=== PATIENT | male | born 1955 | race Caucasian/White ===

== ENCOUNTER 2018-01-19 10:10 | Inpatient (IN) | payer SELFPAY, OTHER ==
[2018-01-19 11:24] LABS: ADD MAN DIFF? NO
[2018-01-19 11:40] LABS: ANION GAP 12 (6-14); BLOOD UREA NITROGEN 74 mg/dL (8-26); BUN/CREATININE RATIO 19 (6-20); CALCIUM 8.6 mg/dL (8.5-10.1); CARBON DIOXIDE 23 mmol/L (21-32); CHLORIDE 98 mmol/L (98-107); CREATININE 3.9 mg/dL (0.7-1.3); GFR 15.7; GLUCOSE 137 mg/dL (70-99); POTASSIUM 4.3 mmol/L (3.5-5.1); SODIUM 133 mmol/L (136-145)
[2018-01-19 11:47] LABS: ALBUMIN 3.9 g/dL (3.4-5.0); ALBUMIN/GLOBULIN RATIO 1.1 (1.0-1.7); ALK PHOS 154 U/L (46-116); ALT (SGPT) 20 U/L (16-63); AST (SGOT) 21 U/L (15-37); TOTAL BILIRUBIN 0.4 mg/dL (0.2-1.0); TOTAL PROTEIN 7.5 g/dL (6.4-8.2)
[2018-01-19 11:50] LABS: TROPONINI < 0.017 ng/mL (0.000-0.055)
[2018-01-19 11:51] LABS: BASO # 0.1 x10^3/uL (0.0-0.2); BASO % 1 % (0-3); EOS # 0.3 x10^3/uL (0.0-0.7); EOS % 4 % (0-3); HEMATOCRIT 43.3 % (39.0-53.0); HEMOGLOBIN 14.6 g/dL (13.0-17.5); LYMPH % 24 % (24-48); MEAN CORPUSCULAR HEMOGLOBIN 30 pg (25-35); MEAN CORPUSCULAR HGB CONC 34 g/dL (31-37); MEAN CORPUSCULAR VOLUME 90 fL (79-100); MONO # 0.9 x10^3/uL (0.0-1.1); MONO % 12 % (0-9); NEUT # 4.8 x10^3uL (1.8-7.7); NEUT % 59 % (31-73); PLATELET COUNT 182 x10^3/uL (140-400); RED BLOOD COUNT 4.82 x10^6/uL (4.30-5.70); RED CELL DISTRIBUTION WIDTH 15.1 % (11.5-14.5); WHITE BLOOD COUNT 8.1 x10^3/uL (4.0-11.0)
[2018-01-19] MEDS: ORPHENADRINE CITRATE 60 MG/2 ML VIAL. IM (12:00)
[2018-01-19] MEDS: KETOROLAC 60 MG/2 ML INJ. IM (12:01)
[2018-01-19] MEDS: IV NORMAL SALINE 1000ML BAG 1,000 ML IV ×3 (12:29→17:24)
[2018-01-19 15:59] LABS: DIG 1.1 ng/mL (0.9-2.0)
[2018-01-19 16:41] LABS: BILIRUBIN,URINE SMALL (NEG); CLARITY,URINE CLEAR; COLOR,URINE AMBER; GLUCOSE,URINE NEGATIVE (NEG); NITRITE,URINE NEGATIVE (NEG); PROTEIN,URINE 100 mg/dL (NEG-TRACE)
[2018-01-19 17:01] LABS: AMORPHOUS SEDIMENT,UR PRESENT /HPF; BACTERIA,URINE 0 /HPF (0-FEW); HYALINE CASTS, URINE MANY /HPF; RBC,URINE OCC /HPF (0-2)
[2018-01-20] MEDS: IV NORMAL SALINE 1000ML BAG 1,000 ML IV ×3 (03:17→22:15)
[2018-01-20 04:48] LABS: ADD MAN DIFF? NO
[2018-01-20 04:54] LABS: BASO # 0.1 x10^3/uL (0.0-0.2); BASO % 1 % (0-3); EOS # 0.4 x10^3/uL (0.0-0.7); EOS % 6 % (0-3); HEMATOCRIT 42.5 % (39.0-53.0); HEMOGLOBIN 14.4 g/dL (13.0-17.5); LYMPH # 1.4 x10^3/uL (1.0-4.8); LYMPH % 19 % (24-48); MEAN CORPUSCULAR HEMOGLOBIN 31 pg (25-35); MEAN CORPUSCULAR HGB CONC 34 g/dL (31-37); MEAN CORPUSCULAR VOLUME 91 fL (79-100); MONO # 0.9 x10^3/uL (0.0-1.1); MONO % 13 % (0-9); NEUT # 4.3 x10^3uL (1.8-7.7); NEUT % 61 % (31-73); PLATELET COUNT 156 x10^3/uL (140-400); RED BLOOD COUNT 4.69 x10^6/uL (4.30-5.70); RED CELL DISTRIBUTION WIDTH 15.1 % (11.5-14.5)
[2018-01-20 05:20] LABS: ALBUMIN 3.3 g/dL (3.4-5.0); ALBUMIN/GLOBULIN RATIO 0.9 (1.0-1.7); ALK PHOS 138 U/L (46-116); ALT (SGPT) 19 U/L (16-63); ANION GAP 10 (6-14); AST (SGOT) 32 U/L (15-37); BLOOD UREA NITROGEN 63 mg/dL (8-26); BUN/CREATININE RATIO 32 (6-20); CALCIUM 8.2 mg/dL (8.5-10.1); CARBON DIOXIDE 24 mmol/L (21-32); CHLORIDE 104 mmol/L (98-107); CREATINE KINASE 563 U/L (39-308); GFR 33.9; GLUCOSE 90 mg/dL (70-99); POTASSIUM 4.3 mmol/L (3.5-5.1); SODIUM 138 mmol/L (136-145); TOTAL BILIRUBIN 0.5 mg/dL (0.2-1.0); TOTAL PROTEIN 6.9 g/dL (6.4-8.2)
[2018-01-20] MEDS ORDERED: NITROGLYCERIN SUBLINGUAL 0.4 MG BOTTLE OF 25. SL (08:15)
[2018-01-20] MEDS: CITALOPRAM 20 MG TABLET. PO (10:07)
[2018-01-20] MEDS: MULTIVITAMIN with MINERAL TABLET. PO (10:07)
[2018-01-20] MEDS: PANTOPRAZOLE 40 MG TABLET.DR. PO (10:08)
[2018-01-20] MEDS: CYANOCOBALAMIN (VITAMIN B-12) 1,000 MCG TABLET. PO (10:08)
[2018-01-20] MEDS: IPRATRPIUM/ALBUTEROL 0.5/2.5MG 3 ML NEBU. NEB ×4 (11:10→20:04)
[2018-01-20] MEDS: BUDESONIDE 0.5 MG/2 ML NEBU. NEB ×2 (11:13→20:04)
[2018-01-20] MEDS: DIGOXIN 125 MCG TABLET. PO (21:00)
[2018-01-20] MEDS: CETIRIZINE HCL 10 MG TABLET. PO (21:11)
[2018-01-20] MEDS: ASPIRIN CHEWABLE 81 MG TABLET. PO (21:11)
[2018-01-20] MEDS: VENLAFAXINE XR 37.5 MG CAP.ER.24H. PO (21:11)
[2018-01-21 04:43] LABS: ADD MAN DIFF? NO
[2018-01-21 04:56] LABS: BASO # 0.1 x10^3/uL (0.0-0.2); BASO % 1 % (0-3); EOS # 0.4 x10^3/uL (0.0-0.7); EOS % 8 % (0-3); HEMATOCRIT 38.1 % (39.0-53.0); HEMOGLOBIN 12.9 g/dL (13.0-17.5); LYMPH # 1.7 x10^3/uL (1.0-4.8); LYMPH % 30 % (24-48); MEAN CORPUSCULAR HEMOGLOBIN 31 pg (25-35); MEAN CORPUSCULAR HGB CONC 34 g/dL (31-37); MEAN CORPUSCULAR VOLUME 90 fL (79-100); MONO # 0.6 x10^3/uL (0.0-1.1); MONO % 11 % (0-9); NEUT # 2.8 x10^3uL (1.8-7.7); NEUT % 50 % (31-73); PLATELET COUNT 144 x10^3/uL (140-400); RED BLOOD COUNT 4.23 x10^6/uL (4.30-5.70); RED CELL DISTRIBUTION WIDTH 15.3 % (11.5-14.5); WHITE BLOOD COUNT 5.7 x10^3/uL (4.0-11.0)
[2018-01-21 05:05] LABS: ANION GAP 6 (6-14); BLOOD UREA NITROGEN 39 mg/dL (8-26); CALCIUM 7.9 mg/dL (8.5-10.1); CARBON DIOXIDE 25 mmol/L (21-32); CHLORIDE 109 mmol/L (98-107); CREATINE KINASE 267 U/L (39-308); CREATININE 1.2 mg/dL (0.7-1.3); GFR 61.1; GLUCOSE 89 mg/dL (70-99); POTASSIUM 4.2 mmol/L (3.5-5.1); SODIUM 140 mmol/L (136-145)
[2018-01-21] MEDS: BUDESONIDE 0.5 MG/2 ML NEBU. NEB (08:06)
[2018-01-21] MEDS: IPRATRPIUM/ALBUTEROL 0.5/2.5MG 3 ML NEBU. NEB ×2 (08:06→11:50)
[2018-01-21] MEDS: IV NORMAL SALINE 1000ML BAG 1,000 ML IV (08:15)
[2018-01-21] MEDS: MULTIVITAMIN with MINERAL TABLET. PO (08:42)
[2018-01-21] MEDS: PANTOPRAZOLE 40 MG TABLET.DR. PO (08:42)
[2018-01-21] MEDS: CITALOPRAM 20 MG TABLET. PO (08:42)
[2018-01-21] MEDS: CYANOCOBALAMIN (VITAMIN B-12) 1,000 MCG TABLET. PO (08:42)
== END 2018-01-21 13:11 | disposition home or self-care (01) | DRG 315 ==
LOC: 2 SOUTH 14:38 → ER 10:10 → 5 SOUTH 13:55 → 2 SOUTH 14:47
DX: I95.9 Hypotension, unspecified (principal); N17.9 Acute kidney failure, unspecified; E44.0 Moderate protein-calorie malnutrition; Z68.1 Body mass index [BMI] 19.9 or less, adult; T67.5XXA Heat exhaustion, unspecified, initial encounter; E86.0 Dehydration; K21.9 Gastro-esophageal reflux disease without esophagitis; E78.00 Pure hypercholesterolemia, unspecified; I25.10 Atherosclerotic heart disease of native coronary artery without angina pectoris; E78.5 Hyperlipidemia, unspecified; F41.9 Anxiety disorder, unspecified; F32.9 Major depressive disorder, single episode, unspecified; N18.9 Chronic kidney disease, unspecified; J44.9 Chronic obstructive pulmonary disease, unspecified; I12.9 Hypertensive chronic kidney disease with stage 1 through stage 4 chronic kidney disease, or unspecified chronic kidney disease; K57.90 Diverticulosis of intestine, part unspecified, without perforation or abscess without bleeding; F17.290 Nicotine dependence, other tobacco product, uncomplicated; I73.9 Peripheral vascular disease, unspecified; J30.9 Allergic rhinitis, unspecified; K64.8 Other hemorrhoids; M19.90 Unspecified osteoarthritis, unspecified site; X30.XXXA Exposure to excessive natural heat, initial encounter; Z88.1 Allergy status to other antibiotic agents; Z88.0 Allergy status to penicillin; Z87.11 Personal history of peptic ulcer disease; Z87.442 Personal history of urinary calculi; Z82.49 Family history of ischemic heart disease and other diseases of the circulatory system; Z83.3 Family history of diabetes mellitus
CPT/HCPCS: 36415; 71046; 76770; 80048; 80053; 80162; 81001; 82550; 83735; 84484; 85025; 93005; 94640; 94760; 96372; 99285; 99285-25; J1885; J2360; J7030; J7620; J7626

== ENCOUNTER 2018-05-02 16:39 | Emergency (ER) | payer SELFPAY ==
[~2018-05-02] VITALS: Ht 182.9 cm; Wt 67.1 kg
[~2018-05-02 16:39] MED LIST: AMLO5TAB7 PO; ASPI-630 PO; BUDE10.2 IH; CETI10TA22 PO; CYAN100031 PO; CYAN10005 PO; DICL100G18 TP; DIGO125T PO; ESCITALOPRAM OX10 MG PO; HYDR12.53 PO; Hydrocodone/Acetaminophen PO; IV NORMAL SALINE 1000ML BAG 1,000 ML IV SCH; LISI10TA2 PO; METO25TA4 PO; MULT-246 PO; MUPI15CR8 TP; NITR0.4T SL; OMEP40CA5 PO; POTA20TA82 PO; SIMV20TA3 PO; VENL75TA PO; [UNRECOGNIZED DRUG - CODE] IV
--- NOTE | 2018-05-02 17:05 | PHYS DOC ---
Past Medical History Past Medical History: DVT, GERD, High Cholesterol, Hypertension, Other Additional Past Medical Histor: STOMACH ULCERS, BRADYCARDIA Past Surgical History: Pacemaker, Other Additional Past Surgical Histo: dental surgery, ulcer surgery, back surgery Past Surgical History aortic valve replaced 2016 Alcohol Use: None Drug Use: None Adult General Chief Complaint Chief Complaint: ABDOMINAL PAIN HPI HPI 62-year-old male is sent for evaluation of left lower quadrant abdominal pain since yesterday. He reports nausea but no vomiting. Denies history of diverticulitis. He denies fevers, urinary symptoms, diarrhea or constipation. Patient denies shortness of air or chest pain. Review of Systems Review of Systems Constitutional: Denies fever or chills [] Eyes: Denies change in visual acuity, redness, or eye pain [] HENT: Denies nasal congestion or sore throat [] Respiratory: Denies cough or shortness of breath [] Cardiovascular: No additional information not addressed in HPI [] Musculoskeletal: Denies back pain or joint pain [] Integument: Denies rash or skin lesions [] Neurologic: Denies headache, focal weakness or sensory changes [] Endocrine: Denies polyuria or polydipsia [] All other systems were reviewed and found to be within normal limits, except as documented in this note. Current Medications Current Medications Current Medications Medications (Trade) Dose Ordered Sig/Trista Start Time Stop Time Status Last Admin Dose Admin Ciprofloxacin/ Dextrose 200 ml @ 200 mls/hr 1X ONCE 05/02/18 20:00 05/02/18 20:59 05/02/18 19:59 200 MLS/HR Famotidine (Pepcid Vial) 20 mg 1X ONCE 05/02/18 19:45 05/02/18 19:46 DC 05/02/18 19:51 20 MG Fentanyl Citrate (Fentanyl 2ml Vial) 25 mcg 1X ONCE 05/02/18 17:15 05/02/18 17:16 DC 05/02/18 17:30 25 MCG Info (CONTRAST GIVEN -- Rx MONITORING) 1 each PRN DAILY PRN 05/02/18 17:45 05/04/18 17:44 Iohexol (Omnipaque 300 Mg/ml) 75 ml 1X ONCE 05/02/18 18:00 05/02/18 18:01 DC 05/02/18 17:47 75 ML Metronidazole 100 ml @ 100 mls/hr 1X ONCE 05/02/18 19:30 05/02/18 20:29 DC 05/02/18 19:51 100 MLS/HR Nitroglycerin (Nitrostat) 0.4 mg PRN Q5MIN PRN 05/02/18 18:45 05/02/18 19:16 0.4 MG Ondansetron HCl (Zofran) 4 mg 1X ONCE 05/02/18 17:15 05/02/18 17:16 DC 05/02/18 17:31 4 MG Sodium Chloride 1,000 ml @ 1,000 mls/hr Q1H 05/02/18 17:15 05/02/18 18:14 DC 05/02/18 17:15 1,000 MLS/HR Allergies Allergies Allergies Coded Allergies Type Severity Reaction Last Updated Verified Penicillins Allergy Severe swelling 12/06/13 Yes vancomycin Adverse Reaction Unknown 11/03/14 Yes Physical Exam Physical Exam Constitutional: Well developed, well nourished, no acute distress, non-toxic appearance. [] Neck: Normal range of motion, no tenderness, supple, no stridor. [] Cardiovascular:Heart rate regular rhythm [] Lungs & Thorax: Bilateral breath sounds clear to auscultation [] Abdomen: Bowel sounds normal, soft, TTP LLQ, no masses, no pulsatile masses. [] Skin: Warm, dry, no erythema, no rash. [] Extremities: No tenderness, no cyanosis, no clubbing, ROM intact, no edema. [] Neurologic: Alert and oriented X 3, normal motor function, normal sensory function, no focal deficits noted. [] Psychologic: Affect normal, judgement normal, mood normal. [] Current Patient Data Vital Signs Vital Signs Date Time Temp Pulse Resp B/P (MAP) Pulse Ox O2 Delivery O2 Flow Rate FiO2 05/02/18 20:00 52 16 161/78 (105) 98 Room Air 05/02/18 16:58 98.1 98.1 Lab Values Laboratory Tests Test 05/02/18 16:56 05/02/18 19:18 05/02/18 19:43 White Blood Count 6.0 x10^3/uL (4.0-11.0) Red Blood Count 4.31 x10^6/uL (4.30-5.70) Hemoglobin 13.8 g/dL (13.0-17.5) Hematocrit 40.3 % (39.0-53.0) Mean Corpuscular Volume 94 fL (79-100) Mean Corpuscular Hemoglobin 32 pg (25-35) Mean Corpuscular Hemoglobin Concent 34 g/dL (31-37) Red Cell Distribution Width 15.4 % (11.5-14.5) H Platelet Count 168 x10^3/uL (140-400) Neutrophils (%) (Auto) 62 % (31-73) Lymphocytes (%) (Auto) 23 % (24-48) L Monocytes (%) (Auto) 10 % (0-9) H Eosinophils (%) (Auto) 4 % (0-3) H Basophils (%) (Auto) 1 % (0-3) Neutrophils # (Auto) 3.7 x10^3uL (1.8-7.7) Lymphocytes # (Auto) 1.4 x10^3/uL (1.0-4.8) Monocytes # (Auto) 0.6 x10^3/uL (0.0-1.1) Eosinophils # (Auto) 0.2 x10^3/uL (0.0-0.7) Basophils # (Auto) 0.1 x10^3/uL (0.0-0.2) Sodium Level 143 mmol/L (136-145) Potassium Level 3.9 mmol/L (3.5-5.1) Chloride Level 105 mmol/L (98-107) Carbon Dioxide Level 30 mmol/L (21-32) Anion Gap 8 (6-14) Blood Urea Nitrogen 12 mg/dL (8-26) Creatinine 1.1 mg/dL (0.7-1.3) Estimated GFR (Cockcroft-Gault) 67.6 BUN/Creatinine Ratio 11 (6-20) Glucose Level 97 mg/dL (70-99) Calcium Level 8.8 mg/dL (8.5-10.1) Total Bilirubin 0.4 mg/dL (0.2-1.0) Aspartate Amino Transferase (AST) 14 U/L (15-37) L Alanine Aminotransferase (ALT) 18 U/L (16-63) Alkaline Phosphatase 144 U/L (46-116) H Creatine Kinase 83 U/L (39-308) Creatine Kinase MB (Mass) 1.2 ng/mL (0.0-3.6) Creatine Kinase MB Relative Index 1.4 % (0-4) Total Protein 7.1 g/dL (6.4-8.2) Albumin 3.6 g/dL (3.4-5.0) Albumin/Globulin Ratio 1.0 (1.0-1.7) Lipase 260 U/L (73-393) POC Troponin I 0.00 ng/ml (<0.08) Urine Collection Type Unknown Urine Color Yellow Urine Clarity Clear Urine pH 6.0 Urine Specific [place] >=1.030 Urine Protein Negative mg/dL (NEG-TRACE) Urine Glucose (UA) Negative mg/dL (NEG) Urine Ketones (Stick) Negative mg/dL (NEG) Urine Blood Negative (NEG) Urine Nitrite Negative (NEG) Urine Bilirubin Negative (NEG) Urine Urobilinogen Dipstick 2.0 mg/dL (0.2 mg/dL) Urine Leukocyte Esterase Negative (NEG) Urine RBC Occ /HPF (0-2) Urine WBC 1-4 /HPF (0-4) Urine Squamous Epithelial Cells Occ /LPF Urine Bacteria 0 /HPF (0-FEW) Urine Mucus Slight /LPF Laboratory Tests 05/02/18 16:56 Laboratory Tests 05/02/18 16:56 EKG EKG [EKG interpretation sinus rhythm, rate 50, no STEMI, read by ER physician.] Radiology/Procedures Radiology/Procedures [PROCEDURE: CT ABD PELV W/ IV CONTRST ONLY Examination: CT of the abdomen pelvis with IV contrast HISTORY: History of left lower quadrant abdominal pain COMPARISON: None available TECHNIQUE: Axial CT images of the abdomen pelvis performed with IV contrast. Coronal and sagittal reformats are performed Exposure: One or more of the following individualized dose reduction techniques were utilized for this examination: 1. Automated exposure control 2. Adjustment of the mA and/or kV according to patient size 3. Use of iterative reconstruction technique FINDINGS: Bibasilar lung atelectasis is identified. No evidence of free air identified in the abdomen. There is mild decreased attenuation noted throughout the liver likely hepatic steatosis. The visualized spleen, adrenals grossly appears unremarkable. The gallbladder is mildly distended. The stomach is mildly distended. The visualized pancreas grossly appears unremarkable. There is thickened appearance of the wall of the duodenum with mild surrounding fat stranding. The small bowel is nondilated. The appendix is normal. Feces and gas noted in the colon. The bilateral kidneys enhance symmetrically. A bilobed infrarenal abdominal aortic aneurysm identified measuring 3.1 cm in AP dimension, 3.1 cm in transverse dimension. Diffuse aortic atherosclerosis. Urinary bladder is mildly distended. Mild degenerative changes lumbar spine. IMPRESSION: 1. Thickened appearance of the wall of the duodenum with surrounding mild fat stranding probably duodenitis. 2. Mild hepatic steatosis. 3. Bilobed infrarenal abdominal aortic aneurysm. Electronically signed by: Lew Hurd MD (05/02/2018 6:05 PM) [id number] ] Impressions: duodenitis, chest pain Course & Med Decision Making Course & Med Decision Making Pertinent Labs and Imaging studies reviewed. (See chart for details) [During the patient's ER course, I was notified by the RN that patient was complaining of chest pain, EKG, cardiac enzymes and chest x-ray were ordered. Nitroglycerin ordered for pain. patient reports 0 out of 10 pain upon recheck. Heart score 2. Discussed CT findings and lab results, patient states he is no longer having any pain and would like to be discharged home on medications so he may follow- up with Dr. Pham. Case was d/w Dr Benavidez who agrees c plan of care and discharge if pain free] Dragon Disclaimer Dragon Disclaimer This electronic medical record was generated, in whole or in part, using a voice recognition dictation system. Departure Departure Impression: Primary Impression: Duodenitis Additional Impression: Chest pain Disposition: HOME, SELF-CARE Condition: STABLE Referrals: IDA PHAM MD (PCP) Patient Instructions: Abdominal Pain Scripts Famotidine (PEPCID AC) 20 Mg Tablet 20 MG PO HS for 14 Days, #14 TAB Prov: HUE BELTRÁN APRN 05/02/18 Ciprofloxacin Hcl (CIPROFLOXACIN HCL) 500 Mg Tablet 1 TAB PO BID, #14 TAB Prov: HUE BELTRÁN APRN 05/02/18 Metronidazole (METRONIDAZOLE) 500 Mg Tablet 1 TAB PO BID, #14 TAB Prov: HUE BELTRÁN APRN 05/02/18 Problem Qualifiers HUE BELTRÁN APRN May 02, 2018 17:05
[2018-05-02 17:10] LABS: BASO # 0.1 x10^3/uL (0.0-0.2); BASO % 1 % (0-3); EOS # 0.2 x10^3/uL (0.0-0.7); EOS % 4 % (0-3); HEMATOCRIT 40.3 % (39.0-53.0); HEMOGLOBIN 13.8 g/dL (13.0-17.5); LYMPH # 1.4 x10^3/uL (1.0-4.8); LYMPH % 23 % (24-48); MEAN CORPUSCULAR HEMOGLOBIN 32 pg (25-35); MEAN CORPUSCULAR HGB CONC 34 g/dL (31-37); MEAN CORPUSCULAR VOLUME 94 fL (79-100); MONO # 0.6 x10^3/uL (0.0-1.1); MONO % 10 % (0-9); NEUT # 3.7 x10^3uL (1.8-7.7); NEUT % 62 % (31-73); PLATELET COUNT 168 x10^3/uL (140-400); RED BLOOD COUNT 4.31 x10^6/uL (4.30-5.70); RED CELL DISTRIBUTION WIDTH 15.4 % (11.5-14.5)
[2018-05-02] MEDS ORDERED: fentaNYL PF VIAL 100 MCG/2 ML VIAL IV ONE (17:15)
[2018-05-02] MEDS ORDERED: ONDANSETRON PF 4 MG/2 ML VIAL. IV ONE (17:15)
[2018-05-02] MEDS ORDERED: IV NORMAL SALINE 1000ML BAG 1,000 ML IV SCH (17:15)
[2018-05-02 17:31] LABS: CALCIUM 8.8 mg/dL (8.5-10.1); CREATININE 1.1 mg/dL (0.7-1.3); GFR 67.6; POTASSIUM 3.9 mmol/L (3.5-5.1)
[2018-05-02 17:37] LABS: ALBUMIN 3.6 g/dL (3.4-5.0); TOTAL BILIRUBIN 0.4 mg/dL (0.2-1.0); TOTAL PROTEIN 7.1 g/dL (6.4-8.2)
[2018-05-02] MEDS ORDERED: CONTRAST GIVEN. MC PRN (17:45)
[2018-05-02] MEDS ORDERED: IOHEXOL 300 MG/ML 100ML VIAL. IV ONE (18:00)
--- NOTE | 2018-05-02 18:08 | RAD ---
Examination: CT of the abdomen pelvis with IV contrast HISTORY: History of left lower quadrant abdominal pain COMPARISON: None available TECHNIQUE: Axial CT images of the abdomen pelvis performed with IV contrast. Coronal and sagittal reformats are performed Exposure: One or more of the following individualized dose reduction techniques were utilized for this examination: 1. Automated exposure control 2. Adjustment of the mA and/or kV according to patient size 3. Use of iterative reconstruction technique FINDINGS: Bibasilar lung atelectasis is identified. No evidence of free air identified in the abdomen. There is mild decreased attenuation noted throughout the liver likely hepatic steatosis. The visualized spleen, adrenals grossly appears unremarkable. The gallbladder is mildly distended. The stomach is mildly distended. The visualized pancreas grossly appears unremarkable. There is thickened appearance of the wall of the duodenum with mild surrounding fat stranding. The small bowel is nondilated. The appendix is normal. Feces and gas noted in the colon. The bilateral kidneys enhance symmetrically. A bilobed infrarenal abdominal aortic aneurysm identified measuring 3.1 cm in AP dimension, 3.1 cm in transverse dimension. Diffuse aortic atherosclerosis. Urinary bladder is mildly distended. Mild degenerative changes lumbar spine. IMPRESSION: 1. Thickened appearance of the wall of the duodenum with surrounding mild fat stranding probably duodenitis. 2. Mild hepatic steatosis. 3. Bilobed infrarenal abdominal aortic aneurysm. Electronically signed by: Lew Hurd MD (05/02/2018 6:05 PM) [facility]
[2018-05-02] MEDS ORDERED: NITROGLYCERIN SUBLINGUAL 0.4 MG BOTTLE OF 25. SL PRN (18:45)
[2018-05-02] MEDS ORDERED: FAMOTIDINE 20 MG/2 ML VIAL IVP ONE (19:45)
[2018-05-02 19:51] LABS: BILIRUBIN,URINE NEGATIVE (NEG); CLARITY,URINE CLEAR; COLOR,URINE YELLOW; NITRITE,URINE NEGATIVE (NEG); PROTEIN,URINE NEGATIVE (NEG-TRACE)
[2018-05-02] MEDS ORDERED: CIPROFLOXACIN 400MG PREMIX 200 ML IV ONE (20:00)
[2018-05-02 20:11] LABS: BACTERIA,URINE 0 /HPF (0-FEW); RBC,URINE OCC /HPF (0-2)
[2018-05-02 20:12] LABS: SQUAMOUS EPITHELIAL CELL,UR OCC /LPF
[2018-05-02] MEDS ORDERED: CIPR500T PO (20:20)
[2018-05-02] MEDS ORDERED: METR500T8 PO (20:20)
[2018-05-02] MEDS ORDERED: FAMO20TA38 PO (20:20)
[2018-05-02 21:00] VITALS: BP 160/75
--- NOTE | 2018-05-02 22:34 | EKG ---
[facility] [address] [place] [address] Test Date: 2018-05-02 Test Time: 18:17:18 Pat Name: DORIS HAN Department: Room: Gender: M [employer]age Diver: : 1955 Requested By: HUE BELTRÁN Order Number: [id number] Reading MD: Daniel Mariano MD Measurements Intervals [place] Rate: 50 P: 56 [place]: 168 QRS: 62 QRSD: 94 T: 81 QT: 460 QTc: 422 Interpretive Statements SINUS RHYTHM Electronically Signed On 05-03-2018 9:43:47 CDT by Daniel Mariano MD
--- NOTE | 2018-05-02 23:47 | RAD ---
Indication:ABDOMINAL PAIN X1 MONTH. ACUTE CHEST PAIN HAPPENING X1 HOUR AGO. PREVIOUS HEART SURGERY TECHNIQUE:Portable AP chest X-ray COMPARISON: 01/19/2018 FINDINGS: CABG changes noted. Heart is normal in size. Lungs are clear. No pneumothorax or pleural effusion. Visualized bony thorax within normal limits. IMPRESSION: No acute pulmonary process. Electronically signed by: Celestino Pham DO (05/02/2018 11:44 PM) [facility]
== END 2018-05-02 21:27 | disposition home or self-care (01) ==
LOC: ER 16:39
DX: K29.80 Duodenitis without bleeding (principal); R07.89 Other chest pain; Z86.718 Personal history of other venous thrombosis and embolism; K21.9 Gastro-esophageal reflux disease without esophagitis; E78.00 Pure hypercholesterolemia, unspecified; I10 Essential (primary) hypertension; Z95.0 Presence of cardiac pacemaker; Z88.0 Allergy status to penicillin; Z88.1 Allergy status to other antibiotic agents
CPT/HCPCS: 36415; 71045; 74177; 80053; 81001; 82553; 83690; 84484; 85025; 93005; 96365; 96366; 96368; 96375; 99285; J0744; J2405; J3010; J3490; J7030; Q9967

== ENCOUNTER → 2018-08-29 | Outpatient (CLI) | payer OTHER ==
[~2018-08-29] MED LIST changes: +AMLO5TAB10 PO; -AMLO5TAB7 PO; +CIPR500T PO; +FAMO20TA38 PO; -HYDR12.53 PO; +HYDR12.575 PO; -IV NORMAL SALINE 1000ML BAG 1,000 ML IV SCH; +METR-34 PO
--- NOTE | 2018-08-30 08:34 | RAD ---
Chest, 2 views, 08/29/2018: HISTORY: Chronic cough Comparison is made to a study from 05/02/2018. There has been a previous median sternotomy. Old epicardial pacing leads are projected over the anterior aspect of the heart. The heart size is normal. There is calcific plaquing of the aorta. There are minimal parenchymal scars. No acute infiltrate is seen. There is no evidence of pleural fluid. IMPRESSION: No acute cardiopulmonary abnormality is detected. Electronically signed by: Shahab Magallon MD (08/30/2018 8:31 AM) [facility]
== END | disposition home or self-care (01) ==
LOC: RAD 16:34
PROVIDERS: ATTEND Internal Medicine
DX: R05 Cough (principal)
CPT/HCPCS: 71046

== ENCOUNTER 2018-10-06 03:58 | Emergency (ER) | payer OTHER ==
[~2018-10-06] VITALS: Ht 182.9 cm; Wt 70.8 kg
[~2018-10-06 03:58] MED LIST changes: +VANC1.2521 IV; -[UNRECOGNIZED DRUG - CODE] IV
[2018-10-06] MEDS ORDERED: IV NORMAL SALINE 1000ML BAG 1,000 ML IV ONE (04:30)
[2018-10-06 04:40] LABS: BASO # 0.1 x10^3/uL (0.0-0.2); BASO % 1 % (0-3); EOS # 0.2 x10^3/uL (0.0-0.7); EOS % 3 % (0-3); HEMATOCRIT 39.5 % (39.0-53.0); HEMOGLOBIN 12.9 g/dL (13.0-17.5); LYMPH # 1.1 x10^3/uL (1.0-4.8); LYMPH % 21 % (24-48); MEAN CORPUSCULAR HEMOGLOBIN 29 pg (25-35); MEAN CORPUSCULAR HGB CONC 33 g/dL (31-37); MEAN CORPUSCULAR VOLUME 87 fL (79-100); MONO # 0.8 x10^3/uL (0.0-1.1); MONO % 16 % (0-9); NEUT # 3.2 x10^3uL (1.8-7.7); NEUT % 59 % (31-73); PLATELET COUNT 166 x10^3/uL (140-400); RED BLOOD COUNT 4.53 x10^6/uL (4.30-5.70); RED CELL DISTRIBUTION WIDTH 15.8 % (11.5-14.5); WHITE BLOOD COUNT 5.4 x10^3/uL (4.0-11.0)
[2018-10-06] MEDS ORDERED: KETOROLAC 15 MG/ML VIAL. IV ONE (04:45)
[2018-10-06] MEDS ORDERED: METOCLOPRAMIDE HCL 10 MG/2 ML VIAL. IV ONE (04:45)
--- NOTE | 2018-10-06 04:51 | PHYS DOC ---
Past Medical History Past Medical History: Hypertension Additional Past Medical Histor: STOMACH ULCERS, BRADYCARDIA, abd aneurysm Past Surgical History: Other Additional Past Surgical Histo: OPEN HEART SURGERY FOR VALVUE REPAIR Alcohol Use: None Drug Use: None Adult General Chief Complaint Chief Complaint: FLANK PAIN HPI HPI Patient is a 62 year old male who presents to the ED with left flank and back pain. This started about 2 hours before he presented to the ED at 1 in the morning. Reports it as an 8/10 stabbing pain that starts in his left flank and radiates around his side and into his lower abdominal area. Lying down helps the pain. Sitting up and standing aggravates the pain. His tried nothing to help with the symptoms. He reports he has had this pain before and was diagnosed with a kidney stone. Review of Systems Review of Systems Constitutional: Denies fever or chills [] Eyes: Denies change in visual acuity, redness, or eye pain [] HENT: Denies nasal congestion or sore throat [] Respiratory: Denies cough or shortness of breath [] Cardiovascular: Denies chest pain or palpitations. GI: Admits abdominal pain. Denies nausea, vomiting, bloody stools or diarrhea [] : Denies dysuria. Admits hematuria [] Musculoskeletal: Admits back pain. Denies joint pain [] Integument: Denies rash or skin lesions [] Neurologic: Denies headache, focal weakness or sensory changes [] Complete systems were reviewed and found to be within normal limits, except as documented in this note. Current Medications Current Medications Current Medications Medications (Trade) Dose Ordered Sig/Trista Start Time Stop Time Status Last Admin Dose Admin Ketorolac Tromethamine (Toradol 15mg Vial) 15 mg 1X ONCE 10/06/18 04:45 10/06/18 04:46 DC 10/06/18 04:47 15 MG Metoclopramide HCl (Reglan Vial) 10 mg 1X ONCE 10/06/18 04:45 10/06/18 04:46 DC 10/06/18 04:47 10 MG Sodium Chloride 1,000 ml @ 1,000 mls/hr 1X ONCE 10/06/18 04:30 10/06/18 05:29 DC 10/06/18 04:36 1,000 MLS/HR Tamsulosin HCl (Flomax) 0.4 mg 1X ONCE 10/06/18 06:00 10/06/18 06:01 DC 10/06/18 06:03 0.4 MG Allergies Allergies Allergies Coded Allergies Type Severity Reaction Last Updated Verified Penicillins Allergy Severe swelling 12/06/13 Yes vancomycin Adverse Reaction Unknown 11/03/14 Yes Physical Exam Physical Exam Constitutional: Well developed, well nourished, no acute distress, non-toxic appearance. [] HENT: Normocephalic, atraumatic, nose normal. [] Eyes: EOMI, conjunctiva normal, no discharge. [] Neck: Normal range of motion, no tenderness, supple, no stridor. [] Cardiovascular: Heart rate regular rhythm, no murmur [] Lungs & Thorax: Bilateral breath sounds clear to auscultation [] Abdomen: Soft, tender to palpation left lower quadrant. Skin: Warm, dry, no erythema, no rash. [] Back: Left CVA and lumbar tenderness. No midline tenderness. Extremities: No tenderness, no cyanosis, no clubbing, ROM intact Neurologic: Alert and oriented, normal motor function, normal sensory function, no focal deficits noted. [] Psychologic: Affect normal, judgement normal, mood normal. [] Current Patient Data Vital Signs Vital Signs Date Time Temp Pulse Resp B/P (MAP) Pulse Ox O2 Delivery O2 Flow Rate FiO2 10/06/18 06:06 50 20 140/64 (89) 96 10/06/18 04:05 97.8 Room Air 97.8 Lab Values Laboratory Tests Test 10/06/18 04:20 10/06/18 04:35 White Blood Count 5.4 x10^3/uL (4.0-11.0) Red Blood Count 4.53 x10^6/uL (4.30-5.70) Hemoglobin 12.9 g/dL (13.0-17.5) L Hematocrit 39.5 % (39.0-53.0) Mean Corpuscular Volume 87 fL (79-100) Mean Corpuscular Hemoglobin 29 pg (25-35) Mean Corpuscular Hemoglobin Concent 33 g/dL (31-37) Red Cell Distribution Width 15.8 % (11.5-14.5) H Platelet Count 166 x10^3/uL (140-400) Neutrophils (%) (Auto) 59 % (31-73) Lymphocytes (%) (Auto) 21 % (24-48) L Monocytes (%) (Auto) 16 % (0-9) H Eosinophils (%) (Auto) 3 % (0-3) Basophils (%) (Auto) 1 % (0-3) Neutrophils # (Auto) 3.2 x10^3uL (1.8-7.7) Lymphocytes # (Auto) 1.1 x10^3/uL (1.0-4.8) Monocytes # (Auto) 0.8 x10^3/uL (0.0-1.1) Eosinophils # (Auto) 0.2 x10^3/uL (0.0-0.7) Basophils # (Auto) 0.1 x10^3/uL (0.0-0.2) Sodium Level 143 mmol/L (136-145) Potassium Level 3.4 mmol/L (3.5-5.1) L Chloride Level 105 mmol/L (98-107) Carbon Dioxide Level 33 mmol/L (21-32) H Anion Gap 5 (6-14) L Blood Urea Nitrogen 15 mg/dL (8-26) Creatinine 1.1 mg/dL (0.7-1.3) Estimated GFR (Cockcroft-Gault) 67.6 BUN/Creatinine Ratio 14 (6-20) Glucose Level 83 mg/dL (70-99) Calcium Level 8.4 mg/dL (8.5-10.1) L Magnesium Level 2.2 mg/dL (1.8-2.4) Total Bilirubin 0.5 mg/dL (0.2-1.0) Aspartate Amino Transferase (AST) 19 U/L (15-37) Alanine Aminotransferase (ALT) 14 U/L (16-63) L Alkaline Phosphatase 134 U/L (46-116) H Total Protein 6.9 g/dL (6.4-8.2) Albumin 3.2 g/dL (3.4-5.0) L Albumin/Globulin Ratio 0.9 (1.0-1.7) L Lipase 133 U/L (73-393) Digoxin Level < 0.2 ng/mL (0.9-2.0) L Digoxin Last Dose Date Unknown Digoxin Last Dose Time Unknown Lactic Acid Level 0.8 mmol/L (0.4-2.0) Laboratory Tests 10/06/18 04:20 Laboratory Tests 10/06/18 04:20 EKG EKG [] Radiology/Procedures Radiology/Procedures PROCEDURE: CT ABDOMEN PELVIS WO CONTRAST CT scan of the abdomen and pelvis without contrast 09/28/2018 CLINICAL HISTORY: Left flank pain. TECHNIQUE: Unenhanced, contiguous, 2 mm axial sections were obtained through the abdomen and pelvis. One or more of the following individualized dose reduction techniques were utilized for this study: 1. Automated exposure control. 2. Adjustment of the mA and/or kV according to patient size. 3. Use of iterative reconstruction technique. FINDINGS: Comparison study is dated 05/02/2018. Images through the lung bases demonstrate minimal dependent subsegmental atelectasis bilaterally. The liver, spleen, pancreas, adrenal glands are within normal limits. A 2 mm nonobstructing calculus is seen involving the lower pole of the left kidney. No ureteral calculus is seen. Mild dilatation of the left intrarenal collecting system is seen. Within the proximal left ureter near the left UPJ there appears to be a 2 mm left ureteral calculus. This is causing mild obstruction of the left collecting system. Atherosclerotic calcification of the abdominal aorta and its branches is seen. The abdominal aorta is again noted to be ectatic. The gallbladder is well-distended. No free fluid or free air is seen within the abdomen. There is no evidence of bowel obstruction. Images through the pelvis demonstrate the urinary bladder distended with urine. A moderate amount of stool is seen involving the sigmoid colon and rectum. No free fluid is seen. Degenerative changes are seen involving the lower thoracic and throughout the lumbar spine and both hips. IMPRESSION: 2 mm proximal left ureteral calculus is seen near the left UPJ which is causing mild obstruction of the left collecting system. Electronically signed by: Dipesh Freitas MD (10/06/2018 5:07 AM) [facility] Course & Med Decision Making Course & Med Decision Making Pertinent Labs and Imaging studies reviewed. (See chart for details) Patient is a 62-year-old male presents to the ED with left flank pain. CT abdomen and labs pending Dragon Disclaimer Dragon Disclaimer This electronic medical record was generated, in whole or in part, using a voice recognition dictation system. Departure Departure Impression: Primary Impression: Kidney stone Disposition: 01 HOME, SELF-CARE Condition: STABLE Referrals: IDA CUMMINGS MD (PCP) Patient Instructions: Diet for Kidney Stones, Kidney Stones, [id number] Scripts Ondansetron (ONDANSETRON ODT) 4 Mg Tab.rapdis 1 TAB PO PRN Q6-8HRS PRN for NAUSEA, #16 TAB Prov: MARTINEZ SLOAN DO 10/06/18 Hydrocodone/Apap 5-325 (NORCO 5-325 TABLET) 1 Each Tablet 0.5-1 TAB PO PRN Q6HRS PRN for PAIN, #8 TAB 0 Refills Prov: MARTINEZ SLOAN DO 10/06/18 Tamsulosin Hcl (FLOMAX) 0.4 Mg Cap.er.24h 1 CAP PO DAILY, #7 CAP 0 Refills Prov: MARTINEZ SLOAN DO 10/06/18 MARTINEZ SLOAN DO Oct 06, 2018 04:51
[2018-10-06 04:53] LABS: CALCIUM 8.4 mg/dL (8.5-10.1); CREATININE 1.1 mg/dL (0.7-1.3); GFR 67.6; POTASSIUM 3.4 mmol/L (3.5-5.1)
[2018-10-06 04:59] LABS: ALBUMIN 3.2 g/dL (3.4-5.0); ALBUMIN/GLOBULIN RATIO 0.9 (1.0-1.7); MAGNESIUM 2.2 mg/dL (1.8-2.4); TOTAL BILIRUBIN 0.5 mg/dL (0.2-1.0); TOTAL PROTEIN 6.9 g/dL (6.4-8.2)
--- NOTE | 2018-10-06 05:10 | RAD ---
CT scan of the abdomen and pelvis without contrast 09/28/2018 CLINICAL HISTORY: Left flank pain. TECHNIQUE: Unenhanced, contiguous, 2 mm axial sections were obtained through the abdomen and pelvis. One or more of the following individualized dose reduction techniques were utilized for this study: 1. Automated exposure control. 2. Adjustment of the mA and/or kV according to patient size. 3. Use of iterative reconstruction technique. FINDINGS: Comparison study is dated 05/02/2018. Images through the lung bases demonstrate minimal dependent subsegmental atelectasis bilaterally. The liver, spleen, pancreas, adrenal glands are within normal limits. A 2 mm nonobstructing calculus is seen involving the lower pole of the left kidney. No ureteral calculus is seen. Mild dilatation of the left intrarenal collecting system is seen. Within the proximal left ureter near the left UPJ there appears to be a 2 mm left ureteral calculus. This is causing mild obstruction of the left collecting system. Atherosclerotic calcification of the abdominal aorta and its branches is seen. The abdominal aorta is again noted to be ectatic. The gallbladder is well-distended. No free fluid or free air is seen within the abdomen. There is no evidence of bowel obstruction. Images through the pelvis demonstrate the urinary bladder distended with urine. A moderate amount of stool is seen involving the sigmoid colon and rectum. No free fluid is seen. Degenerative changes are seen involving the lower thoracic and throughout the lumbar spine and both hips. IMPRESSION: 2 mm proximal left ureteral calculus is seen near the left UPJ which is causing mild obstruction of the left collecting system. Electronically signed by: Dipesh Freitas MD (10/06/2018 5:07 AM) [facility]
[2018-10-06 05:39] LABS: DIG < 0.2 ng/mL (0.9-2.0)
[2018-10-06] MEDS ORDERED: TAMSULOSIN 0.4 MG CAP.ER.24H. PO ONE (06:00)
[2018-10-06 06:06] VITALS: BP 140/64
[2018-10-06 06:40] LABS: BILIRUBIN,URINE NEGATIVE (NEG); CLARITY,URINE CLEAR; COLOR,URINE YELLOW; NITRITE,URINE NEGATIVE (NEG); PROTEIN,URINE NEGATIVE (NEG-TRACE)
[2018-10-06] MEDS ORDERED: HYDR-3164 PO (06:42)
[2018-10-06] MEDS ORDERED: ONDA4TAB12 PO (06:42)
[2018-10-06] MEDS ORDERED: TAMS0.4C97 PO (06:42)
[2018-10-06 06:45] LABS: SQUAMOUS EPITHELIAL CELL,UR FEW /LPF
[2018-10-06 06:46] LABS: BACTERIA,URINE FEW /HPF (0-FEW); RBC,URINE 0 /HPF (0-2); WBC,URINE OCC /HPF (0-4)
== END 2018-10-06 07:11 | disposition home or self-care (01) ==
LOC: ER 03:58
DX: N20.2 Calculus of kidney with calculus of ureter (principal); I10 Essential (primary) hypertension; Z88.0 Allergy status to penicillin; Z88.1 Allergy status to other antibiotic agents
CPT/HCPCS: 36415; 74176; 80053; 80162; 81001; 83605; 83690; 83735; 85025; 96374; 96375; 99284; J1885; J2765; J7030

== ENCOUNTER 2018-10-15 07:33 | Inpatient (IN) | payer OTHER ==
[~2018-10-15] VITALS: Ht 182.9 cm; Wt 69.4 kg
[~2018-10-15 07:33] MED LIST changes: +HYDR-3164 PO; +ONDA4TAB12 PO; +TAMS0.4C97 PO
[2018-10-15 08:51] LABS: BASO # 0.1 x10^3/uL (0.0-0.2); BASO % 1 % (0-3); EOS # 0.2 x10^3/uL (0.0-0.7); EOS % 3 % (0-3); HEMATOCRIT 41.2 % (39.0-53.0); HEMOGLOBIN 13.7 g/dL (13.0-17.5); LYMPH # 1.3 x10^3/uL (1.0-4.8); LYMPH % 22 % (24-48); MEAN CORPUSCULAR HEMOGLOBIN 29 pg (25-35); MEAN CORPUSCULAR HGB CONC 33 g/dL (31-37); MEAN CORPUSCULAR VOLUME 87 fL (79-100); MONO # 0.7 x10^3/uL (0.0-1.1); MONO % 13 % (0-9); NEUT # 3.4 x10^3uL (1.8-7.7); NEUT % 61 % (31-73); PLATELET COUNT 152 x10^3/uL (140-400); RED BLOOD COUNT 4.76 x10^6/uL (4.30-5.70); RED CELL DISTRIBUTION WIDTH 16.6 % (11.5-14.5); WHITE BLOOD COUNT 5.6 x10^3/uL (4.0-11.0)
[2018-10-15] MEDS ORDERED: IV NORMAL SALINE 500ML BAG 500 ML IV ONE (09:00)
[2018-10-15 09:03] LABS: PROTHROMBIN TIME PATIENT 13.4 SEC (11.7-14.0)
--- NOTE | 2018-10-15 09:05 | PHYS DOC ---
Past Medical History Past Medical History: CAD, COPD, Hypertension, [place], Stroke, Urolithiasis Additional Past Medical Histor: STOMACH ULCERS, BRADYCARDIA, abd aneurysm Past Surgical History: Other Additional Past Surgical Histo: OPEN HEART SURGERY FOR VALVE REPAIR, ulcer surgery Smoking: Cigar (50 year smoking history) Additional Information: 3-4 cigars daily Alcohol Use: None Drug Use: None Adult General Chief Complaint Chief Complaint: DIZZY/LIGHT HEADED HPI HPI Patient is a 62 year old male who presents with pre-syncopal episode with generalized, diffuse weakness. He reports that this morning at work, he was going to get coffee and talk with co-workers when he felt like he was going to pass out. He steadied himself on a nearby chair or table and decided to come to the ER. He denies LOC or falling. He reports chronic weakness in his R-shoulder which he attributes to tissue injury. He denies vision changed. He reports that he had a stone in his bladder last weak and that it passed. He reports hematuria during this time, but observed no blood in his urine in the last few days. He reports that his PCP recommended he get an MRI for a concern of a recent stroke but his insurance will not cover it. He has an extensive cardiac history with artificial heart valve replacement and revision, and pacemaker which was removed two years ago. He reports chronic SOB from COPD without recent exacerbation. 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 He denies f/c/n/ v/, CP, hematochezia. Review of Systems Review of Systems Constitutional: Denies fever or chills [] Eyes: Denies change in visual acuity, redness, or eye pain [] HENT: Denies nasal congestion or sore throat [] Respiratory: Denies cough. Reports chronic shortness of breath [] Cardiovascular: No additional information not addressed in HPI [] GI: Denies abdominal pain, nausea, vomiting, bloody stools or diarrhea [] : Denies dysuria or hematuria [] Musculoskeletal: Denies back pain or joint pain [] Integument: Denies rash or skin lesions [] Neurologic: Reports daily headaches that resolve on their own, he reports generalized, diffuse weakness. He denies sensory changes [] Endocrine: Denies polyuria or polydipsia [] All other systems were reviewed and found to be within normal limits, except as documented in this note. Current Medications Current Medications Current Medications Medications (Trade) Dose Ordered Sig/Trista Start Time Stop Time Status Last Admin Dose Admin Aspirin (Children'S Aspirin) 324 mg 1X ONCE 10/15/18 10:00 10/15/18 10:01 Sodium Chloride 500 ml @ 500 mls/hr 1X ONCE 10/15/18 09:00 10/15/18 09:59 10/15/18 09:31 500 MLS/HR see med list Allergies Allergies Allergies Coded Allergies Type Severity Reaction Last Updated Verified Penicillins Allergy Severe swelling 12/06/13 Yes vancomycin Adverse Reaction Intermediate 10/15/18 Yes Physical Exam Physical Exam Constitutional: Well developed, well nourished, no acute distress, non-toxic appearance. [] HENT: Normocephalic, atraumatic, bilateral external ears normal, oropharynx moist, no oral exudates, nose normal. [] Eyes: PERRLA, EOMI, conjunctiva normal, no discharge. [] Neck: Normal range of motion, no tenderness, supple, no stridor. [] Cardiovascular: Bradycardic heart rate, regular rhythm, 2/6 systolic murmur [] Lungs & Thorax: Expiratory wheezes R-lung posts, L-lung clear to auscultation, no wheezes, crackles or rales.[] Abdomen: Large distended, compressible varicose vein observed on L-lateral abdomen. Bowel sounds normal, soft, no tenderness, no masses, no pulsatile masses. [] Skin: Warm, dry, no erythema, no rash. [] Back: No tenderness, no CVA tenderness. [] Extremities: Right shoulder diminished ROM to extension. No tenderness, no cyanosis, no clubbing, no edema. [] Neurologic: Alert and oriented X 3, CN 2-11 intact, cerebellar testing negative , UE/LE str 5/5 b/l, normal motor function, normal sensory function, no focal deficits noted. [] Psychologic: Affect normal, judgement normal, mood normal. [] Current Patient Data Vital Signs Vital Signs Date Time Temp Pulse Resp B/P (MAP) Pulse Ox O2 Delivery O2 Flow Rate FiO2 10/15/18 09:29 87 20 97 10/15/18 07:42 97.8 164/81 (108) Room Air 97.8 Lab Values Laboratory Tests Test 10/15/18 08:25 White Blood Count 5.6 x10^3/uL (4.0-11.0) Red Blood Count 4.76 x10^6/uL (4.30-5.70) Hemoglobin 13.7 g/dL (13.0-17.5) Hematocrit 41.2 % (39.0-53.0) Mean Corpuscular Volume 87 fL (79-100) Mean Corpuscular Hemoglobin 29 pg (25-35) Mean Corpuscular Hemoglobin Concent 33 g/dL (31-37) Red Cell Distribution Width 16.6 % (11.5-14.5) H Platelet Count 152 x10^3/uL (140-400) Neutrophils (%) (Auto) 61 % (31-73) Lymphocytes (%) (Auto) 22 % (24-48) L Monocytes (%) (Auto) 13 % (0-9) H Eosinophils (%) (Auto) 3 % (0-3) Basophils (%) (Auto) 1 % (0-3) Neutrophils # (Auto) 3.4 x10^3uL (1.8-7.7) Lymphocytes # (Auto) 1.3 x10^3/uL (1.0-4.8) Monocytes # (Auto) 0.7 x10^3/uL (0.0-1.1) Eosinophils # (Auto) 0.2 x10^3/uL (0.0-0.7) Basophils # (Auto) 0.1 x10^3/uL (0.0-0.2) Prothrombin Time 13.4 SEC (11.7-14.0) Prothrombin Time INR 1.1 (0.8-1.1) Sodium Level 138 mmol/L (136-145) Potassium Level 4.1 mmol/L (3.5-5.1) Chloride Level 101 mmol/L (98-107) Carbon Dioxide Level 29 mmol/L (21-32) Anion Gap 8 (6-14) Blood Urea Nitrogen 14 mg/dL (8-26) Creatinine 1.0 mg/dL (0.7-1.3) Estimated GFR (Cockcroft-Gault) 75.5 BUN/Creatinine Ratio 14 (6-20) Glucose Level 135 mg/dL (70-99) H Calcium Level 8.8 mg/dL (8.5-10.1) Total Bilirubin 0.4 mg/dL (0.2-1.0) Aspartate Amino Transferase (AST) 22 U/L (15-37) Alanine Aminotransferase (ALT) 24 U/L (16-63) Alkaline Phosphatase 157 U/L (46-116) H Troponin I Quantitative 0.271 ng/mL (0.000-0.055) Total Protein 7.2 g/dL (6.4-8.2) Albumin 3.7 g/dL (3.4-5.0) Albumin/Globulin Ratio 1.1 (1.0-1.7) Laboratory Tests 10/15/18 08:25 Laboratory Tests 10/15/18 08:25 EKG EKG Small degree of ST depression V4/V5 compared to previous EKG (05-03-2018)[] Radiology/Procedures Radiology/Procedures [] Course & Med Decision Making Course & Med Decision Making Pertinent Labs and Imaging studies reviewed. (See chart for details) Pt presents with pre-syncopal episode without fall or LOC with extensive cardiac history and concern of previous stroke. Given current clinical presentation, lesser concern for current stroke but will work up for cardiac etiology for pre-syncopal event, r/o stroke with CT, assess orthostatics and UTI given recent history of bladder calculi. [] 62-year-old male with extensive cardiac history coronary disease last 2013 I don 't have the actual report but her last notes did have some coronary artery disease also status post tricuspid valve replacement history of acute renal failure in the past P/W LIGHTHEADEDNESSS Probably an N STEMI given the elevated troponin in the borderline EKG changes noted above I discussed with Dr. HOLLIDAY on-call for Dr. Pham will been to the hospital for serial troponins and cardiology consultation Dr. Velázquez has been paged. Noted the x-ray finding a PA and lateral is currently ordered and pending We did a head CT given the initial complaint of some problems with his right arm however on more detailed examination and does appear to be reproducible musculoskeletal related limited range of motion due to the right shoulder rather than objective weakness Dragon Disclaimer Dragon Disclaimer This electronic medical record was generated, in whole or in part, using a voice recognition dictation system. Departure Departure Impression: Primary Impression: Elevated troponin Disposition: ADMITTED INPATIENT Admitting Physician: Misti Holliday Condition: STABLE Referrals: IDA PHAM MD (PCP) ESTHER BRODY MD Oct 15, 2018 09:05
[2018-10-15 09:08] LABS: CALCIUM 8.8 mg/dL (8.5-10.1); GFR 75.5; POTASSIUM 4.1 mmol/L (3.5-5.1)
[2018-10-15 09:15] LABS: ALBUMIN 3.7 g/dL (3.4-5.0); ALBUMIN/GLOBULIN RATIO 1.1 (1.0-1.7); TOTAL BILIRUBIN 0.4 mg/dL (0.2-1.0); TOTAL PROTEIN 7.2 g/dL (6.4-8.2)
[2018-10-15 09:29] LABS: BILIRUBIN,URINE NEGATIVE (NEG); CLARITY,URINE CLEAR; COLOR,URINE YELLOW; NITRITE,URINE NEGATIVE (NEG); PH,URINE 6.5; PROTEIN,URINE NEGATIVE (NEG-TRACE)
--- NOTE | 2018-10-15 09:29 | RAD ---
CT HEAD WO CONTRAST Date: 10/15/2018 8:42 AM Clinical Indication: weakness, right arm weakness Comparison: CT head dated 12/20/2013. Technique: 5 mm axial tomographic images were obtained of the head without contrast. These were viewed on brain and bone windows. Findings: Mild generalized cerebral and cerebellar volume loss. Moderate nonspecific periventricular and deep white matter hypoattenuation, most commonly seen with chronic small vessel ischemic disease. Remote bilateral basal ganglial lacunar type infarcts. No intra- or extra-axial mass or fluid collection. No acute hemorrhage. The ventricles are normal in size, shape, and morphology. The wilson-white matter junction is normal. The basilar cisterns are patent. Mild ethmoid sinus disease. The visualized portions of the orbits and globes are normal. The mastoid air cells are clear. No aggressive osseous lesion or fracture. Impression: 1. No acute intracranial process. Of note, MRI is more sensitive for acute infarction less than 24 hours in age. 2. Mild cerebral volume loss. Moderate chronic small vessel ischemic disease. Remote bilateral basal ganglial lacunar type infarcts. Electronically signed by: Cas Hdz MD (10/15/2018 9:26 AM) [facility]
--- NOTE | 2018-10-15 09:34 | RAD ---
AP view of the chest. Comparison: Chest radiograph dated 08/29/2018, CT abdomen pelvis dated 09/28/2018. Indication: CHRONIC HEADACHE, WOKE UP WITH RIGHT ARM PAIN, DIZZINESS TODAY Findings: Normal lung volume. Unchanged abandoned pacemaker leads. No focal consolidation. Small nodular opacity in the left lower lung zone measuring approximately 0.7 cm.. Normal pulmonary vasculature. No pleural effusion. No pneumothorax. The cardiomediastinal silhouette is unchanged in appearance. The great vessels are unchanged. Prior median sternotomy. No acute osseous abnormality. Impression: 1. No focal consolidation. 2. Small nodular opacity in the left lower lung zone was not clearly seen on 08/29/2018 chest radiographs. This could relate to summation of shadows involving an anterior rib and pulmonary vasculature. Nothing was seen in this region on CT abdomen and pelvis dated 10/06/2018, although it is possible this was outside of the [id number]. Short-term follow-up PA and lateral chest radiographs could be obtained. Electronically signed by: Cas Hdz MD (10/15/2018 9:31 AM) [facility]
[2018-10-15] MEDS ORDERED: ASPIRIN CHEWABLE 81 MG TABLET. PO ONE (10:00)
[2018-10-15 10:16] LABS: BACTERIA,URINE 0 /HPF (0-FEW); RBC,URINE 0 /HPF (0-2); WBC,URINE OCC /HPF (0-4)
[2018-10-15 10:17] LABS: SQUAMOUS EPITHELIAL CELL,UR OCC /LPF
--- NOTE | 2018-10-15 10:33 | RAD ---
PA and lateral views of the chest. Comparison: Chest radiograph dated 10/15/2018. Indication: DIZZINESS, CHRONIC HEADACHE. AP CHEST PERFORMED THIS MORNING. PA AND LATERAL PERFORMED FOR VISUAL OF LEFT LUNG Findings: Normal lung volume. No focal airspace disease. Unchanged pulmonary vasculature. No pleural effusion. No pneumothorax. The cardiomediastinal silhouette is unchanged in appearance. There appears to be a valvular prosthesis on the lateral view. Unchanged abandoned pacer leads. The great vessels are unchanged. Prior median sternotomy. No acute osseous abnormality. Mild multilevel degenerative changes of the visualized spine. Impression: 1. No acute cardiopulmonary process. 2. Previous identified nodular opacity in the left lower lung zone is not seen on the current exam and likely related to summation of shadows. Electronically signed by: Cas Hdz MD (10/15/2018 10:31 AM) [facility]
--- NOTE | 2018-10-15 11:09 | EKG ---
[facility] [address] [place] [address] Test Date: 2018-10-15 Test Time: 07:58:38 Pat Name: DORIS HAN Department: Room: 250 1 Gender: M [employer]: : 1955 Requested By: ESTHER BRODY Order Number: [id number] Reading MD: Daniel Mariano MD Measurements Intervals [place] Rate: 56 P: 64 TX: 166 QRS: 49 QRSD: 100 T: 68 QT: 450 QTc: 437 Interpretive Statements SINUS RHYTHM NON-SPECIFIC ST/T CHANGES Electronically Signed On 10-18-2018 15:14:25 CDT by Daniel Mariano MD
[2018-10-15 11:35] VITALS: BP 160/79
--- NOTE | 2018-10-15 12:12 | PDOC ---
Provider Note Provider Note Pt seen.H&P dictated.#[id number] SHIREEN HOLLIDAY MD Oct 15, 2018 12:12
[2018-10-15] MEDS ORDERED: HEPARIN for IV BOLUS 10,000 UNIT/10 ML VIAL. IV PRN (12:30)
--- NOTE | 2018-10-15 12:50 | HP ---
ADMIT DATE: 10/15/2018 REASON FOR ADMISSION TO THE HOSPITAL: Chest pain, slight elevation in troponin. HISTORY OF PRESENT ILLNESS: The patient is a 62-year-old male, patient of Dr. Devi Pham. The patient has a history of COPD, coronary artery disease, hypertension. He was having pain and got progressively worse, came to the hospital. His troponin was 0.2. EKG negative for acute ischemia. The patient was admitted to the hospital, seen by Cardiology. PAST MEDICAL HISTORY: Says he had a cardiac evaluation 3-4 years ago shows a moderate disease at that time. The patient also had a pacemaker, which was removed 4 years ago and has a history of hypertension, hyperlipidemia, tricuspid insufficiency, atrial flutter, pacemaker was placed and removed, COPD, GERD, diverticulosis, peptic ulcer disease, anxiety, depression, BPH, chronic kidney disease stage 2. 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 FAMILY HISTORY: CAD, diabetes, hypertension. SOCIAL HISTORY: Smoked for 40 years, it was 3 packs; now is on cigars 5-6 daily. Denies alcohol, drug abuse. REVIEW OF SYSTEMS: Pain in the shoulder. No nausea or vomiting. Rest of the 14 systems reviewed and negative. PHYSICAL EXAMINATION: GENERAL: The patient looks older than his age. VITAL SIGNS: Temperature 97, pulse 74, respirations 20, blood pressure 164/81, 99 on room air. HEENT: Head is atraumatic. Pupils equal. Oral cavity: No congestion. NECK: Supple. Thyroid not enlarged. JVD not elevated. CHEST: Symmetrical, COPD pattern. CARDIOVASCULAR: S1, S2. No murmurs. LUNGS: Clear to auscultation. Decreased breath sounds at the bases. ABDOMEN: Soft, bowel sounds present, no mass palpable. EXTERNAL GENITALIA: No [place]. RECTAL: Deferred. EXTREMITIES: No calf tenderness. No edema. Moving all extremities. The patient has some right shoulder abduction limited secondary to pain, possible skeletomuscular rotator cuff tendonitis. LABORATORY DATA: Shows a white count of 5, hemoglobin 13, platelets 152. INR 1.1. Electrolytes show sodium 138, potassium 4.9, chloride 101, bicarbonate 29, BUN 14, creatinine 1.0, glucose 135. Troponin 0.2. Urine was negative. Chest x-ray is negative. EKG reported negative. Had a CT head, shows maybe lacunar infarcts. FINAL IMPRESSION: 1. Non-ST elevation myocardial infarction. 2. Slight elevation in troponin. The patient says he had a cardiac cath, 2013, shows mild-moderate disease. 3. History of pacemaker, which was infected, was removed. 4. Hypertension. 5. Hyperlipidemia. 6. Benign prostatic hypertrophy. PLAN: At this time was admitted to the hospital, seen by Cardiology. Stress test or a cardiac catheterization depending on the trending of the troponin. Cardiology was consulted. Lovenox, beta blockers, aspirin, cholesterol medications and see how he does. Smoking counseling was done. SHIREEN HOLLIDAY MD DR: ILENE/keyona JOB#: [id number] / [id number] WHIT
[2018-10-15] MEDS: HEPARIN 25,000UTS/500ML PREMIX 500 ML IV PRN (14:00)
--- NOTE | 2018-10-15 14:06 | PDOC2 ---
CONSULT Date of Consult Date of Consult DATE: 10/15/18 TIME: 13:59 Reason for Consult Reason for Consult: Near-syncope, chest pressure Referring Physician Referring Physician: Dr. Yin Identification/Chief Complaint Chief Complaint Weakness and near-syncope Source Source: Chart review, Patient History of Present Illness Reason for Visit: The patient is a 62-year-old male who was admitted through the emergency room for episodes of weakness, near syncope, right shoulder and high right chest discomfort and a minimally elevated troponin at 0.271. The patient's EKG had no acute ischemic changes. His head CT showed no acute changes. His chest x-ray also showed no acute changes. He reports feeling better today. He denies any chest discomfort today. The patient has an extensive cardiac history and is followed through although he reports he has not been seen there for over a year. He has a history of previous pacemakers that were eventually removed secondary to infection and he has not had a pacemaker for over 2 years. He had a probable tricuspid valve repair at 2 years ago and a preoperative cardiac catheterization that showed no significant lesions. The patient is overall done relatively well since the time of his procedure as noted above has not been seen in follow-up at for over a year. Past Medical History Cardiovascular: CAD, HTN, Hyperlipidemia, Valve insufficiency, Other Pulmonary: COPD GI: Diverticulosis, GERD, Gastritis, Hemorrhoids, Peptic Ulcer disease, Other Psych: Anxiety, Depression Musculoskeletal: Osteoarthritis Rheumatologic: No pertinent hx Infectious disease: No pertinent hx Renal/: Chronic renal insuff, Other Endocrine: No pertinent hx Past Surgical History Past Surgical History: Other (valve repair at approximately 2 years ago.) Family History Family History: Coronary Artery Disease, Diabetes, Hypertension Social History Quit (the patient quit cigarette smoking after greater than 40 pack years. He now smokes 3-4 cigars a day) ALCOHOL: none Current Problem List Problem List Problems Medical Problems: (1) Elevated troponin Status: Acute Current Medications Current Medications Current Medications Sodium Chloride 500 ml @ 500 mls/hr 1X ONCE IV Last administered on 10/15/18at 09:31; Start 10/15/18 at 09:00; Stop 10/15/18 at 09:59; Status DC Aspirin (Children'S Aspirin) 324 mg 1X ONCE PO ; Start 10/15/18 at 10:00; Stop 10/15/18 at 10:01; Status DC Aspirin (Children'S Aspirin) 81 mg QHS PO ; Start 10/15/18 at 21:00 Cetirizine HCl (ZyrTEC) 10 mg DAILY PO ; Start 10/16/18 at 09:00 Digoxin (Lanoxin) 125 mcg QHS PO ; Start 10/15/18 at 21:00 Famotidine (Pepcid) 20 mg HS PO ; Start 10/15/18 at 21:00 Acetaminophen/ Hydrocodone Bitart (Lortab 5/325) 1 tab PRN Q6HRS PRN PO PAIN; Start 10/15/18 at 12:15 Tamsulosin HCl (Flomax) 0.4 mg DAILY PO ; Start 10/16/18 at 09:00 Budesonide (Pulmicort) 0.5 mg RTBID NEB ; Start 10/15/18 at 13:00 Pantoprazole Sodium (Protonix) 40 mg DAILYAC PO ; Start 10/16/18 at 07:30 Simvastatin (Zocor) 20 mg HS PO ; Start 10/15/18 at 21:00 Venlafaxine HCl (Effexor) 75 mg QHS PO ; Start 10/15/18 at 21:00 Enoxaparin Sodium (Lovenox 40mg Syringe) 40 mg Q24H SQ ; Start 10/15/18 at 16:00 ; Stop 10/15/18 at 16:00; Status DC Albuterol Sulfate (Ventolin Neb Soln) 2.5 mg RTQID NEB ; Start 10/15/18 at 13:00 Heparin Sodium/ Dextrose 500 ml @ 17 mls/hr CONT PRN IV SEE I/O RECORD; Start 10/15/18 at 12:30 Heparin Sodium (Porcine) (Heparin Sodium) 1,750 unit PRN Q6HRS PRN IV FOR UFH LEVEL LESS THAN 0.2; Start 10/15/18 at 12:30 Active Scripts Active Ondansetron Odt (Ondansetron) 4 Mg Tab.rapdis 1 Tab PO PRN Q6-8HRS PRN [place] 5-325 Tablet (Acetaminophen/Hydrocodone Bitart) 1 Each Tablet 0.5-1 Tab PO PRN Q6HRS PRN Flomax (Tamsulosin Hcl) 0.4 Mg Cap.er.24h 1 Cap PO DAILY Pepcid Ac (Famotidine) 20 Mg Tablet 20 Mg PO HS 14 Days Ciprofloxacin Hcl 500 Mg Tablet 1 Tab PO BID Metronidazole 500 Mg Tablet 1 Tab PO BID Reported Zyrtec (Cetirizine Hcl) 10 Mg Tablet 1 Tab PO DAILY Symbicort 160-4.5 Mcg Inhaler (Budesonide/Formoterol Fumarate) 10.2 Gm Hfa.aer.ad 2 Puff IH BID Omeprazole 40 Mg Capsule.dr 1 Cap PO DAILY Multi-Vitamin Daily (Multivitamin) 1 Each Tablet 1 Each PO B-12 (Cyanocobalamin (Vitamin B-12)) 1,000 Mcg Tablet.er 1,000 Mcg PO Digoxin 125 Mcg Tablet 125 Mcg PO QHS Aspirin 81 Mg Tab.chew 81 Mg PO QHS Omeprazole 40 Mg Capsule.dr 40 Mg PO QHS Venlafaxine Hcl 75 Mg Tablet 75 Mg PO QHS Simvastatin 20 Mg Tablet 20 Mg PO QHS Nitrostat (Nitroglycerin) 0.4 Mg Tab.subl 0.4 Mg SL PRN Allergies Allergies: Coded Allergies: Penicillins (Verified Allergy, Severe, swelling, 12/06/13) vancomycin (Verified Adverse Reaction, Intermediate, 10/15/18) "shaking" and "hot" ROS General: YES: Fatigue Cardiovascular: yes Chest Pain, yes Lt [place] Physical Exam General: No acute distress HEENT: Atraumatic Lungs: Clear to auscultation Heart: Regular rate Abdomen: Normal bowel sounds Vitals VITALS Vital Signs Date Time Temp Pulse Resp B/P (MAP) Pulse Ox O2 Delivery O2 Flow Rate FiO2 10/15/18 11:35 97.6 68 18 160/79 (106) 98 Room Air 97.6 Labs Labs Laboratory Tests Test 10/15/18 08:25 10/15/18 09:10 10/15/18 12:39 White Blood Count 5.6 x10^3/uL (4.0-11.0) Red Blood Count 4.76 x10^6/uL (4.30-5.70) Hemoglobin 13.7 g/dL (13.0-17.5) Hematocrit 41.2 % (39.0-53.0) Mean Corpuscular Volume 87 fL (79-100) Mean Corpuscular Hemoglobin 29 pg (25-35) Mean Corpuscular Hemoglobin Concent 33 g/dL (31-37) Red Cell Distribution Width 16.6 % (11.5-14.5) Platelet Count 152 x10^3/uL (140-400) Neutrophils (%) (Auto) 61 % (31-73) Lymphocytes (%) (Auto) 22 % (24-48) Monocytes (%) (Auto) 13 % (0-9) Eosinophils (%) (Auto) 3 % (0-3) Basophils (%) (Auto) 1 % (0-3) Neutrophils # (Auto) 3.4 x10^3uL (1.8-7.7) Lymphocytes # (Auto) 1.3 x10^3/uL (1.0-4.8) Monocytes # (Auto) 0.7 x10^3/uL (0.0-1.1) Eosinophils # (Auto) 0.2 x10^3/uL (0.0-0.7) Basophils # (Auto) 0.1 x10^3/uL (0.0-0.2) Prothrombin Time 13.4 SEC (11.7-14.0) Prothromb Time International Ratio 1.1 (0.8-1.1) Sodium Level 138 mmol/L (136-145) Potassium Level 4.1 mmol/L (3.5-5.1) Chloride Level 101 mmol/L (98-107) Carbon Dioxide Level 29 mmol/L (21-32) Anion Gap 8 (6-14) Blood Urea Nitrogen 14 mg/dL (8-26) Creatinine 1.0 mg/dL (0.7-1.3) Estimated GFR (Cockcroft-Gault) 75.5 BUN/Creatinine Ratio 14 (6-20) Glucose Level 135 mg/dL (70-99) Calcium Level 8.8 mg/dL (8.5-10.1) Total Bilirubin 0.4 mg/dL (0.2-1.0) Aspartate Amino Transf (AST/SGOT) 22 U/L (15-37) Alanine Aminotransferase (ALT/SGPT) 24 U/L (16-63) Alkaline Phosphatase 157 U/L (46-116) Troponin I Quantitative 0.271 ng/mL (0.000-0.055) 0.261 ng/mL (0.000-0.055) Total Protein 7.2 g/dL (6.4-8.2) Albumin 3.7 g/dL (3.4-5.0) Albumin/Globulin Ratio 1.1 (1.0-1.7) Urine Collection Type Unknown Urine Color Yellow Urine Clarity Clear Urine pH 6.5 Urine Specific [place] 1.010 Urine Protein Negative mg/dL (NEG-TRACE) Urine Glucose (UA) Negative mg/dL (NEG) Urine Ketones (Stick) Negative mg/dL (NEG) Urine Blood Negative (NEG) Urine Nitrite Negative (NEG) Urine Bilirubin Negative (NEG) Urine Urobilinogen Dipstick 1.0 mg/dL (0.2 mg/dL) Urine Leukocyte Esterase Negative (NEG) Urine RBC 0 /HPF (0-2) Urine WBC Occ /HPF (0-4) Urine Squamous Epithelial Cells Occ /LPF Urine Bacteria 0 /HPF (0-FEW) Laboratory Tests Test 10/15/18 08:25 10/15/18 09:10 10/15/18 12:39 White Blood Count 5.6 x10^3/uL (4.0-11.0) Red Blood Count 4.76 x10^6/uL (4.30-5.70) Hemoglobin 13.7 g/dL (13.0-17.5) Hematocrit 41.2 % (39.0-53.0) Mean Corpuscular Volume 87 fL (79-100) Mean Corpuscular Hemoglobin 29 pg (25-35) Mean Corpuscular Hemoglobin Concent 33 g/dL (31-37) Red Cell Distribution Width 16.6 % (11.5-14.5) Platelet Count 152 x10^3/uL (140-400) Neutrophils (%) (Auto) 61 % (31-73) Lymphocytes (%) (Auto) 22 % (24-48) Monocytes (%) (Auto) 13 % (0-9) Eosinophils (%) (Auto) 3 % (0-3) Basophils (%) (Auto) 1 % (0-3) Neutrophils # (Auto) 3.4 x10^3uL (1.8-7.7) Lymphocytes # (Auto) 1.3 x10^3/uL (1.0-4.8) Monocytes # (Auto) 0.7 x10^3/uL (0.0-1.1) Eosinophils # (Auto) 0.2 x10^3/uL (0.0-0.7) Basophils # (Auto) 0.1 x10^3/uL (0.0-0.2) Prothrombin Time 13.4 SEC (11.7-14.0) Prothromb Time International Ratio 1.1 (0.8-1.1) Sodium Level 138 mmol/L (136-145) Potassium Level 4.1 mmol/L (3.5-5.1) Chloride Level 101 mmol/L (98-107) Carbon Dioxide Level 29 mmol/L (21-32) Anion Gap 8 (6-14) Blood Urea Nitrogen 14 mg/dL (8-26) Creatinine 1.0 mg/dL (0.7-1.3) Estimated GFR (Cockcroft-Gault) 75.5 BUN/Creatinine Ratio 14 (6-20) Glucose Level 135 mg/dL (70-99) Calcium Level 8.8 mg/dL (8.5-10.1) Total Bilirubin 0.4 mg/dL (0.2-1.0) Aspartate Amino Transf (AST/SGOT) 22 U/L (15-37) Alanine Aminotransferase (ALT/SGPT) 24 U/L (16-63) Alkaline Phosphatase 157 U/L (46-116) Troponin I Quantitative 0.271 ng/mL (0.000-0.055) 0.261 ng/mL (0.000-0.055) Total Protein 7.2 g/dL (6.4-8.2) Albumin 3.7 g/dL (3.4-5.0) Albumin/Globulin Ratio 1.1 (1.0-1.7) Urine Collection Type Unknown Urine Color Yellow Urine Clarity Clear Urine pH 6.5 Urine Specific [place] 1.010 Urine Protein Negative mg/dL (NEG-TRACE) Urine Glucose (UA) Negative mg/dL (NEG) Urine Ketones (Stick) Negative mg/dL (NEG) Urine Blood Negative (NEG) Urine Nitrite Negative (NEG) Urine Bilirubin Negative (NEG) Urine Urobilinogen Dipstick 1.0 mg/dL (0.2 mg/dL) Urine Leukocyte Esterase Negative (NEG) Urine RBC 0 /HPF (0-2) Urine WBC Occ /HPF (0-4) Urine Squamous Epithelial Cells Occ /LPF Urine Bacteria 0 /HPF (0-FEW) Images Images CT scan of the head shows no acute changes. Chest x-ray shows no acute changes. Assessment/Plan Assessment/Plan 1. Weakness and dizziness. Patient is feeling much better today. He has no evidence of significant arrhythmias on monitoring. He does have a history of previous permanent pacemaker which was removed over 2 years ago and not replaced. 2. Mild chest pressure. No acute EKG changes. Minimally elevated troponins at 0.271 and 0.261. Heart catheterization approximately 2 years ago with no significant disease. We'll continue baseline medications. We'll heparinize. If no significant elevation in troponins will proceed with a Lexiscan test tomorrow. If his troponin significantly elevated we'll proceed with cardiac catheterization on Wednesday. This was discussed with the patient. 3. Probable repair of the tricuspid valve. We'll check an echocardiogram. 4. Hypertension. Continue present treatments. 5. Probable hyperlipidemia. We will check cholesterol panel. Thank you for allowing us to participate in the care of your patient. ELIUD CHONG MD Oct 15, 2018 14:06
[2018-10-15] MEDS: ALBUTEROL SULFATE 2.5 MG/3 ML NEBU. NEB SCH ×3 (14:17→20:11)
[2018-10-15] MEDS: BUDESONIDE 0.5 MG/2 ML NEBU. NEB SCH ×2 (14:17→20:11)
[2018-10-15 14:56] VITALS: BP 135/61
[2018-10-15] MEDS: HYDROcodone/APAP 5/325MG 1 TAB TABLET PO PRN ×2 (14:56→21:05)
[2018-10-15] MEDS ORDERED: ENOXAPARIN 40 MG/0.4 ML SYRINGE. SQ SCH (16:00)
[2018-10-15] MEDS ORDERED: MONT10TA9 PO (17:22)
[2018-10-15] MEDS ORDERED: AMLO5TAB10 PO (17:24)
[2018-10-15 19:30] VITALS: BP 129/60
[2018-10-15] MEDS: FAMOTIDINE 20 MG TABLET. PO SCH (21:05)
[2018-10-15] MEDS: ASPIRIN CHEWABLE 81 MG TABLET. PO SCH (21:05)
[2018-10-15] MEDS: SIMVASTATIN 20 MG TABLET PO SCH (21:05)
[2018-10-15] MEDS: VENLAFAXINE 75 MG TABLET. PO SCH (21:05)
[2018-10-15] MEDS: DIGOXIN 125 MCG TABLET. PO SCH (21:06)
[2018-10-15 23:15] VITALS: BP 127/56
[2018-10-16 03:16] LABS: HEMATOCRIT 37.8 % (39.0-53.0); HEMOGLOBIN 12.4 g/dL (13.0-17.5); RED BLOOD COUNT 4.33 x10^6/uL (4.30-5.70); RED CELL DISTRIBUTION WIDTH 16.5 % (11.5-14.5); WHITE BLOOD COUNT 4.6 x10^3/uL (4.0-11.0)
[2018-10-16 03:38] LABS: CALCIUM 8.4 mg/dL (8.5-10.1); GFR 75.5; POTASSIUM 3.9 mmol/L (3.5-5.1)
[2018-10-16 03:46] VITALS: BP 126/56
--- NOTE | 2018-10-16 04:50 | EKG ---
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
[2018-10-16 07:00] VITALS: BP 150/72
[2018-10-16] MEDS: BUDESONIDE 0.5 MG/2 ML NEBU. NEB SCH ×2 (07:20→19:57)
[2018-10-16] MEDS: ALBUTEROL SULFATE 2.5 MG/3 ML NEBU. NEB SCH ×4 (07:20→19:56)
[2018-10-16] MEDS: HYDROcodone/APAP 5/325MG 1 TAB TABLET PO PRN (07:36)
[2018-10-16] MEDS: PANTOPRAZOLE 40 MG TABLET.DR. PO SCH (07:36)
[2018-10-16] MEDS: CETIRIZINE HCL 10 MG TABLET. PO SCH (09:12)
[2018-10-16] MEDS: TAMSULOSIN 0.4 MG CAP.ER.24H. PO SCH (09:12)
--- NOTE | 2018-10-16 10:09 | PDOC ---
PROGRESS NOTES Subjective Subjective no chest pains today Objective Objective Vital Signs Date Time Temp Pulse Resp B/P (MAP) Pulse Ox O2 Delivery O2 Flow Rate FiO2 10/16/18 08:00 Room Air 10/16/18 07:21 94 10/16/18 07:00 97.8 54 18 150/72 (98) 97.8 Intake and Output 10/16/18 06:59 Intake Total 2404 ml Output Total 1000 ml Balance 1404 ml Intake Oral 360 ml IV Total 797 ml Other 1247 ml Output Urine Total 1000 ml # Voids 1 Physical Exam Abdomen: Normal bowel sounds Heart: Regular rate Extremities: No clubbing General: Oriented X3, No acute distress HEENT: Atraumatic Lungs: Clear to auscultation MUSCULOSKELETAL: No deformity, No swelling Neuro: Normal speech Psych/Mental Status: Mental status NL Skin: No breakdown Diagnosis Problem List Problems Medical Problems: (1) Elevated troponin Status: Acute Assessment Assessment Problems Medical Problems: (1) Elevated troponin Status: Acute FINAL IMPRESSION: 1. Non-ST elevation myocardial infarction. 2. Slight elevation in troponin. The patient says he had a cardiac cath, 2013, shows mild -moderate disease. 3. 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 4. Hypertension. 5. Hyperlipidemia. 6. Benign prostatic hypertrophy. PLAN: troponin peaked to 0.2 and trending down. spoke with cardiology stress test and echo today Home later today if stress test neg. other labs ok. At this time was admitted to the hospital, seen by Cardiology. Stress test or a cardiac catheterization depending on the trending of the troponin. Cardiology was consulted. Lovenox, beta blockers, aspirin, cholesterol medications and see how he does. Smoking counseling was done. Plan Plan of Care Problems Medical Problems: (1) Elevated troponin Status: Acute Comment Review of Relevant I have reviewed the following items telma (where applicable) has been applied. Labs Laboratory Tests Test 10/15/18 12:39 10/15/18 15:34 10/15/18 20:05 10/16/18 02:45 Troponin I Quantitative 0.261 ng/mL (0.000-0.055) 0.260 ng/mL (0.000-0.055) 0.176 ng/mL (0.000-0.055) Heparin Anti-Xa Act, Unfractionated < 0.10 IU/mL (0.30-0.70) 0.28 IU/mL (0.30-0.70) White Blood Count 4.6 x10^3/uL (4.0-11.0) Red Blood Count 4.33 x10^6/uL (4.30-5.70) Hemoglobin 12.4 g/dL (13.0-17.5) Hematocrit 37.8 % (39.0-53.0) Mean Corpuscular Volume 87 fL (79-100) Mean Corpuscular Hemoglobin 29 pg (25-35) Mean Corpuscular Hemoglobin Concent 33 g/dL (31-37) Red Cell Distribution Width 16.5 % (11.5-14.5) Platelet Count 137 x10^3/uL (140-400) Sodium Level 142 mmol/L (136-145) Potassium Level 3.9 mmol/L (3.5-5.1) Chloride Level 106 mmol/L (98-107) Carbon Dioxide Level 28 mmol/L (21-32) Anion Gap 8 (6-14) Blood Urea Nitrogen 17 mg/dL (8-26) Creatinine 1.0 mg/dL (0.7-1.3) Estimated GFR (Cockcroft-Gault) 75.5 Glucose Level 123 mg/dL (70-99) Calcium Level 8.4 mg/dL (8.5-10.1) Triglycerides Level 35 mg/dL (0-150) Cholesterol Level 115 mg/dL (0-200) LDL Cholesterol, Calculated 51 mg/dL (0-100) VLDL Cholesterol, Calculated 7 mg/dL (0-40) Non-HDL Cholesterol Calculated 58 mg/dL (0-129) HDL Cholesterol 57 mg/dL (40-60) Cholesterol/HDL Ratio 2.0 Test 10/16/18 03:00 10/16/18 08:55 Thyroid Stimulating Hormone (TSH) 0.914 uIU/mL (0.358-3.74) Heparin Anti-Xa Act, Unfractionated 0.37 IU/mL (0.30-0.70) Medications Current Medications Acetaminophen/ Hydrocodone Bitart (Lortab 5/325) 1 tab PRN Q6HRS PRN PO PAIN Last administered on 10/16/18at 07:36; Start 10/15/18 at 12:15 Albuterol Sulfate (Ventolin Neb Soln) 2.5 mg RTQID NEB Last administered on 10/16 07:20; Start 10/15/18 at 13:00 Aspirin (Children'S Aspirin) 81 mg QHS PO Last administered on 10/15/18 21:05; Start 10/15/18 at 21:00 Budesonide (Pulmicort) 0.5 mg RTBID NEB Last administered on 10/16/18 07:20; Start 10/15/18 at 13:00 Cetirizine HCl (ZyrTEC) 10 mg DAILY PO Last administered on 10/16/18 09:12; Start 10/16/18 at 09:00 Digoxin (Lanoxin) 125 mcg QHS PO Last administered on 10/15/18 21:06; Start 10/15/18 at 21:00 Enoxaparin Sodium (Lovenox 40mg Syringe) 40 mg Q24H SQ ; Start 10/15/18 at 16:00 ; Stop 10/15/18 at 16:00; Status DC Famotidine (Pepcid) 20 mg HS PO Last administered on 10/15/18 21:05; Start 10/15 at 21:00 Heparin Sodium (Porcine) (Heparin Sodium) 1,750 unit PRN Q6HRS PRN IV FOR UFH LEVEL LESS THAN 0.2 Last administered on 10/15/18 21:19; Start 10/15/18 at 12:30 Heparin Sodium/ Dextrose 500 ml @ 17 mls/hr CONT PRN IV SEE I/O RECORD Last administered on 10/15/18at 14:00; Start 10/15/18 at 12:30 Pantoprazole Sodium (Protonix) 40 mg DAILYAC PO Last administered on 10/16/18at 07:36; Start 10/16/18 at 07:30 Simvastatin (Zocor) 20 mg HS PO Last administered on 10/15/18 21:05; Start 10/15 at 21:00 Tamsulosin HCl (Flomax) 0.4 mg DAILY PO Last administered on 10/16/18 09:12; Start 10/16/18 at 09:00 Venlafaxine HCl (Effexor) 75 mg QHS PO Last administered on 10/15/18 21:05; Start 4/6/19 at 21:00 Vitals/I & O Vital Sign - Last 24 Hours 10/15/18 10/15/18 10/15/18 10/15/18 10:08 11:30 11:35 14:20 Temp 97.6 97.6 Pulse 88 68 Resp 20 18 B/P (MAP) 160/79 (106) Pulse Ox 97 98 97 O2 Delivery Room Air Room Air Room Air 10/15/18 10/15/18 10/15/18 10/15/18 14:56 14:56 15:56 19:30 Temp 97.8 98.5 97.8 98.5 Pulse 63 73 Resp 18 16 B/P (MAP) 135/61 (85) 129/60 (83) Pulse Ox 97 95 97 94 O2 Delivery Room Air Room Air 10/15/18 10/15/18 10/15/18 10/15/18 20:00 20:16 21:05 21:06 Pulse 73 Resp 16 B/P (MAP) 129/60 Pulse Ox 97 O2 Delivery Room Air Room Air Room Air 10/15/18 10/16/18 10/16/18 10/16/18 23:15 03:46 07:00 07:21 Temp 98.5 98.4 97.8 98.5 98.4 97.8 Pulse 60 47 54 Resp 18 16 18 B/P (MAP) 127/56 (79) 126/56 (79) 150/72 (98) Pulse Ox 95 95 93 94 O2 Delivery Room Air Room Air Room Air Room Air 10/16/18 08:00 O2 Delivery Room Air Intake and Output 10/15/18 10/15/18 10/16/18 14:59 22:59 06:59 Intake Total 560 ml 1307 ml 537 ml Output Total 1000 ml Balance 560 ml 307 ml 537 ml SHIREEN HOLLIDAY MD Oct 16, 2018 10:09
[2018-10-16] MEDS: HEPARIN 25,000UTS/500ML PREMIX 500 ML IV PRN (10:50)
[2018-10-16 11:00] VITALS: BP 138/94
--- NOTE | 2018-10-16 12:41 | PDOC ---
PROGRESS NOTES Subjective Subjective Patient seen and examined He looks and feels better today. Objective Objective Vital Signs Date Time Temp Pulse Resp B/P (MAP) Pulse Ox O2 Delivery O2 Flow Rate FiO2 10/16/18 11:13 95 Room Air 10/16/18 11:00 97.4 75 18 138/94 (109) 97.4 Intake and Output 10/16/18 07:00 Intake Total 2404 ml Output Total 1000 ml Balance 1404 ml Intake Oral 360 ml IV Total 797 ml Other 1247 ml Output Urine Total 1000 ml # Voids 1 Physical Exam Abdomen: Normal bowel sounds Heart: Regular rate General: No acute distress Lungs: Clear to auscultation Assessment Assessment Problems Medical Problems: (1) Elevated troponin Status: Acute 1. Weakness and dizziness. The patient continues to feel better. We will increase activities. Patient is feeling much better today. 2. Mild chest pressure. No acute EKG changes. Minimally elevated troponins at 0.271 and 0.261. Heart catheterization approximately 2 years ago with no significant disease. We'll continue baseline medications. No further significant elevation in troponin. We'll proceed with Lexiscan testing today. 3. Probable repair of the tricuspid valve. We'll check an echocardiogram. 4. Hypertension. Continue present treatments. 5. Probable hyperlipidemia. However lab testing today however LDL of 51 and HDL of 57. Continue present treatment. Comment Review of Relevant I have reviewed the following items telma (where applicable) has been applied. Labs Laboratory Tests Test 10/15/18 08:25 10/15/18 09:10 10/15/18 12:39 10/15/18 15:34 White Blood Count 5.6 x10^3/uL (4.0-11.0) Red Blood Count 4.76 x10^6/uL (4.30-5.70) Hemoglobin 13.7 g/dL (13.0-17.5) Hematocrit 41.2 % (39.0-53.0) Mean Corpuscular Volume 87 fL (79-100) Mean Corpuscular Hemoglobin 29 pg (25-35) Mean Corpuscular Hemoglobin Concent 33 g/dL (31-37) Red Cell Distribution Width 16.6 % (11.5-14.5) Platelet Count 152 x10^3/uL (140-400) Neutrophils (%) (Auto) 61 % (31-73) Lymphocytes (%) (Auto) 22 % (24-48) Monocytes (%) (Auto) 13 % (0-9) Eosinophils (%) (Auto) 3 % (0-3) Basophils (%) (Auto) 1 % (0-3) Neutrophils # (Auto) 3.4 x10^3uL (1.8-7.7) Lymphocytes # (Auto) 1.3 x10^3/uL (1.0-4.8) Monocytes # (Auto) 0.7 x10^3/uL (0.0-1.1) Eosinophils # (Auto) 0.2 x10^3/uL (0.0-0.7) Basophils # (Auto) 0.1 x10^3/uL (0.0-0.2) Prothrombin Time 13.4 SEC (11.7-14.0) Prothromb Time International Ratio 1.1 (0.8-1.1) Sodium Level 138 mmol/L (136-145) Potassium Level 4.1 mmol/L (3.5-5.1) Chloride Level 101 mmol/L (98-107) Carbon Dioxide Level 29 mmol/L (21-32) Anion Gap 8 (6-14) Blood Urea Nitrogen 14 mg/dL (8-26) Creatinine 1.0 mg/dL (0.7-1.3) Estimated GFR (Cockcroft-Gault) 75.5 BUN/Creatinine Ratio 14 (6-20) Glucose Level 135 mg/dL (70-99) Calcium Level 8.8 mg/dL (8.5-10.1) Total Bilirubin 0.4 mg/dL (0.2-1.0) Aspartate Amino Transf (AST/SGOT) 22 U/L (15-37) Alanine Aminotransferase (ALT/SGPT) 24 U/L (16-63) Alkaline Phosphatase 157 U/L (46-116) Troponin I Quantitative 0.271 ng/mL (0.000-0.055) 0.261 ng/mL (0.000-0.055) 0.260 ng/mL (0.000-0.055) Total Protein 7.2 g/dL (6.4-8.2) Albumin 3.7 g/dL (3.4-5.0) Albumin/Globulin Ratio 1.1 (1.0-1.7) Urine Collection Type Unknown Urine Color Yellow Urine Clarity Clear Urine pH 6.5 Urine Specific [place] 1.010 Urine Protein Negative mg/dL (NEG-TRACE) Urine Glucose (UA) Negative mg/dL (NEG) Urine Ketones (Stick) Negative mg/dL (NEG) Urine Blood Negative (NEG) Urine Nitrite Negative (NEG) Urine Bilirubin Negative (NEG) Urine Urobilinogen Dipstick 1.0 mg/dL (0.2 mg/dL) Urine Leukocyte Esterase Negative (NEG) Urine RBC 0 /HPF (0-2) Urine WBC Occ /HPF (0-4) Urine Squamous Epithelial Cells Occ /LPF Urine Bacteria 0 /HPF (0-FEW) Test 10/15/18 20:05 10/16/18 02:45 10/16/18 03:00 10/16/18 08:55 Heparin Anti-Xa Act, Unfractionated < 0.10 IU/mL (0.30-0.70) 0.28 IU/mL (0.30-0.70) 0.37 IU/mL (0.30-0.70) White Blood Count 4.6 x10^3/uL (4.0-11.0) Red Blood Count 4.33 x10^6/uL (4.30-5.70) Hemoglobin 12.4 g/dL (13.0-17.5) Hematocrit 37.8 % (39.0-53.0) Mean Corpuscular Volume 87 fL (79-100) Mean Corpuscular Hemoglobin 29 pg (25-35) Mean Corpuscular Hemoglobin Concent 33 g/dL (31-37) Red Cell Distribution Width 16.5 % (11.5-14.5) Platelet Count 137 x10^3/uL (140-400) Sodium Level 142 mmol/L (136-145) Potassium Level 3.9 mmol/L (3.5-5.1) Chloride Level 106 mmol/L (98-107) Carbon Dioxide Level 28 mmol/L (21-32) Anion Gap 8 (6-14) Blood Urea Nitrogen 17 mg/dL (8-26) Creatinine 1.0 mg/dL (0.7-1.3) Estimated GFR (Cockcroft-Gault) 75.5 Glucose Level 123 mg/dL (70-99) Calcium Level 8.4 mg/dL (8.5-10.1) Troponin I Quantitative 0.176 ng/mL (0.000-0.055) Triglycerides Level 35 mg/dL (0-150) Cholesterol Level 115 mg/dL (0-200) LDL Cholesterol, Calculated 51 mg/dL (0-100) VLDL Cholesterol, Calculated 7 mg/dL (0-40) Non-HDL Cholesterol Calculated 58 mg/dL (0-129) HDL Cholesterol 57 mg/dL (40-60) Cholesterol/HDL Ratio 2.0 Thyroid Stimulating Hormone (TSH) 0.914 uIU/mL (0.358-3.74) Laboratory Tests Test 10/15/18 12:39 10/15/18 15:34 10/15/18 20:05 10/16/18 02:45 Troponin I Quantitative 0.261 ng/mL (0.000-0.055) 0.260 ng/mL (0.000-0.055) 0.176 ng/mL (0.000-0.055) Heparin Anti-Xa Act, Unfractionated < 0.10 IU/mL (0.30-0.70) 0.28 IU/mL (0.30-0.70) White Blood Count 4.6 x10^3/uL (4.0-11.0) Red Blood Count 4.33 x10^6/uL (4.30-5.70) Hemoglobin 12.4 g/dL (13.0-17.5) Hematocrit 37.8 % (39.0-53.0) Mean Corpuscular Volume 87 fL (79-100) Mean Corpuscular Hemoglobin 29 pg (25-35) Mean Corpuscular Hemoglobin Concent 33 g/dL (31-37) Red Cell Distribution Width 16.5 % (11.5-14.5) Platelet Count 137 x10^3/uL (140-400) Sodium Level 142 mmol/L (136-145) Potassium Level 3.9 mmol/L (3.5-5.1) Chloride Level 106 mmol/L (98-107) Carbon Dioxide Level 28 mmol/L (21-32) Anion Gap 8 (6-14) Blood Urea Nitrogen 17 mg/dL (8-26) Creatinine 1.0 mg/dL (0.7-1.3) Estimated GFR (Cockcroft-Gault) 75.5 Glucose Level 123 mg/dL (70-99) Calcium Level 8.4 mg/dL (8.5-10.1) Triglycerides Level 35 mg/dL (0-150) Cholesterol Level 115 mg/dL (0-200) LDL Cholesterol, Calculated 51 mg/dL (0-100) VLDL Cholesterol, Calculated 7 mg/dL (0-40) Non-HDL Cholesterol Calculated 58 mg/dL (0-129) HDL Cholesterol 57 mg/dL (40-60) Cholesterol/HDL Ratio 2.0 Test 10/16/18 03:00 10/16/18 08:55 Thyroid Stimulating Hormone (TSH) 0.914 uIU/mL (0.358-3.74) Heparin Anti-Xa Act, Unfractionated 0.37 IU/mL (0.30-0.70) Medications Current Medications Sodium Chloride 500 ml @ 500 mls/hr 1X ONCE IV Last administered on 10/15/18 09:31; Start 10/15/18 at 09:00; Stop 10/15/18 at 09:59; Status DC Aspirin (Children'S Aspirin) 324 mg 1X ONCE PO ; Start 10/15/18 at 10:00; Stop 10/15/18 at 10:01; Status DC Aspirin (Children'S Aspirin) 81 mg QHS PO Last administered on 10/15/18at 21:05; Start 10/15/18 at 21:00 Cetirizine HCl (ZyrTEC) 10 mg DAILY PO Last administered on 10/16/18at 09:12; Start 10/16/18 at 09:00 Digoxin (Lanoxin) 125 mcg QHS PO Last administered on 10/15/18at 21:06; Start 10/15/18 at 21:00 Famotidine (Pepcid) 20 mg HS PO Last administered on 10/15/18at 21:05; Start 10/15 at 21:00 Acetaminophen/ Hydrocodone Bitart (Lortab 5/325) 1 tab PRN Q6HRS PRN PO PAIN Last administered on 10/16/18at 07:36; Start 10/15/18 at 12:15 Tamsulosin HCl (Flomax) 0.4 mg DAILY PO Last administered on 10/16/18at 09:12; Start 10/16/18 at 09:00 Budesonide (Pulmicort) 0.5 mg RTBID NEB Last administered on 10/16/18 07:20; Start 10/15/18 at 13:00 Pantoprazole Sodium (Protonix) 40 mg DAILYAC PO Last administered on 10/16/18at 07:36; Start 10/16/18 at 07:30 Simvastatin (Zocor) 20 mg HS PO Last administered on 10/15/18at 21:05; Start 10/15 at 21:00 Venlafaxine HCl (Effexor) 75 mg QHS PO Last administered on 10/15/18at 21:05; Start 10/15/18 at 21:00 Enoxaparin Sodium (Lovenox 40mg Syringe) 40 mg Q24H SQ ; Start 10/15/18 at 16:00 ; Stop 10/15/18 at 16:00; Status DC Albuterol Sulfate (Ventolin Neb Soln) 2.5 mg RTQID NEB Last administered on 10/16at 11:12; Start 10/15/18 at 13:00 Heparin Sodium/ Dextrose 500 ml @ 17 mls/hr CONT PRN IV SEE I/O RECORD Last administered on 10/16/18at 10:50; Start 10/15/18 at 12:30 Heparin Sodium (Porcine) (Heparin Sodium) 1,750 unit PRN Q6HRS PRN IV FOR UFH LEVEL LESS THAN 0.2 Last administered on 10/15/18at 21:19; Start 10/15/18 at 12:30 Active Scripts Active [place] 5-325 Tablet (Acetaminophen/Hydrocodone Bitart) 1 Each Tablet 0.5-1 Tab PO PRN Q6HRS PRN Flomax (Tamsulosin Hcl) 0.4 Mg Cap.er.24h 1 Cap PO DAILY Pepcid Ac (Famotidine) 20 Mg Tablet 20 Mg PO HS 14 Days Reported Amlodipine Besylate 5 Mg Tablet 5 Mg PO DAILY Montelukast Sodium Tablet (Montelukast Sodium) 10 Mg Tablet 10 Mg PO HS Zyrtec (Cetirizine Hcl) 10 Mg Tablet 1 Tab PO DAILY Symbicort 160-4.5 Mcg Inhaler (Budesonide/Formoterol Fumarate) 10.2 Gm Hfa.aer.ad 2 Puff IH BID Multi-Vitamin Daily (Multivitamin) 1 Each Tablet 1 Each PO B-12 (Cyanocobalamin (Vitamin B-12)) 1,000 Mcg Tablet.er 1,000 Mcg PO Digoxin 125 Mcg Tablet 125 Mcg PO QHS Aspirin 81 Mg Tab.chew 81 Mg PO QHS Omeprazole 40 Mg Capsule.dr 40 Mg PO QHS Venlafaxine Hcl 75 Mg Tablet 75 Mg PO QHS Simvastatin 20 Mg Tablet 20 Mg PO QHS Nitrostat (Nitroglycerin) 0.4 Mg Tab.subl 0.4 Mg SL PRN Vitals/I & O Vital Sign - Last 24 Hours 10/15/18 10/15/18 10/15/18 10/15/18 14:20 14:56 14:56 15:56 Temp 97.8 97.8 Pulse 63 Resp 18 B/P (MAP) 135/61 (85) Pulse Ox 97 97 95 97 O2 Delivery Room Air Room Air 10/15/18 10/15/18 10/15/18 10/15/18 19:30 20:00 20:16 21:05 Temp 98.5 98.5 Pulse 73 Resp 16 16 B/P (MAP) 129/60 (83) Pulse Ox 94 97 O2 Delivery Room Air Room Air Room Air Room Air 10/15/18 10/15/18 10/16/18 10/16/18 21:06 23:15 03:46 07:00 Temp 98.5 98.4 97.8 98.5 98.4 97.8 Pulse 73 60 47 54 Resp 18 16 18 B/P (MAP) 129/60 127/56 (79) 126/56 (79) 150/72 (98) Pulse Ox 95 95 93 O2 Delivery Room Air Room Air Room Air 10/16/18 10/16/18 10/16/18 10/16/18 07:21 08:00 11:00 11:13 Temp 97.4 97.4 Pulse 75 Resp 18 B/P (MAP) 138/94 (109) Pulse Ox 94 94 95 O2 Delivery Room Air Room Air Room Air Room Air Intake and Output 10/15/18 10/15/18 10/16/18 15:00 23:00 07:00 Intake Total 560 ml 1307 ml 537 ml Output Total 1000 ml Balance 560 ml 307 ml 537 ml ELIUD CHONG MD Oct 16, 2018 12:41
[2018-10-16 14:43] VITALS: BP 151/69
--- NOTE | 2018-10-16 15:25 | CARD ---
MR#: [id number] Date of Study: 10/16/2018 Ordering Physician: ELIUD SWANSON, Referring Physician: SHIREEN HOLLIDAY Tech: Magalis Rivera [facility] APPROVED REPORT EXAM: Two-dimensional and M-mode echocardiogram with Doppler and color Doppler. Other Information Quality : AverageHR: 50bpm Rhythm : BradycardiaTechnically limited study due to smoking. INDICATION Non STEMI 2D DIMENSIONS RVDd2.9 (2.9-3.5cm)Left Atrium(2D)3.2 (1.6-4.0cm) IVSd1.3 (0.7-1.1cm)Aortic Root(2D)3.4 (2.0-3.7cm) LVDd5.0 (3.9-5.9cm)LVOT Diameter1.8 (1.8-2.4cm) PWd1.0 (0.7-1.1cm)LVDs4.1 (2.5-4.0cm) FS (%) 19.5 %SV48.0 ml M-Mode DIMENSIONS Left Atrium(MM)3.51 (2.5-4.0cm)Aortic Root3.64 (2.2-3.7cm) Aortic Valve AoV Peak Adalberto.214.0cm/sAoV VTI51.6cm AO Peak GR.18.3mmHgLVOT Peak Adalberto.127.7cm/s AO Mean GR.10mmHgAVA (VMAX)1.59cm2 TERRY (VTI)1.70cm2 Mitral Valve MV E Bywiwjtn81.3cm/sMV DECEL JGOF620tt MV A Zvqnlweh58.9cm/sE/A Ratio0.7 MV A Xpkeqgei739nc Pulmonary Valve PV Peak Vhfrgagk288.2cm/s Tricuspid Valve TR P. Dfgmbiyl326kb/sRAP RFLGKBZG8jnJr TR Peak Gr.19pmRjJSGT80sbYz LEFT VENTRICLE The left ventricle is normal size. Proximal septal thickening is noted. Left ventricle systolic funct ion is low normal. The Ejection Fraction is 45-50%. There is minimal global hypokinesis of the left v entricle. Transmitral Doppler flow pattern is Grade I-abnormal relaxation pattern. RIGHT VENTRICLE The right ventricle is normal size. There is normal right ventricular wall thickness. The right ventr icular systolic function is normal. ATRIA The left atrium size is normal. The right atrium size is normal. The interatrial septum is intact wit h no evidence for an atrial septal defect or patent foramen ovale as noted on 2-D or Doppler imaging. AORTIC VALVE The aortic valve is moderately calcified. The aortic valve is tri-cuspid. Doppler and Color Flow reve aled no significant aortic regurgitation. There is mild subvalvular aortic stenosis. Calculated aorti c valve area is 1.6 cm2 with maximum pressure gradient of 18 mmHg and mean pressure gradient of 10 mm Hg. MITRAL VALVE Mitral annular calcification is moderate. There is no evidence of mitral valve prolapse. There is no mitral valve stenosis. Doppler and Color-flow revealed trace mitral regurgitation. TRICUSPID VALVE The tricuspid valve leaflets are thickened and calcified, but open well. Doppler and Color Flow revea led mild tricuspid regurgitation. The PA pressure was estimated at 25 mmHg. There is no tricuspid aisha ve prolapse or vegetation. There is no tricuspid valve stenosis. PULMONIC VALVE The pulmonic valve is not well visualized. GREAT VESSELS The aortic root is normal in size. The ascending aorta is normal in size. The IVC is normal in size a nd collapses >50% with inspiration. PERICARDIAL EFFUSION There is no evidence of significant pericardial effusion. Critical Notification Critical Value: No <Conclusion> The left ventricle is normal size. Left ventricle systolic function is low normal. The Ejection Fraction is 45-50%. There is minimal global hypokinesis of the left ventricle. Proximal septal thickening is noted. There is mild subvalvular aortic stenosis. Calculated aortic valve area is 1.6 cm2 with maximum pressure gradient of 18 mmHg and mean pressure g radient of 10 mmHg. Doppler and Color Flow revealed no significant aortic regurgitation. Doppler and Color-flow revealed trace mitral regurgitation. Doppler and Color Flow revealed mild tricuspid regurgitation. The PA pressure was estimated at 25 mmHg. Signed by : Eliud Swanson MD Electronically Approved : 10/16/2018 15:24:52
[2018-10-16 19:30] VITALS: BP 137/71
[2018-10-16] MEDS: FAMOTIDINE 20 MG TABLET. PO SCH (21:08)
[2018-10-16] MEDS: VENLAFAXINE 75 MG TABLET. PO SCH (21:08)
[2018-10-16] MEDS: ASPIRIN CHEWABLE 81 MG TABLET. PO SCH (21:08)
[2018-10-16] MEDS: SIMVASTATIN 20 MG TABLET PO SCH (21:08)
[2018-10-16] MEDS: DIGOXIN 125 MCG TABLET. PO SCH (21:09)
[2018-10-16 23:15] VITALS: BP 155/71
[2018-10-17 03:17] VITALS: BP 144/67
[2018-10-17 07:18] VITALS: BP 144/65
[2018-10-17] MEDS: ALBUTEROL SULFATE 2.5 MG/3 ML NEBU. NEB SCH ×3 (07:31→15:29)
[2018-10-17] MEDS: BUDESONIDE 0.5 MG/2 ML NEBU. NEB SCH (07:31)
[2018-10-17] MEDS ORDERED: REGADENOSON 0.4 MG/5 ML DISP.SYRIN. IV ONE (08:00)
[2018-10-17] MEDS: HEPARIN 25,000UTS/500ML PREMIX 500 ML IV PRN (08:08)
[2018-10-17] MEDS: CETIRIZINE HCL 10 MG TABLET. PO SCH (09:51)
[2018-10-17] MEDS: TAMSULOSIN 0.4 MG CAP.ER.24H. PO SCH (09:51)
[2018-10-17] MEDS: PANTOPRAZOLE 40 MG TABLET.DR. PO SCH (09:51)
--- NOTE | 2018-10-17 10:40 | PDOC ---
IM PROGRESS NOTES- Subjective Subjective Feeling better. No complaints of dyspnea or chest pains. Objective Vitals Vital Signs Date Time Temp Pulse Resp B/P (MAP) Pulse Ox O2 Delivery O2 Flow Rate FiO2 10/17/18 08:05 Room Air 10/17/18 07:32 96 10/17/18 07:18 98.1 58 16 144/65 (91) 98.1 Input & Output Intake and Output 10/17/18 06:59 Intake Total 1293.92 ml Output Total 300 ml Balance 993.92 ml Intake Oral 680 ml IV Total 613.92 ml Output Urine Total 300 ml # Voids 1 # Bowel Movements 1 Physical Exam Physical Exam General appearance - alert, chronically ill appearing, and in no distress and oriented to person, place, and time Mental Status - alert, oriented to person, place, and time, affect appropriate to mood Head - normal Chest -decreased breath sounds at bases Heart - S1 and S2 normal Abdomen - soft, nontender, nondistended, no masses or organomegaly Neurological - alert and oriented Musculoskeletal - no muscular tenderness noted Extremities - no pedal edema Skin - warm and dry Labs Laboratory Tests Test 10/15/18 12:39 10/15/18 15:34 10/15/18 20:05 10/16/18 02:45 Troponin I Quantitative 0.261 ng/mL (0.000-0.055) 0.260 ng/mL (0.000-0.055) 0.176 ng/mL (0.000-0.055) Heparin Anti-Xa Act, Unfractionated < 0.10 IU/mL (0.30-0.70) 0.28 IU/mL (0.30-0.70) White Blood Count 4.6 x10^3/uL (4.0-11.0) Red Blood Count 4.33 x10^6/uL (4.30-5.70) Hemoglobin 12.4 g/dL (13.0-17.5) Hematocrit 37.8 % (39.0-53.0) Mean Corpuscular Volume 87 fL (79-100) Mean Corpuscular Hemoglobin 29 pg (25-35) Mean Corpuscular Hemoglobin Concent 33 g/dL (31-37) Red Cell Distribution Width 16.5 % (11.5-14.5) Platelet Count 137 x10^3/uL (140-400) Sodium Level 142 mmol/L (136-145) Potassium Level 3.9 mmol/L (3.5-5.1) Chloride Level 106 mmol/L (98-107) Carbon Dioxide Level 28 mmol/L (21-32) Anion Gap 8 (6-14) Blood Urea Nitrogen 17 mg/dL (8-26) Creatinine 1.0 mg/dL (0.7-1.3) Estimated GFR (Cockcroft-Gault) 75.5 Glucose Level 123 mg/dL (70-99) Calcium Level 8.4 mg/dL (8.5-10.1) Triglycerides Level 35 mg/dL (0-150) Cholesterol Level 115 mg/dL (0-200) LDL Cholesterol, Calculated 51 mg/dL (0-100) VLDL Cholesterol, Calculated 7 mg/dL (0-40) Non-HDL Cholesterol Calculated 58 mg/dL (0-129) HDL Cholesterol 57 mg/dL (40-60) Cholesterol/HDL Ratio 2.0 Test 10/16/18 03:00 10/16/18 08:55 10/16/18 15:15 10/17/18 06:00 Thyroid Stimulating Hormone (TSH) 0.914 uIU/mL (0.358-3.74) Heparin Anti-Xa Act, Unfractionated 0.37 IU/mL (0.30-0.70) 0.44 IU/mL (0.30-0.70) 0.40 IU/mL (0.30-0.70) Laboratory Tests Test 10/16/18 15:15 10/17/18 06:00 Heparin Anti-Xa Act, Unfractionated 0.44 IU/mL (0.30-0.70) 0.40 IU/mL (0.30-0.70) Meds Current Medications Regadenoson (Lexiscan) 0.4 mg 1X ONCE IV Last administered on 10/17/18at 09:28; Start 10/17/18 at 08:00; Stop 10/17/18 at 08:01; Status DC Assessment Assessment Problems Medical Problems: (1) Elevated troponin Status: Acute FINAL IMPRESSION: 1. Non-ST elevation myocardial infarction. 2. Slight elevation in troponin. The patient says he had a cardiac cath, 2013, shows mild -moderate disease. 3. 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 4. Hypertension. 5. Hyperlipidemia. 6. Benign prostatic hypertrophy. PLAN: troponin peaked to 0.2 and trending down. spoke with cardiology stress test and echo today Home later today if stress test neg. other labs ok. The ios developer has ordered the stress test. Stress test is in progress and results are pending. COPD- stable Lovenox, beta blockers, aspirin, cholesterol medications are given. If stress test is negative patient may be able to go home later this afternoon. He will see me in the office in 5 days. Discharge management 35 minutes. Plan Plan For more details regarding further plans, please refer to the orders. IDA CUMMINGS MD Oct 17, 2018 10:40
--- NOTE | 2018-10-17 10:41 | DISCH ---
DISCHARGE INSTRUCTIONS Condition on Discharge Condition on Discharge: Stable Activity After Discharge Activity Instructions for Disc: Activity as tolerated Weight Bearing Status after Di: Full weight bearing Diet after Discharge Diet after Discharge: Cardiac Diet Texture: Regular Checks after Discharge Checks after discharge: Check blood press - daily Contacting the after DC Call your doctor for: Concerns you may have Follow-Up Follow up with: Dr. IDA Cummings in 5 days Treatment/Equipment after DC Adaptive Equipment Issued: None IDA CUMMINGS MD Oct 17, 2018 10:41
--- NOTE | 2018-10-17 10:56 | NUR ---
SS following for discharge planning. SS reviewed pt chart. Pt is from home and is currently on room air. No discharge needs noted at this time. SS will continue to follow for pending discharge needs.
[2018-10-17 11:03] VITALS: BP 144/67
--- NOTE | 2018-10-17 11:53 | RAD ---
MR#: [id number] Date of Study: 10/17/2018 Ordering Physician: ELIUD SWANSON, Referring Physician: BRANDI BALL Tech: SEAN Marti APPROVED REPORT Test Type: Pharmacological Stress Nurse/Tech: Landy Stephenson RN Test Indications: Chest pain Cardiac History: Family history, Hypertension,smoker,valve repair 17' Medications: See Electronic Medical Record Medical History: See Electronic Medical Record Resting ECG: SB with BBB Resting Heart Rate: 56 bpm Resting Blood Pressure: 143/62mmHg Pretest Chest Pain: No chest pain Nurse/Tech Notes S1,S2 and lungs are diminished throughout. Consent: The procedure was explained to the patient in lay terms. Informed consent was witnessed. Gelacio eout was entered into [facility]. History and Stress Test performed by SEAN Marti Pharm. Details Pharmacologic stress testing was performed using 0.4mg per 5ml of regadenoson given intravenously ove r 7-10 seconds. Stress Symptoms Chest pain at 5/10 during first minute of injection which gradually decreased to no chest pain by 3 m inutes into study. POST EXERCISE Reason for Termination: Infusion complete Target HR: No Max HR: 94 bpm Max Blood Pressure: 149/59mmHg Blood Pressure response to exercise: Normal blood pressure response during stress. Heart Rate response to exercise: WNL Chest Pain: Yes. see above note Arrhythmia: Yes. PVCs INTERPRETATION Stress EKG Conclusion: The resting EKG shows a sinus rhythm with nonspecific ST segment changes. The stress EKG shows no significant changes from baseline. No EKG evidence of stressed induced ischemia. Imaging Protocol IMAGE PROTOCOL: Rest Tc-99m/stress Tc-99m 1 day Rest: Stress: Viability: Radiopharm.Tc99m OmdgwetomIo86x Sestamibi Doqv01pRm 31mCi Duration 16min. 13min. Img Date 10/17/2018 10/17/2018 Inj-Img Vtdu13los. 60min. Rest Admin Site:IV - Right AntecubitalAdministrator:SEAN Marti Stress Admin Site: IV - Right AntecubitalAdministrator: Dinora Sánchez, NMTCB, ARRT (R)(N) STRESS DATA End Diast. Vol.138.0mlLVEDV index BSA72.0ml End Syst. Vol.75.0mlLVESV index BSA39.0ml Myocardial Dssh429.0gEject. Ucvnlhbk39.0% Stress Scores Regional WT3.00Summed WT33.00 Regional WM1.00Summed WM21.00 LV Perfusion The stress scans showed no significant defects. The rest scans showed no significant defects. Nuclear imaging shows no reversible ischemia or infarct. Wall Motion Left ventricular systolic function is mildly decreased with an ejection fraction of 46% and mild sept al hypokinesis. LV Perf. Quant 17 Seg. SSS1.00 17 Seg. SRS3.00 17 Seg. SDS1.00 Stress Defect Extent (% LAD)0.00Rest Defect Extent (% LAD)3.80Rev. Defect Extent (% LAD)0.00 Stress Defect Extent (% LCX) 0.00Rest Defect Extent (% LCX)0.00Rev. Defect Extent (% LCX)0.00 Stress Defect Extent (% RCA)0.00Rest Defect Extent (% RCA)2.20Rev. Defect Extent (% RCA)0.00 Stress Defect Extent (% MATT)0.00Rest Defect Extent (% MATT)2.60Rev. Defect Extent (% MATT)0.00 IMPRESSION Global LV Function: Normal, Mildy reduced, Moderately reduced, Severely reduced, Hyperdynamic LV Viability Summary: Significantly viable myocardium, Potentially viable myocardium, Non-viable myoc ardium Conclusion 1. No EKG evidence of stressed induced ischemia. 2. Nuclear imaging shows no reversible ischemia or infarct. 3. Mildly decreased LV systolic function with an ejection fraction of 46% and mild septal hypokinesis . 4. Moderately low risk Lexiscan nuclear stress test. Signed by : Eliud Swanson MD Electronically Approved : 10/17/2018 11:53:14
[2018-10-17] MEDS: HYDROcodone/APAP 5/325MG 1 TAB TABLET PO PRN (12:37)
[2018-10-17] MEDS ORDERED: LISINOPRIL 10 MG TABLET PO SCH (13:00)
--- NOTE | 2018-10-17 13:05 | PDOC ---
CARDIO Progress Notes Date and Time Date of Service 10/17/18 Time of Evaluation 1115 Subjective Subjective: No Chest Pain, No shortness of breath, No Palpitations Vitals Vitals Vital Signs Date Time Temp Pulse Resp B/P (MAP) Pulse Ox O2 Delivery O2 Flow Rate FiO2 10/17/18 12:37 Room Air 10/17/18 11:03 97.7 60 16 144/67 (92) 97 97.7 Weight Weight [ ] Input and Output Intake and Output Intake and Output 10/17/18 07:00 Intake Total 1293.92 ml Output Total 300 ml Balance 993.92 ml Intake Oral 680 ml IV Total 613.92 ml Output Urine Total 300 ml # Voids 1 # Bowel Movements 1 Laboratory Labs Laboratory Tests Test 10/16/18 15:15 10/17/18 06:00 Heparin Anti-Xa Act, Unfractionated 0.44 IU/mL (0.30-0.70) 0.40 IU/mL (0.30-0.70) Physical Exam HEENT: Neck Supple W Full Motion Chest: Symmetric LUNGS: Clear to Auscultation Heart: S1S2, RRR, murmurs (2/6 systolic murmur ) Abdomen: Soft N/T Extremities: No Edema Neurology: alert, oriented, follow commands Assessment Assessment 1. Weakness and dizziness 2. Chest pressure; cath 2013 without significant obstructive disease. Stress test today without any evidence of ischemia or infarct 3. Mild troponin elevation; peak 0.271. 4. Chronic systolic HF; Echo showed mildly depressed LV systolic function with an EF of 45-50%. Add low-dose lisinopril 5. Mild 6. Hypertension; mildly elevated. Add lisinopril as above 7. Hyperlipidemia; statin May discharge from a CV standpoint and f/u in our office with Dr. Velázquez in 1 month JOAQUINA WOLF APRN Oct 17, 2018 13:05
[2018-10-17] MEDS ORDERED: LISI10TA2 PO (14:44)
[2018-10-17 14:48] VITALS: BP 173/79
[2018-10-17] MEDS ORDERED: hydrALAZINE 20 MG/ML VIAL. IVP ONE (16:15)
[2018-10-17 17:05] VITALS: BP 123/58
--- NOTE | 2018-10-17 17:36 | NUR ---
Discharge: Teaching verbal and written. Reviewed medication, follow-up, ECHO, Stress test, diet, ect. Patient verbalized understanding. 1 prescription for lisinopril called into [facility]. All belongings with patient. Patient assisted off of unit via wheelchair accompanied by HAND KISS SETTER. IV removed without complications, catheter tip in-tact.
--- NOTE | 2018-11-08 14:46 | PDOC ---
Provider Note Provider Note Discharge summary dictated.#[id number]. SHIREEN HOLLIDAY MD Nov 08, 2018 14:46
--- NOTE | 2018-11-08 21:53 | DS ---
DATE OF DISCHARGE: 10/17/2018 REASON FOR ADMISSION TO THE HOSPITAL: Chest pain. CONSULTATION: Dr. Velázquez. PROCEDURES DONE: 1. Stress test. 2. Echocardiogram. HOSPITAL COURSE: The patient is a 62-year-old male, with history of COPD, has a history of tricuspid valve repair, was having some chest pain, was brought to the hospital. Troponin was borderline elevated at 0.2. Had echocardiogram that shows ejection fraction 45-50%, normal left ventricular function, and the patient had a stress test, was negative for ischemia, and the patient did well, was discharged. Follow up with Cardiology. FINAL DIAGNOSES: 1. Chest pain, noncardiac. 2. Stress test negative for ischemia. 3. History of tricuspid valve repair, stable. 4. Chronic obstructive pulmonary disease. DISPOSITION: Home. DISCHARGE MEDICATIONS: See MRAD for discharge medications. SHIREEN HOLLIDAY MD DR: ILENE/keyona JOB#: [id number] / [id number] IDA Hearn MD
== END 2018-10-17 17:38 | disposition home or self-care (01) | DRG 303 ==
LOC: ER 07:33 → 2 SOUTH 09:40
PROVIDERS: ADMIT Internal Medicine; ATTEND Internal Medicine
DX: I25.9 Chronic ischemic heart disease, unspecified (principal); I50.22 Chronic systolic (congestive) heart failure; I13.0 Hypertensive heart and chronic kidney disease with heart failure and stage 1 through stage 4 chronic kidney disease, or unspecified chronic kidney disease; I25.10 Atherosclerotic heart disease of native coronary artery without angina pectoris; J44.9 Chronic obstructive pulmonary disease, unspecified; F17.200 Nicotine dependence, unspecified, uncomplicated; I07.1 Rheumatic tricuspid insufficiency; K21.9 Gastro-esophageal reflux disease without esophagitis; K57.90 Diverticulosis of intestine, part unspecified, without perforation or abscess without bleeding; F41.9 Anxiety disorder, unspecified; F32.9 Major depressive disorder, single episode, unspecified; M19.90 Unspecified osteoarthritis, unspecified site; N40.0 Benign prostatic hyperplasia without lower urinary tract symptoms; N18.2 Chronic kidney disease, stage 2 (mild); E78.5 Hyperlipidemia, unspecified; Z86.73 Personal history of transient ischemic attack (TIA), and cerebral infarction without residual deficits; I25.2 Old myocardial infarction; Z87.11 Personal history of peptic ulcer disease; Z95.0 Presence of cardiac pacemaker; Z95.2 Presence of prosthetic heart valve; Z88.1 Allergy status to other antibiotic agents; Z88.0 Allergy status to penicillin; Z82.49 Family history of ischemic heart disease and other diseases of the circulatory system; Z83.3 Family history of diabetes mellitus; Z87.442 Personal history of urinary calculi
CPT/HCPCS: 36415; 70450; 71045; 71046; 78452; 80048; 80053; 80061; 81001; 84443; 84484; 85025; 85027; 85520; 85610; 93005; 93017; 93306; 94640; 94760; 96360; 96374; 99406; A9500; J0360; J1644; J2785; J7040; J7613; J7626; 99285-25

== ENCOUNTER 2019-03-01 04:50 | Emergency (ER) | payer OTHER ==
[~2019-03-01] VITALS: Ht 182.9 cm; Wt 69.4 kg
[~2019-03-01 04:50] MED LIST changes: +CYAN-25 PO; -CYAN10005 PO; +METH-37 PO; +MONT10TA49 PO
--- NOTE | 2019-03-01 05:51 | PHYS DOC ---
Past Medical History Past Medical History: CAD, COPD, Hypertension, NH, Stroke Additional Past Medical Histor: STOMACH ULCERS, BRADYCARDIA, abd aneurysm (ESTHER BRODY MD) Past Surgical History: Other Additional Past Surgical Histo: OPEN HEART SURGERY FOR VALVE REPAIR, ulcer surgery, PPM X2 BOTH REMOVED (ESTHER BRODY MD) Alcohol Use: None Drug Use: None (ESTHER BRODY MD) Adult General Chief Complaint Chief Complaint: LOWER EXT PAIN HPI HPI Patient is a 63 year old m p/w cc of leg pain. has had a few episodes of left leg pain and cramping left thigh radiating down into the left calf area. felt similar to prior dvt that he has had in the past. no trauma, currently not having any pain. wanted to get checked out for dvt also feeling sob, pretty usual for him maybe a little worse no fever no cough no chest pain hx of chf ef 45-50 tricuspid regurg (ESTHER BRODY MD) Review of Systems Review of Systems Constitutional: Denies fever or chills [] Eyes: Denies change in visual acuity, redness, or eye pain [] HENT: Denies nasal congestion or sore throat [] Respiratory: Denies cough Cardiovascular: No additional information not addressed in HPI [] GI: Denies abdominal pain, nausea, vomiting, bloody stools or diarrhea [] Neurologic: Denies headache, focal weakness or sensory changes [] Endocrine: Denies polyuria or polydipsia [] All other systems were reviewed and found to be within normal limits, except as documented in this note. (ESTHER BRODY MD) Current Medications Current Medications Current Medications Medications (Trade) Dose Ordered Sig/Trista Start Time Stop Time Status Last Admin Dose Admin Info (CONTRAST GIVEN -- Rx MONITORING) 1 each PRN DAILY PRN 03/01/19 07:30 03/03/19 07:29 Iohexol (Omnipaque 350 Mg/ml) 100 ml STK-MED ONCE 03/01/19 07:23 03/01/19 07:24 DC (MINISTERIO GAGNON MD) Allergies Allergies Allergies Coded Allergies Type Severity Reaction Last Updated Verified Penicillins Allergy Severe swelling 12/06/13 Yes vancomycin Adverse Reaction Intermediate 10/15/18 Yes (MINISTERIO GAGNON MD) Physical Exam Physical Exam Constitutional: Well developed, well nourished, no acute distress, non-toxic appearance. [] HENT: Normocephalic, atraumatic, bilateral external ears normal, oropharynx moist, no oral exudates, nose normal. [] Eyes: PERRLA, EOMI, conjunctiva normal, no discharge. [] Neck: Normal range of motion, no tenderness, supple, no stridor. [] Cardiovascular mild bradycardia, tr murmur Lungs & Thorax: decreased breath sounds at bases Abdomen: Bowel sounds normal, soft, no tenderness, no masses, no pulsatile masses. [] Skin: see below Back: No tenderness, no CVA tenderness. [] Extremities: there are some skin changes noted to left greater than right vinson and left foot. dopplerable posterior tibial pulses b/l. nondopplerable DP pulse on left and right. no symptoms on left. mild ttp noted left calf. no cellulitis. Neurologic: Alert and oriented X 3, normal motor function, normal sensory fu nction, no focal deficits noted. [] Psychologic: Affect normal, judgement normal, mood normal. [] (ESTHER BRODY MD) Current Patient Data Vital Signs Vital Signs Date Time Temp Pulse Resp B/P (MAP) Pulse Ox O2 Delivery O2 Flow Rate FiO2 03/01/19 08:15 48 14 106/52 (70) 100 Room Air 03/01/19 04:58 97.5 97.5 (MINISTERIO GAGNON MD) Lab Values Laboratory Tests Test 03/01/19 05:40 03/01/19 06:10 White Blood Count 6.3 x10^3/uL (4.0-11.0) Red Blood Count 4.17 x10^6/uL (4.30-5.70) L Hemoglobin 12.7 g/dL (13.0-17.5) L Hematocrit 37.2 % (39.0-53.0) L Mean Corpuscular Volume 89 fL (79-100) Mean Corpuscular Hemoglobin 30 pg (25-35) Mean Corpuscular Hemoglobin Concent 34 g/dL (31-37) Red Cell Distribution Width 16.4 % (11.5-14.5) H Platelet Count 179 x10^3/uL (140-400) Neutrophils (%) (Auto) 57 % (31-73) Lymphocytes (%) (Auto) 21 % (24-48) L Monocytes (%) (Auto) 16 % (0-9) H Eosinophils (%) (Auto) 5 % (0-3) H Basophils (%) (Auto) 1 % (0-3) Neutrophils # (Auto) 3.6 x10^3/uL (1.8-7.7) Lymphocytes # (Auto) 1.3 x10^3/uL (1.0-4.8) Monocytes # (Auto) 1.0 x10^3/uL (0.0-1.1) Eosinophils # (Auto) 0.3 x10^3/uL (0.0-0.7) Basophils # (Auto) 0.1 x10^3/uL (0.0-0.2) Prothrombin Time 13.0 SEC (11.7-14.0) Prothrombin Time INR 1.0 (0.8-1.1) Sodium Level 139 mmol/L (136-145) Potassium Level 3.8 mmol/L (3.5-5.1) Chloride Level 103 mmol/L (98-107) Carbon Dioxide Level 31 mmol/L (21-32) Anion Gap 5 (6-14) L Blood Urea Nitrogen 19 mg/dL (8-26) Creatinine 1.3 mg/dL (0.7-1.3) Estimated GFR (Cockcroft-Gault) 55.6 BUN/Creatinine Ratio 15 (6-20) Glucose Level 85 mg/dL (70-99) Calcium Level 8.7 mg/dL (8.5-10.1) Total Bilirubin 0.5 mg/dL (0.2-1.0) Aspartate Amino Transferase (AST) 16 U/L (15-37) Alanine Aminotransferase (ALT) 11 U/L (16-63) L Alkaline Phosphatase 146 U/L (46-116) H Troponin I Quantitative < 0.017 ng/mL (0.000-0.055) QO-Qqt-O-Type Natriuretic Peptide 198 pg/mL (0-124) H Total Protein 7.4 g/dL (6.4-8.2) Albumin 3.7 g/dL (3.4-5.0) Albumin/Globulin Ratio 1.0 (1.0-1.7) Laboratory Tests 03/01/19 05:40 Laboratory Tests 03/01/19 06:10 (MINISTERIO GAGNON MD) Lab Values Laboratory Tests Test 03/01/19 05:40 White Blood Count 6.3 x10^3/uL (4.0-11.0) Red Blood Count 4.17 x10^6/uL (4.30-5.70) L Hemoglobin 12.7 g/dL (13.0-17.5) L Hematocrit 37.2 % (39.0-53.0) L Mean Corpuscular Volume 89 fL (79-100) Mean Corpuscular Hemoglobin 30 pg (25-35) Mean Corpuscular Hemoglobin Concent 34 g/dL (31-37) Red Cell Distribution Width 16.4 % (11.5-14.5) H Platelet Count 179 x10^3/uL (140-400) Neutrophils (%) (Auto) 57 % (31-73) Lymphocytes (%) (Auto) 21 % (24-48) L Monocytes (%) (Auto) 16 % (0-9) H Eosinophils (%) (Auto) 5 % (0-3) H Basophils (%) (Auto) 1 % (0-3) Neutrophils # (Auto) 3.6 x10^3/uL (1.8-7.7) Lymphocytes # (Auto) 1.3 x10^3/uL (1.0-4.8) Monocytes # (Auto) 1.0 x10^3/uL (0.0-1.1) Eosinophils # (Auto) 0.3 x10^3/uL (0.0-0.7) Basophils # (Auto) 0.1 x10^3/uL (0.0-0.2) Laboratory Tests 03/01/19 05:40 (ESTHER BRODY MD) EKG EKG []sinus myranda rate 43 no stemi no heart block (ESTHER BRODY MD) Radiology/Procedures Radiology/Procedures [] (ESTHER BRODY MD) Radiology/Procedures PROCEDURE: PORTABLE CHEST 1V EXAM: CHEST ONE VIEW. HISTORY: Shortness of breath. COMPARISON: 10/25/2018. FINDINGS: A frontal view of the chest is obtained. Disconnected pacemaker leads are noted. There are changes of coronary artery bypass grafting. There are no confluent infiltrates. There is no pneumothorax or pleural effusion. The heart is not enlarged. IMPRESSION: 1. No confluent infiltrates. PROCEDURE: VENOUS LOWER EXTREMITY LEFT EXAM: 1. Left lower extremity arterial Doppler. 2. Left lower extremity venous Doppler. HISTORY: Left lower extremity pain/swelling. COMPARISON: None. FINDINGS: Grayscale and Doppler analysis of the left lower extremity arterial system was performed. There is postobstructive monophasic flow from the common femoral arteries through the ankle. The dorsalis pedis and distal posterior tibial arteries are patent. The right common femoral artery at also demonstrates monophasic flow. Grayscale and Doppler analysis of the left lower extremity deep venous system was performed with graded compression and augmentation. The common femoral, greater saphenous, superficial femoral, popliteal and calf veins were assessed. There is no evidence of deep venous thrombosis. IMPRESSION: 1. Findings consistent with significantly flow-limiting stenosis proximal to the common femoral arteries bilaterally. 2. No evidence of deep venous thrombosis. PROCEDURE: CT ANGIO ABD ILEO/FEMOR RUNOFF PQRS Compliance Statement: One or more of the following individualized dose reduction techniques were utilized for this examination: 1. Automated exposure control 2. Adjustment of the mA and/or kV according to patient size 3. Use of iterative reconstruction technique CT ANGIO ABD ILEO/FEMOR RUNOFF Clinical Indication: Peripheral arterial disease, leg pain, abnormal ultrasound. Comparison: Left lower extremity arterial duplex Doppler ultrasound, earlier same day. CT abdomen and pelvis without contrast October 06, 2018. Technique: 75 cc of Omnipaque 350 injected intravenously for contrast enhancement. Helical scanning performed according to protocol. Angio package applied including multiplanar reformat reconstructions and 3-D MIP reconstructions. Shaded surface display of 3-D reconstructions also performed. These are all manipulated at separate CT workstation and transferred to the PACS workstation where they are reviewed. Findings: The descending thoracic aorta is normal caliber. Atherosclerotic calcification mild narrowing at the origin of the celiac artery. Atherosclerotic disease of the splenic artery. The proximal SMA is patent. Atherosclerotic calcification and moderate narrowing in the proximal right renal artery. There are 2 left renal arteries are patent. There is borderline bilobed fusiform aneurysm of the infrarenal abdominal aorta, maximum diameter 3 cm. There is no dissection. Mild atherosclerotic calcification and narrowing of the right common iliac artery. No significant narrowing in the external iliac artery on the right. There is atherosclerotic calcification and mild to moderate narrowing in the common femoral artery. Inferior epigastric artery contributes to the common femoral artery. The profunda artery is patent. There is severe disease of the SFA with a short segment occlusion in the mid to distal thigh. The artery is reconstituted from a collateral. The popliteal artery is patent. There is severe atherosclerotic disease of calf arteries. Despite this there appears to be three-vessel runoff into the foot. There is moderate atherosclerotic calcification in the left common iliac artery. There is moderate disease in the left external iliac artery. Mild disease in the common femoral artery. Inferior epigastric artery contributes to the common femoral artery. The profunda artery is patent. There is severe disease of the SFA with short segment occlusion in the mid thigh there is reconstitution from collaterals. Popliteal artery is patent. There is severe atherosclerotic disease of left calf arteries. The anterior tibial artery occludes in the mid to distal calf. There is two-vessel runoff into the foot. There are left femoral vein superficial venous collaterals of the left abdominal wall. There is an enhancing left gonadal vein collateral. Cardiac pacer wires. The cardiac size is normal. There is moderate atelectasis in the bilateral lower lobes. Solid organs in the upper abdomen are unremarkable. There is no bowel obstruction. The appendix is normal. Moderate colon stool volume. Urinary bladder is normal. No compression fracture in the thoracolumbar spine is seen. IMPRESSION: 1. There is severe atherosclerotic disease of the bilateral superficial femoral arteries with short segment occlusion on the right in the mid to distal thigh and on the left in the mid thigh. 2. There is severe atherosclerotic disease of calf arteries. There is three-vessel runoff on the right and two-vessel runoff on the left. 3. There is borderline fusiform aneurysm of the infrarenal abdominal aorta. 4. There is mild to moderate narrowing in the right common femoral artery and mild narrowing in the left common femoral artery. (MINISTERIO GAGNON MD) Course & Med Decision Making Course & Med Decision Making Pertinent Labs and Imaging studies reviewed. (See chart for details) []63 yo m mmp chf tr cad htn prior dvt not on anticoagulation at this time p/w left leg pain. pain has been intermittent throughout day, will r/o dvt. noted some skin changes left lower ext, doppler exam symmetric but abnormal will get arterial study too s/o dhruv pending workup 6 am (ESTHER BRODY MD) Course & Med Decision Making 7:00 AM: Patient care was assumed at 6 AM shift change. Patient complains of increasing left leg pain. He has a prior history of a DVT remotely, currently not on any anticoagulation. He also states he has been told he has "poor circulation" in the past. He denies any recent injury. On exam, there are no palpable pulses in the lower extremities bilaterally, but dopplerable pulses are present. There is mild tenderness to palpation of soft tissues of the left leg. Venous and arterial ultrasounds have been reviewed. There is no evidence of a DVT, there appears to be postobstructive flow blighted laterally, suggesting possibly aortic or proximal large vessel obstruction. CT imaging will be obtained. 9:10 AM: The patient's condition remains stable. I discussed the test results with the patient, and spoke with Dr. Jacky Linder, vascular surgery, who rec ommended outpatient follow-up in the office, and did not want any adjustments to the patient's antiplatelet therapy, stating 81 mg aspirin was adequate at this time. I discussed importance of close follow-up with the patient, smoking cessation, and return precautions. (MINISTERIO GAGNON MD) Dragon Disclaimer Dragon Disclaimer This electronic medical record was generated, in whole or in part, using a voice recognition dictation system. (ESTHER BRODY MD) Departure Departure Impression: Primary Impression: Peripheral vascular disease Additional Impression: Claudication Disposition: 01 HOME, SELF-CARE Condition: STABLE Referrals: IDA CUMMINGS MD (PCP) JACKY LINDER MD Patient Instructions: Intermittent Claudication, Peripheral Vascular Disease, Smoking Cessation Additional Instructions: Continue taking your aspirin 81 mg daily. Follow-up with Dr. Linder, vascular surgery, , for further evaluation. Problem Qualifiers ESTHER BRODY MD Mar 01, 2019 05:51 MINISTERIO GAGNON MD Mar 01, 2019 06:56
[2019-03-01 05:59] LABS: BASO # 0.1 x10^3/uL (0.0-0.2); BASO % 1 % (0-3); EOS # 0.3 x10^3/uL (0.0-0.7); EOS % 5 % (0-3); HEMATOCRIT 37.2 % (39.0-53.0); HEMOGLOBIN 12.7 g/dL (13.0-17.5); LYMPH # 1.3 x10^3/uL (1.0-4.8); LYMPH % 21 % (24-48); MEAN CORPUSCULAR HEMOGLOBIN 30 pg (25-35); MEAN CORPUSCULAR HGB CONC 34 g/dL (31-37); MEAN CORPUSCULAR VOLUME 89 fL (79-100); MONO % 16 % (0-9); NEUT # 3.6 x10^3/uL (1.8-7.7); NEUT % 57 % (31-73); PLATELET COUNT 179 x10^3/uL (140-400); RED BLOOD COUNT 4.17 x10^6/uL (4.30-5.70); RED CELL DISTRIBUTION WIDTH 16.4 % (11.5-14.5); WHITE BLOOD COUNT 6.3 x10^3/uL (4.0-11.0)
--- NOTE | 2019-03-01 06:00 | EKG ---
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
[2019-03-01 06:32] LABS: ALBUMIN 3.7 g/dL (3.4-5.0); CALCIUM 8.7 mg/dL (8.5-10.1); CREATININE 1.3 mg/dL (0.7-1.3); GFR 55.6; POTASSIUM 3.8 mmol/L (3.5-5.1); TOTAL BILIRUBIN 0.5 mg/dL (0.2-1.0); TOTAL PROTEIN 7.4 g/dL (6.4-8.2)
--- NOTE | 2019-03-01 06:47 | RAD ---
EXAM: 1. Left lower extremity arterial Doppler. 2. Left lower extremity venous Doppler. HISTORY: Left lower extremity pain/swelling. COMPARISON: None. FINDINGS: Grayscale and Doppler analysis of the left lower extremity arterial system was performed. There is postobstructive monophasic flow from the common femoral arteries through the ankle. The dorsalis pedis and distal posterior tibial arteries are patent. The right common femoral artery at also demonstrates monophasic flow. Grayscale and Doppler analysis of the left lower extremity deep venous system was performed with graded compression and augmentation. The common femoral, greater saphenous, superficial femoral, popliteal and calf veins were assessed. There is no evidence of deep venous thrombosis. IMPRESSION: 1. Findings consistent with significantly flow-limiting stenosis proximal to the common femoral arteries bilaterally. 2. No evidence of deep venous thrombosis. Electronically signed by: Teresa Hernanedz MD (03/01/2019 6:44 AM) [id number]
--- NOTE | 2019-03-01 06:51 | RAD ---
EXAM: CHEST ONE VIEW. HISTORY: Shortness of breath. COMPARISON: 10/25/2018. FINDINGS: A frontal view of the chest is obtained. Disconnected pacemaker leads are noted. There are changes of coronary artery bypass grafting. There are no confluent infiltrates. There is no pneumothorax or pleural effusion. The heart is not enlarged. IMPRESSION: 1. No confluent infiltrates. Electronically signed by: Teresa Hernandez MD (03/01/2019 6:48 AM) [facility]
[2019-03-01] MEDS ORDERED: IOHEXOL 350 MG/ML 100 ML VIAL. ONE (07:23)
[2019-03-01] MEDS ORDERED: IOHEXOL 350 MG/ML 100 ML VIAL. IV ONE (07:30)
[2019-03-01] MEDS ORDERED: CONTRAST GIVEN. MC PRN (07:30)
--- NOTE | 2019-03-01 07:43 | RAD ---
TIBIA FIBULA LEFT History: Left lower leg pain. History of DVT. Technique: 2 views left tibia and fibula. Comparison: None. Findings: Normal alignment. No fracture. Vascular calcifications. Otherwise, soft tissues unremarkable. Impression: 1. No acute osseous abnormality. Electronically signed by: Richi Sánchez DO (03/01/2019 7:40 AM) [id number]
--- NOTE | 2019-03-01 08:45 | RAD ---
PQRS Compliance Statement: One or more of the following individualized dose reduction techniques were utilized for this examination: 1. Automated exposure control 2. Adjustment of the mA and/or kV according to patient size 3. Use of iterative reconstruction technique CT ANGIO ABD ILEO/FEMOR RUNOFF Clinical Indication: Peripheral arterial disease, leg pain, abnormal ultrasound. Comparison: Left lower extremity arterial duplex Doppler ultrasound, earlier same day. CT abdomen and pelvis without contrast October 06, 2018. Technique: 75 cc of Omnipaque 350 injected intravenously for contrast enhancement. Helical scanning performed according to protocol. Angio package applied including multiplanar reformat reconstructions and 3-D MIP reconstructions. Shaded surface display of 3-D reconstructions also performed. These are all manipulated at separate CT workstation and transferred to the PACS workstation where they are reviewed. Findings: The descending thoracic aorta is normal caliber. Atherosclerotic calcification mild narrowing at the origin of the celiac artery. Atherosclerotic disease of the splenic artery. The proximal SMA is patent. Atherosclerotic calcification and moderate narrowing in the proximal right renal artery. There are 2 left renal arteries are patent. There is borderline bilobed fusiform aneurysm of the infrarenal abdominal aorta, maximum diameter 3 cm. There is no dissection. Mild atherosclerotic calcification and narrowing of the right common iliac artery. No significant narrowing in the external iliac artery on the right. There is atherosclerotic calcification and mild to moderate narrowing in the common femoral artery. Inferior epigastric artery contributes to the common femoral artery. The profunda artery is patent. There is severe disease of the SFA with a short segment occlusion in the mid to distal thigh. The artery is reconstituted from a collateral. The popliteal artery is patent. There is severe atherosclerotic disease of calf arteries. Despite this there appears to be three-vessel runoff into the foot. There is moderate atherosclerotic calcification in the left common iliac artery. There is moderate disease in the left external iliac artery. Mild disease in the common femoral artery. Inferior epigastric artery contributes to the common femoral artery. The profunda artery is patent. There is severe disease of the SFA with short segment occlusion in the mid thigh there is reconstitution from collaterals. Popliteal artery is patent. There is severe atherosclerotic disease of left calf arteries. The anterior tibial artery occludes in the mid to distal calf. There is two-vessel runoff into the foot. There are left femoral vein superficial venous collaterals of the left abdominal wall. There is an enhancing left gonadal vein collateral. Cardiac pacer wires. The cardiac size is normal. There is moderate atelectasis in the bilateral lower lobes. Solid organs in the upper abdomen are unremarkable. There is no bowel obstruction. The appendix is normal. Moderate colon stool volume. Urinary bladder is normal. No compression fracture in the thoracolumbar spine is seen. IMPRESSION: 1. There is severe atherosclerotic disease of the bilateral superficial femoral arteries with short segment occlusion on the right in the mid to distal thigh and on the left in the mid thigh. 2. There is severe atherosclerotic disease of calf arteries. There is three-vessel runoff on the right and two-vessel runoff on the left. 3. There is borderline fusiform aneurysm of the infrarenal abdominal aorta. 4. There is mild to moderate narrowing in the right common femoral artery and mild narrowing in the left common femoral artery. Electronically signed by: Jarek Colorado MD (03/01/2019 8:42 AM) [id number]
[2019-03-01 09:15] VITALS: BP 110/55
== END 2019-03-01 09:34 | disposition home or self-care (01) ==
LOC: ER 04:50
DX: I73.9 Peripheral vascular disease, unspecified (principal); J44.9 Chronic obstructive pulmonary disease, unspecified; I25.2 Old myocardial infarction; I25.10 Atherosclerotic heart disease of native coronary artery without angina pectoris; Z86.73 Personal history of transient ischemic attack (TIA), and cerebral infarction without residual deficits; I11.0 Hypertensive heart disease with heart failure; I50.9 Heart failure, unspecified
CPT/HCPCS: 36415; 71045; 73590; 75635; 80053; 83880; 84484; 85025; 85610; 93005; 93923; 93971; 99285; Q9967

== ENCOUNTER → 2020-03-21 | Outpatient (CLI) | payer MEDICARE ==
[~2020-03-21] MED LIST changes: -CETI10TA22 PO; +CETI10TA74 PO; -DICL100G18 TP; +DICL100G54 TP; -DIGO125T PO; +DIGO125T3 PO; -NITR0.4T SL; +NITR0.4T24 SL; +OMEP40CA45 PO; -OMEP40CA5 PO; +POTA20TA4 PO; -POTA20TA82 PO; +SIMV20TA18 PO; -SIMV20TA3 PO
== END | disposition home or self-care (01) ==
LOC: LAB 12:09
PROVIDERS: ATTEND Internal Medicine Gastroenterology
DX: Z01.812 Encounter for preprocedural laboratory examination (principal); Z20.828 Contact with and (suspected) exposure to other viral communicable diseases; R13.10 Dysphagia, unspecified; Z86.010 Personal history of colon polyps
CPT/HCPCS: U0003-CS

== ENCOUNTER → 2020-03-25 | Day surgery (SDC) | payer MEDICARE, OTHER ==
[~2020-03-25] MED LIST changes: +IV RINGERS,LACTATED 1000ML 1,000 ML IV SCH; +LIDOCAINE 2% PF 5 ML VIAL. ONE; +PROPOFOL 10 MG/ML (20ML) VIAL. IV ONE
--- NOTE | 2020-03-25 14:36 | PDOC4 ---
PROCEDURE Procedure EGD/colonoscopy with biopsies Indication: "Dysphagia"/History of polyps Meds: per anesthesia Findings: E--Grade A esophagitis at 40cm. G--S/p distal gastrectomy with gastroenterostomy. J--Elisha limb (no bile) to extent of scope normal. Unable to visualize hypopharynx well due to patient motion . BERTA-normal --Scope advanced t cecum. Prep adequate. Mucosa normal. 5mm polyp, distal transverse, 3, 3-5mm polyps, ascending, 5mm polyp, proximal transverse, all biopsied off. Moderate internal hemorrhoids on retroflex. Dayne. well. IMP: Mild reflux; not enough to cause issues. S/p distal gastrectomy with elisha en y. Polyps Internal hemorrhoids. REC: should see ENT Await path. F/u with me in 2 weeks. MARTINEZ KINSEY MD Mar 25, 2020 14:36
[2020-03-25 15:05] VITALS: BP 181/77
--- NOTE | 2020-03-27 16:06 | PATHOLOGY ---
[facility] Accession Number: [id number] . 01 Material submitted: . PART A: colon - DISTAL TRANSVERSE COLON POLYP. Modifiers: distal, transverse PART B: colon - PROXIMAL ASCENDING COLON POLYPS BX. Modifiers: proximal, ascending PART C: colon - PROXIMAL TRANSVERSE COLON POLYPS. Modifiers: proximal, transverse . 01 Clinical history: . WEIGHT LOSS, DYSPHAGIA, HX POLYPS . 02 Diagnosis: A. Colon biopsy, distal transverse colon polyp: - Tubular adenoma. . B. Colon biopsies, proximal ascending colon polyps: - Tubular adenomas. . C. Colon biopsies, proximal transverse colon polyps: - Tubular adenomas. ([facility] 03/27/2020) [facility] 03/27/2020 0904 [facility] . 02 Comment: There is no high-grade dysplasia or evidence of malignancy. ([facility] 03/27/2020) . 02 Electronically signed: . Dwayne Temple MD, Pathologist NPI- [id number] . 01 Gross description: . A. The specimen is received in formalin, labeled "Sushil Brown, distal transverse colon polyp". Received is a segment of light louis soft tissue measuring 1.0 x 0.5 x 0.4 cm in greatest dimensions. The surgical margin is inked and the segment is bisected. The specimen is submitted entirely in cassette A1. . B. The specimen is received in formalin, labeled "Sushil Brown, proximal ascending colon polyps biopsy". Received are multiple segments of pale louis soft tissue ranging in size from 0.2 to 0.4 cm in maximum dimensions. The specimen is submitted entirely in cassette B1. . C. The specimen is received in formalin, labeled "Sushil Brown, proximal transverse colon polyps". Received are two segments of pale louis soft tissue ranging in size from 0.3 to 0.5 cm in maximum dimensions. The specimen is submitted entirely in cassette C1. ([facility]; 03/26/2020) QAC/QAC 03/26/2020 1707 Local . 02 Pathologist provided ICD-10: D12.3, D12.2 . 02 CPT . 960061, 023924, 282068 Specimen Comment: A courtesy copy of this report has been sent to [phone] Specimen Comment: [id number] Specimen Comment: Report sent to / DR CUMMINGS [facility]: [facility] [address] [id number] MD Saúl Ballard MD Phone: [phone] Performed at: 02 [facility] [address] [place], [place] [id number] MD Dwayne Temple MD Phone: [phone]
== END | disposition home or self-care (01) ==
LOC: ENDOS 12:25
PROVIDERS: ATTEND Internal Medicine Gastroenterology
DX: Z12.11 Encounter for screening for malignant neoplasm of colon (principal); D12.3 Benign neoplasm of transverse colon; D12.2 Benign neoplasm of ascending colon; K21.0 Gastro-esophageal reflux disease with esophagitis; K64.8 Other hemorrhoids; I10 Essential (primary) hypertension; F17.210 Nicotine dependence, cigarettes, uncomplicated; Z98.890 Other specified postprocedural states; Z79.899 Other long term (current) drug therapy; Z98.0 Intestinal bypass and anastomosis status; Z72.89 Other problems related to lifestyle; Z88.0 Allergy status to penicillin; Z88.8 Allergy status to other drugs, medicaments and biological substances; Z86.010 Personal history of colon polyps; Z82.49 Family history of ischemic heart disease and other diseases of the circulatory system
CPT/HCPCS: 43235; 45380; 88305; J2704; 45385

== ENCOUNTER 2020-10-16 17:02 | Emergency (ER) | payer MEDICARE ==
[~2020-10-16] VITALS: Ht 175.3 cm; Wt 75.0 kg
[~2020-10-16 17:02] MED LIST changes: +AMLO-186 PO; -AMLO5TAB10 PO; -CIPR500T PO; +CIPR500T2 PO; -IV RINGERS,LACTATED 1000ML 1,000 ML IV SCH; -LIDOCAINE 2% PF 5 ML VIAL. ONE; +LISI10TA16 PO; -LISI10TA2 PO; -PROPOFOL 10 MG/ML (20ML) VIAL. IV ONE
[2020-10-16] MEDS ORDERED: ONDANSETRON PF 4 MG/2 ML VIAL. IVP ONE (17:45)
[2020-10-16] MEDS ORDERED: MORPHINE SULFATE 4 MG/ML VIAL. IV/SQ PRN (17:45)
[2020-10-16] MEDS ORDERED: IV NORMAL SALINE 1000ML BAG 1,000 ML IV SCH (17:45)
--- NOTE | 2020-10-16 17:58 | EKG ---
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
[2020-10-16 18:00] LABS: BASO % 1 % (0-3); EOS # 0.1 x10^3/uL (0.0-0.7); EOS % 2 % (0-3); HEMATOCRIT 33.9 % (39.0-53.0); HEMOGLOBIN 11.3 g/dL (13.0-17.5); LYMPH # 0.3 x10^3/uL (1.0-4.8); LYMPH % 4 % (24-48); MEAN CORPUSCULAR HEMOGLOBIN 32 pg (25-35); MEAN CORPUSCULAR HGB CONC 33 g/dL (31-37); MEAN CORPUSCULAR VOLUME 96 fL (79-100); MONO # 0.9 x10^3/uL (0.0-1.1); MONO % 11 % (0-9); NEUT # 7.3 x10^3/uL (1.8-7.7); NEUT % 84 % (31-73); PLATELET COUNT 192 x10^3/uL (140-400); RED BLOOD COUNT 3.52 x10^6/uL (4.30-5.70); RED CELL DISTRIBUTION WIDTH 23.3 % (11.5-14.5); WHITE BLOOD COUNT 8.7 x10^3/uL (4.0-11.0)
[2020-10-16 18:11] LABS: CALCIUM 8.3 mg/dL (8.5-10.1); CREATININE 0.9 mg/dL (0.7-1.3); GFR 84.7; POTASSIUM 4.1 mmol/L (3.5-5.1)
[2020-10-16 18:17] LABS: ALBUMIN 3.3 g/dL (3.4-5.0); ALBUMIN/GLOBULIN RATIO 1.1 (1.0-1.7); MAGNESIUM 2.2 mg/dL (1.8-2.4); TOTAL BILIRUBIN 0.5 mg/dL (0.2-1.0); TOTAL PROTEIN 6.4 g/dL (6.4-8.2)
[2020-10-16] MEDS ORDERED: IOHEXOL 300 MG/ML 100ML VIAL. IV ONE (18:30)
[2020-10-16] MEDS ORDERED: CONTRAST GIVEN. MC PRN (18:45)
[2020-10-16 18:58] VITALS: BP 148/67
--- NOTE | 2020-10-16 19:17 | RAD ---
Exam: CT of abdomen and pelvis with contrast INDICATION: Abdominal pain TECHNIQUE: Sequential axial images through the abdomen and pelvis obtained following the administrati on of 75 mL of Isovue-370 IV contrast. Sagittal and coronal reformatted images were reconstructed fro m the axial data and reviewed. Comparisons: 03/01/2019 FINDINGS: Heart size is normal. No pericardial effusion. Strandy opacities at dependent portion lungs likely re presenting atelectasis. No pleural effusion. Liver, spleen, pancreas, gallbladder and adrenals are unremarkable. No renal or ureteral calculi. Kidneys demonstrate symmetric enhancement. Bladder is decompressed not well evaluated. Prostate is not enlarged. Diverticulosis is noted at the sigmoid colon without evidence of acute diverticulitis. Appendix is is not identified. No free intra-abdominal air or fluid. No obstruction. Abdominal aorta has a ectatic course but the infrarenal abdominal aorta measuring up to 3.1 cm in patricia meter. Abdominal vasculature is patent. No enlarged intra-abdominal lymph nodes are identified. No suspicious osseous lesions or acute fractures. IMPRESSION: No acute process identified within the abdomen or pelvis. Exposure: One or more of the following in the visualized dose reduction techniques were utilized for this examination: 1. Automated exposure control 2. Adjustment of the MA and/or KV according to patient size 3. Use of iterative of reconstructive technique Electronically signed by: Modesto Ortega MD (10/16/2020 7:15 PM) [facility]
[2020-10-16 20:15] LABS: % BASOS 1 % (0-3); % EOS 1 % (0-5); % LYMPHS 4 % (24-48); % MONOS 10 % (0-10); % SEGS 84 % (35-66); PLT ESTIMATE ADEQUATE (ADEQUATE)
[2020-10-16 20:33] LABS: TOXIC GRANULATION SLIGHT
[2020-10-16 20:34] LABS: ANISOCYTOSIS MOD; POLYCHROMASIA SLIGHT; SCHISTOCYTES FEW
--- NOTE | 2020-10-16 20:39 | PHYS DOC ---
Past Medical History Past Medical History: CAD, Cancer, COPD, Hypertension, NM, Stroke Additional Past Medical Histor: STOMACH ULCERS, BRADYCARDIA, abd aneurysm, throat cancer Past Surgical History: Other Additional Past Surgical Histo: OPEN HEART SURGERY FOR VALVE REPAIR Smoking Status: Current Every Day Smoker Alcohol Use: None Drug Use: None General Adult EDM: Chief Complaint: ABDOMINAL PAIN HPI: HPI: Patient is a 64 year old male with history of CAD, open heart surgery, AAA, hypertension, NM, throat cancer currently not on treatment per his statement who presents to the ED today complaining of generalized abdominal pain rated at 7 out of 10 described as throbbing and intermittent, symptoms began yesterday. Denies anything specifically exacerbating or relieving his symptoms. Denies any nausea, vomiting or diarrhea. Denies any chest pain or shortness of breath. Patient states he has already received both his Covid vaccine Review of Systems: Review of Systems: Constitutional: Denies fever or chills. [] Eyes: Denies change in visual acuity. [] HENT: Denies nasal congestion or sore throat. [] Respiratory: Denies cough or shortness of breath. [] Cardiovascular: Denies chest pain or edema. [] GI: Reports generalized abdominal pain, denies nausea, vomiting, bloody stools or diarrhea. [] : Denies dysuria. [] Musculoskeletal: Denies back pain or joint pain. [] Integument: Denies rash. [] Neurologic: Denies headache, focal weakness or sensory changes. [] Psychiatric: Denies depression or anxiety. [] Heart Score: C/O Chest Pain: N/A Risk Factors: Risk Factors: DM, Current or recent (<one month) smoker, HTN, HLP, family history of CAD, obesity. Risk Scores: Score 0 - 3: 2.5% MACE over next 6 weeks - Discharge Home Score 4 - 6: 20.3% MACE over next 6 weeks - Admit for Clinical Observation Score 7 - 10: 72.7% MACE over next 6 weeks - Early Invasive Strategies Current Medications: Current Medications Medications (Trade) Dose Ordered Sig/Trista Start Time Stop Time Status Last Admin Dose Admin Info (CONTRAST GIVEN -- Rx MONITORING) 1 each PRN DAILY PRN 10/16/20 18:45 10/18/20 18:44 Iohexol (Omnipaque 300 Mg/ml) 75 ml 1X ONCE 10/16/20 18:30 10/16/20 18:31 DC 10/16/20 18:42 75 ML Morphine Sulfate (Morphine Sulfate) 4 mg PRN Q15MIN PRN 10/16/20 17:45 10/17/20 17:44 10/16/20 18:15 4 MG Ondansetron HCl (Zofran) 4 mg 1X ONCE 10/16/20 17:45 10/16/20 17:46 DC 10/16/20 18:14 4 MG Sodium Chloride 1,000 ml @ 100 mls/hr Q10H 10/16/20 17:45 10/17/20 03:44 10/16/20 18:15 100 MLS/HR Allergies: Allergies: Allergies Coded Allergies Type Severity Reaction Last Updated Verified Penicillins Allergy Severe swelling 03/25/20 Yes vancomycin Adverse Reaction Intermediate 03/25/20 Yes Physical Exam: PE: Constitutional: Well developed, well nourished, no acute distress, non-toxic appearance. [] HENT: Normocephalic, atraumatic, bilateral external ears normal, oropharynx moist, no oral exudates, nose normal. [] Eyes: PERRLA, EOMI, conjunctiva normal, no discharge. [] Neck: Normal range of motion, no tenderness, supple, no stridor. [] Cardiovascular: Old healed surgical incision midline chest. Bradycardic Lungs & Thorax: Bilateral breath sounds clear to auscultation [] Abdomen: Bowel sounds normal, soft, no tenderness, no masses, no pulsatile masses. [] Skin: Warm, dry, no erythema, no rash. [] Back: No tenderness, no CVA tenderness. [] Extremities: No tenderness, no cyanosis, no clubbing, ROM intact, no edema. [] Neurologic: Alert and oriented X 3, normal motor function, normal sensory function, no focal deficits noted. [] Psychologic: Affect normal, judgement normal, mood normal. [] Current Patient Data: Labs: Laboratory Tests Test 10/16/20 17:45 White Blood Count 8.7 x10^3/uL (4.0-11.0) Red Blood Count 3.52 x10^6/uL (4.30-5.70) L Hemoglobin 11.3 g/dL (13.0-17.5) L Hematocrit 33.9 % (39.0-53.0) L Mean Corpuscular Volume 96 fL (79-100) Mean Corpuscular Hemoglobin 32 pg (25-35) Mean Corpuscular Hemoglobin Concent 33 g/dL (31-37) Red Cell Distribution Width 23.3 % (11.5-14.5) H Platelet Count 192 x10^3/uL (140-400) Neutrophils (%) (Auto) 84 % (31-73) H Lymphocytes (%) (Auto) 4 % (24-48) L Monocytes (%) (Auto) 11 % (0-9) H Eosinophils (%) (Auto) 2 % (0-3) Basophils (%) (Auto) 1 % (0-3) Neutrophils # (Auto) 7.3 x10^3/uL (1.8-7.7) Lymphocytes # (Auto) 0.3 x10^3/uL (1.0-4.8) L Monocytes # (Auto) 0.9 x10^3/uL (0.0-1.1) Eosinophils # (Auto) 0.1 x10^3/uL (0.0-0.7) Basophils # (Auto) 0.0 x10^3/uL (0.0-0.2) Segmented Neutrophils % 84 % (35-66) H Lymphocytes % 4 % (24-48) L Monocytes % 10 % (0-10) Eosinophils % 1 % (0-5) Basophils % 1 % (0-3) Toxic Granulation Slight Platelet Estimate Adequate (ADEQUATE) Polychromasia Slight Anisocytosis Mod Schistocytes Few Sodium Level 142 mmol/L (136-145) Potassium Level 4.1 mmol/L (3.5-5.1) Chloride Level 104 mmol/L (98-107) Carbon Dioxide Level 30 mmol/L (21-32) Anion Gap 8 (6-14) Blood Urea Nitrogen 14 mg/dL (8-26) Creatinine 0.9 mg/dL (0.7-1.3) Estimated GFR (Cockcroft-Gault) 84.7 BUN/Creatinine Ratio 16 (6-20) Glucose Level 97 mg/dL (70-99) Calcium Level 8.3 mg/dL (8.5-10.1) L Magnesium Level 2.2 mg/dL (1.8-2.4) Total Bilirubin 0.5 mg/dL (0.2-1.0) Aspartate Amino Transferase (AST) 12 U/L (15-37) L Alanine Aminotransferase (ALT) 22 U/L (16-63) Alkaline Phosphatase 142 U/L (46-116) H Troponin I Quantitative < 0.017 ng/mL (0.000-0.055) QF-Cuo-C-Type Natriuretic Peptide 1816 pg/mL (0-124) H Total Protein 6.4 g/dL (6.4-8.2) Albumin 3.3 g/dL (3.4-5.0) L Albumin/Globulin Ratio 1.1 (1.0-1.7) Lipase 28 U/L (73-393) L Laboratory Tests 10/16/20 17:45 Laboratory Tests 10/16/20 17:45 Vital Signs: Vital Signs Date Time Temp Pulse Resp B/P (MAP) Pulse Ox O2 Delivery O2 Flow Rate FiO2 10/16/20 18:15 18 97 10/16/20 17:15 97.0 52 189/79 (115) Room Air 97.0 EKG: EK Interpreted by Dr. Alexandra sinus bradycardia HR 47 no STEMI[] Patient states bradycardia in the 40s to 50s is his baseline heartrate Radiology/Procedures: Radiology/Procedures: []PROCEDURE: CT ABD PELV W/ IV CONTRST ONLY Exam: CT of abdomen and pelvis with contrast INDICATION: Abdominal pain TECHNIQUE: Sequential axial images through the abdomen and pelvis obtained following the administration of 75 mL of Isovue-370 IV contrast. Sagittal and coronal reformatted images were reconstructed from the axial data and reviewed. Comparisons: 03/01/2019 FINDINGS: Heart size is normal. No pericardial effusion. Strandy opacities at dependent portion lungs likely representing atelectasis. No pleural effusion. Liver, spleen, pancreas, gallbladder and adrenals are unremarkable. No renal or ureteral calculi. Kidneys demonstrate symmetric enhancement. Bladder is decompressed not well evaluated. Prostate is not enlarged. Diverticulosis is noted at the sigmoid colon without evidence of acute diverticulitis. Appendix is is not identified. No free intra-abdominal air or fluid. No obstruction. Abdominal aorta has a ectatic course but the infrarenal abdominal aorta measuring up to 3.1 cm in diameter. Abdominal vasculature is patent. No enlarged intra-abdominal lymph nodes are identified. No suspicious osseous lesions or acute fractures. IMPRESSION: No acute process identified within the abdomen or pelvis. Exposure: One or more of the following in the visualized dose reduction techniques were utilized for this examination: 1. Automated exposure control 2. Adjustment of the MA and/or KV according to patient size 3. Use of iterative of reconstructive technique Electronically signed by: Modesto Kelly MD (10/16/2020 7:15 PM) [facility] DICTATED and SIGNED BY: MODESTO KELLY MD DATE: 10/16/20 [id number] 0 Course & Med Decision Making: Course & Med Decision Making Pertinent Labs and Imaging studies reviewed. (See chart for details) This is a 64-year-old male patient presenting to the ED today complaining of generalized abdominal pain, symptoms began yesterday. Patient's lab work is negative for any acute findings, CT of the abdomen and pelvic was also negative. He was noted to be bradycardic in the high 40s to 50s, patient states this is his baseline heart rate. He states he follows up with his PCP as well as her foreign law consultant. Considering negative work-up he was discharged to home. 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 Departure Departure Impression: Primary Impression: Abdominal pain Qualified Codes: R10.84 - Generalized abdominal pain Disposition: 01 DC HOME SELF CARE/HOMELESS Condition: STABLE Referrals: DIA CUMMINGS MD (PCP) follow up in 1-2 weeks Patient Instructions: Abdominal Pain (Nonspecific) Additional Instructions: Your evaluated in the emergency room for abdominal pain, your work-up in the emergency room is negative for any acute findings, follow-up with your primary care doctor in 1 to 2 weeks. RADHA MORTON LOOSE HAND PACKER Oct 16, 2020 20:39
== END 2020-10-16 20:45 | disposition home or self-care (01) ==
LOC: ER 17:02
DX: R10.84 Generalized abdominal pain (principal); I10 Essential (primary) hypertension; I25.2 Old myocardial infarction; I25.10 Atherosclerotic heart disease of native coronary artery without angina pectoris; Z86.73 Personal history of transient ischemic attack (TIA), and cerebral infarction without residual deficits; F17.200 Nicotine dependence, unspecified, uncomplicated; Z88.0 Allergy status to penicillin; Z88.1 Allergy status to other antibiotic agents
CPT/HCPCS: 36415; 74177; 80053; 83690; 83735; 83880; 84484; 85007; 85025; 93005; 96361; 96374; 96375; 99285; J2270; J2405; J7030; Q9967

== ENCOUNTER 2020-11-17 19:11 | Observation (INO) | payer MEDICARE ==
[~2020-11-17] VITALS: Ht 182.9 cm; Wt 62.5 kg
--- NOTE | 2020-11-17 19:29 | PHYS DOC ---
Past Medical History Past Medical History: CAD, Cancer, COPD, Hypertension, AL, Stroke Additional Past Medical Histor: STOMACH ULCERS, BRADYCARDIA, abd aneurysm, throat cancer Past Surgical History: Other Additional Past Surgical Histo: OPEN HEART SURGERY FOR VALVE REPAIR Smoking Status: Current Every Day Smoker Alcohol Use: None Drug Use: None General Adult EDM: Chief Complaint: CHEST PAIN HPI: HPI: Patient is a 64 year old male with significant cardiac history presents with report of midsternal chest discomfort with radiation to left arm. Patient reports some associated nausea and vomiting. Patient reports symptoms started last night at approximately 1999. Patient reports taking 3 sublingual nitroglycerin yesterday with improvement. Patient reports pain continued today. Patient reports taking nitroglycerin prior to arrival without improvement. Patient does report pain as sharp in nature. Patient reports history of recent pacemaker replacement 3 weeks ago. Review of Systems: Review of Systems: Constitutional: Denies fever or chills Eyes: Denies redness or eye pain HENT: Denies nasal congestion or sore throat Respiratory: Denies cough or shortness of breath Cardiovascular: Reports chest pain; denies palpitations GI: Denies abdominal pain; reports nausea and vomiting : Denies dysuria or hematuria Musculoskeletal: Denies back pain or joint pain Integument: Denies rash or skin lesions Neurologic: Denies headache, focal weakness or sensory changes Complete systems were reviewed and found to be within normal limits, except as documented in this note. Heart Score: C/O Chest Pain: Yes HEART Score for Chest Pain: HEART Score for Chest Pain Response (Comments) Value History Moderately Suspicious 1 ECG Normal 0 Age > 65 2 Risk Factors >3 Risk Factors or Hx CAD 2 Troponin < Normal Limit 0 Total 5 Risk Factors: Risk Factors: DM, Current or recent (<one month) smoker, HTN, HLP, family history of CAD, obesity. Risk Scores: Score 0 - 3: 2.5% MACE over next 6 weeks - Discharge Home Score 4 - 6: 20.3% MACE over next 6 weeks - Admit for Clinical Observation Score 7 - 10: 72.7% MACE over next 6 weeks - Early Invasive Strategies Allergies: Allergies: Allergies Coded Allergies Type Severity Reaction Last Updated Verified Penicillins Allergy Severe swelling 03/25/20 Yes vancomycin Adverse Reaction Intermediate 03/25/20 Yes Physical Exam: PE: Constitutional: Well developed, well nourished, no acute distress, non-toxic appearance HENT: Normocephalic, atraumatic Eyes: Conjunctiva normal, no discharge Neck: Normal range of motion, supple Lungs & Thorax: No respiratory distress, equal chest rise and fall Abdomen: Soft, no tenderness Extremities: No tenderness, ROM intact, no edema Neurologic: Alert and oriented X 3, no focal deficits noted Psychologic: Affect normal, judgment normal EKG: EKG: @1914 NSR at 63bpm, NO ST elevation, QRS 98ms, QT/QTc 418/431ms Radiology/Procedures: Radiology/Procedures: PROCEDURE: CT ANGIOGRAPHY CHEST Exam: CT of chest with contrast INDICATION: Chest pain TECHNIQUE: Sequential axial images through the chest obtained following the adm inistration of 100 mL of Omni 350 IV contrast. Sagittal and coronal reformatted images were reconstructed from the axial data and reviewed. 3-D reformatted images were reconstructed from the axial data and reviewed. Exposure: One or more of the following in the visualized dose reduction techniques were utilized for this examination: 1. Automated exposure control 2. Adjustment of the MA and/or KV according to patient size 3. Use of iterative of reconstructive technique Comparisons: 10/30/2020 FINDINGS: Visualized portions of the thyroid are unremarkable. There are several prominent but not enlarged prevascular and pretracheal lymph node. Mild bilateral hilar adenopathy is also noted. Heart size is normal. No pericardial effusion. CABG changes are noted. Thoracic aorta has a normal course and caliber. Pulmonary artery is not enlarged. No pulmonary embolus identified within the main, lobar or segmental pulmonary arteries. There is chronic occlusion of the SVC with extensive venous collaterals at the chest wall and enlargement of the azygos/hemiazygos. Airways are patent. No consolidation or pneumothorax. Mild centrilobular emphyse matous change noted at the upper lungs. No suspicious lung nodules are identified. No pleural effusion or thickening. Visualized upper abdomen is unremarkable. IMPRESSION: 1. No pulmonary embolus identified in the main, lobar or segmental pulmonary arteries. 2. 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 Electronically signed by: Modesto Ortega MD (11/17/2020 8:52 PM) [facility] Course & Med Decision Making: Course & Med Decision Making Pertinent Labs and Imaging studies reviewed. (See chart for details) Patient presents with midsternal chest discomfort with radiation to left arm which started last night at approximately 1999. Pain again returned and the refore patient presented to the ER. EKG stable. Labs obtained and posted to chart. Initial troponin within normal limits. D-dimer elevated. CTA chest without acute process. Patient requiring admission for further evaluation and treatment. Discussed with Dr. Cummings (PCP) who is in agreement with admission. Discussed findings and plan with patient, who acknowledges understanding and agreement. Dragon Disclaimer: Dragmela Disclaimer: This electronic medical record was generated, in whole or in part, using a voice recognition dictation system. Departure Departure Impression: Primary Impression: Chest pain Qualified Codes: R07.9 - Chest pain, unspecified Additional Impressions: Hypertension Qualified Codes: I10 - Essential (primary) hypertension Elevated d-dimer Disposition: ADMITTED INPATIENT Admitting Physician: Ida Cummings Condition: STABLE Referrals: IDA CUMMINGS MD (PCP) MARTINEZ SLOAN DO November 17, 2020 19:29
[2020-11-17] MEDS ORDERED: ASPIRIN 325 MG TABLET PO ONE (19:30)
[2020-11-17] MEDS ORDERED: IV NORMAL SALINE 1000ML BAG 1,000 ML IV ONE (19:30)
[2020-11-17] MEDS ORDERED: hydrALAZINE 20 MG/ML VIAL. IVP ONE (19:30)
[2020-11-17 19:34] LABS: BASO # 0.1 x10^3/uL (0.0-0.2); BASO % 2 % (0-3); EOS # 0.3 x10^3/uL (0.0-0.7); EOS % 7 % (0-3); HEMATOCRIT 36.3 % (39.0-53.0); HEMOGLOBIN 12.3 g/dL (13.0-17.5); LYMPH # 0.7 x10^3/uL (1.0-4.8); LYMPH % 16 % (24-48); MEAN CORPUSCULAR HEMOGLOBIN 33 pg (25-35); MEAN CORPUSCULAR HGB CONC 34 g/dL (31-37); MEAN CORPUSCULAR VOLUME 98 fL (79-100); MONO # 0.7 x10^3/uL (0.0-1.1); MONO % 15 % (0-9); NEUT # 2.9 x10^3/uL (1.8-7.7); NEUT % 62 % (31-73); PLATELET COUNT 172 x10^3/uL (140-400); RED CELL DISTRIBUTION WIDTH 15.6 % (11.5-14.5); WHITE BLOOD COUNT 4.7 x10^3/uL (4.0-11.0)
--- NOTE | 2020-11-17 19:40 | EKG ---
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
[2020-11-17 19:45] LABS: CALCIUM 8.5 mg/dL (8.5-10.1); CREATININE 0.8 mg/dL (0.7-1.3); POTASSIUM 3.9 mmol/L (3.5-5.1)
[2020-11-17] MEDS ORDERED: ONDANSETRON PF 4 MG/2 ML VIAL. IVP ONE (19:45)
[2020-11-17] MEDS ORDERED: fentaNYL PF VIAL 100 MCG/2 ML VIAL IV ONE ×2 (19:45→21:00)
[2020-11-17 19:48] LABS: PROTHROMBIN TIME PATIENT 14.2 SEC (11.7-14.0)
[2020-11-17 19:51] LABS: ALBUMIN 3.9 g/dL (3.4-5.0); ALBUMIN/GLOBULIN RATIO 1.3 (1.0-1.7); MAGNESIUM 2.3 mg/dL (1.8-2.4); TOTAL BILIRUBIN 0.5 mg/dL (0.2-1.0); TOTAL PROTEIN 6.8 g/dL (6.4-8.2)
[2020-11-17] MEDS ORDERED: NITROGLYCERIN SUBLINGUAL 0.4 MG BOTTLE OF 25. SL PRN ×2 (20:30→22:15)
[2020-11-17] MEDS ORDERED: ONDANSETRON PF 4 MG/2 ML VIAL. IV PRN (20:30)
[2020-11-17] MEDS ORDERED: hydrALAZINE 20 MG/ML VIAL. IVP PRN (20:45)
--- NOTE | 2020-11-17 20:55 | RAD ---
Exam: CT of chest with contrast INDICATION: Chest pain TECHNIQUE: Sequential axial images through the chest obtained following the administration of 100 mL of Omni 350 IV contrast. Sagittal and coronal reformatted images were reconstructed from the axial da ta and reviewed. 3-D reformatted images were reconstructed from the axial data and reviewed. Exposure: One or more of the following in the visualized dose reduction techniques were utilized for this examination: 1. Automated exposure control 2. Adjustment of the MA and/or KV according to patient size 3. Use of iterative of reconstructive technique Comparisons: 10/30/2020 FINDINGS: Visualized portions of the thyroid are unremarkable. There are several prominent but not enlarged pre vascular and pretracheal lymph node. Mild bilateral hilar adenopathy is also noted. Heart size is normal. No pericardial effusion. CABG changes are noted. Thoracic aorta has a normal co urse and caliber. Pulmonary artery is not enlarged. No pulmonary embolus identified within the main, lobar or segmental pulmonary arteries. There is chronic occlusion of the SVC with extensive venous co llaterals at the chest wall and enlargement of the azygos/hemiazygos. Airways are patent. No consolidation or pneumothorax. Mild centrilobular emphysematous change noted a t the upper lungs. No suspicious lung nodules are identified. No pleural effusion or thickening. Visualized upper abdomen is unremarkable. IMPRESSION: 1. No pulmonary embolus identified in the main, lobar or segmental pulmonary arteries. 2. 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 Electronically signed by: Modesto Ortega MD (11/17/2020 8:52 PM) [facility]
[2020-11-17] MEDS: fentaNYL PF VIAL 100 MCG/2 ML VIAL IV PRN (20:58)
[2020-11-17] MEDS ORDERED: IOHEXOL 350 MG/ML 100 ML VIAL. IV ONE (21:00)
[2020-11-17 21:35] VITALS: BP 141/44
[2020-11-17] MEDS ORDERED: HYDROcodone/APAP 7.5/325MG 1 TAB TABLET PO PRN (22:15)
[2020-11-17] MEDS ORDERED: AMLO-187 PO (22:19)
[2020-11-17] MEDS ORDERED: HYDR-2763 PO (22:19)
[2020-11-17] MEDS ORDERED: LISI20TA18 PO (22:19)
[2020-11-17] MEDS ORDERED: NITR0.4T22 SL (22:19)
[2020-11-17] MEDS ORDERED: VENL75CA6 PO (22:19)
[2020-11-17] MEDS: HEPARIN for SUB-Q USE 5,000 UNIT/ML VIAL. SQ SCH (22:44)
[2020-11-17] MEDS: DIGOXIN 125 MCG TABLET. PO SCH (23:00)
[2020-11-17] MEDS: METHOCARBAMOL 500 MG TABLET PO SCH (23:00)
[2020-11-17] MEDS: MONTELUKAST SODIUM 10 MG TABLET. PO SCH (23:00)
[2020-11-17] MEDS: ASPIRIN CHEWABLE 81 MG TABLET. PO SCH (23:00)
[2020-11-17] MEDS ORDERED: PANTOPRAZOLE 40 MG TABLET.DR. PO SCH (23:00)
[2020-11-17] MEDS ORDERED: FAMOTIDINE 20 MG TABLET. PO SCH (23:00)
[2020-11-17 23:08] VITALS: BP 124/55
[2020-11-18 03:06] VITALS: BP 137/71
[2020-11-18 05:21] LABS: BASO # 0.1 x10^3/uL (0.0-0.2); BASO % 2 % (0-3); EOS # 0.3 x10^3/uL (0.0-0.7); EOS % 9 % (0-3); HEMATOCRIT 30.8 % (39.0-53.0); HEMOGLOBIN 10.5 g/dL (13.0-17.5); LYMPH # 0.6 x10^3/uL (1.0-4.8); LYMPH % 17 % (24-48); MEAN CORPUSCULAR HEMOGLOBIN 34 pg (25-35); MEAN CORPUSCULAR HGB CONC 34 g/dL (31-37); MEAN CORPUSCULAR VOLUME 99 fL (79-100); MONO # 0.5 x10^3/uL (0.0-1.1); MONO % 14 % (0-9); NEUT # 2.2 x10^3/uL (1.8-7.7); NEUT % 58 % (31-73); PLATELET COUNT 144 x10^3/uL (140-400); RED BLOOD COUNT 3.12 x10^6/uL (4.30-5.70); RED CELL DISTRIBUTION WIDTH 15.3 % (11.5-14.5); WHITE BLOOD COUNT 3.8 x10^3/uL (4.0-11.0)
[2020-11-18] MEDS: HEPARIN for SUB-Q USE 5,000 UNIT/ML VIAL. SQ SCH ×3 (05:37→21:36)
[2020-11-18 05:53] LABS: CHOLESTEROL/HDL RATIO 2.7
[2020-11-18 05:59] LABS: ALBUMIN 3.3 g/dL (3.4-5.0); ALBUMIN/GLOBULIN RATIO 1.4 (1.0-1.7); ALK PHOS 123 U/L (46-116); ALT (SGPT) 14 U/L (16-63); ANION GAP 6 (6-14); AST (SGOT) 15 U/L (15-37); BLOOD UREA NITROGEN 13 mg/dL (8-26); BUN/CREATININE RATIO 14 (6-20); CALCIUM 8.2 mg/dL (8.5-10.1); CARBON DIOXIDE 30 mmol/L (21-32); CHLORIDE 109 mmol/L (98-107); CREATININE 0.9 mg/dL (0.7-1.3); GFR 84.7; GLUCOSE 83 mg/dL (70-99); POTASSIUM 4.1 mmol/L (3.5-5.1); SODIUM 145 mmol/L (136-145); TOTAL BILIRUBIN 0.4 mg/dL (0.2-1.0); TOTAL PROTEIN 5.6 g/dL (6.4-8.2)
[2020-11-18 06:00] LABS: DIG < 0.2 ng/mL (0.9-2.0)
[2020-11-18] MEDS: fentaNYL PF VIAL 100 MCG/2 ML VIAL IV PRN (06:17)
[2020-11-18 07:45] VITALS: BP 145/58
[2020-11-18] MEDS: ALBUTEROL SULFATE 2.5 MG/3 ML NEBU. NEB SCH ×4 (07:55→20:50)
[2020-11-18] MEDS: BUDESONIDE 0.5 MG/2 ML NEBU. NEB SCH ×2 (07:55→20:50)
[2020-11-18] MEDS: TAMSULOSIN 0.4 MG CAP.ER.24H. PO SCH (08:37)
[2020-11-18] MEDS: VENLAFAXINE 75 MG TABLET. PO SCH ×3 (08:37→21:32)
[2020-11-18] MEDS: CETIRIZINE HCL 10 MG TABLET. PO SCH (08:37)
[2020-11-18] MEDS: amLODIPine BESYLATE 10 MG TABLET PO SCH (08:37)
[2020-11-18] MEDS: METHOCARBAMOL 500 MG TABLET PO SCH ×2 (08:37→21:32)
[2020-11-18] MEDS: LISINOPRIL 20 MG TABLET PO SCH (08:37)
[2020-11-18] MEDS: MULTIVITAMIN with MINERAL TABLET. PO SCH (08:38)
[2020-11-18] MEDS: CYANOCOBALAMIN (VITAMIN B-12) 1,000 MCG TABLET. PO SCH (08:38)
--- NOTE | 2020-11-18 10:02 | PDOC ---
Provider Note Date of Service: DATE: 11/18/20 TIME: 10:01 Provider Note H&P dictated #[id number] Justifications for Admission Other Justification IDA CUMMINGS MD November 18, 2020 10:02
[2020-11-18] MEDS ORDERED: ONDANSETRON PF 4 MG/2 ML VIAL. IVP PRN (10:15)
[2020-11-18] MEDS ORDERED: ACETAMINOPHEN 325 MG TABLET. PO PRN (10:15)
--- NOTE | 2020-11-18 10:35 | CONS ---
DATE OF CONSULTATION: 11/18/2020 ATTENDING PHYSICIAN: Dr. Devi Pham. REASON FOR CONSULTATION: Abnormal CT chest and dyspnea. HISTORY OF PRESENT ILLNESS: The patient is a 64-year-old male who has been a smoker for 50 years. He presented to the hospital with chest pain. His chest pain is constant. He has a history of laryngeal cancer and received chemo and radiation at . Denies any cough, no fever, no chills, no shortness of breath. Chest pain also increases with food. The patient underwent CTA chest, which was reviewed by me and compared with the previous one from October. There is no evidence of pulmonary embolism. There is chronic occlusion of the SVC with extensive venous collaterals. There is also a spiculated nodule in the right upper lobe as well as another nodule in the right lower lobe, not mentioned by the radiologist. I have been asked to see him for further evaluation. PAST MEDICAL HISTORY: Significant for history of CAD, history of laryngeal cancer status post radiation and chemo, history of hypertension, WI and stroke. PAST SURGICAL HISTORY: Open heart surgery for valve repair. SOCIAL HISTORY: Smoker for 50 years. ALLERGIES: PENICILLIN AND VANCOMYCIN. REVIEW OF SYSTEMS: A 12-point system obtained. Pertinent positives discussed in my presence illness, otherwise noncontributory. All systems that were negative were reviewed as well. MEDICATIONS: All reviewed as listed in the MRAD. PHYSICAL EXAMINATION: VITAL SIGNS: Reviewed. Pulse ox 96% on room air. NECK: Supple. LUNGS: With diminished breath sounds bilaterally. CARDIOVASCULAR: With a regular rate. ABDOMEN: Soft, nontender. EXTREMITIES: With no pitting edema. LABORATORY DATA: Labs are reviewed. White cell count 3.8, hemoglobin 10.5 and platelets are 144. BUN and creatinine normal. IMPRESSION: 1. Chest pain with no evidence of pulmonary embolism. 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 The pain is constant and gets worse with food. 2. The patient with laryngeal cancer, status post radiation and chemo. The patient has reportedly known mets to the lungs. His CT chest does show evidence of a spiculated nodule in the right upper lobe and also in the right middle lobe. The right middle lobe nodule appears to be new compared to October, CT, likely inflammatory. 3. Abnormal CT chest as discussed above with a spiculated nodule in the right upper lobe and right middle lobe, likely metastatic disease from laryngeal cancer. Needs to compare with images from . 4. Underlying chronic obstructive pulmonary disease from 50 years of tobaccoism. 5. No evidence of pulmonary embolism. RECOMMENDATIONS: 1. The patient's chest pain as discussed that was likely related to radiation esophagitis. Follow GI recommendation. 2. Smoking cessation counseling provided. 3. Follow up at post discharge, including imaging studies regarding metastases to the lungs from laryngeal cancer. 4. PFTs as an outpatient. 5. From a pulmonary standpoint, he could be discharged. Discussed with RN. JUSTIN/MELINDA DR: Sky TID: [id number] MTDD
--- NOTE | 2020-11-18 10:37 | HP ---
ADMIT DATE: 11/18/2020 HISTORY OF PRESENT ILLNESS: This is a 64-year-old male who was recently admitted to this institution on 10/29/2020 because of acute non-ST elevation myocardial infarction, started having chest pains on Wednesday. He took some nitroglycerin, but yesterday the chest pain has continued and he also vomited three times. He denies any fever. He does have chronic cough, but the mucus is brown since yesterday. He denies any chills, but did feel hot and sweaty. He denies any diarrhea, constipation, GI bleeding or melena. He vomited yesterday and this morning also in the hospital, he has been vomiting. Denies any hematemesis or hemoptysis. He had pain in the chest as well as pain in the left arm. In the emergency room, cardiac enzymes were normal. BNP was 1934. D-dimer was 7.27, sodium 144, potassium 3.9, BUN 13, creatinine 0.8, magnesium 2.3, calcium 8.5, albumin 3.9, lipase 28. WBC count was 4.7 yesterday and 3.8 today, hemoglobin 12.3 yesterday and 10.5 today, BUN is 13 today and creatinine 0.9. Digoxin level was less than 0.2. 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 Because of the chest pain and nausea and vomiting, the patient was admitted for further evaluation and management. REVIEW OF SYSTEMS: As noted in the history of present illness. The patient denies any dysuria or any significant abdominal pain. He continues to have occasional chest pains. He also has chronic joint pains and back pain. 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 Gastroesophageal reflux disease, diverticulosis, grade II internal hemorrhoids, gastritis, anxiety, kidney stones, colonic polyps. PAST SURGICAL HISTORY: Includes 3 pacemaker surgeries, there was one for removal of the lead in 2013, had amputated toe of the left foot on 08/20/2015 for osteomyelitis, EGD with biopsy, three pacemaker surgeries. He had the fourth pacemaker surgery in October after the last admission here at [facility] for placement of a leadless pacemaker. FAMILY HISTORY: He has two brothers who have cirrhosis. One brother also had cirrhosis. Mother has hypertension and diabetes. ALLERGIES: THE PATIENT IS ALLERGIC TO PENICILLIN, CAUSES SWELLING. THE PATIENT IS ALSO ALLERGIC TO VANCOMYCIN. MEDICATIONS: Reviewed and reconciled. SOCIAL HISTORY: The patient was a very heavy smoker, more than 40-pack history, but currently the patient is still smoking, but much less. He quit drinking alcohol in 1986. No history of drug abuse, currently smoking six cigarettes per day. PHYSICAL EXAMINATION: GENERAL: The patient is an elderly male who is alert, chronically ill, in mild distress as he is very nauseous. He is weak. EYES: Pupils reacting to light. Conjunctivae pale. Sclerae muddy. HENT: Unremarkable. SKIN: Warm and dry. There is no cyanosis. NECK: JVP normal. No thyromegaly. Trachea midline. LUNGS: Decreased breath sounds at bases. HEART: S1, S2 regular. ABDOMEN: Soft. Bowel sounds are hyperactive. Mild epigastric tenderness. There is no guarding, no rigidity. EXTREMITIES: No edema. CENTRAL NERVOUS SYSTEM: Generalized weakness. NEUROLOGIC: Alert and oriented. LABORATORY FINDINGS: As noted earlier. IMPRESSION: 1. Chest pain, etiology not clear, may be multifactorial. 2. Coronary artery disease. 3. Recent bradyarrhythmia and placement of leadless pacemaker at [facility] in 10/2020. 4. Chronic obstructive pulmonary disease. 5. Possible bronchitis. 6. Vomiting, possibly due to acute gastroenteritis. 7. Gastroesophageal reflux disease. 8. Diverticulosis. 9. Peripheral artery disease 10. Hyperlipidemia. 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 12. Hypertension. 13. 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 14. 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 15. History of tricuspid valve repair. PLAN: D-dimer is elevated. CT chest angiography is negative for DVT. Continue heparin for DVT prophylaxis. Consult Dr. Waters for pulmonary evaluation and management and Dr. Khoury for cardiology evaluation and management. Consult Dr. Hassan for GI evaluation and management. The patient is n.p.o. I will start him on IV fluids, IV Zofran p.r.n. for nausea. For details, please refer to the orders. Prognosis of this patient is poor due to his multiple medical problems. LESLIE/JEAN CLAUDE DR: Hugo TID: [id number]
[2020-11-18 11:16] VITALS: BP 103/54
--- NOTE | 2020-11-18 11:22 | PDOC2 ---
JOAQUINA WOLF PRECISION LATHE OPERATOR 11/18/20 1122: CARDIAC CONSULT DATE OF CONSULT Date of Consult DATE: 11/18/20 TIME: 11:15 REASON FOR CONSULT Reason for Consult: Chest pain REFERRING PHYSICIAN Referring Physician: Dr. Patricia SOURCE Source: Chart review, Patient HISTORY OF PRESENT ILLNESS HISTORY OF PRESENT ILLNESS This is a 64 yo male who presented secondary to chest pain. Began Wednesday. Located in his central chest. Describes as heaviness. Was slightly short of breath. Radiated down his arms. Pain is worse by applying pressure to his central chest. Also reports vomiting since the last 3 days, although has been ab le to keep his meds down. Blood pressure significantly elevated upon arrival. He denies any dizziness, diaphoresis, or palpitations. PAST MEDICAL HISTORY Past Medical History Cardiovascular: nonobstructive CAD, HTN, Hyperlipidemia, TV insufficiency, SSS, CHF, Cardiomyopathy Pulmonary: COPD GI: Diverticulosis, GERD, Gastritis, Hemorrhoids, Peptic Ulcer disease Hem/onc: stage 3 epiglottis CA SCC, received chemo and receiving radiation at [facility] Psych: Anxiety, Depression Musculoskeletal: Osteoarthritis Rheumatologic: No pertinent hx Infectious disease: No pertinent hx Renal/: Chronic renal insuff, Other Endocrine: No pertinent hx PAST SURGICAL HISTORY Past Surgical History valve repair at ( Tricuspid valve repair with anterior leaflet resection and anterior/septal leaflet closure Implantation of 33 mm annuloplasty band. Imp lantation of left ventricular lead, bipolar Medtronic serial number [id number], model number [id number], 60 cm), PPM in 2009 unclear specific reason but explanted as well due to infection no replacement, [facility] 2013 Medtronic micra placement 11/01/20 FAMILY HISTORY Family History Coronary Artery Disease, Diabetes SOCIAL HISTORY Social History Smoke: Quit (the patient quit cigarette smoking after greater than 40 pack years. then smokes 3-4 cigars a day then quit recently) ALCOHOL: none CURRENT MEDICATIONS CURRENT MEDICATIONS Current Medications Medications (Trade) Dose Ordered Sig/Trista Route PRN Reason Start Time Stop Time Status Last Admin Dose Admin Aspirin (Roger Aspirin) 325 mg 1X ONCE PO 11/17/20 19:30 11/17/20 19:31 DC 11/17/20 19:37 Hydralazine HCl (Apresoline Inj) 10 mg 1X ONCE IVP 11/17/20 19:30 11/17/20 19:31 DC 11/17/20 19:37 Sodium Chloride 1,000 ml @ 1,000 mls/hr 1X ONCE IV 11/17/20 19:30 11/17/20 20:29 DC 11/17/20 19:37 Fentanyl Citrate (Fentanyl 2ml Vial) 50 mcg 1X ONCE IV 11/17/20 19:45 11/17/20 19:46 DC 11/17/20 19:45 Ondansetron HCl (Zofran) 4 mg 1X ONCE IVP 11/17/20 19:45 11/17/20 19:46 DC 11/17/20 19:45 Fentanyl Citrate (Fentanyl 2ml Vial) 50 mcg PRN Q2HR PRN IV PAIN 11/17/20 20:30 11/18/20 06:17 Heparin Sodium (Porcine) (Heparin Sodium) 5,000 unit Q8HRS SQ 11/17/20 22:30 11/18/20 05:37 Amlodipine Besylate (Norvasc) 10 mg DAILY PO 11/18/20 09:00 11/18/20 08:37 Cetirizine HCl (ZyrTEC) 10 mg DAILY PO 11/18/20 09:00 11/18/20 08:37 Acetaminophen/ Hydrocodone Bitart (Lortab 7.5/325) 1 tab PRN Q6HRS PRN PO MODERATE PAIN 4-6 11/17/20 22:15 11/18/20 08:40 Lisinopril (Prinivil) 20 mg DAILY PO 11/18/20 09:00 11/18/20 08:37 Methocarbamol (Robaxin) 500 mg Q12HR PO 11/17/20 23:00 11/18/20 08:37 Tamsulosin HCl (Flomax) 0.4 mg DAILY PO 11/18/20 09:00 11/18/20 08:37 Budesonide (Pulmicort) 0.5 mg RTBID NEB 11/18/20 08:00 11/18/20 07:55 Cyanocobalamin (Vitamin B-12) 1,000 mcg DAILY PO 11/18/20 09:00 11/18/20 08:38 Multivitamins (Thera M Plus) 1 tab DAILY PO 11/18/20 09:00 11/18/20 08:38 Venlafaxine HCl (Effexor) 75 mg TID PO 11/18/20 09:00 11/18/20 08:37 Albuterol Sulfate (Ventolin Neb Soln) 2.5 mg RTQID NEB 11/18/20 08:00 11/18/20 07:55 Potassium Chloride/Sodium Chloride 1,000 ml @ 75 mls/hr [id number] IV 11/18/20 10:00 11/18/20 10:35 Ondansetron HCl (Zofran) 4 mg PRN Q6HRS PRN IVP NAUSEA/VOMITING 11/18/20 10:15 11/18/20 10:36 ALLERGIES ALLERGIES: Coded Allergies: Penicillins (Verified Allergy, Severe, swelling, 03/25/20) vancomycin (Verified Adverse Reaction, Intermediate, 03/25/20) "shaking" and "hot" ROS Review of System 14 point ROS conducted with pertinent positives noted above in HPI PHYSICAL EXAM PHYSICAL EXAM General: Alert, Oriented X3, Cooperative, No acute distress HEENT: Atraumatic, Mucous membr. moist/pink Lungs: CTA, central chest tenderness upon palpation Heart: Regular rate (100% v-paced), Normal S1, Normal S2, Other (4/6 systolic murmur to LLS border) Abdomen: Soft, No tenderness Skin: No breakdown, No significant lesion Neuro: Normal speech, Sensation intact Psych/Mental Status: Mental status NL, Mood NL MUSCULOSKELETAL: Osteoarthritic changes both hands VITALS/I&O VITALS/I&O: Vital Signs Date Time Temp Pulse Resp B/P (MAP) Pulse Ox O2 Delivery O2 Flow Rate FiO2 11/18/20 09:10 Room Air 11/18/20 08:37 57 145/58 11/18/20 08:04 96 11/18/20 07:45 97.7 16 97.7 I & O 11/17/20 11/17/20 11/18/20 15:00 23:00 07:00 Intake Total 1000 ml 180 ml Output Total 0 ml Balance 1000 ml 180 ml LABS Lab: Laboratory Tests Test 11/17/20 19:20 11/17/20 22:25 11/18/20 00:20 11/18/20 03:22 White Blood Count 4.7 x10^3/uL (4.0-11.0) 3.8 x10^3/uL (4.0-11.0) L Red Blood Count 3.70 x10^6/uL (4.30-5.70) L 3.12 x10^6/uL (4.30-5.70) L Hemoglobin 12.3 g/dL (13.0-17.5) L 10.5 g/dL (13.0-17.5) L Hematocrit 36.3 % (39.0-53.0) L 30.8 % (39.0-53.0) L Mean Corpuscular Volume 98 fL (79-100) 99 fL (79-100) Mean Corpuscular Hemoglobin 33 pg (25-35) 34 pg (25-35) Mean Corpuscular Hemoglobin Concent 34 g/dL (31-37) 34 g/dL (31-37) Red Cell Distribution Width 15.6 % (11.5-14.5) H 15.3 % (11.5-14.5) H Platelet Count 172 x10^3/uL (140-400) 144 x10^3/uL (140-400) Neutrophils (%) (Auto) 62 % (31-73) 58 % (31-73) Lymphocytes (%) (Auto) 16 % (24-48) L 17 % (24-48) L Monocytes (%) (Auto) 15 % (0-9) H 14 % (0-9) H Eosinophils (%) (Auto) 7 % (0-3) H 9 % (0-3) H Basophils (%) (Auto) 2 % (0-3) 2 % (0-3) Neutrophils # (Auto) 2.9 x10^3/uL (1.8-7.7) 2.2 x10^3/uL (1.8-7.7) Lymphocytes # (Auto) 0.7 x10^3/uL (1.0-4.8) L 0.6 x10^3/uL (1.0-4.8) L Monocytes # (Auto) 0.7 x10^3/uL (0.0-1.1) 0.5 x10^3/uL (0.0-1.1) Eosinophils # (Auto) 0.3 x10^3/uL (0.0-0.7) 0.3 x10^3/uL (0.0-0.7) Basophils # (Auto) 0.1 x10^3/uL (0.0-0.2) 0.1 x10^3/uL (0.0-0.2) Prothrombin Time 14.2 SEC (11.7-14.0) H Prothrombin Time INR 1.1 (0.8-1.1) Activated Partial Thromboplast Time 35 SEC (24-38) D-Dimer (Elizabeth) 7.27 ug/mlFEU (0.00-0.50) H Sodium Level 144 mmol/L (136-145) 145 mmol/L (136-145) Potassium Level 3.9 mmol/L (3.5-5.1) 4.1 mmol/L (3.5-5.1) Chloride Level 107 mmol/L (98-107) 109 mmol/L (98-107) H Carbon Dioxide Level 31 mmol/L (21-32) 30 mmol/L (21-32) Anion Gap 6 (6-14) 6 (6-14) Blood Urea Nitrogen 13 mg/dL (8-26) 13 mg/dL (8-26) Creatinine 0.8 mg/dL (0.7-1.3) 0.9 mg/dL (0.7-1.3) Estimated GFR (Cockcroft-Gault) 97.0 84.7 BUN/Creatinine Ratio 16 (6-20) 14 (6-20) Glucose Level 78 mg/dL (70-99) 83 mg/dL (70-99) Calcium Level 8.5 mg/dL (8.5-10.1) 8.2 mg/dL (8.5-10.1) L Magnesium Level 2.3 mg/dL (1.8-2.4) Total Bilirubin 0.5 mg/dL (0.2-1.0) 0.4 mg/dL (0.2-1.0) Aspartate Amino Transferase (AST) 16 U/L (15-37) 15 U/L (15-37) Alanine Aminotransferase (ALT) 20 U/L (16-63) 14 U/L (16-63) L Alkaline Phosphatase 151 U/L (46-116) H 123 U/L (46-116) H Troponin I Quantitative < 0.017 ng/mL (0.000-0.055) < 0.017 ng/mL (0.000-0.055) < 0.017 ng/mL (0.000-0.055) NO-Ngz-C-Type Natriuretic Peptide 1934 pg/mL (0-124) H Total Protein 6.8 g/dL (6.4-8.2) 5.6 g/dL (6.4-8.2) L Albumin 3.9 g/dL (3.4-5.0) 3.3 g/dL (3.4-5.0) L Albumin/Globulin Ratio 1.3 (1.0-1.7) 1.4 (1.0-1.7) Lipase 28 U/L (73-393) L Triglycerides Level 44 mg/dL (0-150) Cholesterol Level 131 mg/dL (0-200) LDL Cholesterol, Calculated 74 mg/dL (0-100) VLDL Cholesterol, Calculated 9 mg/dL (0-40) Non-HDL Cholesterol Calculated 83 mg/dL (0-129) HDL Cholesterol 48 mg/dL (40-60) Cholesterol/HDL Ratio 2.7 Digoxin Level < 0.2 ng/mL (0.9-2.0) L Digoxin Last Dose Date 11/17/20 Digoxin Last Dose Time 1900 Laboratory Tests 11/17/20 19:20 11/18/20 03:22 Laboratory Tests 11/17/20 19:20 11/18/20 03:22 ECHOCARDIOGRAM ECHOCARDIOGRAM <Conclusion> The left ventricular systolic function is normal and the ejection fraction is within normal range. The Ejection Fraction is 50-55%. There is normal LV segmental wall motion. There is no significant aortic valvular stenosis by doppler criteria but visually the valve appears to be at least moderately stenotic. DATE: 10/30/20 [id number] 0 STRESS TEST STRESS TEST Conclusion 1. No EKG evidence of stressed induced ischemia. 2. Nuclear imaging shows no reversible ischemia or infarct. 3. Mildly decreased LV systolic function with an ejection fraction of 46% and mild septal hypokinesis. 4. Moderately low risk Lexiscan nuclear stress test. DATE: 10/17/18 1153 HEART CATH HEART CATH Coronary angiography: LM: Large caliber mildly aneurysmal vessel with mild luminal irregularities. LAD: Large caliber vessel with a proximal to mid eccentric 50% stenosis. The vessel is also very tortuous. D1: Small caliber vessel with normal angiographic appearance LCX: Moderate caliber non-dominant vessel with a proximal 50% stenosis. OM1: Moderate caliber vessel with mild luminal irregularities. RCA: Large caliber dominant vessel with mild luminal irregularities of up to 30%. RPDA: Moderate caliber vessel with mild luminal irregularities. Conclusion 1. Mildly elevated left ventricular filling pressures 2. One-vessel coronary artery disease involving the LAD 3. Negative IFR of the LAD. Recommendations 1. Continue aggressive risk factor modification. DATE: 10/31/20 [id number] 0 ASSESSMENT/PLAN ASSESSMENT/PLAN 1. Chest pain, atypical. AMI ruled out. Reproducible with palpation to central chest 2. Hypertensive urgency; now controlled 3. CAD; cath 10/30 with one vessel disease of the LAD- IFR negative. 4. Nausea/vomiting 5. Epiglottis Stage 3 CA: Recently completed chemo/radiation 6. SSS; s/p leadless PPM (Medtronic Micra) 11/01/20 at [facility] 7. PSVT; rate controlled. on Digoxin 8. 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 Valvular insufficiency with hx of open TV repair 10. Hx of NICM; recent echo with LV recovery with preserved EF as noted above 11. HLP; statin 12. COPD with tobaccoism; recent remission Recommendations Continue secondary prevention measures Home antiHTN resumed; monitor trends and titrate therapy as warranted Recent cardiac workup as noted above. No further inpatient cardiac testing warranted at this time ELIUD CHONG MD 11/18/20 2102: CARDIAC CONSULT ASSESSMENT/PLAN ASSESSMENT/PLAN Patient seen and examined I agree with our nurse practitioners assessment and plan. Chest pain, atypical. AMI ruled out. Reproducible with palpation to central chest. Extensive recent cardiac work-up at . CAD; cath 10/30 with one vessel disease of the LAD- IFR negative. Hypertensive urgency. Improved control on present medications. Nausea/vomiting. Epiglottis Stage 3 CA: Recently completed chemo/radiation SSS; s/p leadless PPM (Medtronic Micra) 11/01/20 at [facility] PSVT; rate controlled. 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
--- NOTE | 2020-11-18 12:17 | NUR ---
SS following for discharge planning. SS reviewed pt chart and discussed with pt RN. Pt is from home with spouse and is currently on room air. Cardiology, GI, and Pulmonology consulted. Discharge plan is to home when medically ready. SS will continue to follow for discharge planning.
--- NOTE | 2020-11-18 12:28 | PDOC2 ---
GI CONSULT Date of Service: DATE: 11/18/20 TIME: 12:06 Reason For Consult: vomiting HPI: HPI: 64 y/o male who reports left-sided sharp chest pain around pacemaker site that began Wednesday while he was watching tv. 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 Tells me pain has resolved. GI-marrero, tells me he "coughed really hard" about an hour ago and vomited "spit." Varying history - told nurse vomiting x 3 days, notes mention chronic cough w/ brown mucous in addition to vomiting, others have noted chest wall tenderness and plans to try GI cocktail. He's hungry and wants to eat regular food. To me, denies reflux, dysphagia, hematemesis, abd pain, diarrhea, constipation, hematochezia, melena, and weight loss. Says he doesn't know what meds he takes. EGD and colonoscopy by Dr. Hassan in 03/2020 for dysphagia and h/o polyps showed mild reflux, s/p distal gastrectomy w/ Betito-en-Y, three adenomatous colon polyps, and internal hemorrhoids. Recommended ENT eval. H/o epiglottis cancer s/p chemo/rad. No GB, liver, or pancreas history. Hepatic steatosis and diverticulosis on past imaging. H/o PUD (s/p ulcer surgery as noted on EGD). On pantoprazole, famotidine, and ASA here (and also Heparin). PMH: PMH: MIs, CAD, HTN, HLD, CHF, NICM, COPD, epiglottis cancer s/p chemo/rad, CKD, OA, anxiety/depression, nephrolithiasis TVR, pacemaker placement/removal/re-placement (11/01/20 @ [facility]), cardiac cath FH: Family History: No pertinent hx Social History: Smoke: <1 pack per day ALCOHOL: none ROS: GEN: Denies fevers, chills, sweats HEENT: Denies blurred vision, sore throat CV: +chest pain RESP: +cough GI: Per HPI : Denies hematuria, dysuria ENDO: Denies weight changes NEURO: Denies confusion, dizziness MSK: Denies weakness, joint pain/swelling SKIN: Denies jaundice, pruritus Vitals: Vitals: Vital Signs Date Time Temp Pulse Resp B/P (MAP) Pulse Ox O2 Delivery O2 Flow Rate FiO2 11/18/20 11:16 97.8 59 16 103/54 (70) 98 Room Air 97.8 Labs: Labs: Laboratory Tests Test 11/17/20 19:20 11/17/20 22:25 11/18/20 00:20 11/18/20 03:22 White Blood Count 4.7 x10^3/uL (4.0-11.0) 3.8 x10^3/uL (4.0-11.0) Red Blood Count 3.70 x10^6/uL (4.30-5.70) 3.12 x10^6/uL (4.30-5.70) Hemoglobin 12.3 g/dL (13.0-17.5) 10.5 g/dL (13.0-17.5) Hematocrit 36.3 % (39.0-53.0) 30.8 % (39.0-53.0) Mean Corpuscular Volume 98 fL (79-100) 99 fL (79-100) Mean Corpuscular Hemoglobin 33 pg (25-35) 34 pg (25-35) Mean Corpuscular Hemoglobin Concent 34 g/dL (31-37) 34 g/dL (31-37) Red Cell Distribution Width 15.6 % (11.5-14.5) 15.3 % (11.5-14.5) Platelet Count 172 x10^3/uL (140-400) 144 x10^3/uL (140-400) Neutrophils (%) (Auto) 62 % (31-73) 58 % (31-73) Lymphocytes (%) (Auto) 16 % (24-48) 17 % (24-48) Monocytes (%) (Auto) 15 % (0-9) 14 % (0-9) Eosinophils (%) (Auto) 7 % (0-3) 9 % (0-3) Basophils (%) (Auto) 2 % (0-3) 2 % (0-3) Neutrophils # (Auto) 2.9 x10^3/uL (1.8-7.7) 2.2 x10^3/uL (1.8-7.7) Lymphocytes # (Auto) 0.7 x10^3/uL (1.0-4.8) 0.6 x10^3/uL (1.0-4.8) Monocytes # (Auto) 0.7 x10^3/uL (0.0-1.1) 0.5 x10^3/uL (0.0-1.1) Eosinophils # (Auto) 0.3 x10^3/uL (0.0-0.7) 0.3 x10^3/uL (0.0-0.7) Basophils # (Auto) 0.1 x10^3/uL (0.0-0.2) 0.1 x10^3/uL (0.0-0.2) Prothrombin Time 14.2 SEC (11.7-14.0) Prothromb Time International Ratio 1.1 (0.8-1.1) Activated Partial Thromboplast Time 35 SEC (24-38) D-Dimer (Elizabeth) 7.27 ug/mlFEU (0.00-0.50) Sodium Level 144 mmol/L (136-145) 145 mmol/L (136-145) Potassium Level 3.9 mmol/L (3.5-5.1) 4.1 mmol/L (3.5-5.1) Chloride Level 107 mmol/L (98-107) 109 mmol/L (98-107) Carbon Dioxide Level 31 mmol/L (21-32) 30 mmol/L (21-32) Anion Gap 6 (6-14) 6 (6-14) Blood Urea Nitrogen 13 mg/dL (8-26) 13 mg/dL (8-26) Creatinine 0.8 mg/dL (0.7-1.3) 0.9 mg/dL (0.7-1.3) Estimated GFR (Cockcroft-Gault) 97.0 84.7 BUN/Creatinine Ratio 16 (6-20) 14 (6-20) Glucose Level 78 mg/dL (70-99) 83 mg/dL (70-99) Calcium Level 8.5 mg/dL (8.5-10.1) 8.2 mg/dL (8.5-10.1) Magnesium Level 2.3 mg/dL (1.8-2.4) Total Bilirubin 0.5 mg/dL (0.2-1.0) 0.4 mg/dL (0.2-1.0) Aspartate Amino Transf (AST/SGOT) 16 U/L (15-37) 15 U/L (15-37) Alanine Aminotransferase (ALT/SGPT) 20 U/L (16-63) 14 U/L (16-63) Alkaline Phosphatase 151 U/L (46-116) 123 U/L (46-116) Troponin I Quantitative < 0.017 ng/mL (0.000-0.055) < 0.017 ng/mL (0.000-0.055) < 0.017 ng/mL (0.000-0.055) BY-Dke-F-Type Natriuretic Peptide 1934 pg/mL (0-124) Total Protein 6.8 g/dL (6.4-8.2) 5.6 g/dL (6.4-8.2) Albumin 3.9 g/dL (3.4-5.0) 3.3 g/dL (3.4-5.0) Albumin/Globulin Ratio 1.3 (1.0-1.7) 1.4 (1.0-1.7) Lipase 28 U/L (73-393) Triglycerides Level 44 mg/dL (0-150) Cholesterol Level 131 mg/dL (0-200) LDL Cholesterol, Calculated 74 mg/dL (0-100) VLDL Cholesterol, Calculated 9 mg/dL (0-40) Non-HDL Cholesterol Calculated 83 mg/dL (0-129) HDL Cholesterol 48 mg/dL (40-60) Cholesterol/HDL Ratio 2.7 Digoxin Level < 0.2 ng/mL (0.9-2.0) Digoxin Last Dose Date 11/17/20 Digoxin Last Dose Time 1900 Allergies: Coded Allergies: Penicillins (Verified Allergy, Severe, swelling, 03/25/20) vancomycin (Verified Adverse Reaction, Intermediate, 03/25/20) "shaking" and "hot" Medications: Current Medications Medications (Trade) Dose Ordered Sig/Trista Route PRN Reason Start Time Stop Time Status Last Admin Dose Admin Aspirin (Roger Aspirin) 325 mg 1X ONCE PO 11/17/20 19:30 11/17/20 19:31 DC 11/17/20 19:37 Hydralazine HCl (Apresoline Inj) 10 mg 1X ONCE IVP 11/17/20 19:30 11/17/20 19:31 DC 11/17/20 19:37 Sodium Chloride 1,000 ml @ 1,000 mls/hr 1X ONCE IV 11/17/20 19:30 11/17/20 20:29 DC 11/17/20 19:37 Fentanyl Citrate (Fentanyl 2ml Vial) 50 mcg 1X ONCE IV 11/17/20 19:45 11/17/20 19:46 DC 11/17/20 19:45 Ondansetron HCl (Zofran) 4 mg 1X ONCE IVP 11/17/20 19:45 11/17/20 19:46 DC 11/17/20 19:45 Fentanyl Citrate (Fentanyl 2ml Vial) 50 mcg PRN Q2HR PRN IV PAIN 11/17/20 20:30 11/18/20 06:17 Heparin Sodium (Porcine) (Heparin Sodium) 5,000 unit Q8HRS SQ 11/17/20 22:30 11/18/20 05:37 Amlodipine Besylate (Norvasc) 10 mg DAILY PO 11/18/20 09:00 11/18/20 08:37 Cetirizine HCl (ZyrTEC) 10 mg DAILY PO 11/18/20 09:00 11/18/20 08:37 Acetaminophen/ Hydrocodone Bitart (Lortab 7.5/325) 1 tab PRN Q6HRS PRN PO MODERATE PAIN 4-6 11/17/20 22:15 11/18/20 08:40 Lisinopril (Prinivil) 20 mg DAILY PO 11/18/20 09:00 11/18/20 08:37 Methocarbamol (Robaxin) 500 mg Q12HR PO 11/17/20 23:00 11/18/20 08:37 Tamsulosin HCl (Flomax) 0.4 mg DAILY PO 11/18/20 09:00 11/18/20 08:37 Budesonide (Pulmicort) 0.5 mg RTBID NEB 11/18/20 08:00 11/18/20 07:55 Cyanocobalamin (Vitamin B-12) 1,000 mcg DAILY PO 11/18/20 09:00 11/18/20 08:38 Multivitamins (Thera M Plus) 1 tab DAILY PO 11/18/20 09:00 11/18/20 08:38 Venlafaxine HCl (Effexor) 75 mg TID PO 11/18/20 09:00 11/18/20 08:37 Albuterol Sulfate (Ventolin Neb Soln) 2.5 mg RTQID NEB 11/18/20 08:00 11/18/20 07:55 Potassium Chloride/Sodium Chloride 1,000 ml @ 75 mls/hr [id number] IV 11/18/20 10:00 11/18/20 10:35 Ondansetron HCl (Zofran) 4 mg PRN Q6HRS PRN IVP NAUSEA/VOMITING 11/18/20 10:15 11/18/20 10:36 Imaging: Imaging: Chest CTA 11/17/20 IMPRESSION: 1. No pulmonary embolus identified in the main, lobar or segmental pulmonary arteries. 2. 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 ADDENDUM #1 Addendum: The patient's physician asked me to review the right apical spiculated nodule and the right middle lobe lung infiltrate. I compared this finding to previous chest CT dated October 30, 2020 and a previous chest CT dated January 04, 2012. There is an irregular spiculated posterior right apical nodular lung infiltrate. The greatest transverse dimension is 11 mm which is unchanged from October 30, 2020 but is new since 2011. This could represent a lung malignancy or nodular scar that has developed since 2011. There is a posterior right middle lobe lung infiltrate which includes groundglass lung infiltrate and small nodules. The groundglass lung infiltrate has improved since the most recent prior study. Within the lateral aspect of this infiltrate, there is a new small lung nodule measuring 6 mm. Given its quick development since October 31, 2019 and improvement of the other groundglass lung infiltrate in the same region, this most likely represents an inflammatory or infectious nodule related to distal airway disease. Attention to this nodule on follow-up studies is recommended. Note-these findings were discussed with the patient's janitor and cleaner in the ICU at 10:35 AM on November 18, 2020. PE: GEN: NAD HEENT: Atraumatic, PERRL LUNGS: diminished anteriorly HEART: RRR +TTP left chest over pacemaker ABD: NABS, S/ND/NT EXTREMITY: No edema SKIN: No rashes, no jaundice NEURO/PSYCH: A & O 3 A/P: A/P: Chest pain (?MSK), HTN (better), chronic cough, recent pacemaker placement at , vomiting Normocytic anemia, elevated Alk Phos (chronic) H/o epiglottis cancer s/p chemo/rad H/o PUD s/p distal gastrectomy w/ Betito-en-Y CRC screen, h/o adenomatous polyps - UTD (03/2020) Diverticulosis, hemorrhoids Hepatic steatosis -- Not a clear historian. Recent 'scopes as above. Okay to try diet per GI - he doesn't want liquids, he wants regular food. Continue PPI. Will stop H2 sonja. Observe. JOEY VOGEL November 18, 2020 12:28
[2020-11-18 15:00] VITALS: BP 104/42
[2020-11-18 19:43] VITALS: BP 112/61
[2020-11-18] MEDS ORDERED: ATORVASTATIN CALCIUM 10 MG TABLET. PO SCH (21:00)
[2020-11-18] MEDS: ASPIRIN CHEWABLE 81 MG TABLET. PO SCH (21:32)
[2020-11-18] MEDS: MONTELUKAST SODIUM 10 MG TABLET. PO SCH (21:32)
[2020-11-18] MEDS: DIGOXIN 125 MCG TABLET. PO SCH (21:33)
[2020-11-18 23:00] VITALS: BP 125/55
[2020-11-19 02:39] VITALS: BP 123/60
[2020-11-19 05:29] LABS: BASO % 1 % (0-3); EOS # 0.3 x10^3/uL (0.0-0.7); EOS % 6 % (0-3); HEMATOCRIT 30.8 % (39.0-53.0); HEMOGLOBIN 10.3 g/dL (13.0-17.5); LYMPH # 0.6 x10^3/uL (1.0-4.8); LYMPH % 14 % (24-48); MEAN CORPUSCULAR HEMOGLOBIN 33 pg (25-35); MEAN CORPUSCULAR HGB CONC 33 g/dL (31-37); MEAN CORPUSCULAR VOLUME 100 fL (79-100); MONO # 0.5 x10^3/uL (0.0-1.1); MONO % 12 % (0-9); NEUT % 67 % (31-73); PLATELET COUNT 137 x10^3/uL (140-400); RED BLOOD COUNT 3.09 x10^6/uL (4.30-5.70); RED CELL DISTRIBUTION WIDTH 15.5 % (11.5-14.5); WHITE BLOOD COUNT 4.4 x10^3/uL (4.0-11.0)
[2020-11-19] MEDS: HEPARIN for SUB-Q USE 5,000 UNIT/ML VIAL. SQ SCH (05:48)
[2020-11-19 06:41] LABS: CALCIUM 8.4 mg/dL (8.5-10.1); CREATININE 0.9 mg/dL (0.7-1.3); GFR 84.7
[2020-11-19] MEDS: BUDESONIDE 0.5 MG/2 ML NEBU. NEB SCH (07:21)
[2020-11-19] MEDS: ALBUTEROL SULFATE 2.5 MG/3 ML NEBU. NEB SCH (07:21)
[2020-11-19] MEDS ORDERED: PANTOPRAZOLE 40 MG TABLET.DR. PO SCH (07:30)
[2020-11-19 07:47] VITALS: BP 113/68
[2020-11-19] MEDS: METHOCARBAMOL 500 MG TABLET PO SCH (08:45)
[2020-11-19] MEDS: VENLAFAXINE 75 MG TABLET. PO SCH (08:46)
[2020-11-19] MEDS: MULTIVITAMIN with MINERAL TABLET. PO SCH (08:46)
[2020-11-19] MEDS: TAMSULOSIN 0.4 MG CAP.ER.24H. PO SCH (08:46)
[2020-11-19] MEDS: LISINOPRIL 20 MG TABLET PO SCH (08:46)
[2020-11-19] MEDS: CETIRIZINE HCL 10 MG TABLET. PO SCH (08:46)
[2020-11-19] MEDS: CYANOCOBALAMIN (VITAMIN B-12) 1,000 MCG TABLET. PO SCH (08:46)
[2020-11-19 08:47] VITALS: BP 113/68
[2020-11-19] MEDS: amLODIPine BESYLATE 10 MG TABLET PO SCH (08:47)
[2020-11-19] MEDS ORDERED: ALBU2.5V8 INH (09:19)
[2020-11-19] MEDS ORDERED: ONDA4TAB12 PO (09:21)
--- NOTE | 2020-11-19 09:23 | DISCH ---
DISCHARGE INSTRUCTIONS Condition on Discharge Condition on Discharge: Stable Activity After Discharge Activity Instructions for Disc: Activity as tolerated Weight Bearing Status after Di: Full weight bearing Diet after Discharge Diet after Discharge: Cardiac Diet Texture: Regular Checks after Discharge Checks after discharge: Check blood press - daily Contacting the after DC Call your doctor for: Concerns you may have Follow-Up Follow up with: dr.Pratip Cummings in 5 days Treatment/Equipment after DC Adaptive Equipment Issued: None IDA CUMMINGS MD November 19, 2020 09:22
--- NOTE | 2020-11-19 09:53 | PDOC ---
Date of Service: DATE: 11/19/20 TIME: 09:51 Subjective: Subjective: Wants to know what caused chest pain. Currently pain-free, feeling good. Ate all of breakfast and having a Pepsi. No recurrent vomiting. Objective: Objective: D/w nurse - tolerating GI soft diet, drank Pepsi all night, possible DC today. Vital Signs: Vital Signs Date Time Temp Pulse Resp B/P (MAP) Pulse Ox O2 Delivery O2 Flow Rate FiO2 11/19/20 08:47 73 113/68 11/19/20 07:50 Room Air 11/19/20 07:47 98.0 18 98 98.0 PE: GEN: NAD - sitting on edge of bed drinking Pepsi LUNGS: CTAB HEART: RRR ABD: S/ND/NT NEURO/PSYCH: A & O 3 A/P: Chest pain, cough, vomiting - resolving - GI workup UTD -- DC per primary/cardiology on PPI. Justicifation of Admission Dx: Justifications for Admission: Justification of Admission Dx: Yes [place]: Acute NSTEMI JOEY VOGEL November 19, 2020 09:53
--- NOTE | 2020-11-19 10:00 | PDOC3 ---
IM DISCHARGE SUMMARY Date of Admission Date of Admission Date of Admission: November 17, 2020 at 21:01 Date of Discharge Date of Discharge November 19, 2020. Primary Diagnosis Primary Diagnosis 1. Chest pain, etiology not clear, may be multifactorial. 2. Coronary artery disease. 3. Recent bradyarrhythmia and placement of leadless pacemaker at [facility] in 10/2020. 4. Chronic obstructive pulmonary disease. 5. Possible bronchitis. 6. Vomiting, possibly due to acute gastroenteritis. 7. Gastroesophageal reflux disease. 8. Diverticulosis. 9. Peripheral artery disease 10. Hyperlipidemia. 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 12. Hypertension. 13. 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 14. 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 15. History of tricuspid valve repair. Consults Consults Arsalan Hassan MD; Esteban Elliott MD; Daniel Mariano MD Labs Labs Laboratory Tests Test 11/19/20 04:40 White Blood Count 4.4 x10^3/uL (4.0-11.0) Red Blood Count 3.09 x10^6/uL (4.30-5.70) L Hemoglobin 10.3 g/dL (13.0-17.5) L Hematocrit 30.8 % (39.0-53.0) L Mean Corpuscular Volume 100 fL (79-100) Mean Corpuscular Hemoglobin 33 pg (25-35) Mean Corpuscular Hemoglobin Concent 33 g/dL (31-37) Red Cell Distribution Width 15.5 % (11.5-14.5) H Platelet Count 137 x10^3/uL (140-400) L Neutrophils (%) (Auto) 67 % (31-73) Lymphocytes (%) (Auto) 14 % (24-48) L Monocytes (%) (Auto) 12 % (0-9) H Eosinophils (%) (Auto) 6 % (0-3) H Basophils (%) (Auto) 1 % (0-3) Neutrophils # (Auto) 3.0 x10^3/uL (1.8-7.7) Lymphocytes # (Auto) 0.6 x10^3/uL (1.0-4.8) L Monocytes # (Auto) 0.5 x10^3/uL (0.0-1.1) Eosinophils # (Auto) 0.3 x10^3/uL (0.0-0.7) Basophils # (Auto) 0.0 x10^3/uL (0.0-0.2) Sodium Level 144 mmol/L (136-145) Potassium Level 4.0 mmol/L (3.5-5.1) Chloride Level 108 mmol/L (98-107) H Carbon Dioxide Level 25 mmol/L (21-32) Anion Gap 11 (6-14) Blood Urea Nitrogen 17 mg/dL (8-26) Creatinine 0.9 mg/dL (0.7-1.3) Estimated GFR (Cockcroft-Gault) 84.7 Glucose Level 91 mg/dL (70-99) Calcium Level 8.4 mg/dL (8.5-10.1) L Laboratory Tests 11/19/20 04:40 Laboratory Tests 11/19/20 04:40 Brief hospital course Brief hospital course This is a 64-year-old male who was recently admitted to this institution on 10/29/2020 because of acute non-ST elevation myocardial infarction, started having chest pains on Wednesday. He took some nitroglycerin, but yesterday the chest pain has continued and he also vomited three times. He denies any fever. He does have chronic cough, but the mucus is brown since yesterday. He denies any chills, but did feel hot and sweaty. He denies any diarrhea, constipation, GI bleeding or melena. He vomited yesterday and this morning also in the hospital, he has been vomiting. Denies any hematemesis or hemoptysis. He had pain in the chest as well as pain in the left arm. In the emergency room, cardiac enzymes were normal. BNP was 1934. D-dimer was 7.27, sodium 144, potassium 3.9, BUN 13, creatinine 0.8, magnesium 2.3, calcium 8.5, albumin 3.9, lipase 28. WBC count was 4.7 yesterday and 3.8 today, hemoglobin 12.3 yesterday and 10.5 today, BUN is 13 today and creatinine 0.9. Digoxin level was less than 0.2. 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 Because of the chest pain and nausea and vomiting, the patient was admitted for further evaluation and management. For more details regarding the past history, family history, social history, surgical history and other details, please refer to the H&P. D-dimer is elevated. CT chest angiography is negative for DVT. Continue heparin for DVT prophylaxis. Consult Dr. Waters for pulmonary evaluation and management and Dr. Khoury for cardiology evaluation and management. Consult Dr. Hassan for GI evaluation and management. The patient is n.p.o. I will start him on IV fluids, IV Zofran p.r.n. for nausea. Acute [place] was ruled out. Chest pain is most likely musculoskeletal. Discussed with Dr. Waters. Patient has right lung nodules and these are being followed at [facility] by oncology. Most likely metastatic due to epiglottic cancer. 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 He was treated in June with radiation treatment and chemotherapy. Nausea and vomiting are better and patient is tolerating GI soft diet. Okay to discharge on sublingual Zofran as needed. Medications Medications reviewed and reconciled for discharge. Home Meds Active Scripts Ondansetron (ONDANSETRON ODT) 4 Mg Tab.rapdis, 1 TAB PO PRN Q6-8HRS for nausea, #16 TAB Prov:IDA CUMMINGS MD 11/19/20 Albuterol Sulfate (PROAIR HFA INHALER) 8.5 Gm Hfa.aer.ad, 2 PUFF INH PRN Q6HRS PRN for SHORTNESS OF BREATH, #1 EACH 0 Refills Prov:IDA CUMMINGS MD 11/19/20 Methocarbamol (ROBAXIN) 500 Mg Tablet, 1 TAB PO Q12HR for muscle spasm, #30 TAB Prov:MARCIO GARCIA DO 01/18/19 Tamsulosin Hcl (FLOMAX) 0.4 Mg Cap.er.24h, 1 CAP PO DAILY, #7 CAP 0 Refills Prov:ARSALAN SLOAN DO 10/06/18 Reported Medications Nitroglycerin (NITROGLYCERIN SubLingual) 0.4 Mg Tab.subl, 0.4 MG SL PRN Q5MIN PRN for CHEST PAIN, ML 11/17/20 Venlafaxine Hcl (VENLAFAXINE HCL ER) 75 Mg Cap.er.24h, 3 CAP PO DAILY for 5/9/21 Hydrocodone/Acetaminophen (Hydrocodone-Acetamin 7.5-325) 1 Each Tablet, 1 TAB PO PRN Q6HRS PRN for pain 11/17/20 Amlodipine Besylate (AMLODIPINE BESYLATE) 10 Mg Tablet, 1 TAB PO DAILY for 11/17/20 Lisinopril (LISINOPRIL) 20 Mg Tablet, 1 TAB PO DAILY for 11/17/20 Montelukast Sodium (MONTELUKAST SODIUM TABLET ) 10 Mg Tablet, 10 MG PO HS for FOR ASTHMA, #30 TAB 0 Refills 10/15/18 Cetirizine Hcl (ZYRTEC) 10 Mg Tablet, 1 TAB PO DAILY, #30 TAB 2 Refills 01/20/18 Budesonide/Formoterol Fumarate (SYMBICORT 160-4.5 MCG INHALER) 10.2 Gm Hfa.aer.ad, 2 PUFF IH BID, #10.6 GM 3 Refills 01/20/18 Multivitamin (MULTI-VITAMIN DAILY) 1 Each Tablet, 1 EACH PO DAILY for , TAB 01/20/18 Cyanocobalamin (Vitamin B-12) (B-12) 1,000 Mcg Tablet.er, 1000 MCG PO DAILY for , TAB.SR 01/20/18 Digoxin (DIGOXIN) 125 Mcg Tablet, 125 MCG PO QHS, TAB 01/19/18 Aspirin (ASPIRIN) 81 Mg Tab.chew, 81 MG PO QHS, TAB.CHEW 01/19/18 Omeprazole (OMEPRAZOLE) 40 Mg Capsule.dr, 40 MG PO QHS 09/05/13 Simvastatin (SIMVASTATIN) 20 Mg Tablet, 20 MG PO QHS 09/05/13 Discontinued Scripts Famotidine (PEPCID AC) 20 Mg Tablet, 20 MG PO HS for 14 Days, #14 TAB Prov:HUE BELTRÁN IMPROVEMENT SPEC 05/02/18 Allergy Allergies Coded Allergies Type Severity Reaction Last Updated Verified Penicillins Allergy Severe swelling 03/25/20 Yes vancomycin Adverse Reaction Intermediate 03/25/20 Yes Follow up in 5 days. DISPOSITION: Home Comments Discharge Management - 35 minutes. For other details please refer to discharge instructions Justicifation of Admission Dx: Justifications for Admission: Justification of Admission Dx: Yes [place]: Acute NSTEMI IDA CUMMINGS MD November 19, 2020 10:00
--- NOTE | 2020-11-19 10:39 | PDOC ---
PULMONARY PROGRESS NOTES DATE: 11/19/20 TIME: 10:33 Subjective remains on room air No chest Pain No SOA or Cough Vitals Vital Signs Date Time Temp Pulse Resp B/P (MAP) Pulse Ox O2 Delivery O2 Flow Rate FiO2 11/19/20 08:47 73 113/68 11/19/20 07:50 Room Air 11/19/20 07:47 98.0 18 98 98.0 ROS: No Nausea, No Chest Pain, No Abdominal Pain, No Increase Cough General: Alert, Oriented X4 HEENT: Other (voice is hoarse) Lungs: Clear Cardiovascular: S1, S2 Neuro Exam: Alert Extremities: No Edema Skin: Warm Labs Laboratory Tests Test 11/17/20 19:20 11/17/20 22:25 11/18/20 00:20 11/18/20 03:22 White Blood Count 4.7 x10^3/uL (4.0-11.0) 3.8 x10^3/uL (4.0-11.0) Red Blood Count 3.70 x10^6/uL (4.30-5.70) 3.12 x10^6/uL (4.30-5.70) Hemoglobin 12.3 g/dL (13.0-17.5) 10.5 g/dL (13.0-17.5) Hematocrit 36.3 % (39.0-53.0) 30.8 % (39.0-53.0) Mean Corpuscular Volume 98 fL (79-100) 99 fL (79-100) Mean Corpuscular Hemoglobin 33 pg (25-35) 34 pg (25-35) Mean Corpuscular Hemoglobin Concent 34 g/dL (31-37) 34 g/dL (31-37) Red Cell Distribution Width 15.6 % (11.5-14.5) 15.3 % (11.5-14.5) Platelet Count 172 x10^3/uL (140-400) 144 x10^3/uL (140-400) Neutrophils (%) (Auto) 62 % (31-73) 58 % (31-73) Lymphocytes (%) (Auto) 16 % (24-48) 17 % (24-48) Monocytes (%) (Auto) 15 % (0-9) 14 % (0-9) Eosinophils (%) (Auto) 7 % (0-3) 9 % (0-3) Basophils (%) (Auto) 2 % (0-3) 2 % (0-3) Neutrophils # (Auto) 2.9 x10^3/uL (1.8-7.7) 2.2 x10^3/uL (1.8-7.7) Lymphocytes # (Auto) 0.7 x10^3/uL (1.0-4.8) 0.6 x10^3/uL (1.0-4.8) Monocytes # (Auto) 0.7 x10^3/uL (0.0-1.1) 0.5 x10^3/uL (0.0-1.1) Eosinophils # (Auto) 0.3 x10^3/uL (0.0-0.7) 0.3 x10^3/uL (0.0-0.7) Basophils # (Auto) 0.1 x10^3/uL (0.0-0.2) 0.1 x10^3/uL (0.0-0.2) Prothrombin Time 14.2 SEC (11.7-14.0) Prothromb Time International Ratio 1.1 (0.8-1.1) Activated Partial Thromboplast Time 35 SEC (24-38) D-Dimer (Elizabeth) 7.27 ug/mlFEU (0.00-0.50) Sodium Level 144 mmol/L (136-145) 145 mmol/L (136-145) Potassium Level 3.9 mmol/L (3.5-5.1) 4.1 mmol/L (3.5-5.1) Chloride Level 107 mmol/L (98-107) 109 mmol/L (98-107) Carbon Dioxide Level 31 mmol/L (21-32) 30 mmol/L (21-32) Anion Gap 6 (6-14) 6 (6-14) Blood Urea Nitrogen 13 mg/dL (8-26) 13 mg/dL (8-26) Creatinine 0.8 mg/dL (0.7-1.3) 0.9 mg/dL (0.7-1.3) Estimated GFR (Cockcroft-Gault) 97.0 84.7 BUN/Creatinine Ratio 16 (6-20) 14 (6-20) Glucose Level 78 mg/dL (70-99) 83 mg/dL (70-99) Calcium Level 8.5 mg/dL (8.5-10.1) 8.2 mg/dL (8.5-10.1) Magnesium Level 2.3 mg/dL (1.8-2.4) Total Bilirubin 0.5 mg/dL (0.2-1.0) 0.4 mg/dL (0.2-1.0) Aspartate Amino Transf (AST/SGOT) 16 U/L (15-37) 15 U/L (15-37) Alanine Aminotransferase (ALT/SGPT) 20 U/L (16-63) 14 U/L (16-63) Alkaline Phosphatase 151 U/L (46-116) 123 U/L (46-116) Troponin I Quantitative < 0.017 ng/mL (0.000-0.055) < 0.017 ng/mL (0.000-0.055) < 0.017 ng/mL (0.000-0.055) XM-Qjg-I-Type Natriuretic Peptide 1934 pg/mL (0-124) Total Protein 6.8 g/dL (6.4-8.2) 5.6 g/dL (6.4-8.2) Albumin 3.9 g/dL (3.4-5.0) 3.3 g/dL (3.4-5.0) Albumin/Globulin Ratio 1.3 (1.0-1.7) 1.4 (1.0-1.7) Lipase 28 U/L (73-393) Triglycerides Level 44 mg/dL (0-150) Cholesterol Level 131 mg/dL (0-200) LDL Cholesterol, Calculated 74 mg/dL (0-100) VLDL Cholesterol, Calculated 9 mg/dL (0-40) Non-HDL Cholesterol Calculated 83 mg/dL (0-129) HDL Cholesterol 48 mg/dL (40-60) Cholesterol/HDL Ratio 2.7 Digoxin Level < 0.2 ng/mL (0.9-2.0) Digoxin Last Dose Date 11/17/20 Digoxin Last Dose Time 1900 Test 11/19/20 04:40 White Blood Count 4.4 x10^3/uL (4.0-11.0) Red Blood Count 3.09 x10^6/uL (4.30-5.70) Hemoglobin 10.3 g/dL (13.0-17.5) Hematocrit 30.8 % (39.0-53.0) Mean Corpuscular Volume 100 fL (79-100) Mean Corpuscular Hemoglobin 33 pg (25-35) Mean Corpuscular Hemoglobin Concent 33 g/dL (31-37) Red Cell Distribution Width 15.5 % (11.5-14.5) Platelet Count 137 x10^3/uL (140-400) Neutrophils (%) (Auto) 67 % (31-73) Lymphocytes (%) (Auto) 14 % (24-48) Monocytes (%) (Auto) 12 % (0-9) Eosinophils (%) (Auto) 6 % (0-3) Basophils (%) (Auto) 1 % (0-3) Neutrophils # (Auto) 3.0 x10^3/uL (1.8-7.7) Lymphocytes # (Auto) 0.6 x10^3/uL (1.0-4.8) Monocytes # (Auto) 0.5 x10^3/uL (0.0-1.1) Eosinophils # (Auto) 0.3 x10^3/uL (0.0-0.7) Basophils # (Auto) 0.0 x10^3/uL (0.0-0.2) Sodium Level 144 mmol/L (136-145) Potassium Level 4.0 mmol/L (3.5-5.1) Chloride Level 108 mmol/L (98-107) Carbon Dioxide Level 25 mmol/L (21-32) Anion Gap 11 (6-14) Blood Urea Nitrogen 17 mg/dL (8-26) Creatinine 0.9 mg/dL (0.7-1.3) Estimated GFR (Cockcroft-Gault) 84.7 Glucose Level 91 mg/dL (70-99) Calcium Level 8.4 mg/dL (8.5-10.1) Laboratory Tests Test 11/19/20 04:40 White Blood Count 4.4 x10^3/uL (4.0-11.0) Red Blood Count 3.09 x10^6/uL (4.30-5.70) Hemoglobin 10.3 g/dL (13.0-17.5) Hematocrit 30.8 % (39.0-53.0) Mean Corpuscular Volume 100 fL (79-100) Mean Corpuscular Hemoglobin 33 pg (25-35) Mean Corpuscular Hemoglobin Concent 33 g/dL (31-37) Red Cell Distribution Width 15.5 % (11.5-14.5) Platelet Count 137 x10^3/uL (140-400) Neutrophils (%) (Auto) 67 % (31-73) Lymphocytes (%) (Auto) 14 % (24-48) Monocytes (%) (Auto) 12 % (0-9) Eosinophils (%) (Auto) 6 % (0-3) Basophils (%) (Auto) 1 % (0-3) Neutrophils # (Auto) 3.0 x10^3/uL (1.8-7.7) Lymphocytes # (Auto) 0.6 x10^3/uL (1.0-4.8) Monocytes # (Auto) 0.5 x10^3/uL (0.0-1.1) Eosinophils # (Auto) 0.3 x10^3/uL (0.0-0.7) Basophils # (Auto) 0.0 x10^3/uL (0.0-0.2) Sodium Level 144 mmol/L (136-145) Potassium Level 4.0 mmol/L (3.5-5.1) Chloride Level 108 mmol/L (98-107) Carbon Dioxide Level 25 mmol/L (21-32) Anion Gap 11 (6-14) Blood Urea Nitrogen 17 mg/dL (8-26) Creatinine 0.9 mg/dL (0.7-1.3) Estimated GFR (Cockcroft-Gault) 84.7 Glucose Level 91 mg/dL (70-99) Calcium Level 8.4 mg/dL (8.5-10.1) Medications Active Scripts Medications Dose Route/Sig Max Daily Dose Days Date Category Ondansetron Odt (Ondansetron) 4 Mg Tab.rapdis 1 Tab PO PRN Q6-8HRS 11/19/20 Rx Proair Hfa Inhaler (Albuterol Sulfate) 8.5 Gm Hfa.aer.ad 2 Puff INH PRN Q6HRS PRN 11/19/20 Rx NITROGLYCERIN SubLingual (Nitroglycerin) 0.4 Mg Tab.subl 0.4 Mg SL PRN Q5MIN PRN 11/17/20 Reported Venlafaxine Hcl Er (Venlafaxine Hcl) 75 Mg Cap.er.24h 3 Cap PO DAILY 11/17/20 Reported Hydrocodone-Acetamin 7.5-325 (Hydrocodone/Acetaminophen) 1 Each Tablet 1 Tab PO PRN Q6HRS PRN 11/17/20 Reported Amlodipine Besylate 10 Mg Tablet 1 Tab PO DAILY 11/17/20 Reported Lisinopril 20 Mg Tablet 1 Tab PO DAILY 11/17/20 Reported Robaxin (Methocarbamol) 500 Mg Tablet 1 Tab PO Q12HR 01/18/19 Rx Montelukast Sodium Tablet (Montelukast Sodium) 10 Mg Tablet 10 Mg PO HS 10/15/18 Reported Flomax (Tamsulosin Hcl) 0.4 Mg Cap.er.24h 1 Cap PO DAILY 10/06/18 Rx Zyrtec (Cetirizine Hcl) 10 Mg Tablet 1 Tab PO DAILY 01/20/18 Reported Symbicort 160-4.5 Mcg Inhaler (Budesonide/Formoterol Fumarate) 10.2 Gm Hfa.aer.ad 2 Puff IH BID 01/20/18 Reported Multi-Vitamin Daily (Multivitamin) 1 Each Tablet 1 Each PO DAILY 01/20/18 Reported B-12 (Cyanocobalamin (Vitamin B-12)) 1,000 Mcg Tablet.er 1,000 Mcg PO DAILY 01/20/18 Reported Digoxin 125 Mcg Tablet 125 Mcg PO QHS 01/19/18 Reported Aspirin 81 Mg Tab.chew 81 Mg PO QHS 01/19/18 Reported Omeprazole 40 Mg Capsule.dr 40 Mg PO QHS 09/05/13 Reported Simvastatin 20 Mg Tablet 20 Mg PO QHS 09/05/13 Reported Impression . IMPRESSION: 1. Chest pain with no evidence of pulmonary embolism. 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 The pain is constant and gets worse with food. 2. The patient with laryngeal cancer, status post radiation and chemo. The patient has reportedly known mets to the lungs. His CT chest does show evidence of a spiculated nodule in the right upper lobe and also in the right middle lobe. The right middle lobe nodule appears to be new compared to October, CT, likely inflammatory. 3. Abnormal CT chest as discussed above with a spiculated nodule in the right upper lobe and right middle lobe, likely metastatic disease from laryngeal cancer. Needs to compare with images from .-- it is reported pt. had a Positive PET scan at which revealed metastatic disease to the lungs will need continued follow up at [facility] 4. Underlying chronic obstructive pulmonary disease from 50 years of tobaccoism. 5. No evidence of pulmonary embolism. Plan . RECOMMENDATIONS: Respiratory status is compensated remains on room air Follow GI recommendation--chest pain as discussed that was likely related to radiation esophagitis. Follow up at post discharge, including imaging studies regarding metastases to the lungs from laryngeal cancer. PFTs as an outpatient. Continued Smoking cessation Discussed with MICHELE Almonte to KULDEEP today from our [employer] HOMA GERMAIN MD November 19, 2020 10:39
--- NOTE | 2020-11-19 11:46 | NUR ---
SS following up with discharge planning. SS reviewed pt chart and discussed with pt RN. Pt is from home with spouse and is currently on room air. Discharge order on the chart for home with self care.
--- NOTE | 2020-11-19 12:24 | NUR ---
Discharge Note: Patient was discharged home with self care. Patients IV was discontinued without any complications per RN. Patient was given discharge summary/instructions, follow-ups, and educational material. Patients prescriptions were sent to patients preferred pharmacy. Patient did not have any further questions or concerns. Patient ambulated to the ER entrance accompanied by RN with all personal belongings, where his car was parked.
== END 2020-11-19 12:03 | disposition home or self-care (01) ==
LOC: ER 19:11 → 2 NORTH 21:01
PROVIDERS: ADMIT Internal Medicine; ATTEND Internal Medicine
DX: I25.10 Atherosclerotic heart disease of native coronary artery without angina pectoris (principal); I21.4 Non-ST elevation (NSTEMI) myocardial infarction; J43.9 Emphysema, unspecified; I16.0 Hypertensive urgency; I13.0 Hypertensive heart and chronic kidney disease with heart failure and stage 1 through stage 4 chronic kidney disease, or unspecified chronic kidney disease; I50.9 Heart failure, unspecified; N18.9 Chronic kidney disease, unspecified; K21.9 Gastro-esophageal reflux disease without esophagitis; I82.211 Chronic embolism and thrombosis of superior vena cava; I49.5 Sick sinus syndrome; K20.80 Other esophagitis without bleeding; K64.8 Other hemorrhoids; K76.0 Fatty (change of) liver, not elsewhere classified; I49.9 Cardiac arrhythmia, unspecified; K57.90 Diverticulosis of intestine, part unspecified, without perforation or abscess without bleeding; I73.9 Peripheral vascular disease, unspecified; E78.5 Hyperlipidemia, unspecified; K30 Functional dyspepsia; C32.1 Malignant neoplasm of supraglottis; C78.00 Secondary malignant neoplasm of unspecified lung; D12.6 Benign neoplasm of colon, unspecified; F32.9 Major depressive disorder, single episode, unspecified; F41.9 Anxiety disorder, unspecified; I42.8 Other cardiomyopathies; I25.2 Old myocardial infarction; F17.210 Nicotine dependence, cigarettes, uncomplicated; N20.0 Calculus of kidney; R77.8 Other specified abnormalities of plasma proteins; Z85.21 Personal history of malignant neoplasm of larynx; Z85.819 Personal history of malignant neoplasm of unspecified site of lip, oral cavity, and pharynx; Z87.11 Personal history of peptic ulcer disease; Z87.19 Personal history of other diseases of the digestive system; Z87.442 Personal history of urinary calculi; Z92.21 Personal history of antineoplastic chemotherapy; Z92.3 Personal history of irradiation; Z86.73 Personal history of transient ischemic attack (TIA), and cerebral infarction without residual deficits; Z95.0 Presence of cardiac pacemaker
CPT/HCPCS: 36415; 71275; 80048; 80053; 80061; 80162; 83690; 83735; 83880; 84484; 85025; 85379; 85610; 85730; 93005; 94640; 94760; 96361; 96372; 96374; 96375; 96376; 99285; G0378; J0360; J1644; J2405; J3010; J3480; J7030; J7613; J7626; G0379

== ENCOUNTER 2021-03-24 14:53 | Observation (INO) | payer MEDICARE ==
[~2021-03-24] VITALS: Ht 182.9 cm; Wt 58.0 kg
[~2021-03-24 14:53] MED LIST changes: +ALBU2.5V8 INH; +AMLO-187 PO; +ASPI325T8 PO; +ATOR20TA58 PO; +HYDR-2763 PO; +HYDR-2765 PO; +IPRA3AMP29 NEB; +LISI20TA18 PO; +NITR0.4T22 SL; -OMEP40CA45 PO; +OMEP40CA7 PO; +PANT20TA2 PO; +POTA-121 PO; +POTA10TA12 PO; +VENL75CA6 PO
[2021-03-24 15:58] LABS: BASO # 0.1 x10^3/uL (0.0-0.2); BASO % 1 % (0-3); EOS # 0.2 x10^3/uL (0.0-0.7); EOS % 5 % (0-3); HEMATOCRIT 33.5 % (39.0-53.0); HEMOGLOBIN 11.5 g/dL (13.0-17.5); LYMPH # 0.7 x10^3/uL (1.0-4.8); LYMPH % 16 % (24-48); MEAN CORPUSCULAR HEMOGLOBIN 31 pg (25-35); MEAN CORPUSCULAR HGB CONC 34 g/dL (31-37); MEAN CORPUSCULAR VOLUME 92 fL (79-100); MONO # 0.6 x10^3/uL (0.0-1.1); MONO % 15 % (0-9); NEUT # 2.7 x10^3/uL (1.8-7.7); NEUT % 63 % (31-73); PLATELET COUNT 153 x10^3/uL (140-400); RED BLOOD COUNT 3.65 x10^6/uL (4.30-5.70); RED CELL DISTRIBUTION WIDTH 15.7 % (11.5-14.5); WHITE BLOOD COUNT 4.3 x10^3/uL (4.0-11.0)
--- NOTE | 2021-03-24 16:07 | EKG ---
[facility] [address] [place] [address] Test Date: 2021-03-24 Test Time: 15:00:04 Pat Name: DORIS HAN Department: Room: Gender: Resident Care Supervisor: : 1955 Requested By: MARTINEZ RICHTER Order Number: [id number] Reading MD: Armando Khoury Measurements Intervals Siren Rate: 92 P: 61 SC: 172 QRS: 33 QRSD: 96 T: 39 QT: 374 QTc: 468 Interpretive Statements SINUS RHYTHM LEFT ATRIAL ABNORMALITY Electronically Signed On 03-25-2021 13:04:13 CDT by Armando Khoury
[2021-03-24 16:11] LABS: CALCIUM 8.5 mg/dL (8.5-10.1); CREATININE 0.9 mg/dL (0.7-1.3); GFR 84.4; POTASSIUM 3.1 mmol/L (3.5-5.1)
[2021-03-24 16:16] LABS: ALBUMIN 3.1 g/dL (3.4-5.0); TOTAL BILIRUBIN 0.4 mg/dL (0.2-1.0); TOTAL PROTEIN 6.3 g/dL (6.4-8.2)
[2021-03-24 16:24] LABS: CREATINE KINASE 72 U/L (39-308)
[2021-03-24] MEDS ORDERED: MORPHINE SULFATE 4 MG/ML INJ. IVP ONE ×2 (16:30→18:00)
--- NOTE | 2021-03-24 16:37 | RAD ---
EXAM: Chest, single view. HISTORY: Chest pain. COMPARISON: 02/07/2021 FINDINGS: A frontal view of the chest is obtained. There is no infiltrate, pleural effusion or pneumo thorax. There is emphysema and biapical pleural parenchymal scarring. There are pacemaker leads overl mike the left thorax. There is a cardiac event monitor overlying the heart. There are median sternoto my changes. There is a nodule overlying the right lower lobe due to a nipple shadow. IMPRESSION: 1. Emphysema. 2. No acute pulmonary finding. 3. Note is made that nodular opacities within the right lung apex and right middle lobe demonstrated on the prior CT performed 11/17/2020 are not well seen radiographically. Please refer to the prior CT r eport for characterization of these findings. Electronically signed by: Akua Cavanaugh MD (03/24/2021 4:35 PM) [id number]
[2021-03-24] MEDS ORDERED: POTASSIUM CHLORIDE 20 MEQ TABLET.ER. PO ONE ×2 (16:45→23:30)
--- NOTE | 2021-03-24 16:48 | PHYS DOC ---
Past Medical History Past Medical History: CAD, Cancer, COPD, Hypertension, CO, Stroke Additional Past Medical Histor: STOMACH ULCERS, BRADYCARDIA, abd aneurysm, throat/lung cancer Past Surgical History: Other Additional Past Surgical Histo: OPEN HEART SURGERY FOR VALVE REPAIR Smoking Status: Current Every Day Smoker Alcohol Use: None Drug Use: None General Adult EDM: Chief Complaint: CHEST PAIN HPI: HPI: Patient is a 65-year-old male presents emergency department complaining of sudden onset sternal chest pain that started while he was watching television the Wednesday. Patient states his pain started out as a 10 out of 10 and has remained a 10 out of 10 until he is arrived to the ER which it is currently a 10 out of 10 pain. Patient denies taking any pain medications or trying any nonpharmacological pain relief methods stated he thought it was indigestion and it would just go away. Patient reports today he had a diaphoretic episode with nausea that has since resolved prior to arrival to the emergency department. Patient reports he took 1 nitroglycerin 2 hours ago without relief in symptoms. Patient states his nitroglycerin is only 2 months old and today was the first time he open the bottle stating "my nitroglycerin is not old ". Patient reports a past medical history of throat and lung cancer in which he has recently completed radiation therapy at [facility]. Patient reports having a wireless pacemaker placed a year ago at [facility]. Patient currently denies shortness of breath, chest or nasal congestion, abdominal pain, nausea, vomiting, or diarrhea or constipation. Patient denies rashes to his skin. Patient denies syncopal episodes. Patient states he is a daily cigarette smoker and does not have a desire to quit, denies alcohol consumption or illicit drug use. Patient denies other physical complaints or physical concerns. Review of Systems: Review of Systems: 14 body systems of review of systems have been reviewed. See HPI for pertinent positives and negative responses, otherwise all other systems are negative, nonpertinent or noncontributory. Constitutional: Negative except as outlined in HPI above. Skin: Negative except as outlined in HPI above. Eyes: Negative except as outlined in HPI above. HENT: Negative except as outlined in HPI above. Respiratory: Negative except as outlined in HPI above. Cardiovascular: Negative except as outlined in HPI above. GI: Negative except as outlined in HPI above. : Negative except as outlined in HPI above. Musculoskeletal: Negative except as outlined in HPI above. Integument: Negative except as outlined in HPI above. Neurologic: Negative except as outlined in HPI above. Endocrine: Negative except as outlined in HPI above. Lymphatic: Negative except as outlined in HPI above. Psychiatric: Negative except as outlined in HPI above. Heart Score: C/O Chest Pain: No Risk Factors: Risk Factors: DM, Current or recent (<one month) smoker, HTN, HLP, family history of CAD, obesity. Risk Scores: Score 0 - 3: 2.5% MACE over next 6 weeks - Discharge Home Score 4 - 6: 20.3% MACE over next 6 weeks - Admit for Clinical Observation Score 7 - 10: 72.7% MACE over next 6 weeks - Early Invasive Strategies Current Medications: Current Medications Medications (Trade) Dose Ordered Sig/Trista Start Time Stop Time Status Last Admin Dose Admin Morphine Sulfate (Morphine Sulfate) 4 mg 1X ONCE 03/24/21 16:30 03/24/21 16:31 DC 03/24/21 16:33 4 MG Potassium Chloride (Klor-Con) 40 meq 1X ONCE 03/24/21 16:45 03/24/21 16:46 UNV Allergies: Allergies: Allergies Coded Allergies Type Severity Reaction Last Updated Verified Penicillins Allergy Severe swelling 03/25/20 Yes vancomycin Adverse Reaction Intermediate 03/25/20 Yes Physical Exam: PE: Constitutional: Well developed, well nourished, no acute distress, non-toxic appearance. 65-year-old male in no apparent distress. HENT: Normocephalic, atraumatic. Eyes: Conjunctiva normal, no discharge. Neck: Normal range of motion, no stridor. Cardiovascular: No cyanosis appreciated, distal cap refill less than 2 seconds. Heart sounds S1-S2, regular rate and rhythm. Lungs & Thorax: Patient is in no respiratory distress, no audible adventitious lung sounds appreciated. Normal work of breathing. Surgical scars on anterior thorax well-healed, bronchial vesicular lung sounds upper lobes, diminished lower lobes. Abdomen: Nontender, no abnormalities noted. Skin: Warm, dry, no erythema, no rash. Back: No tenderness, no deformities. Extremities: No tenderness, no cyanosis, no clubbing, ROM intact, no edema. Neurologic: Alert and oriented X 3, normal motor function, normal sensory function, no focal deficits noted. Psychologic: Affect normal, judgement normal, mood normal. Current Patient Data: Labs: Laboratory Tests Test 03/24/21 15:25 White Blood Count 4.3 x10^3/uL (4.0-11.0) Red Blood Count 3.65 x10^6/uL (4.30-5.70) L Hemoglobin 11.5 g/dL (13.0-17.5) L Hematocrit 33.5 % (39.0-53.0) L Mean Corpuscular Volume 92 fL (79-100) Mean Corpuscular Hemoglobin 31 pg (25-35) Mean Corpuscular Hemoglobin Concent 34 g/dL (31-37) Red Cell Distribution Width 15.7 % (11.5-14.5) H Platelet Count 153 x10^3/uL (140-400) Neutrophils (%) (Auto) 63 % (31-73) Lymphocytes (%) (Auto) 16 % (24-48) L Monocytes (%) (Auto) 15 % (0-9) H Eosinophils (%) (Auto) 5 % (0-3) H Basophils (%) (Auto) 1 % (0-3) Neutrophils # (Auto) 2.7 x10^3/uL (1.8-7.7) Lymphocytes # (Auto) 0.7 x10^3/uL (1.0-4.8) L Monocytes # (Auto) 0.6 x10^3/uL (0.0-1.1) Eosinophils # (Auto) 0.2 x10^3/uL (0.0-0.7) Basophils # (Auto) 0.1 x10^3/uL (0.0-0.2) Sodium Level 141 mmol/L (136-145) Potassium Level 3.1 mmol/L (3.5-5.1) L Chloride Level 102 mmol/L (98-107) Carbon Dioxide Level 37 mmol/L (21-32) H Anion Gap 2 (6-14) L Blood Urea Nitrogen 12 mg/dL (8-26) Creatinine 0.9 mg/dL (0.7-1.3) Estimated GFR (Cockcroft-Gault) 84.4 BUN/Creatinine Ratio 13 (6-20) Glucose Level 98 mg/dL (70-99) Calcium Level 8.5 mg/dL (8.5-10.1) Total Bilirubin 0.4 mg/dL (0.2-1.0) Aspartate Amino Transferase (AST) 12 U/L (15-37) L Alanine Aminotransferase (ALT) 20 U/L (16-63) Alkaline Phosphatase 134 U/L (46-116) H Creatine Kinase 72 U/L (39-308) Creatine Kinase MB (Mass) 1.1 ng/mL (0.0-3.6) Creatine Kinase MB Relative Index % (0-4) Troponin I Quantitative < 0.017 ng/mL (0.000-0.055) II-Yhm-Y-Type Natriuretic Peptide 2318 pg/mL (0-124) H Total Protein 6.3 g/dL (6.4-8.2) L Albumin 3.1 g/dL (3.4-5.0) L Albumin/Globulin Ratio 1.0 (1.0-1.7) Laboratory Tests 03/24/21 15:25 Laboratory Tests 03/24/21 15:25 Vital Signs: Vital Signs Date Time Temp Pulse Resp B/P (MAP) Pulse Ox O2 Delivery O2 Flow Rate FiO2 03/24/21 16:33 16 03/24/21 15:21 98.5 87 197/105 (135) 99 Room Air 98.5 EKG: EKG: EKG performed at 1500 by ED nursing staff shows a normal sinus rhythm, heart rate 92 bpm, NH interval 0.172, QT 0.468, no acute STEMI, no ACS, no acute ischemia appreciated, EKG interpreted by ED attending physician Dr. Barker. Radiology/Procedures: Radiology/Procedures: PATIENT: DORIS HAN ACCOUNT: [id number] : 1955 LOCATION: ER AGE: 65 SEX: M EXAM STATUS: REG ER ORD. PHYSICIAN: MARTINEZ RICHTER APRN REASON: Chest pain PROCEDURE: CHEST AP ONLY EXAM: Chest, single view. HISTORY: Chest pain. COMPARISON: 02/07/2021 FINDINGS: A frontal view of the chest is obtained. There is no infiltrate, pleural effusion or pneumothorax. There is emphysema and biapical pleural parenchymal scarring. There are pacemaker leads overlying the left thorax. There is a cardiac event monitor overlying the heart. There are median sternotomy changes. There is a nodule overlying the right lower lobe due to a nipple shadow . IMPRESSION: 1. Emphysema. 2. No acute pulmonary finding. 3. Note is made that nodular opacities within the right lung apex and right middle lobe demonstrated on the prior CT performed 11/17/2020 are not well seen radiographically. Please refer to the prior CT report for characterization of these findings. Electronically signed by: Akua Cavanaugh MD (03/24/2021 4:35 PM) [id number] Course & Med Decision Making: Course & Med Decision Making Pertinent Labs and Imaging studies reviewed. (See chart for details) 65-year-old male, vital signs reviewed, presents emergency department concerning sudden onset of sternal chest pain 3 days ago without relief of nitroglycerin sublingual. Patient's physical examination concerning for chest wall pain versus cardio respiratory component. Patient does have a history of 50% LAD blockage from cardiac cath on October 2020. Will order cardiorespiratory work-up. Patient's chest x-ray concerning for emphysema, patient does have a long history of smoking with lung cancer and lung cancer treatment, patient continues to be i n no respiratory distress, patient was given 4 mg of morphine IV which brought his chest pain from 10 down to a 7 out of 10. Patient's troponin negative, however proBNP level 2318. Patient's potassium 3.1, patient was given 40 mEq of potassium p.o. in the ED today. Discussed with patient recommendation for admission, patient is amenable to admission to the hospital for cardiac work-up and monitoring. Called and discussed patient case and ED work-up with her patient's primary care physician/inpatient management physician Dr. Pham who agrees patient's ED case warrants admission to the hospital for chest pain, Dr. Pham requested a.m. basic metabolic panel and consult cardiology specialty. Patient will be admitted to CVC unit for chest pain. Patient awaiting bed assignment at this time. Cory Disclaimer: Cory Disclaimer: This electronic medical record was generated, in whole or in part, using a voice recognition dictation system. Departure Departure Impression: Primary Impression: Chest pain Qualified Codes: R07.9 - Chest pain, unspecified Disposition: HOME / SELF CARE / HOMELESS Admitting Physician: Ida Pham (Admit to CVC unit for chest pain, consult cardiology) Condition: STABLE Referrals: IDA PHAM MD (PCP) MARTINEZ RICHTER APRN Mar 24, 2021 16:48
[2021-03-24 17:06] LABS: BILIRUBIN,URINE NEGATIVE (NEG); CLARITY,URINE CLEAR; COLOR,URINE YELLOW; NITRITE,URINE NEGATIVE (NEG); PH,URINE 6.5 (<5.0-8.0); PROTEIN,URINE NEGATIVE (NEG-TRACE)
[2021-03-24 17:14] LABS: HYALINE CASTS, URINE FEW /HPF; RBC,URINE 0 /HPF (0-2)
[2021-03-24 17:15] LABS: BACTERIA,URINE 0 /HPF (0-FEW)
[2021-03-24] MEDS ORDERED: MORPHINE SULFATE 2 MG/ML INJ. IVP PRN (19:00)
[2021-03-24 20:00] VITALS: BP 182/104
--- NOTE | 2021-03-24 20:10 | NUR ---
The patient, DORIS HAN, 65 y/o, M admitted by IDA CUMMINGS MD, was given written information regarding hospital policies, unit procedures and contact persons. assessment an history complete and documented. pt oriented to unit, explained poc, pt verbalized understanding. valuables were checked and documented. call light in place will cont to monitor pt status and safety. pmrn
[2021-03-24] MEDS ORDERED: LISI20TA18 PO (21:37)
[2021-03-24] MEDS ORDERED: OMEP-346 PO (21:37)
[2021-03-24 22:47] VITALS: BP 200/91
[2021-03-24] MEDS ORDERED: hydrALAZINE 20 MG/ML VIAL. IVP PRN (23:00)
[2021-03-24] MEDS ORDERED: ATORVASTATIN CALCIUM 20 MG TABLET PO ONE (23:30)
[2021-03-24] MEDS ORDERED: LISINOPRIL 20 MG TABLET PO ONE (23:30)
[2021-03-24] MEDS ORDERED: VENLAFAXINE 75 MG TABLET. PO ONE (23:30)
[2021-03-24] MEDS ORDERED: PANTOPRAZOLE 40 MG TABLET.DR. PO ONE (23:30)
[2021-03-25 03:26] VITALS: BP 189/80
--- NOTE | 2021-03-25 05:20 | NUR ---
pt bp elevated during shift prn hydralazine given as per order will cont to monitor pt bp and status. pmrn
[2021-03-25 07:00] VITALS: BP 162/76
[2021-03-25 07:14] LABS: BASO % 1 % (0-3); EOS # 0.3 x10^3/uL (0.0-0.7); EOS % 6 % (0-3); HEMATOCRIT 34.3 % (39.0-53.0); HEMOGLOBIN 11.6 g/dL (13.0-17.5); LYMPH # 0.5 x10^3/uL (1.0-4.8); LYMPH % 11 % (24-48); MEAN CORPUSCULAR HEMOGLOBIN 31 pg (25-35); MEAN CORPUSCULAR HGB CONC 34 g/dL (31-37); MEAN CORPUSCULAR VOLUME 92 fL (79-100); MONO # 0.5 x10^3/uL (0.0-1.1); MONO % 12 % (0-9); NEUT # 3.1 x10^3/uL (1.8-7.7); NEUT % 71 % (31-73); PLATELET COUNT 145 x10^3/uL (140-400); RED BLOOD COUNT 3.72 x10^6/uL (4.30-5.70); RED CELL DISTRIBUTION WIDTH 15.9 % (11.5-14.5); WHITE BLOOD COUNT 4.4 x10^3/uL (4.0-11.0)
[2021-03-25 07:47] LABS: CALCIUM 8.7 mg/dL (8.5-10.1); CREATININE 0.8 mg/dL (0.7-1.3); GFR 96.7; POTASSIUM 3.6 mmol/L (3.5-5.1)
[2021-03-25] MEDS: PANTOPRAZOLE 40 MG TABLET.DR. PO SCH ×2 (09:35→21:49)
[2021-03-25] MEDS: VENLAFAXINE 75 MG TABLET. PO SCH ×3 (09:36→21:49)
[2021-03-25] MEDS: LISINOPRIL 20 MG TABLET PO SCH (09:36)
[2021-03-25] MEDS: POTASSIUM CHLORIDE 20 MEQ TABLET.ER. PO SCH ×2 (09:37→21:49)
--- NOTE | 2021-03-25 09:40 | PDOC ---
Provider Note Date of Service: DATE: 03/25/21 TIME: 09:39 Provider Note NET SOFTWARE DEVELOPER dictated #[id number] Justifications for Admission Other Justification IDA CUMMINGS MD Mar 25, 2021 09:40
--- NOTE | 2021-03-25 10:01 | HP ---
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 The patient had episodes of chest pains on Wednesday, Wednesday and yesterday. Yesterday, his heart started beating fast and his pacemaker advised him to go to the nearest Emergency Room and he came to [facility]. In the Emergency Room, the patient was noted to have accelerated hypertension. His WBC count is 4.3, hemoglobin 11.5, sodium 141, potassium 3.1, BUN 12, creatinine 0.9, albumin 3.1. Troponin less than 0.017. CK 72. BNP 2318. Urinalysis was negative. Serology for COVID-19, both RN as well as antigen tests were negative. Chest x-ray showed emphysema and no acute pulmonary findings, nodular opacities within the right lung apex and right middle lobe were not seen well. The patient took nitroglycerin at home, but it did not help him. In the Emergency Room, the patient was also given IV morphine and that started helping his chest pain. SYSTEMS REVIEW: At this time, the patient does not have chest pain. He did vomit last night. He was given potassium chloride in the Emergency Room because of hypokalemia. The patient denies any cold, cough, congestion, abdominal pain, but admits to vomiting last night. He has had an episode of choking. He denies any diarrhea, constipation, leg pain. Other systems reviewed and are negative. He does admit to palpitations. 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 Non-ST elevation myocardial infarction in 10/2020 as well as in 10/2018, gastroesophageal reflux disease, diverticulosis, grade 2 internal hemorrhoids, gastritis, anxiety, kidney stones, colonic polyps. PAST SURGICAL HISTORY: Includes 3 pacemaker surgeries, there was one further removal of the lead in 2013, he had a fourth pacemaker surgery in 10/2020 at [facility] for placement of a leadless pacemaker. He had an amputation of the toe of the left foot on 08/20/2015 for osteomyelitis, history of EGD with biopsy. FAMILY HISTORY: He has 2 brothers who have cirrhosis. Mother has hypertension and diabetes. ALLERGIES: THE PATIENT IS ALLERGIC TO PENICILLIN, CAUSES SWELLING. THE PATIENT IS ALSO ALLERGIC TO VANCOMYCIN. MEDICATIONS: Reviewed and reconciled. SOCIAL HISTORY: The patient is more than 65-[id number]-[id number] history of smoking, continues to smoke, but less. He quit drinking alcohol in 1986. There is no history of drug abuse, currently smoking about 6 cigarettes per day. MEDICATIONS: Reviewed and reconciled. The patient states that he takes all his medications at night. He was given his blood pressure medication and other medications last night as he did not take any medications all day yesterday. PHYSICAL EXAMINATION: VITAL SIGNS: On admission, temperature 98.5, pulse 87 per minute, respirations 16 per minute, blood pressure 197/105. Blood pressure last night was 200/91, this morning it is 162/76. GENERAL: The patient is an elderly male who is chronically ill and cachectic. He is not in acute distress. He is alert and oriented. EYES: Pupils reacting to light. Conjunctivae pale. Sclerae muddy. HENT: Unremarkable. No acute changes noted. The patient previously was treated for epiglottic cancer. NECK: Supple. JVP normal. LUNGS: Decreased breath sounds at bases. CARDIAC: S1, S2 regular. ABDOMEN: Soft, nontender, no guarding, no rigidity. Bowel sounds present. EXTREMITIES: No edema. CENTRAL NERVOUS SYSTEM: Alert and oriented. Generalized weakness. SKIN: Some bruising noted. The patient has a pacemaker in the chest. LABORATORY DATA: As noted earlier. IMPRESSION: 1. Chest pain. The patient has 3 episodes in 3 days. He also has had palpitations. This may be multifactorial. 2. The patient could have musculoskeletal chest pain as well as cardiac pain and also has a history of cancer of the lung with COPD and gastroesophageal reflux disease. 3. Coronary artery disease. 4. Cardiac arrhythmia. 5. 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 6. History of tricuspid valve repair. PLAN: Consult Dr. Mariano for Cardiology evaluation and management. Start IV hydralazine. Continue blood pressure medication that was given last night and will give extra dose this morning. Monitor pacemaker and for cardiac arrhythmia, continue telemetry. Consult Dr. Hassan as he continues to lose weight and also has had some nausea and reflux symptoms. Continue to treat hypertensive crisis. For details, please refer to the orders. Prognosis of this patient is very poor due to his multiple medical problems. Continue IV morphine and p.r.n. nitroglycerin and IV hydralazine p.r.n. LESLIE/JEAN CLAUDE DR: Hugo TID: [id number]
--- NOTE | 2021-03-25 10:39 | PDOC2 ---
ARIEL ONEIL PLASTIC CNC MACHINE OPERATOR 03/25/21 1039: CARDIAC CONSULT DATE OF CONSULT Date of Consult DATE: 03/25/21 TIME: 10:07 REASON FOR CONSULT Reason for Consult: Chest Pain, Elevated BNP REFERRING PHYSICIAN Referring Physician: Zahira SOURCE Source: Chart review, Patient HISTORY OF PRESENT ILLNESS HISTORY OF PRESENT ILLNESS This is a 65 yo male admitted for complains of chest pain while watching TV. No SOA but had some nausea and vomited a little. No recent falls or injury. Also reports that his transmitter was flashing thinking may something is wrong and telling him to go to ER. He has Micra and does not record but only paced and the transmitter does not have an alarm system or capability of letting anyone of any critical rhythm nor telling someone to go to ER. I verified this with the [employer] rep. His pain is reproducible with palpation and still has some nausea. Lately he has been having irritation in his throat when he wakes up in the morning. He does have hx of throat CA. He did take NTG x1 and helped. PAST MEDICAL HISTORY Past Medical History Cardiovascular: CAD, HTN, Hyperlipidemia, Valve insufficiency, Other Pulmonary: COPD GI: Diverticulosis, GERD, Gastritis, Hemorrhoids, Peptic Ulcer disease, Other Psych: Anxiety, Depression Musculoskeletal: Osteoarthritis Rheumatologic: No pertinent hx Infectious disease: No pertinent hx Renal/: Chronic renal insuff, Other Endocrine: No pertinent hx PAST SURGICAL HISTORY Past Surgical History Juan redman, [facility] FAMILY HISTORY Family History: Coronary Artery Disease SOCIAL HISTORY Smoke: No ALCOHOL: none Lives: with Family CURRENT MEDICATIONS CURRENT MEDICATIONS Current Medications Medications (Trade) Dose Ordered Sig/Trista Route PRN Reason Start Time Stop Time Status Last Admin Dose Admin Morphine Sulfate (Morphine Sulfate) 4 mg 1X ONCE IVP 03/24/21 16:30 03/24/21 16:31 DC 03/24/21 16:33 Potassium Chloride (Klor-Con) 40 meq 1X ONCE PO 03/24/21 16:45 03/24/21 16:46 DC 03/24/21 18:13 Morphine Sulfate (Morphine Sulfate) 4 mg 1X ONCE IVP 03/24/21 18:00 03/24/21 18:01 DC 03/24/21 18:14 Lisinopril (Prinivil) 20 mg DAILY PO 03/25/21 09:00 03/25/21 09:36 Lisinopril (Prinivil) 20 mg 1X ONCE PO 03/24/21 23:30 03/24/21 23:31 DC 03/24/21 23:13 Pantoprazole Sodium (Protonix) 40 mg 1X ONCE PO 03/24/21 23:30 03/24/21 23:31 DC 03/24/21 23:12 Pantoprazole Sodium (Protonix) 40 mg BID PO 03/25/21 09:00 03/25/21 09:35 Amlodipine Besylate (Norvasc) 10 mg 1X ONCE PO 03/24/21 23:30 03/24/21 23:31 DC 03/24/21 23:12 Amlodipine Besylate (Norvasc) 10 mg DAILY PO 03/25/21 09:00 03/25/21 09:35 Atorvastatin Calcium (Lipitor) 20 mg 1X ONCE PO 03/24/21 23:30 03/24/21 23:31 DC 03/24/21 23:12 Potassium Chloride (Klor-Con) 20 meq 1X ONCE PO 03/24/21 23:30 03/24/21 23:31 DC 03/24/21 23:14 Potassium Chloride (Klor-Con) 20 meq BID PO 03/25/21 09:00 03/25/21 09:37 Venlafaxine HCl (Effexor) 75 mg TID PO 03/25/21 09:00 03/25/21 09:36 Venlafaxine HCl (Effexor) 75 mg 1X ONCE PO 03/24/21 23:30 03/24/21 23:31 DC 03/24/21 23:11 Hydralazine HCl (Apresoline Inj) 10 mg PRN Q4HRS PRN IVP HYPERTENSION 03/24/21 23:00 03/25/21 03:06 ALLERGIES ALLERGIES: Coded Allergies: Penicillins (Verified Allergy, Severe, swelling, 03/25/20) vancomycin (Verified Adverse Reaction, Intermediate, 03/25/20) "shaking" and "hot" ROS Review of System 14 point ROS evaluated with pertinent positives noted per HPI PHYSICAL EXAM General: Alert, Oriented X3, Cooperative HEENT: Atraumatic, Mucous membr. moist/pink Lungs: Other (diminished bases) Heart: Regular rate (SR ), Other (distatn heart sounds) Abdomen: Soft, No tenderness Extremities: No cyanosis, No edema Skin: No breakdown, No significant lesion Neuro: Sensation intact, Other (garbled speech with hx of throat CA) Psych/Mental Status: Mental status NL, Mood NL MUSCULOSKELETAL: Osteoarthritic changes both hands VITALS/I&O VITALS/I&O: Vital Signs Date Time Temp Pulse Resp B/P (MAP) Pulse Ox O2 Delivery O2 Flow Rate FiO2 03/25/21 09:36 168/79 03/25/21 07:00 97.5 81 18 97 Room Air 97.5 03/25/21 03:26 2.0 I & O 03/24/21 03/24/21 03/25/21 15:00 23:00 07:00 Intake Total 250 ml Output Total 300 ml Balance -50 ml LABS Lab: Laboratory Tests Test 03/24/21 15:25 03/24/21 16:22 03/24/21 16:58 03/25/21 06:55 White Blood Count 4.3 x10^3/uL (4.0-11.0) 4.4 x10^3/uL (4.0-11.0) Red Blood Count 3.65 x10^6/uL (4.30-5.70) L 3.72 x10^6/uL (4.30-5.70) L Hemoglobin 11.5 g/dL (13.0-17.5) L 11.6 g/dL (13.0-17.5) L Hematocrit 33.5 % (39.0-53.0) L 34.3 % (39.0-53.0) L Mean Corpuscular Volume 92 fL (79-100) 92 fL (79-100) Mean Corpuscular Hemoglobin 31 pg (25-35) 31 pg (25-35) Mean Corpuscular Hemoglobin Concent 34 g/dL (31-37) 34 g/dL (31-37) Red Cell Distribution Width 15.7 % (11.5-14.5) H 15.9 % (11.5-14.5) H Platelet Count 153 x10^3/uL (140-400) 145 x10^3/uL (140-400) Neutrophils (%) (Auto) 63 % (31-73) 71 % (31-73) Lymphocytes (%) (Auto) 16 % (24-48) L 11 % (24-48) L Monocytes (%) (Auto) 15 % (0-9) H 12 % (0-9) H Eosinophils (%) (Auto) 5 % (0-3) H 6 % (0-3) H Basophils (%) (Auto) 1 % (0-3) 1 % (0-3) Neutrophils # (Auto) 2.7 x10^3/uL (1.8-7.7) 3.1 x10^3/uL (1.8-7.7) Lymphocytes # (Auto) 0.7 x10^3/uL (1.0-4.8) L 0.5 x10^3/uL (1.0-4.8) L Monocytes # (Auto) 0.6 x10^3/uL (0.0-1.1) 0.5 x10^3/uL (0.0-1.1) Eosinophils # (Auto) 0.2 x10^3/uL (0.0-0.7) 0.3 x10^3/uL (0.0-0.7) Basophils # (Auto) 0.1 x10^3/uL (0.0-0.2) 0.0 x10^3/uL (0.0-0.2) Sodium Level 141 mmol/L (136-145) 141 mmol/L (136-145) Potassium Level 3.1 mmol/L (3.5-5.1) L 3.6 mmol/L (3.5-5.1) Chloride Level 102 mmol/L (98-107) 104 mmol/L (98-107) Carbon Dioxide Level 37 mmol/L (21-32) H 33 mmol/L (21-32) H Anion Gap 2 (6-14) L 4 (6-14) L Blood Urea Nitrogen 12 mg/dL (8-26) 10 mg/dL (8-26) Creatinine 0.9 mg/dL (0.7-1.3) 0.8 mg/dL (0.7-1.3) Estimated GFR (Cockcroft-Gault) 84.4 96.7 BUN/Creatinine Ratio 13 (6-20) Glucose Level 98 mg/dL (70-99) 96 mg/dL (70-99) Calcium Level 8.5 mg/dL (8.5-10.1) 8.7 mg/dL (8.5-10.1) Total Bilirubin 0.4 mg/dL (0.2-1.0) Aspartate Amino Transferase (AST) 12 U/L (15-37) L Alanine Aminotransferase (ALT) 20 U/L (16-63) Alkaline Phosphatase 134 U/L (46-116) H Creatine Kinase 72 U/L (39-308) Creatine Kinase MB (Mass) 1.1 ng/mL (0.0-3.6) Creatine Kinase MB Relative Index % (0-4) Troponin I Quantitative < 0.017 ng/mL (0.000-0.055) BI-Ffm-S-Type Natriuretic Peptide 2318 pg/mL (0-124) H Total Protein 6.3 g/dL (6.4-8.2) L Albumin 3.1 g/dL (3.4-5.0) L Albumin/Globulin Ratio 1.0 (1.0-1.7) SARS-CoV-2 RNA (KARIN) Negative (Negative) SARS-CoV-2 Antigen (Rapid) Negative (NEGATIVE) Urine Collection Type Unknown Urine Color Yellow Urine Clarity Clear Urine pH 6.5 (<5.0-8.0) Urine Specific [place] 1.015 (1.000-1.030) Urine Protein Negative mg/dL (NEG-TRACE) Urine Glucose (UA) Negative mg/dL (NEG) Urine Ketones (Stick) Negative mg/dL (NEG) Urine Blood Negative (NEG) Urine Nitrite Negative (NEG) Urine Bilirubin Negative (NEG) Urine Urobilinogen Dipstick 1.0 mg/dL (0.2 mg/dL) Urine Leukocyte Esterase Negative (NEG) Urine RBC 0 /HPF (0-2) Urine WBC 1-4 /HPF (0-4) Urine Squamous Epithelial Cells Few /LPF Urine Bacteria 0 /HPF (0-FEW) Urine Hyaline Casts Few /HPF Urine Mucus Slight /LPF Laboratory Tests 03/24/21 15:25 03/25/21 06:55 Laboratory Tests 03/24/21 15:25 03/25/21 06:55 ECHOCARDIOGRAM ECHOCARDIOGRAM <Conclusion> The left ventricular systolic function is normal and the ejection fraction is within normal range. The Ejection Fraction is 50-55%. There is normal LV segmental wall motion. There is no significant aortic valvular stenosis by doppler criteria but visu ally the valve appears to be at least moderately stenotic. DATE: 10/30/20 [id number] HEART CATH HEART CATH Coronary angiography: LM: Large caliber mildly aneurysmal vessel with mild luminal irregularities. LAD: Large caliber vessel with a proximal to mid eccentric 50% stenosis. The vessel is also very tortuous. D1: Small caliber vessel with normal angiographic appearance LCX: Moderate caliber non-dominant vessel with a proximal 50% stenosis. OM1: Moderate caliber vessel with mild luminal irregularities. RCA: Large caliber dominant vessel with mild luminal irregularities of up to 30%. RPDA: Moderate caliber vessel with mild luminal irregularities. INTERVENTIONAL TECHNIQUE: Due to intermediate stenosis involving the LAD and presenting symptoms and IFR study was performed. Heparin was used for anticoagulation. Through a 6 [place] EBU 3.5 guide catheter a 0.014 inch pressure wire was advanced to the distal LAD after appropriate normalization and intracoronary nitroglycerin administration. And IFR was performed and measured to be 0.92 with a pullback confirming this value. At case completion the final angiography demonstrated no acute wire or guide related complications. Conclusion 1. Mildly elevated left ventricular filling pressures 2. One-vessel coronary artery disease involving the LAD 3. Negative IFR of the LAD. Recommendations 1. Continue aggressive risk factor modification. DATE: 10/31/20 [id number] ASSESSMENT/PLAN ASSESSMENT/PLAN 1. Atypical CP: possibly MSK and GERD 2. HTN urgency: labile, has not receive BP meds 3. Epiglottis Stage 3 CA: Recently completed chemo/radiation. Patient was recently diagnosed with lung cancer with radiation 4. SSS; s/p leadless PPM ([employer] Micra) 4 at [facility], clinically stable. Noted SR with intermittent pacing. base rate appears set at 40 5. 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 Tricuspid valvular insufficiency with hx of open surgical TV repair 8. HLP; statin 9. COPD clinically stable. 10. Suspect GERD exacerbation 11. CAD: clinically stable. recent C see above Recommendations 1. Continue secondary prevention measures. ASA. Restart BP regimen and start on imdur. HBPM 2. Continue PPI per PCP 3. No further cardiac workup. Follow up with Dr. Hodge at [facility] cardiology. THIEN MUJICA MD 03/25/212130: CARDIAC CONSULT ASSESSMENT/PLAN ASSESSMENT/PLAN Patient seen and examined. Agree with GRADUATE RECRUITER's assessment and plan. CP with atypical features and most probably musculoskeletal Recent cardiac cath showed nonobstructive CAD Resume home antihypertensives and titrate for better BP control SSS s/p leadless PPM, s/p TV repair, clinically stable Thank you for your consultation ARIEL ONEIL APRN Mar 25, 2021 10:39 THIEN MUJICA MD Mar 25, 2021 21:31
--- NOTE | 2021-03-25 11:22 | PDOC2 ---
GI CONSULT Date of Service: DATE: 03/25/21 TIME: 11:03 Reason For Consult: weight loss, vomiting HPI: HPI: 65 y/o male who we've seen in the past for atypical chest pain, coughing, "choking," and vomiting. This time reports chest pain over pacemaker (as in the past) began Wednesday while sitting on the couch. It improved Wednesday and Wednesday, but his heart monitor advised that he go to the nearest ER yesterday. Currently no chest pain. At some point, vomiting developed. Currently retching and spitting phlegm into basin. Per nurse, vomited pancakes and eggs this morning - wonders if wasn't so much vomiting but actually choking. Swallowed small pills without issue; po tassium was crushed. He tells me he was eating and drinking normally at home. He also reports chronic dysphagia "with pretty much everything I eat" that is stable. Says he has lost 60 pounds since cancer diagnosis. He also reports abdominal pain "pretty much all the time." Questionable historian now as in the past. Denies reflux, hematemesis, diarrhea, constipation, hematochezia, and melena. EGD and colonoscopy by Dr. Hassan in 03/2020 for dysphagia and h/o polyps showed mild reflux, s/p distal gastrectomy w/ Betito-en-Y, three adenomatous colon polyps, and internal hemorrhoids. ENT eval recommended then. H/o epiglottis cancer s/p chemo/rad. H/o lung cancer s/p radiation (last treatment date unclear, says has a follow-up appointment @ next month to "see if it worked.") No GB, liver, or pancreas history. Hepatic steatosis and diverticulosis on past imaging. H/o PUD (s/p ulcer surgery). Has pantoprazole and ASA on summary list - "I just take what I'm supposed to take." PMH: PMH: MIs, CAD, HTN, HLD, CHF, NICM, COPD, epiglottis cancer s/p chemo/rad, CKD, OA, anxiety/depression, nephrolithiasis TVR, pacemaker placement/removal/replacement, cardiac cath FH: Family History: No pertinent hx Social History: Smoke: <1 pack per day ALCOHOL: none Drugs: None ROS: GEN: Denies fevers, chills, sweats HEENT: Denies blurred vision, sore throat CV: +CP RESP: +cough GI: Per HPI : Denies hematuria, dysuria ENDO: +weight loss NEURO: Denies confusion, dizziness MSK: Denies weakness, joint pain/swelling SKIN: Denies jaundice, pruritus Vitals: Vitals: Vital Signs Date Time Temp Pulse Resp B/P (MAP) Pulse Ox O2 Delivery O2 Flow Rate FiO2 03/25/21 09:36 168/79 03/25/21 07:00 97.5 81 18 97 Room Air 97.5 03/25/21 03:26 2.0 Labs: Labs: Laboratory Tests Test 03/24/21 15:25 03/24/21 16:22 03/24/21 16:58 03/25/21 06:55 White Blood Count 4.3 x10^3/uL (4.0-11.0) 4.4 x10^3/uL (4.0-11.0) Red Blood Count 3.65 x10^6/uL (4.30-5.70) 3.72 x10^6/uL (4.30-5.70) Hemoglobin 11.5 g/dL (13.0-17.5) 11.6 g/dL (13.0-17.5) Hematocrit 33.5 % (39.0-53.0) 34.3 % (39.0-53.0) Mean Corpuscular Volume 92 fL (79-100) 92 fL (79-100) Mean Corpuscular Hemoglobin 31 pg (25-35) 31 pg (25-35) Mean Corpuscular Hemoglobin Concent 34 g/dL (31-37) 34 g/dL (31-37) Red Cell Distribution Width 15.7 % (11.5-14.5) 15.9 % (11.5-14.5) Platelet Count 153 x10^3/uL (140-400) 145 x10^3/uL (140-400) Neutrophils (%) (Auto) 63 % (31-73) 71 % (31-73) Lymphocytes (%) (Auto) 16 % (24-48) 11 % (24-48) Monocytes (%) (Auto) 15 % (0-9) 12 % (0-9) Eosinophils (%) (Auto) 5 % (0-3) 6 % (0-3) Basophils (%) (Auto) 1 % (0-3) 1 % (0-3) Neutrophils # (Auto) 2.7 x10^3/uL (1.8-7.7) 3.1 x10^3/uL (1.8-7.7) Lymphocytes # (Auto) 0.7 x10^3/uL (1.0-4.8) 0.5 x10^3/uL (1.0-4.8) Monocytes # (Auto) 0.6 x10^3/uL (0.0-1.1) 0.5 x10^3/uL (0.0-1.1) Eosinophils # (Auto) 0.2 x10^3/uL (0.0-0.7) 0.3 x10^3/uL (0.0-0.7) Basophils # (Auto) 0.1 x10^3/uL (0.0-0.2) 0.0 x10^3/uL (0.0-0.2) Sodium Level 141 mmol/L (136-145) 141 mmol/L (136-145) Potassium Level 3.1 mmol/L (3.5-5.1) 3.6 mmol/L (3.5-5.1) Chloride Level 102 mmol/L (98-107) 104 mmol/L (98-107) Carbon Dioxide Level 37 mmol/L (21-32) 33 mmol/L (21-32) Anion Gap 2 (6-14) 4 (6-14) Blood Urea Nitrogen 12 mg/dL (8-26) 10 mg/dL (8-26) Creatinine 0.9 mg/dL (0.7-1.3) 0.8 mg/dL (0.7-1.3) Estimated GFR (Cockcroft-Gault) 84.4 96.7 BUN/Creatinine Ratio 13 (6-20) Glucose Level 98 mg/dL (70-99) 96 mg/dL (70-99) Calcium Level 8.5 mg/dL (8.5-10.1) 8.7 mg/dL (8.5-10.1) Total Bilirubin 0.4 mg/dL (0.2-1.0) Aspartate Amino Transf (AST/SGOT) 12 U/L (15-37) Alanine Aminotransferase (ALT/SGPT) 20 U/L (16-63) Alkaline Phosphatase 134 U/L (46-116) Creatine Kinase 72 U/L (39-308) Creatine Kinase MB (Mass) 1.1 ng/mL (0.0-3.6) Creatine Kinase MB Relative Index % (0-4) Troponin I Quantitative < 0.017 ng/mL (0.000-0.055) < 0.017 ng/mL (0.000-0.055) VI-Dty-R-Type Natriuretic Peptide 2318 pg/mL (0-124) Total Protein 6.3 g/dL (6.4-8.2) Albumin 3.1 g/dL (3.4-5.0) Albumin/Globulin Ratio 1.0 (1.0-1.7) SARS-CoV-2 RNA (KARIN) Negative (Negative) SARS-CoV-2 Antigen (Rapid) Negative (NEGATIVE) Urine Collection Type Unknown Urine Color Yellow Urine Clarity Clear Urine pH 6.5 (<5.0-8.0) Urine Specific [place] 1.015 (1.000-1.030) Urine Protein Negative mg/dL (NEG-TRACE) Urine Glucose (UA) Negative mg/dL (NEG) Urine Ketones (Stick) Negative mg/dL (NEG) Urine Blood Negative (NEG) Urine Nitrite Negative (NEG) Urine Bilirubin Negative (NEG) Urine Urobilinogen Dipstick 1.0 mg/dL (0.2 mg/dL) Urine Leukocyte Esterase Negative (NEG) Urine RBC 0 /HPF (0-2) Urine WBC 1-4 /HPF (0-4) Urine Squamous Epithelial Cells Few /LPF Urine Bacteria 0 /HPF (0-FEW) Urine Hyaline Casts Few /HPF Urine Mucus Slight /LPF Allergies: Coded Allergies: Penicillins (Verified Allergy, Severe, swelling, 03/25/20) vancomycin (Verified Adverse Reaction, Intermediate, 03/25/20) "shaking" and "hot" Medications: Current Medications Medications (Trade) Dose Ordered Sig/Trista Route PRN Reason Start Time Stop Time Status Last Admin Dose Admin Morphine Sulfate (Morphine Sulfate) 4 mg 1X ONCE IVP 03/24/21 16:30 03/24/21 16:31 DC 03/24/21 16:33 Potassium Chloride (Klor-Con) 40 meq 1X ONCE PO 03/24/21 16:45 03/24/21 16:46 DC 03/24/21 18:13 Morphine Sulfate (Morphine Sulfate) 4 mg 1X ONCE IVP 03/24/21 18:00 03/24/21 18:01 DC 03/24/21 18:14 Lisinopril (Prinivil) 20 mg DAILY PO 03/25/21 09:00 03/25/21 09:36 Lisinopril (Prinivil) 20 mg 1X ONCE PO 03/24/21 23:30 03/24/21 23:31 DC 03/24/21 23:13 Pantoprazole Sodium (Protonix) 40 mg 1X ONCE PO 03/24/21 23:30 03/24/21 23:31 DC 03/24/21 23:12 Pantoprazole Sodium (Protonix) 40 mg BID PO 03/25/21 09:00 03/25/21 09:35 Amlodipine Besylate (Norvasc) 10 mg 1X ONCE PO 03/24/21 23:30 03/24/21 23:31 DC 03/24/21 23:12 Amlodipine Besylate (Norvasc) 10 mg DAILY PO 03/25/21 09:00 03/25/21 09:35 Atorvastatin Calcium (Lipitor) 20 mg 1X ONCE PO 03/24/21 23:30 03/24/21 23:31 DC 03/24/21 23:12 Potassium Chloride (Klor-Con) 20 meq 1X ONCE PO 03/24/21 23:30 03/24/21 23:31 DC 03/24/21 23:14 Potassium Chloride (Klor-Con) 20 meq BID PO 03/25/21 09:00 03/25/21 09:37 Venlafaxine HCl (Effexor) 75 mg TID PO 03/25/21 09:00 03/25/21 09:36 Venlafaxine HCl (Effexor) 75 mg 1X ONCE PO 03/24/21 23:30 03/24/21 23:31 DC 03/24/21 23:11 Hydralazine HCl (Apresoline Inj) 10 mg PRN Q4HRS PRN IVP HYPERTENSION 03/24/21 23:00 03/25/21 03:06 Imaging: Imaging: CXR 03/24 IMPRESSION: 1. Emphysema. 2. No acute pulmonary finding. 3. Note is made that nodular opacities within the right lung apex and right middle lobe demonstrated on the prior CT performed 11/17/2020 are not well seen radiographically. Please refer to the prior CT report for characterization of these findings. PE: GEN: retching, thin, appears chronically ill HEENT: Atraumatic, PERRL LUNGS: diminished HEART: tachycardic ABD: NABS, S/ND/NT EXTREMITY: No edema SKIN: No rashes, no jaundice NEURO/PSYCH: A & O 3, poor historian A/P: A/P: Atypical chest pain, retching/coughing/vomiting Mild anemia H/o dysphagia and epiglottic and lung cancers s/p radiation - unclear if had ENT eval as previously recommended - EGD in 2019 as per HPI H/o PUD s/p distal gastrecetomy w/ Betito-en-Y CRC screen, h/o adenomatous polyps Diverticulosis, hemorrhoids Hepatic steatosis COVID negative -- Cardiology following, PRODUCTION STATISTICAL CLERK to see - await their thoughts. Continue PPI. Recent endoscopy as above. JOEY VOGEL Mar 25, 2021 11:22
[2021-03-25 11:30] VITALS: BP 122/71
[2021-03-25] MEDS: ASPIRIN ENTERIC COATED 81 MG TABLET.DR. PO SCH (12:05)
[2021-03-25] MEDS: ISOSORBIDE MONONITRATE ER 30 MG TAB.ER.24H PO SCH (12:07)
--- NOTE | 2021-03-25 13:46 | NUR ---
SS following for discharge planning. SS reviewed pt chart and discussed with pt RN. Pt is from home with spouse and is currently requiring oxygen at two liters nasal canula. COVID19 negative. Pt has no home oxygen. Cardiology and GI consulted. ST ordered. SS will continue to follow for discharge planning.
[2021-03-25 15:30] VITALS: BP 127/68
[2021-03-25 19:35] VITALS: BP 131/77
[2021-03-25] MEDS ORDERED: ATORVASTATIN CALCIUM 20 MG TABLET PO SCH (21:00)
[2021-03-25 22:45] VITALS: BP 117/58
[2021-03-26 02:45] VITALS: BP 129/73
[2021-03-26 04:50] LABS: ALBUMIN 2.9 g/dL (3.4-5.0); CALCIUM 8.4 mg/dL (8.5-10.1); GFR 74.8; MAGNESIUM 2.2 mg/dL (1.8-2.4); POTASSIUM 3.9 mmol/L (3.5-5.1); TOTAL BILIRUBIN 0.6 mg/dL (0.2-1.0); TOTAL PROTEIN 5.9 g/dL (6.4-8.2)
[2021-03-26 07:00] VITALS: BP 139/67
[2021-03-26] MEDS ORDERED: ONDANSETRON PF 4 MG/2 ML VIAL. IVP PRN (08:45)
[2021-03-26] MEDS: ASPIRIN ENTERIC COATED 81 MG TABLET.DR. PO SCH (09:28)
[2021-03-26] MEDS: ISOSORBIDE MONONITRATE ER 30 MG TAB.ER.24H PO SCH (09:28)
[2021-03-26] MEDS: PANTOPRAZOLE 40 MG TABLET.DR. PO SCH (09:28)
[2021-03-26] MEDS: VENLAFAXINE 75 MG TABLET. PO SCH ×2 (09:28→15:39)
[2021-03-26] MEDS: POTASSIUM CHLORIDE 20 MEQ TABLET.ER. PO SCH (09:28)
[2021-03-26] MEDS: LISINOPRIL 20 MG TABLET PO SCH (09:29)
[2021-03-26] MEDS ORDERED: LISI-130 PO (09:29)
[2021-03-26] MEDS ORDERED: POTA20TA4 PO (09:29)
[2021-03-26] MEDS ORDERED: ISOS30TA68 PO (09:29)
--- NOTE | 2021-03-26 09:31 | DISCH ---
DISCHARGE INSTRUCTIONS Condition on Discharge Condition on Discharge: Stable Activity After Discharge Activity Instructions for Disc: Activity as tolerated Weight Bearing Status after Di: Full weight bearing Diet after Discharge Diet after Discharge: Cardiac Diet Texture: Regular Swallowing Supervision: None needed Checks after Discharge Checks after discharge: Check blood press - daily Contacting the [facility] after DC Call your doctor for: Concerns you may have Follow-Up Follow up with: Dr. Ida Cummings in 5 days Follow Up With: DR. Naveen CLEVELAND Treatment/Equipment after DC Adaptive Equipment Issued: None IDA CUMMINGS MD Mar 26, 2021 09:31
--- NOTE | 2021-03-26 09:36 | PDOC3 ---
IM DISCHARGE SUMMARY Date of Admission Date of Admission Date of Admission: Mar 24, 2021 at 18:55 Date of Discharge Date of Discharge March 25, 2021 Primary Diagnosis Primary Diagnosis 1. Chest pain. The patient has 3 episodes in 3 days. He also has had palpitations. This may be multifactorial. 2. The patient could have musculoskeletal chest pain as well as cardiac pain and also has a history of cancer of the lung with COPD and gastroesophageal reflux disease. 3. Coronary artery disease. 4. Cardiac arrhythmia. 5. 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 6. History of tricuspid valve repair. 7. Dysphagia Consults Consults Arsalan Hassan MD; Daniel Mariano MD Labs Labs Laboratory Tests Test 03/26/21 04:00 Sodium Level 140 mmol/L (136-145) Potassium Level 3.9 mmol/L (3.5-5.1) Chloride Level 105 mmol/L (98-107) Carbon Dioxide Level 33 mmol/L (21-32) H Anion Gap 2 (6-14) L Blood Urea Nitrogen 14 mg/dL (8-26) Creatinine 1.0 mg/dL (0.7-1.3) Estimated GFR (Cockcroft-Gault) 74.8 BUN/Creatinine Ratio 14 (6-20) Glucose Level 96 mg/dL (70-99) Calcium Level 8.4 mg/dL (8.5-10.1) L Magnesium Level 2.2 mg/dL (1.8-2.4) Total Bilirubin 0.6 mg/dL (0.2-1.0) Aspartate Amino Transferase (AST) 9 U/L (15-37) L Alanine Aminotransferase (ALT) 23 U/L (16-63) Alkaline Phosphatase 118 U/L (46-116) H Total Protein 5.9 g/dL (6.4-8.2) L Albumin 2.9 g/dL (3.4-5.0) L Albumin/Globulin Ratio 1.0 (1.0-1.7) Laboratory Tests 03/26/21 04:00 Brief hospital course Brief hospital course This is a 65-year-old male who has a history of coronary artery disease, cardiac arrhythmia, hypertension, COPD, gastroesophageal reflux disease, 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 The patient had episodes of chest pains on Wednesday, Wednesday and yesterday. Yesterday, his heart started beating fast and his pacemaker advised him to go to the nearest Emergency Room and he came to [facility]. In the Emergency Room, the patient was noted to have accelerated hypertension. His WBC count is 4.3, hemoglobin 11.5, sodium 141, potassium 3.1, BUN 12, creatinine 0.9, albumin 3.1. Troponin less than 0.017. CK 72. BNP 2318. Urinalysis was negative. Serology for COVID-19, both RN as well as antigen tests were negative. Chest x-ray showed emphysema and no acute pulmonary findings, nodular opacities within the right lung apex and right middle lobe were not seen well. The patient took nitroglycerin at home, but it did not help him. In the Emergency Room, the patient was also given IV morphine and that started helping his chest pain. For more details regarding the past history, family history, social history, s urgical history and other details, please refer to the H&P. Consult Dr. Mariano for Cardiology evaluation and management. Start IV hydralazine. Continue blood pressure medication that was given last night and will give extra dose this morning. Monitor pacemaker and for cardiac arrhythmia, continue telemetry. Consult Dr. Hassan as he continues to lose weight and also has had some nausea and reflux symptoms. Continue to treat hypertensive crisis. For details, please refer to the orders. Prognosis of this patient is very poor due to his multiple medical problems. Continue IV morphine and p.r.n. nitroglycerin and IV hydralazine p.r.n. There is no evidence of myocardial infarction during the stay in the hospital. Hypertensive crisis-increase lisinopril to 40 mg daily. Imdur 30 mg daily was also started. Blood pressure is now under better control. Hypokalemia-corrected. Increase potassium chloride to 20 meq twice daily with food. Follow-up potassium level in the office as lisinopril dose has also been increased. Is patient is doing better and is no further cardiac intervention is required, will discharge the patient back home. Patient is also advised to follow-up with his regular infectious disease physician Dr. Hodge at [facility]. Dysphagia - patient has difficulty drinking water and eating food and has choking episodes and coughing. Patient was seen by the speech therapist. Video swallow has been ordered. Staff will call me with the video swallow report. Patient may need to modify diet and I have also advised him to follow-up with his ENT specialist at [facility] who had treated him for carcinoma of epiglottis. COPD-he has episodes of dyspnea. Do a 6-minute walk. May also need home oxygenation at night. If stable he might be able to discharge later today. Medications Medications reviewed and reconciled for discharge. Home Meds Active Scripts Potassium Chloride (POTASSIUM CHLORIDE ) 20 Meq Tablet.er, 20 MEQ PO BID for Hypokalemia for 30 Days, #60 TAB.SR 5 Refills Prov:IDA CUMMINGS MD 03/26/21 Lisinopril (LISINOPRIL) 40 Mg Tablet, 40 MG PO DAILY for HTN for 30 Days, #30 TAB 5 Refills Prov:IDA CUMMINGS MD 03/26/21 Isosorbide Mononitrate (ISOSORBIDE MONONITRATE ER) 30 Mg Tab.er.24h, 30 MG PO DAILY for CAD for 30 Days, #30 TAB.SR 5 Refills Prov:IDA CUMMINGS MD 03/26/21 Ondansetron (ONDANSETRON ODT) 4 Mg Tab.rapdis, 1 TAB PO PRN Q6-8HRS for nausea, #16 TAB Prov:IDA CUMMINGS MD 01/07/21 Aspirin (ASPIRIN) 325 Mg Tablet, 325 MG PO DAILYWBKFT for CAD for 30 Days, #30 TAB Prov:IDA CUMMINGS MD 01/06/21 Albuterol Sulfate (PROAIR HFA INHALER) 8.5 Gm Hfa.aer.ad, 2 PUFF INH PRN Q6HRS PRN for SHORTNESS OF BREATH, #1 EACH 0 Refills Prov:IDA CUMMINGS MD 11/19/20 Reported Medications Omeprazole (Omeprazole) 20 Mg Tab.rap.dr, 40 MG PO DAILY for gerd, TAB 03/24/21 Ipratropium/Albuterol Sulfate (DUONEB 0.5-3(2.5) MG/3 ML) 3 Ml Ampul.neb, 3 ML NEB PRN QID PRN for , EACH 01/05/21 Hydrocodone Bit/Acetaminophen (HYDROCODONE-APAP 7.5-325 ) 1 Tab Tablet, 1 TAB PO PRN TID PRN for PAIN, TAB 0 Refills 01/05/21 Atorvastatin Calcium (ATORVASTATIN CALCIUM) 20 Mg Tablet, 20 MG PO HS for FOR CHOLESTEROL, #30 TAB 0 Refills 01/05/21 Pantoprazole Sodium (PROTONIX) 20 Mg Tablet.dr, 40 MG PO DAILY for , TAB 01/05/21 Nitroglycerin (NITROGLYCERIN SubLingual) 0.4 Mg Tab.subl, 0.4 MG SL PRN Q5MIN PRN for CHEST PAIN, ML 11/17/20 Venlafaxine Hcl (VENLAFAXINE HCL ER) 75 Mg Cap.er.24h, 3 CAP PO DAILY for 11/17/20 Amlodipine Besylate (AMLODIPINE BESYLATE) 10 Mg Tablet, 1 TAB PO DAILY for 11/17/20 Discontinued Reported Medications Lisinopril (LISINOPRIL) 20 Mg Tablet, 20 MG PO DAILY for FOR HYPERTENSION, #30 TAB 0 Refills 03/24/21 Discontinued Scripts Potassium Chloride (KLOR-CON M20) 20 Meq Tab.er.prt, 20 MEQ PO DAILYWBKFT for low pot for 30 Days, #30 TAB.SR Prov:SHIREEN HOLLIDAY MD 02/08/21 Allergy Allergies Coded Allergies Type Severity Reaction Last Updated Verified Penicillins Allergy Severe swelling 03/25/20 Yes vancomycin Adverse Reaction Intermediate 03/25/20 Yes Follow up in 5 days. Comments Discharge Management - 35 minutes. For other details please refer to discharge instructions Justicifation of Admission Dx: Justifications for Admission: Justification of Admission Dx: Yes MA: Acute NSTEMI IDA CUMMINGS MD Mar 26, 2021 09:36
--- NOTE | 2021-03-26 10:21 | PDOC ---
Date of Service: DATE: 03/26/21 TIME: 10:14 Subjective: Subjective: Breakfast got stuck in upper throat, coughed some out. "Feels sick" - doesn't offer details - I asked about nausea and he said "yep." No abd pain. Objective: Objective: D/w Ailyn/MINE MANAGER yesterday - plans for videoswallow later this morning - would be ideal if could comment on esophagus as well. Vital Signs: Vital Signs Date Time Temp Pulse Resp B/P (MAP) Pulse Ox O2 Delivery O2 Flow Rate FiO2 03/26/21 09:32 139/67 03/26/21 09:28 87 03/26/21 07:00 97.5 20 96 Room Air 97.5 03/25/21 11:30 2.0 Labs: Laboratory Tests Test 03/26/21 04:00 Sodium Level 140 mmol/L Potassium Level 3.9 mmol/L Chloride Level 105 mmol/L Carbon Dioxide Level 33 mmol/L Anion Gap 2 Blood Urea Nitrogen 14 mg/dL Creatinine 1.0 mg/dL Estimated GFR (Cockcroft-Gault) 74.8 BUN/Creatinine Ratio 14 Glucose Level 96 mg/dL Calcium Level 8.4 mg/dL Magnesium Level 2.2 mg/dL Total Bilirubin 0.6 mg/dL Aspartate Amino Transf (AST/SGOT) 9 U/L Alanine Aminotransferase (ALT/SGPT) 23 U/L Alkaline Phosphatase 118 U/L Total Protein 5.9 g/dL Albumin 2.9 g/dL Albumin/Globulin Ratio 1.0 PE: GEN: NAD, emesis basin nearby w/ clear-yellow phlegm LUNGS: diminished HEART: RR ABD: S/ND/NT NEURO/PSYCH: A & O 3, not overly forthcoming A/P: Retching/coughing/vomiting/dysphagia - scopes UTD H/o epiglottic and lung cancer, h/o PUD s/p distal gastrecetomy w/ Betito-en-Y COVID negative -- Discussion w/ MINE MANAGER as above, awaiting imaging and continue PPI. Note has DC order. Justicifation of Admission Dx: Justifications for Admission: Justification of Admission Dx: Yes NC: Acute NSTEMI JOEY VOGEL Mar 26, 2021 10:21
[2021-03-26 11:00] VITALS: BP 120/59
[2021-03-26] MEDS ORDERED: BARIUM SULFATE 40% (APPLE) 148 GM PWD. PO ONE (11:30)
--- NOTE | 2021-03-26 12:08 | RAD ---
EXAM: Video swallow evaluation. HISTORY: Aspiration. TECHNIQUE: Fluoroscopic imaging was performed with a speech pathologist during the oral administratio n of barium contrast of varying consistencies. 0 fluoroscopic images were saved. The total fluoroscop y time was 2 minutes. COMPARISON: None. FINDINGS: There is trace aspiration of thin barium. There is intermittent delayed elicitation of a co ugh reflex. There is also intermittent trace aspiration of thick barium consistency. This slightly im proved with a chin tuck maneuver. No aspiration is seen with additional barium consistencies. IMPRESSION: Aspiration of thin barium consistency and occasional thick barium consistencies. Delayed intermittent initiation of a cough reflex. Please refer to the separate report by the speech patholog ist for clinical recommendations. Electronically signed by: Akua Cavanaugh MD (03/26/2021 12:06 PM) [id number]
--- NOTE | 2021-03-26 12:41 | NUR ---
SS following up with discharge planning. SS reviewed pt chart and discussed with pt RN. Pt is currently on room air. COVID19 negative. Pt on PO diet. Six minute walk ordered. Pt requesting home healthcare for RN and RT services with no preference of company. Referral sent to [facility], ; fax [phone]. Pt accepted on services with [facility]. Dr. Pham notified. Anticipate discharge later today. SS will continue to follow for discharge planning.
--- NOTE | 2021-03-26 14:32 | SNU/HH DC ---
DISCHARGE WITH HOME HEALTH DISCHARGE INFORMATION: Final Diagnosis: Problems Medical Problems: (1) Chest pain Status: Acute Condition on Discharge: Stable HOME HEALTH: Face to Face: I certify this patient is under my care and that I, or a nurse practitioner or physician's administrative sales assistant working with me, had a face to face encounter that meets the physician face to face encounter requirements with this patient on 03/26/21. RN For Eval/Treatment: Yes Physical Therapy For: Evalulation/Treatment Occupational Therapy For: Evaluation/Treatment Pt Meets Homebound Status: Fatigue w/ amb. POST DISCHARGE ORDERS: Activity Instructions for Disc: Activity as tolerated Weight Bearing Status after Di: Full weight bearing DIET AFTER DISCHARGE: Cardiac CHECKS AFTER DISCHARGE: Checks after discharge: Check blood press - daily FOLLOW-UP: Follow up with: Dr. Ida Cummings in 5 days Follow Up With: DR. Naveen CLEVELAND TREATMENT/EQUIPMENT ORDERS: Adaptive Equipment Issued: None CERTIFICATION STATEMENT: Certification Statement: Certification Statement: Based on the above finding, I certify that this patient is confined to the home and needs intermittent nursing home care, physical therapy and/or speech therapy, or continues to need occupational therapy.~ This patient is under my care, and I have initiated the establishment of the plan of care.~ This patient will be followed by myself or a community physician who will periodically review the plan of care. Home Meds Active Scripts Potassium Chloride (POTASSIUM CHLORIDE ) 20 Meq Tablet.er, 20 MEQ PO BID for Hypokalemia for 30 Days, #60 TAB.SR 5 Refills Prov:IDA CUMMINGS MD 03/26/21 Lisinopril (LISINOPRIL) 40 Mg Tablet, 40 MG PO DAILY for HTN for 30 Days, #30 TAB 5 Refills Prov:IDA CUMMINGS MD 03/26/21 Isosorbide Mononitrate (ISOSORBIDE MONONITRATE ER) 30 Mg Tab.er.24h, 30 MG PO DAILY for CAD for 30 Days, #30 TAB.SR 5 Refills Prov:IDA CUMMINGS MD 03/26/21 Ondansetron (ONDANSETRON ODT) 4 Mg Tab.rapdis, 1 TAB PO PRN Q6-8HRS for nausea, #16 TAB Prov:IDA CUMMINGS MD 01/07/21 Aspirin (ASPIRIN) 325 Mg Tablet, 325 MG PO DAILYWBKFT for CAD for 30 Days, #30 TAB Prov:IDA CUMMINGS MD 01/06/21 Albuterol Sulfate (PROAIR HFA INHALER) 8.5 Gm Hfa.aer.ad, 2 PUFF INH PRN Q6HRS PRN for SHORTNESS OF BREATH, #1 EACH 0 Refills Prov:IDA CUMMINGS MD 11/19/20 Reported Medications Omeprazole (Omeprazole) 20 Mg Tab.rap.dr, 40 MG PO DAILY for gerd, TAB 03/24/21 Ipratropium/Albuterol Sulfate (DUONEB 0.5-3(2.5) MG/3 ML) 3 Ml Ampul.neb, 3 ML NEB PRN QID PRN for , EACH 01/05/21 Hydrocodone Bit/Acetaminophen (HYDROCODONE-APAP 7.5-325 ) 1 Tab Tablet, 1 TAB PO PRN TID PRN for PAIN, TAB 0 Refills 01/05/21 Atorvastatin Calcium (ATORVASTATIN CALCIUM) 20 Mg Tablet, 20 MG PO HS for FOR CHOLESTEROL, #30 TAB 0 Refills 01/05/21 Pantoprazole Sodium (PROTONIX) 20 Mg Tablet.dr, 40 MG PO DAILY for , TAB 01/05/21 Nitroglycerin (NITROGLYCERIN SubLingual) 0.4 Mg Tab.subl, 0.4 MG SL PRN Q5MIN PRN for CHEST PAIN, ML 11/17/20 Venlafaxine Hcl (VENLAFAXINE HCL ER) 75 Mg Cap.er.24h, 3 CAP PO DAILY for 11/17/20 Amlodipine Besylate (AMLODIPINE BESYLATE) 10 Mg Tablet, 1 TAB PO DAILY for 11/17/20 Discontinued Reported Medications Lisinopril (LISINOPRIL) 20 Mg Tablet, 20 MG PO DAILY for FOR HYPERTENSION, #30 TAB 0 Refills 03/24/21 Discontinued Scripts Potassium Chloride (KLOR-CON M20) 20 Meq Tab.er.prt, 20 MEQ PO DAILYWBKFT for lo w pot for 30 Days, #30 TAB.SR Prov:SHIREEN HOLLIDAY MD 02/08/21 IDA CUMMINGS MD Mar 26, 2021 14:32
[2021-03-26 15:00] VITALS: BP 98/57
--- NOTE | 2021-03-26 18:36 | NUR ---
Discharge Note: DORIS HAN [facility] Discharge instructions and discharge home medications reviewed with Patient and a copy given. All questions have been answered and understanding verbalized. The following instructions and handouts were given: discharge packet, mwediciation education, new prescriptions, follow up instructions. Discontinued lines and drains: Peripheral IV intact. Patient discharged to Home w/services with Spouse via Wheelchair
== END 2021-03-26 18:15 | disposition home health service (06) ==
LOC: ER 14:53 → 6 SOUTH 18:55 → INTOOBSV 18:55
PROVIDERS: ADMIT Internal Medicine; ATTEND Internal Medicine
DX: R07.2 Precordial pain (principal); Z20.822 Contact with and (suspected) exposure to COVID-19; J43.9 Emphysema, unspecified; I13.0 Hypertensive heart and chronic kidney disease with heart failure and stage 1 through stage 4 chronic kidney disease, or unspecified chronic kidney disease; I25.10 Atherosclerotic heart disease of native coronary artery without angina pectoris; I10 Essential (primary) hypertension; I25.2 Old myocardial infarction; Z86.73 Personal history of transient ischemic attack (TIA), and cerebral infarction without residual deficits; F17.210 Nicotine dependence, cigarettes, uncomplicated; F32.9 Major depressive disorder, single episode, unspecified; E87.6 Hypokalemia; F41.9 Anxiety disorder, unspecified; K21.9 Gastro-esophageal reflux disease without esophagitis; C32.1 Malignant neoplasm of supraglottis; C78.00 Secondary malignant neoplasm of unspecified lung; D12.6 Benign neoplasm of colon, unspecified; R00.2 Palpitations; E78.5 Hyperlipidemia, unspecified; K76.0 Fatty (change of) liver, not elsewhere classified; I42.8 Other cardiomyopathies; I73.9 Peripheral vascular disease, unspecified; K57.90 Diverticulosis of intestine, part unspecified, without perforation or abscess without bleeding; K64.8 Other hemorrhoids; R00.1 Bradycardia, unspecified; R13.10 Dysphagia, unspecified; Z92.3 Personal history of irradiation; Z82.49 Family history of ischemic heart disease and other diseases of the circulatory system; Z83.3 Family history of diabetes mellitus; Z87.11 Personal history of peptic ulcer disease; Z87.442 Personal history of urinary calculi; Z92.21 Personal history of antineoplastic chemotherapy; Z95.0 Presence of cardiac pacemaker; Z87.19 Personal history of other diseases of the digestive system; Z85.118 Personal history of other malignant neoplasm of bronchus and lung; Z85.21 Personal history of malignant neoplasm of larynx; Z85.819 Personal history of malignant neoplasm of unspecified site of lip, oral cavity, and pharynx; Z79.899 Other long term (current) drug therapy
CPT/HCPCS: 36415; 71045; 74230; 80048; 80053; 81001; 82553; 83735; 83880; 84484; 85025; 87426; 92611; 93005; 94618; 96374; 96375; 96376; 99285; G0378; J0360; J2270; J2405; U0003; U0005; G0379

== ENCOUNTER 2021-04-20 14:33 | Observation (INO) | payer MEDICARE ==
[~2021-04-20] VITALS: Ht 182.9 cm; Wt 57.7 kg
[~2021-04-20 14:33] MED LIST changes: +ISOS30TA68 PO; +LISI-130 PO; +OMEP-346 PO
--- NOTE | 2021-04-20 15:09 | NUR ---
Son called and stated that this patient is a heart and cancer patient. The son wanted to inform us because his dad never mentions it.
--- NOTE | 2021-04-20 15:57 | PHYS DOC ---
Past Medical History Past Medical History: CAD, Cancer, COPD, Hypertension, VA, Stroke Additional Past Medical Histor: STOMACH ULCERS, BRADYCARDIA, abd aneurysm, throat/lung cancer Past Surgical History: Other Additional Past Surgical Histo: OPEN HEART SURGERY FOR VALVE REPAIR Smoking Status: Current Every Day Smoker Alcohol Use: None Drug Use: None General Adult EDM: Chief Complaint: FLANK PAIN HPI: HPI: Patient is a 65 year old male with history of hypertension, VA, throat cancer, COPD, CAD, who presents to the ED today complaining of chronic sharp 10 out of 10 left-sided abdominal pain, symptoms have been going on for 2 years. Patient is also complaining of chronic varicose veins running on his abdomen, symptoms have been going on for 2 years. Patient states he took his pain medicine yesterday with some relief though he cannot remember the name of the pain medicine. Patient states he is supposed to follow-up with a vein specialist on 04/29/2021. He presents today requesting we remove the varicose veins. Review of Systems: Review of Systems: Constitutional: Denies fever or chills. [] Eyes: Denies change in visual acuity. [] HENT: Denies nasal congestion or sore throat. [] Respiratory: Denies cough or shortness of breath. [] Cardiovascular: Denies chest pain or edema. [] GI: Reports chronic abdominal pain with varicose veins on the abdomen, denies nausea, vomiting, bloody stools or diarrhea. [] : Denies dysuria. [] Musculoskeletal: Denies back pain or joint pain. [] Integument: Denies rash. [] Neurologic: Denies headache, focal weakness or sensory changes. [] Psychiatric: Denies depression or anxiety. [] Heart Score: C/O Chest Pain: Yes HEART Score for Chest Pain: HEART Score for Chest Pain Response (Comments) Value History Slighlty/Non-Suspicious 0 ECG Normal 0 Age > 65 2 Risk Factors >3 Risk Factors or Hx CAD 2 Troponin < Normal Limit 0 Total 4 Risk Factors: Risk Factors: DM, Current or recent (<one month) smoker, HTN, HLP, family history of CAD, obesity. Risk Scores: Score 0 - 3: 2.5% MACE over next 6 weeks - Discharge Home Score 4 - 6: 20.3% MACE over next 6 weeks - Admit for Clinical Observation Score 7 - 10: 72.7% MACE over next 6 weeks - Early Invasive Strategies Allergies: Allergies: Allergies Coded Allergies Type Severity Reaction Last Updated Verified Penicillins Allergy Severe swelling 03/25/20 Yes vancomycin Adverse Reaction Intermediate 03/25/20 Yes Physical Exam: PE: Constitutional: Well developed, well nourished, no acute distress, non-toxic appearance. [] HENT: Normocephalic, atraumatic, bilateral external ears normal, oropharynx moist, no oral exudates, nose normal. [] Eyes: PERRLA, EOMI, conjunctiva normal, no discharge. [] Neck: Normal range of motion, no tenderness, supple, no stridor. [] Cardiovascular:Heart rate regular rhythm, no murmur [] Lungs & Thorax: Bilateral breath sounds clear to auscultation [] Abdomen: Left side of the abdomen with multiple varicose veins. No redness, warmth or tenderness to the varicose veins. Bowel sounds normal, soft, no tenderness, no masses, no pulsatile masses. [] Skin: Warm, dry, no erythema, no rash. [] Back: No tenderness, no CVA tenderness. [] Extremities: No tenderness, no cyanosis, no clubbing, ROM intact, no edema. [] Neurologic: Alert and oriented X 3, normal motor function, normal sensory function, no focal deficits noted. [] Psychologic: Affect normal, judgement normal, mood normal. [] EKG: EK interpreted by Dr. Gaffney sinus rhythm HR 79 no STEMI [address] Gaffney sinus rhythm HR 57 no STEMI[] Radiology/Procedures: Radiology/Procedures: []PROCEDURE: CT ABD PELV W/ IV CONTRST ONLY PQRS Compliance Statement: One or more of the following individualized dose reduction techniques were ut ilized for this examination: 1. Automated exposure control 2. Adjustment of the mA and/or kV according to patient size 3. Use of iterative reconstruction technique CT ABDOMEN+PELVIS W Clinical Indication: Reason: abd pain chronic X2 years / Spl. Instructions: / History: Comparison: CT abdomen and pelvis with contrast October 16, 2020. Technique: Helical CT imaging of the abdomen and pelvis is performed after 75 cc of Omnipaque 300 IV contrast. Oral contrast not administered. Findings: There are patchy groundglass and nodular opacities in the right middle lobe. Right lower lobe calcified granuloma. Probable CABG changes. Cardiac size normal. The liver, gallbladder, spleen, pancreas, and adrenal glands are normal. There is atherosclerotic calcification and stable aneurysm of the infrarenal abdominal aorta, maximum diameter 3.4 cm. Left femoral vein superficial venous collaterals of the left abdominal wall are redemonstrated. Cannot exclude May Thurner syndrome, there is mild narrowing of the proximal left common iliac vein. There is asymmetric contrast enhancement of the left femoral and iliac veins compared to the right side which could be due to left lower extremity hyperemia. Kidneys enhance symmetrically, no hydronephrosis. The stomach is unremarkable. There is no dilated small bowel. The appendix is normal. No colon wall thickening is identified. Urinary bladder is normal. Prostate size normal. No pelvic free fluid. The left superficial femoral artery is occluded. No acute bone abnormality. IMPRESSION: 1. There are patchy groundglass and nodular opacities in the right middle lobe that may be infectious/inflammatory. 2. No acute abdominal or pelvic abnormality. 3. Stable mild aneurysm of the infrarenal abdominal aorta. The left superficial femoral artery is occluded. Electronically signed by: Jarek Colorado MD (04/20/2021 5:54 PM) [facility] DICTATED and SIGNED BY: JAREK COLORADO MD DATE: 04/20/[id number] 0 PROCEDURE: PORTABLE CHEST 1V EXAM: CHEST 1 VIEW History: Chest pain COMPARISON: 03/24/2021 TECHNIQUE: Single portable radiograph of the chest FINDINGS: property assessment monitor projecting on the left is again identified. Mild bibasilar lung airspace opacities likely atelectasis or infiltrates. The costophrenic sulci are clear and well demarcated. IMPRESSION: Mild bibasilar lung airspace opacity likely atelectasis or infiltrates. Electronically signed by: Lew Hurd MD (04/20/2021 4:50 PM) [id number] DICTATED and SIGNED BY: LEW HURD MD DATE: 04/20/21 [id number] 0 Course & Med Decision Making: Course & Med Decision Making Pertinent Labs and Imaging studies reviewed. (See chart for details) This is a 65-year-old male patient with history of chronic abdominal pain and varicose veins to the abdomen who presents today complaining of abdominal pain and varicose veins in the abdomen. Patient is requesting we remove them. He has an appointment with a vein specialist on April 29, 2021. Informed patient we do not have a vein specialist to remove abdominal varicose veins in the ED. Recommended he keeps his appointment with the vein clinic. A couple minutes later was i informed patient has changed his story from abdominal pain to chest pain. Charge nurse also states patient was checked for abdominal pain on arrival to the Ed. When he learned there is a long wait to be seen in the ED he changed his story to chest pain. Initial EKG was done in the waiting room which was negative. Another EKG was ordered when he complained of chest pain again CBC, CMP, troponin X2, with no acute findings. CT of the abdomen and pelvis was noted for patchy groundglass and nodular opacities in the right middle lobe that may be infectious/inflammatory. No acute abdominal or pelvic abnormality. Stable mild aneurysm of the infrarenal abdominal aorta. Left superficial femoral artery is occluded. Blood pressure in arrival to the ED was 206/92 with a heart rate of 77. History of hypertension. Unknown if he took his blood pressure medicine. He was given nitroglycerin which dropped his blood pressure at 160/75 with a heart rate of 45. Patient has no symptoms with this bradycardia. Spoke with Dr. Pham who accepted patient for admission Dragon Disclaimer: Cory Disclaimer: This electronic medical record was generated, in whole or in part, using a voice recognition dictation system. Departure Departure Impression: Primary Impression: Chest pain Qualified Codes: R07.9 - Chest pain, unspecified Additional Impressions: Abdominal pain Qualified Codes: R10.12 - Left upper quadrant pain HTN (hypertension) Qualified Codes: I10 - Essential (primary) hypertension Accelerated hypertension Disposition: ADMITTED INPATIENT Condition: STABLE Referrals: IDA PHAM MD (PCP) RADHA MORTON HAND ALTERATIONS TAILOR Apr 20, 2021 15:57
[2021-04-20] MEDS ORDERED: MORPHINE SULFATE 4 MG/ML INJ. IM ONE (16:00)
[2021-04-20] MEDS ORDERED: MORPHINE SULFATE 4 MG/ML INJ. IV/SQ PRN (16:15)
[2021-04-20] MEDS ORDERED: MORPHINE SULFATE 4 MG/ML INJ. IVP ONE (16:15)
[2021-04-20] MEDS ORDERED: ONDANSETRON PF 4 MG/2 ML VIAL. IVP ONE (16:15)
[2021-04-20] MEDS ORDERED: ASPIRIN 325 MG TABLET PO ONE (16:15)
[2021-04-20] MEDS ORDERED: IV NORMAL SALINE 1000ML BAG 1,000 ML IV ONE (16:15)
[2021-04-20] MEDS: NITROGLYCERIN SUBLINGUAL 0.4 MG BOTTLE OF 25. SL PRN ×3 (16:29→20:16)
[2021-04-20 16:36] LABS: BASO # 0.1 x10^3/uL (0.0-0.2); BASO % 2 % (0-3); EOS # 0.3 x10^3/uL (0.0-0.7); EOS % 6 % (0-3); LYMPH # 0.7 x10^3/uL (1.0-4.8); LYMPH % 16 % (24-48); MEAN CORPUSCULAR HEMOGLOBIN 31 pg (25-35); MEAN CORPUSCULAR HGB CONC 33 g/dL (31-37); MEAN CORPUSCULAR VOLUME 94 fL (79-100); MONO # 0.5 x10^3/uL (0.0-1.1); MONO % 12 % (0-9); NEUT # 2.9 x10^3/uL (1.8-7.7); NEUT % 64 % (31-73); PLATELET COUNT 138 x10^3/uL (140-400); RED BLOOD COUNT 4.17 x10^6/uL (4.30-5.70); RED CELL DISTRIBUTION WIDTH 15.9 % (11.5-14.5); WHITE BLOOD COUNT 4.5 x10^3/uL (4.0-11.0)
--- NOTE | 2021-04-20 16:52 | RAD ---
EXAM: CHEST 1 VIEW History: Chest pain COMPARISON: 03/24/2021 TECHNIQUE: Single portable radiograph of the chest FINDINGS: program engineer projecting on the left is again identified. Mild bibasilar lung airspace o pacities likely atelectasis or infiltrates. The costophrenic sulci are clear and well demarcated. IMPRESSION: Mild bibasilar lung airspace opacity likely atelectasis or infiltrates. Electronically signed by: Lew Hurd MD (04/20/2021 4:50 PM) [id number]
[2021-04-20 17:14] LABS: CALCIUM 8.7 mg/dL (8.5-10.1); CREATININE 0.9 mg/dL (0.7-1.3); GFR 84.4; POTASSIUM 3.7 mmol/L (3.5-5.1)
[2021-04-20 17:20] LABS: ALBUMIN 3.5 g/dL (3.4-5.0); ALBUMIN/GLOBULIN RATIO 1.1 (1.0-1.7); TOTAL BILIRUBIN 0.5 mg/dL (0.2-1.0); TOTAL PROTEIN 6.6 g/dL (6.4-8.2)
[2021-04-20] MEDS ORDERED: IOHEXOL 300 MG/ML 100ML VIAL. IV ONE (17:30)
--- NOTE | 2021-04-20 17:56 | RAD ---
PQRS Compliance Statement: One or more of the following individualized dose reduction techniques were utilized for this examinat ion: 1. Automated exposure control 2. Adjustment of the mA and/or kV according to patient size 3. Use of iterative reconstruction technique CT ABDOMEN+PELVIS W Clinical Indication: Reason: abd pain chronic X2 years / Spl. Instructions: / History: Comparison: CT abdomen and pelvis with contrast October 16, 2020. Technique: Helical CT imaging of the abdomen and pelvis is performed after 75 cc of Omnipaque 300 IV contrast. Oral contrast not administered. Findings: There are patchy groundglass and nodular opacities in the right middle lobe. Right lower lobe calcifi ed granuloma. Probable CABG changes. Cardiac size normal. The liver, gallbladder, spleen, pancreas, and adrenal glands are normal. There is atherosclerotic soy cification and stable aneurysm of the infrarenal abdominal aorta, maximum diameter 3.4 cm. Left femoral vein superficial venous collaterals of the left abdominal wall are redemonstrated. Canno t exclude May Thurner syndrome, there is mild narrowing of the proximal left common iliac vein. There is asymmetric contrast enhancement of the left femoral and iliac veins compared to the right side wh ich could be due to left lower extremity hyperemia. Kidneys enhance symmetrically, no hydronephrosis. The stomach is unremarkable. There is no dilated small bowel. The appendix is normal. No colon wall t hickening is identified. Urinary bladder is normal. Prostate size normal. No pelvic free fluid. The left superficial femoral artery is occluded. No acute bone abnormality. IMPRESSION: 1. There are patchy groundglass and nodular opacities in the right middle lobe that may be infectiou s/inflammatory. 2. No acute abdominal or pelvic abnormality. 3. Stable mild aneurysm of the infrarenal abdominal aorta. The left superficial femoral artery is oc cluded. Electronically signed by: Jarek Colorado MD (04/20/2021 5:54 PM) [facility]
[2021-04-20 18:21] LABS: BILIRUBIN,URINE NEGATIVE (NEG); CLARITY,URINE CLEAR; COLOR,URINE YELLOW; NITRITE,URINE NEGATIVE (NEG); PH,URINE 6.5 (<5.0-8.0); PROTEIN,URINE NEGATIVE (NEG-TRACE)
[2021-04-20 18:27] LABS: BACTERIA,URINE 0 /HPF (0-FEW); HYALINE CASTS, URINE FEW /HPF; RBC,URINE 0 /HPF (0-2)
[2021-04-20 18:28] LABS: BARBITURATES NEG (NEG); BENZODIAZEPINES NEG (NEG); CANNABINOIDS NEG (NEG); COCAINE NEG (NEG); METHADONE NEG (NEG); OPIATES POS (NEG); PHENCYCLIDINE NEG (NEG)
[2021-04-20 18:29] LABS: AMPHETAMINE/METHAMPHETAMINE NEG (NEG)
[2021-04-20] MEDS ORDERED: ONDANSETRON PF 4 MG/2 ML VIAL. IVP PRN (20:45)
[2021-04-20] MEDS ORDERED: MORPHINE SULFATE 4 MG/ML INJ. IVP PRN (20:45)
[2021-04-20] MEDS ORDERED: ACETAMINOPHEN 325 MG TABLET. PO PRN (20:45)
[2021-04-20] MEDS ORDERED: NITROGLYCERIN SUBLINGUAL 0.4 MG BOTTLE OF 25. SL PRN ×2 (20:45→23:00)
[2021-04-20] MEDS ORDERED: hydrALAZINE 20 MG/ML VIAL. IVP PRN (20:45)
[2021-04-20 21:05] VITALS: BP 202/80
--- NOTE | 2021-04-20 21:33 | EKG ---
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
--- NOTE | 2021-04-20 21:33 | EKG ---
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
[2021-04-20 22:40] VITALS: BP 153/84
[2021-04-20] MEDS: ATORVASTATIN CALCIUM 20 MG TABLET PO SCH (22:59)
[2021-04-20] MEDS ORDERED: IPRATRPIUM/ALBUTEROL 0.5/2.5MG 3 ML NEBU. NEB PRN (23:00)
[2021-04-20] MEDS ORDERED: ONDANSETRON ODT 4 MG TAB.RAPDIS. PO PRN (23:00)
[2021-04-20] MEDS ORDERED: ALBUTEROL SULFATE 2.5 MG/3 ML NEBU. INH PRN (23:00)
[2021-04-20] MEDS ORDERED: HYDROcodone/APAP 7.5/325MG 1 TAB TABLET PO PRN (23:00)
[2021-04-21] MEDS ORDERED: C.DIFF MED SCREEN BY RX. MC ONE
[2021-04-21 03:00] VITALS: BP 163/69
[2021-04-21 04:41] LABS: BASO # 0.1 x10^3/uL (0.0-0.2); BASO % 1 % (0-3); EOS # 0.2 x10^3/uL (0.0-0.7); EOS % 5 % (0-3); HEMATOCRIT 33.6 % (39.0-53.0); HEMOGLOBIN 11.4 g/dL (13.0-17.5); LYMPH # 0.7 x10^3/uL (1.0-4.8); LYMPH % 13 % (24-48); MEAN CORPUSCULAR HEMOGLOBIN 32 pg (25-35); MEAN CORPUSCULAR HGB CONC 34 g/dL (31-37); MEAN CORPUSCULAR VOLUME 94 fL (79-100); MONO # 0.6 x10^3/uL (0.0-1.1); MONO % 12 % (0-9); NEUT # 3.7 x10^3/uL (1.8-7.7); NEUT % 70 % (31-73); PLATELET COUNT 127 x10^3/uL (140-400); RED BLOOD COUNT 3.59 x10^6/uL (4.30-5.70); WHITE BLOOD COUNT 5.3 x10^3/uL (4.0-11.0)
[2021-04-21 05:26] LABS: CALCIUM 8.2 mg/dL (8.5-10.1); GFR 74.8; POTASSIUM 3.1 mmol/L (3.5-5.1); TOTAL BILIRUBIN 0.7 mg/dL (0.2-1.0)
[2021-04-21 07:00] VITALS: BP 170/80
[2021-04-21] MEDS: LISINOPRIL 20 MG TABLET PO SCH (08:53)
[2021-04-21] MEDS: PANTOPRAZOLE 40 MG TABLET.DR. PO SCH (08:54)
[2021-04-21] MEDS: ASPIRIN 325 MG TABLET PO SCH (08:54)
[2021-04-21] MEDS: VENLAFAXINE 75 MG TABLET. PO SCH ×3 (08:54→22:00)
[2021-04-21] MEDS: ISOSORBIDE MONONITRATE ER 30 MG TAB.ER.24H PO SCH (08:54)
[2021-04-21] MEDS ORDERED: FLU VACC QUAD 21-22 (6MOS+) PF 0.5 ML SYRINGE. VAX IM ONE (09:00)
[2021-04-21] MEDS ORDERED: NON FORMULARY ITEM (Pantoprazole Sodium (Protonix) 40 MG) PO SCH (09:00)
[2021-04-21] MEDS ORDERED: POTASSIUM CHLORIDE 20 MEQ TABLET.ER. PO SCH (09:00)
[2021-04-21] MEDS: POTASSIUM CHLORIDE 20 MEQ TABLET.ER. PO SCH ×3 (09:45→17:44)
[2021-04-21] MEDS ORDERED: ONDANSETRON PF 4 MG/2 ML VIAL. IVP PRN (09:45)
--- NOTE | 2021-04-21 09:58 | PDOC2 ---
LUCIANOJOAQUINA TRIPATHI JOHN 04/21/21 0958: CARDIAC CONSULT DATE OF CONSULT Date of Consult DATE: 04/21/21 TIME: 09:48 REASON FOR CONSULT Reason for Consult: Chest Pain REFERRING PHYSICIAN Referring Physician: Gia Yang APRN SOURCE Source: Chart review, Patient HISTORY OF PRESENT ILLNESS HISTORY OF PRESENT ILLNESS This is a 65 yo male who presented with abdominal/epigastric chest pain. Patient reports feeling weak and slightly dizzy yesterday while feeding his dog. Additionally had some nausea and sharp abdominal/epigastric chest pain which prompted his arrival to the ED. Reports chest is tender upon palpitation. No diaphoresis or SOA. Blood pressure significantly elevated upon arrival. PAST MEDICAL HISTORY Past Medical History Cardiovascular: CAD, HTN, Hyperlipidemia, Valve insufficiency, Other Pulmonary: COPD GI: Diverticulosis, GERD, Gastritis, Hemorrhoids, Peptic Ulcer disease, Other Psych: Anxiety, Depression Musculoskeletal: Osteoarthritis Rheumatologic: No pertinent hx Infectious disease: No pertinent hx Renal/: Chronic renal insuff, Other Endocrine: No pertinent hx PAST SURGICAL HISTORY Past Surgical History Juan redman [facility] FAMILY HISTORY Family History Coronary Artery Disease SOCIAL HISTORY Social History Smoke: < 1 ppd ALCOHOL: none Lives: with Family CURRENT MEDICATIONS CURRENT MEDICATIONS Current Medications Medications (Trade) Dose Ordered Sig/Trista Route PRN Reason Start Time Stop Time Status Last Admin Dose Admin Morphine Sulfate (Morphine Sulfate) 4 mg 1X ONCE IVP 04/20/21 16:15 04/20/21 16:16 DC 04/20/21 16:33 Ondansetron HCl (Zofran) 4 mg 1X ONCE IVP 04/20/21 16:15 04/20/21 16:16 DC 04/20/21 16:33 Sodium Chloride 1,000 ml @ 1,000 mls/hr 1X ONCE IV 04/20/21 16:15 04/20/21 17:14 DC 04/20/21 16:33 Aspirin (Roger Aspirin) 325 mg 1X ONCE PO 04/20/21 16:15 04/20/21 16:16 DC 04/20/21 16:29 Nitroglycerin (Nitrostat) 0.4 mg PRN Q5MIN PRN SL CP RATING > 1/10 04/20/21 16:15 04/20/21 22:59 DC 04/20/21 20:16 Iohexol (Omnipaque 300 Mg/ml) 75 ml 1X ONCE IV 04/20/21 17:30 04/20/21 17:45 DC 04/20/21 17:30 Morphine Sulfate (Morphine Sulfate) 4 mg PRN Q2HR PRN IVP PAIN 04/20/21 20:45 04/21/21 20:44 04/20/21 23:01 Amlodipine Besylate (Norvasc) 10 mg DAILY PO 04/21/21 09:00 04/21/21 08:54 Aspirin (Roger Aspirin) 325 mg DAILYWBKFT PO 04/21/21 08:00 04/21/21 08:54 Acetaminophen/ Hydrocodone Bitart (Lortab 7.5/325) 1 tab PRN TID PRN PO MODERATE PAIN 4-6 04/20/21 23:00 04/21/21 08:53 Isosorbide Mononitrate (Imdur) 30 mg DAILY PO 04/21/21 09:00 04/21/21 08:54 Lisinopril (Prinivil) 40 mg DAILY PO 04/21/21 09:00 04/21/21 08:53 Pantoprazole Sodium (Protonix) 40 mg DAILYAC PO 04/21/21 07:30 04/21/21 08:54 Venlafaxine HCl (Effexor) 75 mg TID PO 04/21/21 09:00 04/21/21 08:54 Potassium Chloride (Klor-Con) 20 meq BID PO 04/21/21 09:00 04/21/21 09:45 DC 04/21/21 08:54 Influenza Virus Vaccine Quadrival (Flulaval Quad [id number] Syringe) 0.5 ml ONCE ONCE VAX IM 04/21/21 09:00 04/21/21 09:01 DC 04/21/21 08:58 ALLERGIES ALLERGIES: Coded Allergies: Penicillins (Verified Allergy, Severe, swelling, 03/25/20) vancomycin (Verified Adverse Reaction, Intermediate, 03/25/20) "shaking" and "hot" ROS Review of System 14 point ROS conducted with pertinent positives noted above in HPI PHYSICAL EXAM PHYSICAL EXAM General: Alert, Oriented X3, Cooperative HEENT: Atraumatic, Mucous membr. moist/pink Lungs: Other (diminished bases). central chest tenderness upon palpation Heart: Regular rate (SR ), Other (distant heart sounds) Abdomen: Soft, No tenderness Extremities: No cyanosis, No edema Skin: No breakdown, No significant lesion Neuro: Sensation intact Psych/Mental Status: Mental status NL, Mood NL MUSCULOSKELETAL: Osteoarthritic changes both hands VITALS/I&O VITALS/I&O: Vital Signs Date Time Temp Pulse Resp B/P (MAP) Pulse Ox O2 Delivery O2 Flow Rate FiO2 04/21/21 08:54 52 170/80 04/21/21 08:53 97 Room Air 04/21/21 07:00 97.6 16 97.6 I & O 04/20/21 04/20/21 04/21/21 15:00 23:00 07:00 Intake Total 480 ml Output Total 200 ml Balance 280 ml LABS Lab: Laboratory Tests Test 04/20/21 16:25 04/20/21 18:10 04/20/21 19:30 04/20/21 22:15 White Blood Count 4.5 x10^3/uL (4.0-11.0) Red Blood Count 4.17 x10^6/uL (4.30-5.70) L Hemoglobin 13.0 g/dL (13.0-17.5) Hematocrit 39.0 % (39.0-53.0) Mean Corpuscular Volume 94 fL (79-100) Mean Corpuscular Hemoglobin 31 pg (25-35) Mean Corpuscular Hemoglobin Concent 33 g/dL (31-37) Red Cell Distribution Width 15.9 % (11.5-14.5) H Platelet Count 138 x10^3/uL (140-400) L Neutrophils (%) (Auto) 64 % (31-73) Lymphocytes (%) (Auto) 16 % (24-48) L Monocytes (%) (Auto) 12 % (0-9) H Eosinophils (%) (Auto) 6 % (0-3) H Basophils (%) (Auto) 2 % (0-3) Neutrophils # (Auto) 2.9 x10^3/uL (1.8-7.7) Lymphocytes # (Auto) 0.7 x10^3/uL (1.0-4.8) L Monocytes # (Auto) 0.5 x10^3/uL (0.0-1.1) Eosinophils # (Auto) 0.3 x10^3/uL (0.0-0.7) Basophils # (Auto) 0.1 x10^3/uL (0.0-0.2) Sodium Level 142 mmol/L (136-145) Potassium Level 3.7 mmol/L (3.5-5.1) Chloride Level 102 mmol/L (98-107) Carbon Dioxide Level 32 mmol/L (21-32) Anion Gap 8 (6-14) Blood Urea Nitrogen 13 mg/dL (8-26) Creatinine 0.9 mg/dL (0.7-1.3) Estimated GFR (Cockcroft-Gault) 84.4 BUN/Creatinine Ratio 14 (6-20) Glucose Level 82 mg/dL (70-99) Calcium Level 8.7 mg/dL (8.5-10.1) Magnesium Level 2.3 mg/dL (1.8-2.4) Total Bilirubin 0.5 mg/dL (0.2-1.0) Aspartate Amino Transferase (AST) 19 U/L (15-37) Alanine Aminotransferase (ALT) 20 U/L (16-63) Alkaline Phosphatase 129 U/L (46-116) H Troponin I Quantitative < 0.017 ng/mL (0.000-0.055) < 0.017 ng/mL (0.000-0.055) 0.017 ng/mL (0.000-0.055) OX-Uhq-X-Type Natriuretic Peptide 1726 pg/mL (0-124) H Total Protein 6.6 g/dL (6.4-8.2) Albumin 3.5 g/dL (3.4-5.0) Albumin/Globulin Ratio 1.1 (1.0-1.7) Ethyl Alcohol Level < 10 mg/dL (0-10) Urine Collection Type Unknown Urine Color Yellow Urine Clarity Clear Urine pH 6.5 (<5.0-8.0) Urine Specific [place] >=1.030 (1.000-1.030) Urine Protein Negative mg/dL (NEG-TRACE) Urine Glucose (UA) Negative mg/dL (NEG) Urine Ketones (Stick) Negative mg/dL (NEG) Urine Blood Negative (NEG) Urine Nitrite Negative (NEG) Urine Bilirubin Negative (NEG) Urine Urobilinogen Dipstick 1.0 mg/dL (0.2 mg/dL) Urine Leukocyte Esterase Trace (NEG) Urine RBC 0 /HPF (0-2) Urine WBC 11-20 /HPF (0-4) Urine Squamous Epithelial Cells Occ /LPF Urine Bacteria 0 /HPF (0-FEW) Urine Hyaline Casts Few /HPF Urine Mucus Slight /LPF Urine Opiates Screen Pos (NEG) Urine Methadone Screen Neg (NEG) Urine Barbiturates Neg (NEG) Urine Phencyclidine Screen Neg (NEG) Urine Amphetamine/Methamphetamine Neg (NEG) Urine Benzodiazepines Screen Neg (NEG) Urine Cocaine Screen Neg (NEG) Urine Cannabinoids Screen Neg (NEG) Urine Ethyl Alcohol Neg (NEG) Test 04/21/21 00:25 04/21/21 03:55 SARS-CoV-2 Antigen (Rapid) Negative (NEGATIVE) White Blood Count 5.3 x10^3/uL (4.0-11.0) Red Blood Count 3.59 x10^6/uL (4.30-5.70) L Hemoglobin 11.4 g/dL (13.0-17.5) L Hematocrit 33.6 % (39.0-53.0) L Mean Corpuscular Volume 94 fL (79-100) Mean Corpuscular Hemoglobin 32 pg (25-35) Mean Corpuscular Hemoglobin Concent 34 g/dL (31-37) Red Cell Distribution Width 16.0 % (11.5-14.5) H Platelet Count 127 x10^3/uL (140-400) L Neutrophils (%) (Auto) 70 % (31-73) Lymphocytes (%) (Auto) 13 % (24-48) L Monocytes (%) (Auto) 12 % (0-9) H Eosinophils (%) (Auto) 5 % (0-3) H Basophils (%) (Auto) 1 % (0-3) Neutrophils # (Auto) 3.7 x10^3/uL (1.8-7.7) Lymphocytes # (Auto) 0.7 x10^3/uL (1.0-4.8) L Monocytes # (Auto) 0.6 x10^3/uL (0.0-1.1) Eosinophils # (Auto) 0.2 x10^3/uL (0.0-0.7) Basophils # (Auto) 0.1 x10^3/uL (0.0-0.2) Sodium Level 142 mmol/L (136-145) Potassium Level 3.1 mmol/L (3.5-5.1) L Chloride Level 103 mmol/L (98-107) Carbon Dioxide Level 34 mmol/L (21-32) H Anion Gap 5 (6-14) L Blood Urea Nitrogen 13 mg/dL (8-26) Creatinine 1.0 mg/dL (0.7-1.3) Estimated GFR (Cockcroft-Gault) 74.8 BUN/Creatinine Ratio 13 (6-20) Glucose Level 103 mg/dL (70-99) H Calcium Level 8.2 mg/dL (8.5-10.1) L Total Bilirubin 0.7 mg/dL (0.2-1.0) Aspartate Amino Transferase (AST) 14 U/L (15-37) L Alanine Aminotransferase (ALT) 17 U/L (16-63) Alkaline Phosphatase 113 U/L (46-116) Total Protein 6.0 g/dL (6.4-8.2) L Albumin 3.0 g/dL (3.4-5.0) L Albumin/Globulin Ratio 1.0 (1.0-1.7) Laboratory Tests 04/20/21 16:25 04/21/21 03:55 Laboratory Tests 04/20/21 16:25 04/21/21 03:55 ECHOCARDIOGRAM ECHOCARDIOGRAM <Conclusion> The left ventricular systolic function is normal and the ejection fraction is within normal range. The Ejection Fraction is 50-55%. There is normal LV segmental wall motion. There is no significant aortic valvular stenosis by doppler criteria but visually the valve appears to be at least moderately stenotic. DATE: 10/30/20 [id number] 0 HEART CATH HEART CATH Coronary angiography: LM: Large caliber mildly aneurysmal vessel with mild luminal irregularities. LAD: Large caliber vessel with a proximal to mid eccentric 50% stenosis. The vessel is also very tortuous. D1: Small caliber vessel with normal angiographic appearance LCX: Moderate caliber non-dominant vessel with a proximal 50% stenosis. OM1: Moderate caliber vessel with mild luminal irregularities. RCA: Large caliber dominant vessel with mild luminal irregularities of up to 30%. RPDA: Moderate caliber vessel with mild luminal irregularities. INTERVENTIONAL TECHNIQUE: Due to intermediate stenosis involving the LAD and presenting symptoms and IFR study was performed. Heparin was used for anticoagulation. Through a 6 Chinese EBU 3.5 guide catheter a 0.014 inch pressure wire was advanced to the distal LAD after appropriate normalization and intracoronary nitroglycerin administration. And IFR was performed and measured to be 0.92 with a pullback confirming this value. At case completion the final angiography demonstrated no acute wire or guide related complications. Conclusion 1. Mildly elevated left ventricular filling pressures 2. One-vessel coronary artery disease involving the LAD 3. Negative IFR of the LAD. Recommendations 1. Continue aggressive risk factor modification. DATE: 10/31/20 [id number] 0 ASSESSMENT/PLAN ASSESSMENT/PLAN 1. Atypical CP; AMI ruled out 2. Abdominal, epigastric pain, GERD 3. CAD: clinically stable. recent LHC as noted above. Follows with Dr. Hodge at [facility] cardiology. 4. HTN urgency: labile 5. 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 6. SSS; s/p leadless PPM ([employer] Micra) 11/01/20 at [facility], clinically stable. Noted SR with v-pacing. 7. 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 HLP; statin 10. AECOPD; as per pulm 11. Hypokalemia; replaced Recommendations Continue secondary prevention measures. Restart BP regimen; monitor trends Check Mg and replace as warranted Follow with with primary meeting coordinator, ELIUD Us MD 04/21/21 5636: CARDIAC CONSULT ASSESSMENT/PLAN ASSESSMENT/PLAN Patient seen and examined I agree with our nurse practitioners assessment and plan. Abdominal, epigastric pain, GERD. Feeling better. As per the primary service. Chest pain. Atypical. No acute infarct. clinically stable. recent LHC as noted above. Continue medical treatment. Follows with Dr. Hodge at [facility] cardiology. 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 SSS; s/p leadless PPM ([employer]tr[employer] Micra) 11/01/20 at [facility], clinically stable. Noted SR with v-pacing. 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
--- NOTE | 2021-04-21 10:04 | PDOC ---
Provider Note Date of Service: DATE: 04/21/21 TIME: 10:03 Provider Note H&P dictated #[id number] Justifications for Admission Other Justification IDA CUMMINGS MD Apr 21, 2021 10:04
[2021-04-21 10:42] VITALS: BP 139/76
--- NOTE | 2021-04-21 10:57 | HP ---
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 He was trying to feed his dog yesterday morning and he fell and was very dizzy and weak. He had near syncope, but does not remember actually passing out. He also had some chest pains and abdominal pain. He also complains of nausea. Because of the multiple symptoms, he came to the Emergency Room. In the Emergency Room, WBC count was 4.5, hemoglobin 13. Today, WBC count is 5.3, hemoglobin is 11.4. Sodium was 142, potassium 3.7, BUN 13, creatinine 0.9, AST 19, ALT 20. BNP was 1726. Troponin level was less than 0.017 x 3. Magnesium 2.3. Potassium is 3.1 today. Urinalysis was negative. Urine drug screen positive for opiates. Rapid COVID test was negative. Chest x-ray showed mild bibasilar lung airspace opacity. CT of the abdomen and pelvis shows patchy ground glass and nodular opacities in the right middle lobe, mild aneurysm of the infrarenal abdominal aorta, left superficial femoral artery is occluded. Because of his multiple medical problems, the patient was admitted for further evaluation and management. SYSTEMS REVIEW: The patient is worried about the enlargement of the veins on his left side of the abdomen and chest. He also has some enlargement on the right side. He is due to see the vein specialist on 04/29. Denies any diarrhea or constipation. Complains of significant anxiety and he feels that when he goes to bed at night, he is not sure if he is going to wake up in the morning. 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 PAST SURGICAL HISTORY: Includes 3 pacemaker surgeries, there was one for removal of the lead in 2013, he had a fourth pacemaker surgery in October after the last admission here at [facility] for placement of a leadless pacemaker, had amputation of the toe of the left foot on 08/20/2015 for osteomyelitis, history of EGD with biopsy. FAMILY HISTORY: Includes 2 brothers who have cirrhosis. One brother also has cirrhosis. Mother has hypertension and diabetes. ALLERGIES: THE PATIENT IS ALLERGIC TO PENICILLIN, CAUSES SWELLING. THE PATIENT IS ALSO ALLERGIC TO VANCOMYCIN. MEDICATIONS: Reviewed and reconciled. SOCIAL HISTORY: The patient has more than 46-[id number] history of smoking, continues to smoke, but less. He quit drinking alcohol in 1986. There is no history of drug abuse. Currently smoking about 6 cigarettes per day. PHYSICAL EXAMINATION: VITAL SIGNS: Temperature 97.8, pulse 58 per minute, it has gone down to 45 per minute, blood pressure 202/80 mmHg. Blood pressure is now 170/80, respirations 16 per minute. GENERAL: The patient is an elderly male who is alert, chronically ill, malnourished and not in acute distress. EYES: Pupils reactive to light. Conjunctivae pale. Sclerae muddy. HENT: Unremarkable except for congestion of throat. NECK: Supple. JVP normal. No thyromegaly. SKIN: Warm and dry. There is no cyanosis. The patient has enlarged veins on the left side of the chest and the abdomen and some enlargement of the veins on the chest and abdomen on the right side. LUNGS: Decreased breath sounds bilaterally. CARDIOVASCULAR SYSTEM: S1, S2, regular. Bradycardia noted. ABDOMEN: Soft, nontender, no guarding, no rigidity. Bowel sounds present. EXTREMITIES: No edema, no cyanosis, no calf tenderness. CENTRAL NERVOUS SYSTEM: Alert and oriented. Generalized weakness, anxious. LABORATORY FINDINGS AND IMAGING STUDIES: As noted earlier. IMPRESSION: 1. Chest pain, could be multifactorial including musculoskeletal, cardiac and also has chronic obstructive pulmonary disease and metastasis to lungs. 2. Near syncope. 3. Bradycardia, has a history of leadless pacemaker. 4. Acute hypertensive crisis. 5. Chronic obstructive pulmonary disease. 6. Gastroesophageal reflux disease. 7. Coronary artery disease. 8. Diverticulosis. 9. Peripheral artery disease. 10. Hyperlipidemia. 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 12. Emphysema. 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 14. History of tricuspid valve repair. PLAN: Admit to [facility] and continue cardiac monitoring. Consult saw cleaner for Cardiology evaluation and management. Probably will need pacemaker checkup. Continue Effexor for anxiety. Consult Dr. Elliott for abnormal CT of the abdomen that shows right middle lobe infiltrate. Clinically, I do not believe he has infection. Order PT, OT. Monitor blood pressure and heart rate. Prognosis of this patient is very poor due to his multiple medical problems. He also has hypokalemia. Replace potassium. For details, please refer to the orders. I have discussed with the patient and he states that he feels very weak and he will not be able to go home today. I will order PT, OT. For details, please refer to the orders. SHANDRA DR: Hugo TID: [id number]
[2021-04-21] MEDS: HEPARIN for SUB-Q USE 5,000 UNIT/ML VIAL. SQ SCH ×2 (12:05→22:04)
--- NOTE | 2021-04-21 12:43 | PDOC ---
PULMONARY PROGRESS NOTES DATE: 04/21/21 TIME: 12:43 Vitals Vital Signs Date Time Temp Pulse Resp B/P (MAP) Pulse Ox O2 Delivery O2 Flow Rate FiO2 04/21/21 12:06 94 Room Air 04/21/21 10:42 96.5 58 18 139/76 (97) 96.5 General: Alert, Oriented X4 HEENT: Other Lungs: Clear Cardiovascular: S1, S2 Extremities: No Edema Labs Laboratory Tests Test 04/20/21 16:25 04/20/21 18:10 04/20/21 19:30 04/20/21 22:15 White Blood Count 4.5 x10^3/uL (4.0-11.0) Red Blood Count 4.17 x10^6/uL (4.30-5.70) Hemoglobin 13.0 g/dL (13.0-17.5) Hematocrit 39.0 % (39.0-53.0) Mean Corpuscular Volume 94 fL (79-100) Mean Corpuscular Hemoglobin 31 pg (25-35) Mean Corpuscular Hemoglobin Concent 33 g/dL (31-37) Red Cell Distribution Width 15.9 % (11.5-14.5) Platelet Count 138 x10^3/uL (140-400) Neutrophils (%) (Auto) 64 % (31-73) Lymphocytes (%) (Auto) 16 % (24-48) Monocytes (%) (Auto) 12 % (0-9) Eosinophils (%) (Auto) 6 % (0-3) Basophils (%) (Auto) 2 % (0-3) Neutrophils # (Auto) 2.9 x10^3/uL (1.8-7.7) Lymphocytes # (Auto) 0.7 x10^3/uL (1.0-4.8) Monocytes # (Auto) 0.5 x10^3/uL (0.0-1.1) Eosinophils # (Auto) 0.3 x10^3/uL (0.0-0.7) Basophils # (Auto) 0.1 x10^3/uL (0.0-0.2) Sodium Level 142 mmol/L (136-145) Potassium Level 3.7 mmol/L (3.5-5.1) Chloride Level 102 mmol/L (98-107) Carbon Dioxide Level 32 mmol/L (21-32) Anion Gap 8 (6-14) Blood Urea Nitrogen 13 mg/dL (8-26) Creatinine 0.9 mg/dL (0.7-1.3) Estimated GFR (Cockcroft-Gault) 84.4 BUN/Creatinine Ratio 14 (6-20) Glucose Level 82 mg/dL (70-99) Calcium Level 8.7 mg/dL (8.5-10.1) Magnesium Level 2.3 mg/dL (1.8-2.4) Total Bilirubin 0.5 mg/dL (0.2-1.0) Aspartate Amino Transf (AST/SGOT) 19 U/L (15-37) Alanine Aminotransferase (ALT/SGPT) 20 U/L (16-63) Alkaline Phosphatase 129 U/L (46-116) Troponin I Quantitative < 0.017 ng/mL (0.000-0.055) < 0.017 ng/mL (0.000-0.055) 0.017 ng/mL (0.000-0.055) UJ-Yaw-L-Type Natriuretic Peptide 1726 pg/mL (0-124) Total Protein 6.6 g/dL (6.4-8.2) Albumin 3.5 g/dL (3.4-5.0) Albumin/Globulin Ratio 1.1 (1.0-1.7) Ethyl Alcohol Level < 10 mg/dL (0-10) Urine Collection Type Unknown Urine Color Yellow Urine Clarity Clear Urine pH 6.5 (<5.0-8.0) Urine Specific [place] >=1.030 (1.000-1.030) Urine Protein Negative mg/dL (NEG-TRACE) Urine Glucose (UA) Negative mg/dL (NEG) Urine Ketones (Stick) Negative mg/dL (NEG) Urine Blood Negative (NEG) Urine Nitrite Negative (NEG) Urine Bilirubin Negative (NEG) Urine Urobilinogen Dipstick 1.0 mg/dL (0.2 mg/dL) Urine Leukocyte Esterase Trace (NEG) Urine RBC 0 /HPF (0-2) Urine WBC 11-20 /HPF (0-4) Urine Squamous Epithelial Cells Occ /LPF Urine Bacteria 0 /HPF (0-FEW) Urine Hyaline Casts Few /HPF Urine Mucus Slight /LPF Urine Opiates Screen Pos (NEG) Urine Methadone Screen Neg (NEG) Urine Barbiturates Neg (NEG) Urine Phencyclidine Screen Neg (NEG) Urine Amphetamine/Methamphetamine Neg (NEG) Urine Benzodiazepines Screen Neg (NEG) Urine Cocaine Screen Neg (NEG) Urine Cannabinoids Screen Neg (NEG) Urine Ethyl Alcohol Neg (NEG) Test 04/21/21 00:25 04/21/21 03:55 SARS-CoV-2 Antigen (Rapid) Negative (NEGATIVE) White Blood Count 5.3 x10^3/uL (4.0-11.0) Red Blood Count 3.59 x10^6/uL (4.30-5.70) Hemoglobin 11.4 g/dL (13.0-17.5) Hematocrit 33.6 % (39.0-53.0) Mean Corpuscular Volume 94 fL (79-100) Mean Corpuscular Hemoglobin 32 pg (25-35) Mean Corpuscular Hemoglobin Concent 34 g/dL (31-37) Red Cell Distribution Width 16.0 % (11.5-14.5) Platelet Count 127 x10^3/uL (140-400) Neutrophils (%) (Auto) 70 % (31-73) Lymphocytes (%) (Auto) 13 % (24-48) Monocytes (%) (Auto) 12 % (0-9) Eosinophils (%) (Auto) 5 % (0-3) Basophils (%) (Auto) 1 % (0-3) Neutrophils # (Auto) 3.7 x10^3/uL (1.8-7.7) Lymphocytes # (Auto) 0.7 x10^3/uL (1.0-4.8) Monocytes # (Auto) 0.6 x10^3/uL (0.0-1.1) Eosinophils # (Auto) 0.2 x10^3/uL (0.0-0.7) Basophils # (Auto) 0.1 x10^3/uL (0.0-0.2) Sodium Level 142 mmol/L (136-145) Potassium Level 3.1 mmol/L (3.5-5.1) Chloride Level 103 mmol/L (98-107) Carbon Dioxide Level 34 mmol/L (21-32) Anion Gap 5 (6-14) Blood Urea Nitrogen 13 mg/dL (8-26) Creatinine 1.0 mg/dL (0.7-1.3) Estimated GFR (Cockcroft-Gault) 74.8 BUN/Creatinine Ratio 13 (6-20) Glucose Level 103 mg/dL (70-99) Calcium Level 8.2 mg/dL (8.5-10.1) Total Bilirubin 0.7 mg/dL (0.2-1.0) Aspartate Amino Transf (AST/SGOT) 14 U/L (15-37) Alanine Aminotransferase (ALT/SGPT) 17 U/L (16-63) Alkaline Phosphatase 113 U/L (46-116) Total Protein 6.0 g/dL (6.4-8.2) Albumin 3.0 g/dL (3.4-5.0) Albumin/Globulin Ratio 1.0 (1.0-1.7) Laboratory Tests Test 04/20/21 16:25 04/20/21 18:10 04/20/21 19:30 04/20/21 22:15 White Blood Count 4.5 x10^3/uL (4.0-11.0) Red Blood Count 4.17 x10^6/uL (4.30-5.70) Hemoglobin 13.0 g/dL (13.0-17.5) Hematocrit 39.0 % (39.0-53.0) Mean Corpuscular Volume 94 fL (79-100) Mean Corpuscular Hemoglobin 31 pg (25-35) Mean Corpuscular Hemoglobin Concent 33 g/dL (31-37) Red Cell Distribution Width 15.9 % (11.5-14.5) Platelet Count 138 x10^3/uL (140-400) Neutrophils (%) (Auto) 64 % (31-73) Lymphocytes (%) (Auto) 16 % (24-48) Monocytes (%) (Auto) 12 % (0-9) Eosinophils (%) (Auto) 6 % (0-3) Basophils (%) (Auto) 2 % (0-3) Neutrophils # (Auto) 2.9 x10^3/uL (1.8-7.7) Lymphocytes # (Auto) 0.7 x10^3/uL (1.0-4.8) Monocytes # (Auto) 0.5 x10^3/uL (0.0-1.1) Eosinophils # (Auto) 0.3 x10^3/uL (0.0-0.7) Basophils # (Auto) 0.1 x10^3/uL (0.0-0.2) Sodium Level 142 mmol/L (136-145) Potassium Level 3.7 mmol/L (3.5-5.1) Chloride Level 102 mmol/L (98-107) Carbon Dioxide Level 32 mmol/L (21-32) Anion Gap 8 (6-14) Blood Urea Nitrogen 13 mg/dL (8-26) Creatinine 0.9 mg/dL (0.7-1.3) Estimated GFR (Cockcroft-Gault) 84.4 BUN/Creatinine Ratio 14 (6-20) Glucose Level 82 mg/dL (70-99) Calcium Level 8.7 mg/dL (8.5-10.1) Magnesium Level 2.3 mg/dL (1.8-2.4) Total Bilirubin 0.5 mg/dL (0.2-1.0) Aspartate Amino Transf (AST/SGOT) 19 U/L (15-37) Alanine Aminotransferase (ALT/SGPT) 20 U/L (16-63) Alkaline Phosphatase 129 U/L (46-116) Troponin I Quantitative < 0.017 ng/mL (0.000-0.055) < 0.017 ng/mL (0.000-0.055) 0.017 ng/mL (0.000-0.055) IY-Agz-P-Type Natriuretic Peptide 1726 pg/mL (0-124) Total Protein 6.6 g/dL (6.4-8.2) Albumin 3.5 g/dL (3.4-5.0) Albumin/Globulin Ratio 1.1 (1.0-1.7) Ethyl Alcohol Level < 10 mg/dL (0-10) Urine Collection Type Unknown Urine Color Yellow Urine Clarity Clear Urine pH 6.5 (<5.0-8.0) Urine Specific [place] >=1.030 (1.000-1.030) Urine Protein Negative mg/dL (NEG-TRACE) Urine Glucose (UA) Negative mg/dL (NEG) Urine Ketones (Stick) Negative mg/dL (NEG) Urine Blood Negative (NEG) Urine Nitrite Negative (NEG) Urine Bilirubin Negative (NEG) Urine Urobilinogen Dipstick 1.0 mg/dL (0.2 mg/dL) Urine Leukocyte Esterase Trace (NEG) Urine RBC 0 /HPF (0-2) Urine WBC 11-20 /HPF (0-4) Urine Squamous Epithelial Cells Occ /LPF Urine Bacteria 0 /HPF (0-FEW) Urine Hyaline Casts Few /HPF Urine Mucus Slight /LPF Urine Opiates Screen Pos (NEG) Urine Methadone Screen Neg (NEG) Urine Barbiturates Neg (NEG) Urine Phencyclidine Screen Neg (NEG) Urine Amphetamine/Methamphetamine Neg (NEG) Urine Benzodiazepines Screen Neg (NEG) Urine Cocaine Screen Neg (NEG) Urine Cannabinoids Screen Neg (NEG) Urine Ethyl Alcohol Neg (NEG) Test 04/21/21 00:25 04/21/21 03:55 SARS-CoV-2 Antigen (Rapid) Negative (NEGATIVE) White Blood Count 5.3 x10^3/uL (4.0-11.0) Red Blood Count 3.59 x10^6/uL (4.30-5.70) Hemoglobin 11.4 g/dL (13.0-17.5) Hematocrit 33.6 % (39.0-53.0) Mean Corpuscular Volume 94 fL (79-100) Mean Corpuscular Hemoglobin 32 pg (25-35) Mean Corpuscular Hemoglobin Concent 34 g/dL (31-37) Red Cell Distribution Width 16.0 % (11.5-14.5) Platelet Count 127 x10^3/uL (140-400) Neutrophils (%) (Auto) 70 % (31-73) Lymphocytes (%) (Auto) 13 % (24-48) Monocytes (%) (Auto) 12 % (0-9) Eosinophils (%) (Auto) 5 % (0-3) Basophils (%) (Auto) 1 % (0-3) Neutrophils # (Auto) 3.7 x10^3/uL (1.8-7.7) Lymphocytes # (Auto) 0.7 x10^3/uL (1.0-4.8) Monocytes # (Auto) 0.6 x10^3/uL (0.0-1.1) Eosinophils # (Auto) 0.2 x10^3/uL (0.0-0.7) Basophils # (Auto) 0.1 x10^3/uL (0.0-0.2) Sodium Level 142 mmol/L (136-145) Potassium Level 3.1 mmol/L (3.5-5.1) Chloride Level 103 mmol/L (98-107) Carbon Dioxide Level 34 mmol/L (21-32) Anion Gap 5 (6-14) Blood Urea Nitrogen 13 mg/dL (8-26) Creatinine 1.0 mg/dL (0.7-1.3) Estimated GFR (Cockcroft-Gault) 74.8 BUN/Creatinine Ratio 13 (6-20) Glucose Level 103 mg/dL (70-99) Calcium Level 8.2 mg/dL (8.5-10.1) Total Bilirubin 0.7 mg/dL (0.2-1.0) Aspartate Amino Transf (AST/SGOT) 14 U/L (15-37) Alanine Aminotransferase (ALT/SGPT) 17 U/L (16-63) Alkaline Phosphatase 113 U/L (46-116) Total Protein 6.0 g/dL (6.4-8.2) Albumin 3.0 g/dL (3.4-5.0) Albumin/Globulin Ratio 1.0 (1.0-1.7) Medications Active Scripts Medications Dose Route/Sig Max Daily Dose Days Date Category Potassium Chloride (Potassium Chloride) 20 Meq Tablet.er 20 Meq PO BID 03/26/21 Rx Lisinopril 40 Mg Tablet 40 Mg PO DAILY 03/26/21 Rx Isosorbide Mononitrate Er (Isosorbide Mononitrate) 30 Mg Tab.er.24h 30 Mg PO DAILY 03/26/21 Rx Omeprazole 20 Mg Tab.rap.dr 40 Mg PO DAILY 03/24/21 Reported Ondansetron Odt (Ondansetron) 4 Mg Tab.rapdis 1 Tab PO PRN Q6-8HRS 01/07/21 Rx Aspirin 325 Mg Tablet 325 Mg PO DAILYWBKFT 30 01/06/21 Rx Duoneb 0.5-3(2.5) Mg/3 Ml (Albuterol/Ipratropium) 3 Ml Ampul.neb 3 Ml NEB PRN QID PRN 01/05/21 Reported Hydrocodone-Apap 7.5-325 (Hydrocodone Bit/Acetaminophen) 1 Tab Tablet 1 Tab PO PRN TID PRN 01/05/21 Reported Atorvastatin Calcium 20 Mg Tablet 20 Mg PO HS 01/05/21 Reported Protonix (Pantoprazole Sodium) 20 Mg Tablet.dr 40 Mg PO DAILY 01/05/21 Reported Proair Hfa Inhaler (Albuterol Sulfate) 8.5 Gm Hfa.aer.ad 2 Puff INH PRN Q6HRS PRN 11/19/20 Rx NITROGLYCERIN SubLingual (Nitroglycerin) 0.4 Mg Tab.subl 0.4 Mg SL PRN Q5MIN PRN 11/17/20 Reported Venlafaxine Hcl Er (Venlafaxine Hcl) 75 Mg Cap.er.24h 3 Cap PO DAILY 11/17/20 Reported Amlodipine Besylate 10 Mg Tablet 1 Tab PO DAILY 11/17/20 Reported Impression . Abnormal x-ray Acute exacerbation of COPD Possible recurrent aspiration, I do not think patient has an active infection at this time See orders ROXIE PULDIO MD Apr 21, 2021 12:43
--- NOTE | 2021-04-21 12:50 | NUR ---
SS following for discharge planning. SS reviewed pt chart and discussed with pt RN. Pt is currently on room air. COVID19 negative. Pt has no home oxygen. ST evaluated and pt on Dysphagia III diet. Pulmonology and Cardiology consulted. Pt was previously on services with [facility], ; fax [phone]. SS will continue to follow for discharge planning.
--- NOTE | 2021-04-21 14:10 | NUR ---
Bedside Swallow Evaluation completed. Please refer to full report in intervention section for additional information. Impressions: Moderate pharyngeal dysphagia consistent w/ 03/26/21 videoswallow evaluation that reported "inconsistent pharyngeal delay and reduced airway closure (related to impaired hyolaryngeal excursion and anatomical variation of epiglottis) resulting in typically SILENT aspiration across consistencies when chintuck is not employed. When chintuck was utilized, aspiration is prevented on about 50% of trials of puree, solids and honey thick liquids. Chintuck was NOT effective in increasing safety of thin liquids." Pt has state prior as well as today, 04/21/21, that he preferred to con't po intake and was not interested in alternative means of nutrition. Instructed pt in chintuck as practiced during study and d/w him re: need for honey thick liquids. Prognosis guarded for improvement in dysphagia given role of anatomical changes in aspiration. However, if improved hyolaryngeal excursion could be achieved, it may reduce aspiration during swallow by some penetration being ejected vs aspirated during swallow. RECOMMENDATIONS: Dysphagia III w/honey thick liquids. Precautions sent back to room to post HOB. SKIN CARE INSTRUCTOR f/u for ongoing education, training of chin tuck strategy and laryngeal exercises. Pt expressed willingness to try altered liquids and use of chintuck across consistencies to reduce coughing during meals. Would benefit from ongoing SKIN CARE INSTRUCTOR services if discharged soon.
[2021-04-21 14:47] VITALS: BP 96/50
--- NOTE | 2021-04-21 15:05 | CONS ---
DATE OF CONSULTATION: 04/21/2021 ATTENDING PHYSICIAN: Devi Pham MD REASON FOR CONSULTATION: The patient is seen in pulmonary consultation at the request of Dr. Pham for abnormal x-ray. CT abdomen revealing patchy ground glass opacities in the right middle lobe. 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 He presented with multiple complaints. Part of his workup included chest x-ray and CT abdomen and pelvis, diffuse infiltrates at the bases. I was asked to see him in consultation. The patient denies any dysphagia. Denies fever or chills. He is somewhat short of breath. He continues to smoke. He has a cough, mostly nonproductive. PAST MEDICAL HISTORY: 1. 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 He has a prior history of coronary artery disease with previous non-ST segment elevation OK in 10/2020. 2. Depression. 3. Hyperlipidemia. 4. Hypertension. 5. Cardiac arrhythmias. PAST SURGICAL HISTORY: No recent major surgeries. REVIEW OF SYSTEMS: As indicated above, otherwise a 10-point system was reviewed and negative. PAST SURGICAL HISTORY: Had previous pacemaker implantation, osteomyelitis requiring surgical intervention. FAMILY HISTORY: Cirrhosis. Mother had hypertension and diabetes. REVIEW OF SYSTEMS: As indicated above, otherwise a 10-point system was reviewed and negative. ALLERGIES: PENICILLIN AND VANCOMYCIN. CURRENT MEDICATIONS: List was reviewed. SOCIAL HISTORY: A [id number] smoking, continues to smoke. PHYSICAL EXAMINATION: GENERAL: The patient appeared to be older than stated age. VITAL SIGNS: Stable. O2 saturation greater than 92% on room air. NECK: Jugular venous distention was not elevated. LUNGS: Crackles in the bases. Coarse breath sounds. CARDIOVASCULAR: Regular rate and rhythm with S1, S2, and S3. ABDOMEN: Soft. EXTREMITIES: No clubbing, cyanosis or edema. LABORATORY DATA: [id number] test was negative, the rapid test UA was positive for opiates. White count was normal, hemoglobin and hematocrit were noted. Electrolytes were deranged. Potassium was low. Troponin level was not elevated. IMPRESSION: 1. Abnormal x-ray suspect chronic mild aspiration. 2. Acute exacerbation of chronic obstructive pulmonary disease. 3. Coronary artery disease. 4. Atypical chest pain. 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 7. Acute exacerbation with chronic obstructive pulmonary disease. 8. Possible recurrent aspiration. 9. See orders, I do not think the patient has an active infection at this time. PLAN: 1. I concur with Dr. Pham. Clinically, I do not think the patient has an active infection. 2. Treat acute exacerbation of chronic obstructive pulmonary disease with steroids. 3. The patient is instructed on the importance of discontinuing tobacco use. 4. We will have speech evaluate for dysphagia. I do appreciate the privilege in sharing in the patient's care. BRODY DR: Mk TID: [id number]
[2021-04-21 19:17] VITALS: BP 137/67
[2021-04-21] MEDS: ATORVASTATIN CALCIUM 20 MG TABLET PO SCH (22:00)
[2021-04-21 22:24] VITALS: BP 155/71
[2021-04-22 03:52] VITALS: BP 158/69
[2021-04-22 07:00] VITALS: BP 167/88
[2021-04-22 07:58] LABS: BASO % 1 % (0-3); EOS # 0.2 x10^3/uL (0.0-0.7); EOS % 6 % (0-3); HEMOGLOBIN 10.8 g/dL (13.0-17.5); LYMPH # 0.4 x10^3/uL (1.0-4.8); LYMPH % 10 % (24-48); MEAN CORPUSCULAR HEMOGLOBIN 32 pg (25-35); MEAN CORPUSCULAR HGB CONC 34 g/dL (31-37); MEAN CORPUSCULAR VOLUME 94 fL (79-100); MONO # 0.4 x10^3/uL (0.0-1.1); MONO % 10 % (0-9); NEUT # 2.7 x10^3/uL (1.8-7.7); NEUT % 74 % (31-73); PLATELET COUNT 123 x10^3/uL (140-400); RED BLOOD COUNT 3.41 x10^6/uL (4.30-5.70); WHITE BLOOD COUNT 3.6 x10^3/uL (4.0-11.0)
[2021-04-22 08:10] LABS: CALCIUM 8.5 mg/dL (8.5-10.1); CREATININE 0.9 mg/dL (0.7-1.3); GFR 84.4; MAGNESIUM 2.1 mg/dL (1.8-2.4); POTASSIUM 3.2 mmol/L (3.5-5.1)
[2021-04-22] MEDS ORDERED: POTASSIUM CHLORIDE 20 MEQ TABLET.ER. PO ONE (08:30)
--- NOTE | 2021-04-22 08:55 | PDOC ---
PULMONARY PROGRESS NOTES DATE: 04/22/21 TIME: 08:55 Vitals Vital Signs Date Time Temp Pulse Resp B/P (MAP) Pulse Ox O2 Delivery O2 Flow Rate FiO2 04/22/21 07:00 97.5 90 18 167/88 (114) 95 Room Air 97.5 General: Alert, Oriented X4 HEENT: Other Lungs: Clear Cardiovascular: S1, S2 Extremities: No Edema Labs Laboratory Tests Test 04/20/21 16:25 04/20/21 18:10 04/20/21 19:30 04/20/21 22:15 White Blood Count 4.5 x10^3/uL (4.0-11.0) Red Blood Count 4.17 x10^6/uL (4.30-5.70) Hemoglobin 13.0 g/dL (13.0-17.5) Hematocrit 39.0 % (39.0-53.0) Mean Corpuscular Volume 94 fL (79-100) Mean Corpuscular Hemoglobin 31 pg (25-35) Mean Corpuscular Hemoglobin Concent 33 g/dL (31-37) Red Cell Distribution Width 15.9 % (11.5-14.5) Platelet Count 138 x10^3/uL (140-400) Neutrophils (%) (Auto) 64 % (31-73) Lymphocytes (%) (Auto) 16 % (24-48) Monocytes (%) (Auto) 12 % (0-9) Eosinophils (%) (Auto) 6 % (0-3) Basophils (%) (Auto) 2 % (0-3) Neutrophils # (Auto) 2.9 x10^3/uL (1.8-7.7) Lymphocytes # (Auto) 0.7 x10^3/uL (1.0-4.8) Monocytes # (Auto) 0.5 x10^3/uL (0.0-1.1) Eosinophils # (Auto) 0.3 x10^3/uL (0.0-0.7) Basophils # (Auto) 0.1 x10^3/uL (0.0-0.2) Sodium Level 142 mmol/L (136-145) Potassium Level 3.7 mmol/L (3.5-5.1) Chloride Level 102 mmol/L (98-107) Carbon Dioxide Level 32 mmol/L (21-32) Anion Gap 8 (6-14) Blood Urea Nitrogen 13 mg/dL (8-26) Creatinine 0.9 mg/dL (0.7-1.3) Estimated GFR (Cockcroft-Gault) 84.4 BUN/Creatinine Ratio 14 (6-20) Glucose Level 82 mg/dL (70-99) Calcium Level 8.7 mg/dL (8.5-10.1) Magnesium Level 2.3 mg/dL (1.8-2.4) Total Bilirubin 0.5 mg/dL (0.2-1.0) Aspartate Amino Transf (AST/SGOT) 19 U/L (15-37) Alanine Aminotransferase (ALT/SGPT) 20 U/L (16-63) Alkaline Phosphatase 129 U/L (46-116) Troponin I Quantitative < 0.017 ng/mL (0.000-0.055) < 0.017 ng/mL (0.000-0.055) 0.017 ng/mL (0.000-0.055) NV-Xts-J-Type Natriuretic Peptide 1726 pg/mL (0-124) Total Protein 6.6 g/dL (6.4-8.2) Albumin 3.5 g/dL (3.4-5.0) Albumin/Globulin Ratio 1.1 (1.0-1.7) Ethyl Alcohol Level < 10 mg/dL (0-10) Urine Collection Type Unknown Urine Color Yellow Urine Clarity Clear Urine pH 6.5 (<5.0-8.0) Urine Specific [place] >=1.030 (1.000-1.030) Urine Protein Negative mg/dL (NEG-TRACE) Urine Glucose (UA) Negative mg/dL (NEG) Urine Ketones (Stick) Negative mg/dL (NEG) Urine Blood Negative (NEG) Urine Nitrite Negative (NEG) Urine Bilirubin Negative (NEG) Urine Urobilinogen Dipstick 1.0 mg/dL (0.2 mg/dL) Urine Leukocyte Esterase Trace (NEG) Urine RBC 0 /HPF (0-2) Urine WBC 11-20 /HPF (0-4) Urine Squamous Epithelial Cells Occ /LPF Urine Bacteria 0 /HPF (0-FEW) Urine Hyaline Casts Few /HPF Urine Mucus Slight /LPF Urine Opiates Screen Pos (NEG) Urine Methadone Screen Neg (NEG) Urine Barbiturates Neg (NEG) Urine Phencyclidine Screen Neg (NEG) Urine Amphetamine/Methamphetamine Neg (NEG) Urine Benzodiazepines Screen Neg (NEG) Urine Cocaine Screen Neg (NEG) Urine Cannabinoids Screen Neg (NEG) Urine Ethyl Alcohol Neg (NEG) Test 04/21/21 00:25 04/21/21 03:55 04/22/21 06:35 SARS-CoV-2 RNA (KARIN) Negative (Negative) SARS-CoV-2 Antigen (Rapid) Negative (NEGATIVE) White Blood Count 5.3 x10^3/uL (4.0-11.0) 3.6 x10^3/uL (4.0-11.0) Red Blood Count 3.59 x10^6/uL (4.30-5.70) 3.41 x10^6/uL (4.30-5.70) Hemoglobin 11.4 g/dL (13.0-17.5) 10.8 g/dL (13.0-17.5) Hematocrit 33.6 % (39.0-53.0) 32.0 % (39.0-53.0) Mean Corpuscular Volume 94 fL (79-100) 94 fL (79-100) Mean Corpuscular Hemoglobin 32 pg (25-35) 32 pg (25-35) Mean Corpuscular Hemoglobin Concent 34 g/dL (31-37) 34 g/dL (31-37) Red Cell Distribution Width 16.0 % (11.5-14.5) 16.0 % (11.5-14.5) Platelet Count 127 x10^3/uL (140-400) 123 x10^3/uL (140-400) Neutrophils (%) (Auto) 70 % (31-73) 74 % (31-73) Lymphocytes (%) (Auto) 13 % (24-48) 10 % (24-48) Monocytes (%) (Auto) 12 % (0-9) 10 % (0-9) Eosinophils (%) (Auto) 5 % (0-3) 6 % (0-3) Basophils (%) (Auto) 1 % (0-3) 1 % (0-3) Neutrophils # (Auto) 3.7 x10^3/uL (1.8-7.7) 2.7 x10^3/uL (1.8-7.7) Lymphocytes # (Auto) 0.7 x10^3/uL (1.0-4.8) 0.4 x10^3/uL (1.0-4.8) Monocytes # (Auto) 0.6 x10^3/uL (0.0-1.1) 0.4 x10^3/uL (0.0-1.1) Eosinophils # (Auto) 0.2 x10^3/uL (0.0-0.7) 0.2 x10^3/uL (0.0-0.7) Basophils # (Auto) 0.1 x10^3/uL (0.0-0.2) 0.0 x10^3/uL (0.0-0.2) Sodium Level 142 mmol/L (136-145) 142 mmol/L (136-145) Potassium Level 3.1 mmol/L (3.5-5.1) 3.2 mmol/L (3.5-5.1) Chloride Level 103 mmol/L (98-107) 104 mmol/L (98-107) Carbon Dioxide Level 34 mmol/L (21-32) 33 mmol/L (21-32) Anion Gap 5 (6-14) 5 (6-14) Blood Urea Nitrogen 13 mg/dL (8-26) 18 mg/dL (8-26) Creatinine 1.0 mg/dL (0.7-1.3) 0.9 mg/dL (0.7-1.3) Estimated GFR (Cockcroft-Gault) 74.8 84.4 BUN/Creatinine Ratio 13 (6-20) Glucose Level 103 mg/dL (70-99) 82 mg/dL (70-99) Calcium Level 8.2 mg/dL (8.5-10.1) 8.5 mg/dL (8.5-10.1) Magnesium Level 2.0 mg/dL (1.8-2.4) 2.1 mg/dL (1.8-2.4) Total Bilirubin 0.7 mg/dL (0.2-1.0) Aspartate Amino Transf (AST/SGOT) 14 U/L (15-37) Alanine Aminotransferase (ALT/SGPT) 17 U/L (16-63) Alkaline Phosphatase 113 U/L (46-116) Total Protein 6.0 g/dL (6.4-8.2) Albumin 3.0 g/dL (3.4-5.0) Albumin/Globulin Ratio 1.0 (1.0-1.7) Thyroid Stimulating Hormone (TSH) 1.331 uIU/mL (0.358-3.74) Laboratory Tests Test 04/22/21 06:35 White Blood Count 3.6 x10^3/uL (4.0-11.0) Red Blood Count 3.41 x10^6/uL (4.30-5.70) Hemoglobin 10.8 g/dL (13.0-17.5) Hematocrit 32.0 % (39.0-53.0) Mean Corpuscular Volume 94 fL (79-100) Mean Corpuscular Hemoglobin 32 pg (25-35) Mean Corpuscular Hemoglobin Concent 34 g/dL (31-37) Red Cell Distribution Width 16.0 % (11.5-14.5) Platelet Count 123 x10^3/uL (140-400) Neutrophils (%) (Auto) 74 % (31-73) Lymphocytes (%) (Auto) 10 % (24-48) Monocytes (%) (Auto) 10 % (0-9) Eosinophils (%) (Auto) 6 % (0-3) Basophils (%) (Auto) 1 % (0-3) Neutrophils # (Auto) 2.7 x10^3/uL (1.8-7.7) Lymphocytes # (Auto) 0.4 x10^3/uL (1.0-4.8) Monocytes # (Auto) 0.4 x10^3/uL (0.0-1.1) Eosinophils # (Auto) 0.2 x10^3/uL (0.0-0.7) Basophils # (Auto) 0.0 x10^3/uL (0.0-0.2) Sodium Level 142 mmol/L (136-145) Potassium Level 3.2 mmol/L (3.5-5.1) Chloride Level 104 mmol/L (98-107) Carbon Dioxide Level 33 mmol/L (21-32) Anion Gap 5 (6-14) Blood Urea Nitrogen 18 mg/dL (8-26) Creatinine 0.9 mg/dL (0.7-1.3) Estimated GFR (Cockcroft-Gault) 84.4 Glucose Level 82 mg/dL (70-99) Calcium Level 8.5 mg/dL (8.5-10.1) Magnesium Level 2.1 mg/dL (1.8-2.4) Thyroid Stimulating Hormone (TSH) 1.331 uIU/mL (0.358-3.74) Medications Active Scripts Medications Dose Route/Sig Max Daily Dose Days Date Category Potassium Chloride (Potassium Chloride) 20 Meq Tablet.er 20 Meq PO BID 03/26/21 Rx Lisinopril 40 Mg Tablet 40 Mg PO DAILY 03/26/21 Rx Isosorbide Mononitrate Er (Isosorbide Mononitrate) 30 Mg Tab.er.24h 30 Mg PO DAILY 03/26/21 Rx Omeprazole 20 Mg Tab.rap.dr 40 Mg PO DAILY 03/24/21 Reported Ondansetron Odt (Ondansetron) 4 Mg Tab.rapdis 1 Tab PO PRN Q6-8HRS 01/07/21 Rx Aspirin 325 Mg Tablet 325 Mg PO DAILYWBKFT 30 01/06/21 Rx Duoneb 0.5-3(2.5) Mg/3 Ml (Albuterol/Ipratropium) 3 Ml Ampul.neb 3 Ml NEB PRN QID PRN 01/05/21 Reported Hydrocodone-Apap 7.5-325 (Hydrocodone Bit/Acetaminophen) 1 Tab Tablet 1 Tab PO PRN TID PRN 01/05/21 Reported Atorvastatin Calcium 20 Mg Tablet 20 Mg PO HS 01/05/21 Reported Protonix (Pantoprazole Sodium) 20 Mg Tablet.dr 40 Mg PO DAILY 01/05/21 Reported Proair Hfa Inhaler (Albuterol Sulfate) 8.5 Gm Hfa.aer.ad 2 Puff INH PRN Q6HRS PRN 11/19/20 Rx NITROGLYCERIN SubLingual (Nitroglycerin) 0.4 Mg Tab.subl 0.4 Mg SL PRN Q5MIN PRN 11/17/20 Reported Venlafaxine Hcl Er (Venlafaxine Hcl) 75 Mg Cap.er.24h 3 Cap PO DAILY 11/17/20 Reported Amlodipine Besylate 10 Mg Tablet 1 Tab PO DAILY 11/17/20 Reported Impression . Abnormal x-ray Acute exacerbation of COPD Possible recurrent aspiration, I do not think patient has an active infection at this time See orders Plan . Patient to discharge today Patient not seen ROXIE PULIDO MD Apr 22, 2021 08:55
[2021-04-22] MEDS ORDERED: ONDA4TAB12 PO (08:57)
[2021-04-22] MEDS: ASPIRIN 325 MG TABLET PO SCH (08:57)
[2021-04-22] MEDS: LISINOPRIL 20 MG TABLET PO SCH (08:57)
[2021-04-22] MEDS ORDERED: POTA20TA4 PO (08:57)
[2021-04-22] MEDS: POTASSIUM CHLORIDE 20 MEQ TABLET.ER. PO SCH (08:58)
[2021-04-22] MEDS: PANTOPRAZOLE 40 MG TABLET.DR. PO SCH (08:58)
--- NOTE | 2021-04-22 08:58 | DISCH ---
DISCHARGE INSTRUCTIONS Condition on Discharge Condition on Discharge: Stable Activity After Discharge Activity Instructions for Disc: Activity as tolerated Weight Bearing Status after Di: Full weight bearing Diet after Discharge Diet after Discharge: Cardiac, Level III Dysph, Chopped Diet Texture: Regular Liquid Texture: Honey-thick Swallowing Supervision: None needed Checks after Discharge Checks after discharge: Check blood press - daily Contacting the [facility] after DC Call your doctor for: Concerns you may have Follow-Up Follow up with: Dr. Ida Cummings in 5 days. Treatment/Equipment after DC Adaptive Equipment Issued: None IDA CUMMINGS MD Apr 22, 2021 08:58
[2021-04-22] MEDS: ISOSORBIDE MONONITRATE ER 30 MG TAB.ER.24H PO SCH (08:59)
[2021-04-22] MEDS: VENLAFAXINE 75 MG TABLET. PO SCH (08:59)
--- NOTE | 2021-04-22 09:04 | PDOC3 ---
IM DISCHARGE SUMMARY Date of Admission Date of Admission Date of Admission: Apr 20, 2021 at 20:15 Date of Discharge Date of Discharge April 22, 2021 Primary Diagnosis Primary Diagnosis 1. Chest pain, could be multifactorial including musculoskeletal, cardiac and also has chronic obstructive pulmonary disease and metastasis to lungs. 2. Near syncope. 3. Bradycardia, has a history of leadless pacemaker. 4. Acute hypertensive crisis. 5. Chronic obstructive pulmonary disease. 6. Gastroesophageal reflux disease. 7. Coronary artery disease. 8. Diverticulosis. 9. Peripheral artery disease. 10. Hyperlipidemia. 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 12. Emphysema. 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 14. History of tricuspid valve repair. Consults Consults Esteban Elliott MD; Daniel Mariano MD Labs Labs Laboratory Tests Test 04/22/21 06:35 White Blood Count 3.6 x10^3/uL (4.0-11.0) L Red Blood Count 3.41 x10^6/uL (4.30-5.70) L Hemoglobin 10.8 g/dL (13.0-17.5) L Hematocrit 32.0 % (39.0-53.0) L Mean Corpuscular Volume 94 fL (79-100) Mean Corpuscular Hemoglobin 32 pg (25-35) Mean Corpuscular Hemoglobin Concent 34 g/dL (31-37) Red Cell Distribution Width 16.0 % (11.5-14.5) H Platelet Count 123 x10^3/uL (140-400) L Neutrophils (%) (Auto) 74 % (31-73) H Lymphocytes (%) (Auto) 10 % (24-48) L Monocytes (%) (Auto) 10 % (0-9) H Eosinophils (%) (Auto) 6 % (0-3) H Basophils (%) (Auto) 1 % (0-3) Neutrophils # (Auto) 2.7 x10^3/uL (1.8-7.7) Lymphocytes # (Auto) 0.4 x10^3/uL (1.0-4.8) L Monocytes # (Auto) 0.4 x10^3/uL (0.0-1.1) Eosinophils # (Auto) 0.2 x10^3/uL (0.0-0.7) Basophils # (Auto) 0.0 x10^3/uL (0.0-0.2) Sodium Level 142 mmol/L (136-145) Potassium Level 3.2 mmol/L (3.5-5.1) L Chloride Level 104 mmol/L (98-107) Carbon Dioxide Level 33 mmol/L (21-32) H Anion Gap 5 (6-14) L Blood Urea Nitrogen 18 mg/dL (8-26) Creatinine 0.9 mg/dL (0.7-1.3) Estimated GFR (Cockcroft-Gault) 84.4 Glucose Level 82 mg/dL (70-99) Calcium Level 8.5 mg/dL (8.5-10.1) Magnesium Level 2.1 mg/dL (1.8-2.4) Thyroid Stimulating Hormone (TSH) 1.331 uIU/mL (0.358-3.74) Laboratory Tests 04/22/21 06:35 Laboratory Tests 04/22/21 06:35 Brief hospital course Brief hospital course This 65 years old male who is known to have history of coronary artery disease, recurrent chest pains, 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 He was trying to feed his dog yesterday morning and he fell and was very dizzy and weak. He had near syncope, but does not remember actually passing out. He also had some chest pains and abdominal pain. He also complains of nausea. Because of the multiple symptoms, he came to the Emergency Room. In the Emergency Room, WBC count was 4.5, hemoglobin 13. Today, WBC count is 5.3, hemoglobin is 11.4. Sodium was 142, potassium 3.7, BUN 13, creatinine 0.9, AST 19, ALT 20. BNP was 1726. Troponin level was less than 0.017 x 3. Magnesium 2.3. Potassium is 3.1 today. Urinalysis was negative. Urine drug screen positive for opiates. Rapid COVID test was negative. Chest x-ray showed mild bibasilar lung airspace opacity. CT of the abdomen and pelvis shows patchy ground glass and nodular opacities in the right middle lobe, mild aneurysm of the infrarenal abdominal aorta, left superficial femoral artery is occluded. Because of his multiple medical problems, the patient was admitted for further evaluation and management. For more details regarding the past history, family history, social history, surgical history and other details, please refer to the H&P. Admit to [facility] and continue cardiac monitoring. Consult medical/surgery registered nurse for Cardiology evaluation and management. Probably will need pacemaker checkup. Continue Effexor for anxiety. Consult Dr. Elliott for abnormal CT of the abdomen that shows right middle lobe infiltrate. Clinically, I do not believe he has infection. Order PT, OT. Monitor blood pressure and heart rate. Prognosis of this patient is very poor due to his multiple medical problems. He also has hypokalemia. Replace potassium. Potassium is 3.2 today. Give extra dose of potassium chloride. Continue potassium chloride 20 mg 3 times a day with food. Nausea-continue pantoprazole. As needed Zofran ODT. Chest pain is improving. Hypertensive crisis. Blood pressure control is improving. COPD-continue inhalers. Patient is again strongly advised to stop smoking. Anxiety-continue Effexor. 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 Condition and treatment extensively discussed with the patient. He is going to follow-up with the vascular surgeon on April 29, 2021. 3.4 cm infrarenal abdominal aortic aneurysm. Stable. Discussed with patient extensively. Discharge home today. Long-term as well as short-term prognosis of this patient is very poor due to his multiple medical problems and noncompliance. Condition is stable at the time of discharge. Medications Medications reviewed and reconciled for discharge. Home Meds Active Scripts Potassium Chloride (POTASSIUM CHLORIDE ) 20 Meq Tablet.er, 20 MEQ PO TIDAFTMEAL for Hypokalemia for 30 Days, #90 TAB.SR 3 Refills Prov:IDA CUMMINGS MD 04/22/21 Ondansetron (ONDANSETRON ODT) 4 Mg Tab.rapdis, 1 TAB PO PRN Q6-8HRS for nausea, #16 TAB 2 Refills Prov:IDA CUMMINGS MD 04/22/21 Potassium Chloride (POTASSIUM CHLORIDE ) 20 Meq Tablet.er, 20 MEQ PO BID for Hypokalemia for 30 Days, #60 TAB.SR 5 Refills Prov:IDA CUMMINGS MD 03/26/21 Lisinopril (LISINOPRIL) 40 Mg Tablet, 40 MG PO DAILY for HTN for 30 Days, #30 TAB 5 Refills Prov:IDA CUMMINGS MD 03/26/21 Isosorbide Mononitrate (ISOSORBIDE MONONITRATE ER) 30 Mg Tab.er.24h, 30 MG PO D AILY for CAD for 30 Days, #30 TAB.SR 5 Refills Prov:IDA CUMMINGS MD 03/26/21 Aspirin (ASPIRIN) 325 Mg Tablet, 325 MG PO DAILYWBKFT for CAD for 30 Days, #30 TAB Prov:IDA CUMMINGS MD 01/06/21 Albuterol Sulfate (PROAIR HFA INHALER) 8.5 Gm Hfa.aer.ad, 2 PUFF INH PRN Q6HRS PRN for SHORTNESS OF BREATH, #1 EACH 0 Refills Prov:IDA CUMMINGS MD 11/19/20 Reported Medications Ipratropium/Albuterol Sulfate (DUONEB 0.5-3(2.5) MG/3 ML) 3 Ml Ampul.neb, 3 ML NEB PRN QID PRN for , EACH 01/05/21 Hydrocodone Bit/Acetaminophen (HYDROCODONE-APAP 7.5-325 ) 1 Tab Tablet, 1 TAB PO PRN TID PRN for PAIN, TAB 0 Refills 01/05/21 Atorvastatin Calcium (ATORVASTATIN CALCIUM) 20 Mg Tablet, 20 MG PO HS for FOR CHOLESTEROL, #30 TAB 0 Refills 01/05/21 Pantoprazole Sodium (PROTONIX) 20 Mg Tablet.dr, 40 MG PO DAILY for , TAB 01/05/21 Nitroglycerin (NITROGLYCERIN SubLingual) 0.4 Mg Tab.subl, 0.4 MG SL PRN Q5MIN PRN for CHEST PAIN, ML 11/17/20 Venlafaxine Hcl (VENLAFAXINE HCL ER) 75 Mg Cap.er.24h, 3 CAP PO DAILY for 11/17/20 Amlodipine Besylate (AMLODIPINE BESYLATE) 10 Mg Tablet, 1 TAB PO DAILY for 11/17/20 Discontinued Reported Medications Omeprazole (Omeprazole) 20 Mg Tab.rap.dr, 40 MG PO DAILY for gerd, TAB 03/24/21 Allergy Allergies Coded Allergies Type Severity Reaction Last Updated Verified Penicillins Allergy Severe swelling 03/25/20 Yes vancomycin Adverse Reaction Intermediate 03/25/20 Yes Follow up in 5 days. DISPOSITION: Home Comments Discharge Management - 35 minutes. For other details please refer to discharge instructions Justicifation of Admission Dx: Justifications for Admission: Justification of Admission Dx: Yes [place]: Acute NSTEMI IDA CUMMINGS MD Apr 22, 2021 09:04
[2021-04-22] MEDS: HEPARIN for SUB-Q USE 5,000 UNIT/ML VIAL. SQ SCH (09:10)
[2021-04-22 10:34] VITALS: BP 127/64
--- NOTE | 2021-04-22 11:34 | PDOC ---
CARDIO Progress Notes Date and Time Date of Service 04/22/21 Time of Evaluation 1130 Subjective Subjective: No Chest Pain, No shortness of breath, No Palpitations, No Dizziness Vitals Vitals Vital Signs Date Time Temp Pulse Resp B/P (MAP) Pulse Ox O2 Delivery O2 Flow Rate FiO2 04/22/21 10:34 97.9 71 18 127/64 (85) 95 Room Air 97.9 Weight Weight [ ] Input and Output Intake and Output Intake and Output 04/22/21 07:00 Intake Total 580 ml Output Total 1200 ml Balance -620 ml Intake Oral 580 ml Output Urine Total 1200 ml Laboratory Labs Laboratory Tests Test 04/22/21 06:35 White Blood Count 3.6 x10^3/uL (4.0-11.0) Red Blood Count 3.41 x10^6/uL (4.30-5.70) Hemoglobin 10.8 g/dL (13.0-17.5) Hematocrit 32.0 % (39.0-53.0) Mean Corpuscular Volume 94 fL (79-100) Mean Corpuscular Hemoglobin 32 pg (25-35) Mean Corpuscular Hemoglobin Concent 34 g/dL (31-37) Red Cell Distribution Width 16.0 % (11.5-14.5) Platelet Count 123 x10^3/uL (140-400) Neutrophils (%) (Auto) 74 % (31-73) Lymphocytes (%) (Auto) 10 % (24-48) Monocytes (%) (Auto) 10 % (0-9) Eosinophils (%) (Auto) 6 % (0-3) Basophils (%) (Auto) 1 % (0-3) Neutrophils # (Auto) 2.7 x10^3/uL (1.8-7.7) Lymphocytes # (Auto) 0.4 x10^3/uL (1.0-4.8) Monocytes # (Auto) 0.4 x10^3/uL (0.0-1.1) Eosinophils # (Auto) 0.2 x10^3/uL (0.0-0.7) Basophils # (Auto) 0.0 x10^3/uL (0.0-0.2) Sodium Level 142 mmol/L (136-145) Potassium Level 3.2 mmol/L (3.5-5.1) Chloride Level 104 mmol/L (98-107) Carbon Dioxide Level 33 mmol/L (21-32) Anion Gap 5 (6-14) Blood Urea Nitrogen 18 mg/dL (8-26) Creatinine 0.9 mg/dL (0.7-1.3) Estimated GFR (Cockcroft-Gault) 84.4 Glucose Level 82 mg/dL (70-99) Calcium Level 8.5 mg/dL (8.5-10.1) Magnesium Level 2.1 mg/dL (1.8-2.4) Thyroid Stimulating Hormone (TSH) 1.331 uIU/mL (0.358-3.74) Microbiology Micro Microbiology 04/20/21 Urine Culture - Final, Complete Physical Exam HEENT: Neck Supple W Full Motion Chest: Symmetric LUNGS: Clear to Auscultation Heart: RRR Abdomen: Soft N/T Extremities: No Edema Neurology: alert, oriented, follow commands Assessment Assessment 1. Atypical CP; AMI ruled out 2. Abdominal, epigastric pain, GERD 3. CAD: clinically stable. recent LHC as noted above. Follows with Dr. Hodge at [facility] cardiology. 4. HTN urgency: better controlled 5. 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 6. SSS; s/p leadless PPM ([employer] Micra) 11/01/20 at [facility], clinically stable. Noted SR with v-pacing. Brief period of ST noted on tele this morning 7. 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 HLP; statin 10. AECOPD; as per pulm 11. Hypokalemia; replaced Recommendations Continue secondary prevention measures. Check Mg and replace as warranted Follow with with primary net manager, Dr. Hodge Justicifation of Admission Dx: Justifications for Admission: Justification of Admission Dx: Yes [place]: Acute NSTEMI JOAQUINA WOLF APRN Apr 22, 2021 11:34
--- NOTE | 2021-04-22 11:35 | NUR ---
SS following for discharge planning. SS reviewed pt chart and discussed with pt RN. Pt is from home and is currently on room air. COVID19 negative. Discharge order on the chart for home with self care.
[2021-04-22 15:00] VITALS: BP 120/65
--- NOTE | 2021-04-22 16:24 | NUR ---
Patient discharged home. Patient walked out by this nurse per patients request. All lines discontinued and monitor removed from patient. Patient alert and oriented x 4 and in stable condition at discharge.
== END 2021-04-22 16:20 | disposition home or self-care (01) ==
LOC: ER 14:33 → 6 SOUTH 20:15 → INTOOBSV 20:15
PROVIDERS: ADMIT Internal Medicine; ATTEND Internal Medicine
DX: R07.89 Other chest pain (principal); Z20.822 Contact with and (suspected) exposure to COVID-19; R55 Syncope and collapse; I49.9 Cardiac arrhythmia, unspecified; I16.9 Hypertensive crisis, unspecified; I12.9 Hypertensive chronic kidney disease with stage 1 through stage 4 chronic kidney disease, or unspecified chronic kidney disease; N18.9 Chronic kidney disease, unspecified; J43.9 Emphysema, unspecified; K21.9 Gastro-esophageal reflux disease without esophagitis; I25.10 Atherosclerotic heart disease of native coronary artery without angina pectoris; K57.90 Diverticulosis of intestine, part unspecified, without perforation or abscess without bleeding; I73.9 Peripheral vascular disease, unspecified; E78.5 Hyperlipidemia, unspecified; K30 Functional dyspepsia; C32.1 Malignant neoplasm of supraglottis; C78.00 Secondary malignant neoplasm of unspecified lung; I07.8 Other rheumatic tricuspid valve diseases; I49.5 Sick sinus syndrome; I71.4 Abdominal aortic aneurysm, without rupture; F41.9 Anxiety disorder, unspecified; E87.6 Hypokalemia; I25.2 Old myocardial infarction; J43.1 Panlobular emphysema; F32.9 Major depressive disorder, single episode, unspecified; M19.90 Unspecified osteoarthritis, unspecified site; I83.90 Asymptomatic varicose veins of unspecified lower extremity; F17.210 Nicotine dependence, cigarettes, uncomplicated; Z23 Encounter for immunization; Z85.118 Personal history of other malignant neoplasm of bronchus and lung; Z85.21 Personal history of malignant neoplasm of larynx; Z85.819 Personal history of malignant neoplasm of unspecified site of lip, oral cavity, and pharynx; Z86.73 Personal history of transient ischemic attack (TIA), and cerebral infarction without residual deficits; Z87.11 Personal history of peptic ulcer disease; Z87.19 Personal history of other diseases of the digestive system; Z87.442 Personal history of urinary calculi; Z91.19 Patient's noncompliance with other medical treatment and regimen; Z92.21 Personal history of antineoplastic chemotherapy; Z92.3 Personal history of irradiation; Z95.0 Presence of cardiac pacemaker; Z79.899 Other long term (current) drug therapy; Z98.890 Other specified postprocedural states
CPT/HCPCS: 36415; 71045; 74177; 80048; 80053; 80307; 81001; 83735; 83880; 84443; 84484; 85025; 87086; 87426; 90471; 90686; 92526; 92610; 93005; 96361; 96372; 96374; 96375; 96376; 97161; 99285; G0378; G0480; J1644; J2270; J2405; J7030; Q9967; U0003; U0005; G0379

== ENCOUNTER 2021-05-12 09:46 | Emergency (ER) | payer MEDICARE ==
[~2021-05-12] VITALS: Ht 182.9 cm; Wt 58.1 kg
--- NOTE | 2021-05-12 10:13 | PHYS DOC ---
Past Medical History Past Medical History: CAD, Cancer, COPD, Hypertension, [place], Stroke Additional Past Medical Histor: STOMACH ULCERS, BRADYCARDIA, abd aneurysm, throat/lung cancer Past Surgical History: Pacemaker, Other Additional Past Surgical Histo: OPEN HEART SURGERY FOR VALVE REPAIR Smoking Status: Current Every Day Smoker Alcohol Use: None Drug Use: None General Adult EDM: Chief Complaint: SHORTNESS OF BREATH HPI: HPI: Patient is a 65 year old male who presents with about 1 week of diffuse chest pain, diffuse back pain, diffuse body aches, and chills. He denies fever. He reports a nonproductive cough. He denies headache, dizziness, sore throat, rash, leg pain or swelling, dyspnea with exertion, wheezing. He is not vaccinated against influenza. He is fully vaccinated against Covid. He denies any known sick contacts. Denies recent travel history. He denies recent surgery or hospitalization. Review of Systems: Review of Systems: Constitutional: Denies documented fever. Reports chills. Eyes: Denies change in visual acuity. [] HENT: Reports nasal congestion. Respiratory: Reports cough and mild dyspnea. Cardiovascular: Reports diffuse chest pain. Denies peripheral edema. GI: Denies abdominal pain, nausea, vomiting, bloody stools or diarrhea. [] : Denies urinary symptoms. Musculoskeletal: Reports diffuse back pain and myalgias. Integument: Denies rash. [] Neurologic: Denies headache, focal weakness or sensory changes. [] [] Psychiatric: Denies depression or anxiety. [] Heart Score: C/O Chest Pain: Yes HEART Score for Chest Pain: HEART Score for Chest Pain Response (Comments) Value History Moderately Suspicious 1 Age > 65 2 Risk Factors >3 Risk Factors or Hx CAD 2 Troponin < Normal Limit 0 Total 5 Risk Factors: Risk Factors: DM, Current or recent (<one month) smoker, HTN, HLP, family history of CAD, obesity. Risk Scores: Score 0 - 3: 2.5% MACE over next 6 weeks - Discharge Home Score 4 - 6: 20.3% MACE over next 6 weeks - Admit for Clinical Observation Score 7 - 10: 72.7% MACE over next 6 weeks - Early Invasive Strategies Allergies: Allergies: Allergies Coded Allergies Type Severity Reaction Last Updated Verified Penicillins Allergy Severe swelling 03/25/20 Yes vancomycin Adverse Reaction Intermediate 03/25/20 Yes Physical Exam: PE: Constitutional: Well developed, well nourished, no acute distress, non-toxic appearance. [] HENT: Normocephalic, atraumatic, oropharynx is patent and clear without exudate or erythema. Eyes: PERRL, EOMI, conjunctiva normal, no discharge. [] Neck: Normal range of motion, no tenderness, supple, no stridor. Trachea mi dline. No meningismus. No JVD. Cardiovascular:Heart rate regular rhythm, +2 radial and posterior tibial pulses bilaterally. Lungs & Thorax: Bilateral breath sounds clear to auscultation, no rales, rhonchi or wheezes. No stridor. No evidence of distress. Abdomen: Bowel sounds normal, soft, no tenderness, no masses, no pulsatile masses. No CVA tenderness. Skin: Warm, dry, no erythema, no rash. [] Back: No tenderness, no CVA tenderness. [] Extremities: No tenderness, no cyanosis, no clubbing, ROM intact, no edema. No calf tenderness. Neurologic: Alert and oriented X 3, normal motor function, normal sensory f unction, no focal deficits noted. [] Psychologic: Affect normal, judgement normal, mood normal. [] EKG: EKG: EKG is interpreted at 1019 Rhythm is sinus Rate is 71 bpm [place] is left No STEMI Radiology/Procedures: Radiology/Procedures: IMAGING REPORT Signed PATIENT: DORIS HAN ACCOUNT: [id number] : 1955 LOCATION: ER AGE: 65 SEX: M EXAM STATUS: PRE ER ORD. PHYSICIAN: JANICE CORONADO DO REASON: chest pain, back pain PROCEDURE: PORTABLE CHEST 1V XR CHEST 1V History: Reason: chest pain, back pain / Spl. Instructions: / History: Comparison: April 20, 2021 Findings: Hyperinflation with emphysematous changes. Prior median sternotomy. No consolidation or pleural effusion. Normal heart size. No pneumothorax. Unchanged retained cardiac leads. Impression: 1. Hyperinflation with emphysematous changes. No new consolidation. Electronically signed by: Richi Sánchez DO (05/12/2021 11:46 AM) [id number] DICTATED and SIGNED BY: RICHI SÁNCHEZ DO DATE: 05/12/21 [id number] Course & Med Decision Making: Course & Med Decision Making Pertinent Labs and Imaging studies reviewed. (See chart for details) I discussed the findings, differential diagnosis and plan of care with the p cesar. He is hemodynamically stable. He manifests no evidence of respiratory distress or hypoxia. Influenza B is positive on rapid testing. This is likely the underlying etiology of his conglomeration of symptoms. Troponin is not indicative of acute ischemia. No acute ischemia on EKG. He does not qualify for Tamiflu administration. He feels very comfortable with the plan for discharge home. I gave him very strict return precautions. I recommend he follow-up with his primary care physician. He is comfortable with the plan of care and verbalizes understanding. [place] Disclaimer: Cory Disclaimer: This electronic medical record was generated, in whole or in part, using a voice recognition dictation system. Departure Departure Impression: Primary Impression: Influenza B Disposition: HOME / SELF CARE / HOMELESS Condition: STABLE Referrals: IDA CUMMINGS MD (PCP) Patient Instructions: Influenza A (H1N1) Additional Instructions: Your test today shows that you actually have influenza type B. This is a viral infection which has to run its course. There is no particular treatment for this illness. You may take Tylenol and ibuprofen for pain or fever. Make sure you stay well-hydrated. Please return to the ER immediately for any worsening chest pain, shortness of breath, uncontrolled vomiting, dehydration, weakness, passing out or any other concerns you might have. You should make sure you notify any 1 you have been around recently that you have influenza, because influenza is still contagious and is potentially very serious, especially to those people who have other chronic health issues. Please contact your primary care physician for follow-up. JANICE CORONADO DO May 12, 2021 10:13
[2021-05-12] MEDS ORDERED: fentaNYL PF VIAL 100 MCG/2 ML VIAL IVP ONE (10:30)
[2021-05-12 11:12] LABS: BASO # 0.1 x10^3/uL (0.0-0.2); BASO % 1 % (0-3); EOS # 0.2 x10^3/uL (0.0-0.7); EOS % 4 % (0-3); HEMOGLOBIN 12.4 g/dL (13.0-17.5); LYMPH # 0.5 x10^3/uL (1.0-4.8); LYMPH % 10 % (24-48); MEAN CORPUSCULAR HEMOGLOBIN 31 pg (25-35); MEAN CORPUSCULAR HGB CONC 33 g/dL (31-37); MEAN CORPUSCULAR VOLUME 93 fL (79-100); MONO # 0.4 x10^3/uL (0.0-1.1); MONO % 10 % (0-9); NEUT # 3.5 x10^3/uL (1.8-7.7); NEUT % 75 % (31-73); PLATELET COUNT 183 x10^3/uL (140-400); RED CELL DISTRIBUTION WIDTH 15.1 % (11.5-14.5); WHITE BLOOD COUNT 4.7 x10^3/uL (4.0-11.0)
[2021-05-12 11:22] LABS: PROTHROMBIN TIME PATIENT 12.8 SEC (11.7-14.0)
[2021-05-12 11:30] LABS: CALCIUM 8.5 mg/dL (8.5-10.1); CREATININE 0.9 mg/dL (0.7-1.3); GFR 84.4; POTASSIUM 3.4 mmol/L (3.5-5.1)
[2021-05-12 11:36] LABS: ALBUMIN 3.5 g/dL (3.4-5.0); MAGNESIUM 2.2 mg/dL (1.8-2.4); PHOSPHORUS 3.3 mg/dL (2.6-4.7); TOTAL BILIRUBIN 0.5 mg/dL (0.2-1.0)
[2021-05-12 11:40] LABS: INFLUENZA A PATIENT NEGATIVE (NEGATIVE)
[2021-05-12 11:44] LABS: INFLUENZA B PATIENT POSITIVE (NEGATIVE)
--- NOTE | 2021-05-12 11:49 | RAD ---
XR CHEST 1V History: Reason: chest pain, back pain / Spl. Instructions: / History: Comparison: April 20, 2021 Findings: Hyperinflation with emphysematous changes. Prior median sternotomy. No consolidation or pleural effus ion. Normal heart size. No pneumothorax. Unchanged retained cardiac leads. Impression: 1. Hyperinflation with emphysematous changes. No new consolidation. Electronically signed by: Richi Sánchez DO (05/12/2021 11:46 AM) [id number]
[2021-05-12 12:14] VITALS: BP 198/85
--- NOTE | 2021-05-13 05:52 | EKG ---
[facility] [address] [place] [address] Test Date: 2021-05-12 Test Time: 10:18:14 Pat Name: DORIS HAN Department: Room: Gender: M Four Slide Operator: : 1955 Requested By: JANICE CORONADO Order Number: [id number] Reading MD: Uli Swanson Measurements Intervals [place] Rate: 71 P: 67 IN: 170 QRS: 54 QRSD: 96 T: 86 QT: 390 QTc: 429 Interpretive Statements SINUS RHYTHM NON SPECIFIC ST-T WAVE CHANGES Electronically Signed On 05-19-2021 10:46:44 INDUSTRIAL MAINTENANCE MECHANIC by Uli Swanson
== END 2021-05-12 12:26 | disposition home or self-care (01) ==
LOC: ER 09:46
DX: J10.1 Influenza due to other identified influenza virus with other respiratory manifestations (principal); Z20.822 Contact with and (suspected) exposure to COVID-19; I10 Essential (primary) hypertension; J44.9 Chronic obstructive pulmonary disease, unspecified; F17.200 Nicotine dependence, unspecified, uncomplicated; I25.2 Old myocardial infarction; I25.10 Atherosclerotic heart disease of native coronary artery without angina pectoris; Z86.73 Personal history of transient ischemic attack (TIA), and cerebral infarction without residual deficits; Z95.0 Presence of cardiac pacemaker
CPT/HCPCS: 36415; 71045; 80053; 82550; 83690; 83735; 83880; 84100; 84484; 85025; 85610; 87426; 87804; 93005; 96374; 99285; J3010; U0003

== ENCOUNTER 2021-05-19 20:31 | Observation (INO) | payer MEDICARE ==
[~2021-05-19] VITALS: Ht 182.9 cm; Wt 57.0 kg
--- NOTE | 2021-05-19 20:58 | PHYS DOC ---
Past Medical History Past Medical History: CAD, Cancer, COPD, Hypertension, [place], Stroke Additional Past Medical Histor: STOMACH ULCERS,BRADYCARDIA, abd aneurysm,throat/lung cancer Past Surgical History: Pacemaker, Other Additional Past Surgical Histo: OPEN HEART SURGERY FOR VALVE REPAIR,ABD SURG FOR ULCERS Smoking Status: Current Every Day Smoker Alcohol Use: None Drug Use: None General Adult EDM: Chief Complaint: CHEST PAIN HPI: HPI: Patient is a 65-year-old male presenting for chest pain. Onset was this morning at 8 AM shortly after waking up while at rest. Pain was pressure substernal in nature and caused him to be short of breath without any obvious radiation. Stated this lasted an hour before self resolving. States he had a normal day but 45 minutes prior to arrival same chest pain came back with increased severity which patient ranks 10/10 in nature. He has been taking all medication s as prescribed with no compliance issues. Does admit that he was recently seen at our facility 05/12/2021 and diagnosed with influenza B but states his symptoms are different than what he was previously experiencing. After chart review, patient has extensive cardiac history with recent cardiac catheterization October 2020 showing 50% stenosis of the LAD, HFpEF with last EF ~50%, status post pacemaker ([employer] Micra) 11/01/20 at [facility] due to sick sinus syndrome, TV repair of tricuspid valve, prior abdominal aortic aneurysm, status post chemo/radiation for epiglottitis stage III cancer and subsequent lung cancer for which he is pending radiation therapy. Review of Systems: Review of Systems: Fourteen body systems of review of systems have been reviewed. See HPI for pertinent positives and negative responses, other marrero all other systems are negative, non-pertinent or non-contributory Heart Score: C/O Chest Pain: Yes HEART Score for Chest Pain: HEART Score for Chest Pain Response (Comments) Value History Moderately Suspicious 1 ECG Nonspecific Repolarizatio 1 Age > 65 2 Risk Factors >3 Risk Factors or Hx CAD 2 Total 6 Risk Factors: Risk Factors: DM, Current or recent (<one month) smoker, HTN, HLP, family history of CAD, obesity. Risk Scores: Score 0 - 3: 2.5% MACE over next 6 weeks - Discharge Home Score 4 - 6: 20.3% MACE over next 6 weeks - Admit for Clinical Observation Score 7 - 10: 72.7% MACE over next 6 weeks - Early Invasive Strategies Allergies: Allergies: Allergies Coded Allergies Type Severity Reaction Last Updated Verified Penicillins Allergy Severe swelling 03/25/20 Yes vancomycin Adverse Reaction Intermediate 03/25/20 Yes Physical Exam: PE: Constitutional: Thin, appears older than stated age, nontoxic in appearance HENT: Normocephalic, atraumatic, bilateral external ears normal, oropharynx moist, no oral exudates, nose normal. Postnasal drip present Eyes: PERRLA, EOMI, conjunctiva normal, no discharge. Neck: Normal range of motion, no tenderness, supple, no stridor. Cardiovascular: Heart rate regular, sinus rhythm, no murmurs rubs or gallops. Pacemaker present to left upper chest Lungs & Thorax: Bilateral breath sounds clear to auscultation Abdomen: Bowel sounds normal, soft, no tenderness, no masses, no pulsatile masses. Nonsurgical abdomen, no peritoneal signs Skin: Warm, dry, no erythema, no rash. Back: No tenderness, no CVA tenderness. Extremities: No tenderness, no cyanosis, no clubbing, ROM intact, no edema. Neurologic: Alert and oriented X 3, grossly normal motor & sensory function, no focal deficits noted. Psychologic: Affect normal, judgement normal, mood normal. Current Patient Data: Labs: Laboratory Tests Test 05/19/21 20:49 05/19/21 22:03 White Blood Count 4.4 x10^3/uL Red Blood Count 4.17 x10^6/uL Hemoglobin 13.4 g/dL Hematocrit 38.8 % Mean Corpuscular Volume 93 fL Mean Corpuscular Hemoglobin 32 pg Mean Corpuscular Hemoglobin Concent 35 g/dL Red Cell Distribution Width 14.8 % Platelet Count 180 x10^3/uL Neutrophils (%) (Auto) 60 % Lymphocytes (%) (Auto) 21 % Monocytes (%) (Auto) 12 % Eosinophils (%) (Auto) 6 % Basophils (%) (Auto) 1 % Neutrophils # (Auto) 2.6 x10^3/uL Lymphocytes # (Auto) 0.9 x10^3/uL Monocytes # (Auto) 0.5 x10^3/uL Eosinophils # (Auto) 0.3 x10^3/uL Basophils # (Auto) 0.0 x10^3/uL Sodium Level 138 mmol/L Potassium Level 3.4 mmol/L Chloride Level 103 mmol/L Carbon Dioxide Level 31 mmol/L Anion Gap 4 Blood Urea Nitrogen 14 mg/dL Creatinine 1.2 mg/dL Estimated GFR (Cockcroft-Gault) 60.6 Glucose Level 100 mg/dL Calcium Level 8.5 mg/dL Troponin I High Sensitivity 15 ng/L QQ-Cfj-I-Type Natriuretic Peptide 1454 pg/mL SARS-CoV-2 Antigen (Rapid) Negative Current Medications Medications (Trade) Dose Ordered Sig/Trista Route PRN Reason Start Time Stop Time Status Last Admin Dose Admin Aspirin (Aspirin Chewable) 162 mg 1X ONCE PO 05/19/21 21:30 05/19/21 21:31 DC 05/19/21 21:52 Nitroglycerin (Nitrostat) 0.4 mg PRN Q5MIN PRN SL CP RATING > 07/2105/19/21 21:00 05/20/21 20:59 05/19/21 22:21 Iohexol (Omnipaque 350 Mg/ml) 80 ml 1X ONCE IV 05/19/21 22:00 05/19/21 22:01 DC 05/19/21 21:43 Info (CONTRAST GIVEN -- Rx MONITORING) 1 each PRN DAILY PRN MC SEE COMMENTS 05/19/21 21:30 05/21/21 21:29 Fentanyl Citrate (Fentanyl 2ml Vial) 50 mcg 1X ONCE IVP 05/19/21 22:30 05/19/21 22:31 DC 05/19/21 22:22 Vital Signs: Vital Signs Date Time Temp Pulse Resp B/P (MAP) Pulse Ox O2 Delivery O2 Flow Rate FiO2 05/19/21 20:41 98.2 95 18 195/90 (125) 97 98.2 05/19/21 22:22 Room Air Vital Signs Date Time Temp Pulse Resp B/P (MAP) Pulse Ox O2 Delivery O2 Flow Rate FiO2 05/19/21 22:22 Room Air 05/19/21 22:21 68 195/90 05/19/21 20:41 98.2 18 97 98.2 EKG: EKG: EKG ordered and interpreted by myself at 2 hrs. as sinus rhythm at 95 bpm, unremarkable intervals, no axis deviation, 9 no obvious ischemic findings, no STEMI Prior EKG obtained 05/12/2021 used for comparison. No gross changes versus EKG obtained today Repeat EKG ordered and interpreted by myself at 2258 hrs. as sinus rhythm at 70 bpm, unremarkable intervals, no axis deviation, there is artifact in V1 but otherwise no obvious ischemic findings, no STEMI Radiology/Procedures: Radiology/Procedures: Exam: Chest one view INDICATION: Chest pain TECHNIQUE: Frontal view of the chest Comparisons: 05/12/2021 FINDINGS: Sternotomy wires are noted. Abandoned cardiac leads is noted, stable. The cardiomediastinal silhouette and pulmonary vessels are within normal limits. The lung and pleural spaces are clear. IMPRESSION: No acute pulmonary process. Electronically signed by: Modesto Ortega MD (05/19/2021 10:41 PM) [facility] ////////////////////////////////// Exam: CT of chest with contrast INDICATION: Chest pain TECHNIQUE: Sequential axial images through the chest obtained following the administration of 80 mL of Omni 350 IV contrast. Sagittal and coronal reformatted images were reconstructed from the axial data and reviewed. 3-D reformatted images were reconstructed from the axial data and reviewed. Exposure: One or more of the following in the visualized dose reduction techniques were utilized for this examination: 1. Automated exposure control 2. Adjustment of the MA and/or KV according to patient size 3. Use of iterative of reconstructive technique Comparisons: Chest x-ray 05/12/2021, 11/17/2020 FINDINGS: Visualized portions of the thyroid are unremarkable. Several prominent nonenlarged prevascular and pretracheal lymph nodes are identified. Heart size is normal. No pericardial effusion. Thoracic aorta has normal course and caliber. Pulmonary artery is not enlarged. No pulmonary embolus identified within the main, lobar or segmental pulmonary arteries. Left subclavian vein appears chronically occluded with extensive collateral vasculature from the left axillary vein to the IVC. Airways are patent. No consolidation or pneumothorax. There is a spiculated lung nodule at the right lung apex which measures approximately 1.3 cm in diameter. Series 3 image 16. Mild to moderate centrilobular emphysematous change noted probably at the upper lungs. No pleural effusion or thickening. Visualized upper abdomen is unremarkable. No suspicious osseous lesions or acute fractures. IMPRESSION: 1. No pulmonary embolus identified within the main, lobar sequential pulmonary arteries. 2. 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 3. Spiculated nodule in the right lung apex measuring 1.3 cm which is similar to mildly increased in size from the prior exam. The previously seen nodules in the right middle lobe are less evident likely related to a resolving infectious or inflammatory process. Electronically signed by: Modesto Ortega MD (05/19/2021 9:52 PM) [facility] Course & Med Decision Making: Course & Med Decision Making Airway patent, breathing unlabored, IV access and vitals obtained concerning for hypertension only for which patient took nighttime blood pressure medication for 2 arrival HPI physical exam and comprehensive ER work-up nonconcerning for any emergent or surgical issues With that said, heart score reviewed. Patient high risk for adverse cardiac event especially given extensive cardiac history. Joint decision made to admit for continued cardiac observation and rule out ACS. . I do not think patient's recent influenza B infection reported May 12, 2021 is associated with episode today. I fear cardiac in etiology and so, hospitalist was contacted and case reviewed. Patient was excepted under the care of Dr. Ankit Ray Disclaimer: Cory Disclaimer: This electronic medical record was generated, in whole or in part, using a voice recognition dictation system. Departure Departure Impression: Primary Impression: Chest pain Additional Impression: HTN (hypertension) Disposition: ADMITTED INPATIENT Admitting Physician: Ida Pham Condition: STABLE Referrals: IDA PHAM MD (PCP) MARK ROSA DO May 19, 2021 20:58
[2021-05-19 21:00] LABS: BASO % 1 % (0-3); EOS # 0.3 x10^3/uL (0.0-0.7); EOS % 6 % (0-3); HEMATOCRIT 38.8 % (39.0-53.0); HEMOGLOBIN 13.4 g/dL (13.0-17.5); LYMPH # 0.9 x10^3/uL (1.0-4.8); LYMPH % 21 % (24-48); MEAN CORPUSCULAR HEMOGLOBIN 32 pg (25-35); MEAN CORPUSCULAR HGB CONC 35 g/dL (31-37); MEAN CORPUSCULAR VOLUME 93 fL (79-100); MONO # 0.5 x10^3/uL (0.0-1.1); MONO % 12 % (0-9); NEUT # 2.6 x10^3/uL (1.8-7.7); NEUT % 60 % (31-73); PLATELET COUNT 180 x10^3/uL (140-400); RED BLOOD COUNT 4.17 x10^6/uL (4.30-5.70); RED CELL DISTRIBUTION WIDTH 14.8 % (11.5-14.5); WHITE BLOOD COUNT 4.4 x10^3/uL (4.0-11.0)
[2021-05-19] MEDS ORDERED: NITROGLYCERIN SUBLINGUAL 0.4 MG BOTTLE OF 25. SL PRN ×2 (21:00→23:00)
[2021-05-19 21:09] LABS: CALCIUM 8.5 mg/dL (8.5-10.1); CREATININE 1.2 mg/dL (0.7-1.3); GFR 60.6; POTASSIUM 3.4 mmol/L (3.5-5.1)
[2021-05-19] MEDS ORDERED: CONTRAST GIVEN. MC PRN (21:30)
[2021-05-19] MEDS ORDERED: ASPIRIN CHEWABLE 81 MG TABLET. PO ONE (21:30)
--- NOTE | 2021-05-19 21:54 | RAD ---
Exam: CT of chest with contrast INDICATION: Chest pain TECHNIQUE: Sequential axial images through the chest obtained following the administration of 80 mL o f Omni 350 IV contrast. Sagittal and coronal reformatted images were reconstructed from the axial jerry a and reviewed. 3-D reformatted images were reconstructed from the axial data and reviewed. Exposure: One or more of the following in the visualized dose reduction techniques were utilized for this examination: 1. Automated exposure control 2. Adjustment of the MA and/or KV according to patient size 3. Use of iterative of reconstructive technique Comparisons: Chest x-ray 05/12/2021, 11/17/2020 FINDINGS: Visualized portions of the thyroid are unremarkable. Several prominent nonenlarged prevascular and pr etracheal lymph nodes are identified. Heart size is normal. No pericardial effusion. Thoracic aorta has normal course and caliber. Pulmonar y artery is not enlarged. No pulmonary embolus identified within the main, lobar or segmental pulmona ry arteries. Left subclavian vein appears chronically occluded with extensive collateral vasculature from the left axillary vein to the IVC. Airways are patent. No consolidation or pneumothorax. There is a spiculated lung nodule at the right lung apex which measures approximately 1.3 cm in diameter. Series 3 image 16. Mild to moderate centri lobular emphysematous change noted probably at the upper lungs. No pleural effusion or thickening. Visualized upper abdomen is unremarkable. No suspicious osseous lesions or acute fractures. IMPRESSION: 1. No pulmonary embolus identified within the main, lobar sequential pulmonary arteries. 2. 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 3. Spiculated nodule in the right lung apex measuring 1.3 cm which is similar to mildly increased in size from the prior exam. The previously seen nodules in the right middle lobe are less evident like ly related to a resolving infectious or inflammatory process. Electronically signed by: Modesto Ortega MD (05/19/2021 9:52 PM) [facility]
[2021-05-19] MEDS ORDERED: IOHEXOL 350 MG/ML 100 ML VIAL. IV ONE (22:00)
[2021-05-19] MEDS ORDERED: fentaNYL PF VIAL 100 MCG/2 ML VIAL IVP ONE (22:30)
--- NOTE | 2021-05-19 22:43 | RAD ---
Exam: Chest one view INDICATION: Chest pain TECHNIQUE: Frontal view of the chest Comparisons: 05/12/2021 FINDINGS: Sternotomy wires are noted. Abandoned cardiac leads is noted, stable. The cardiomediastinal silhouette and pulmonary vessels are within normal limits. The lung and pleural spaces are clear. IMPRESSION: No acute pulmonary process. Electronically signed by: Modesto Ortega MD (05/19/2021 10:41 PM) [facility]
[2021-05-19] MEDS ORDERED: ACETAMINOPHEN 325 MG TABLET. PO PRN (23:00)
--- NOTE | 2021-05-19 23:20 | EKG ---
[facility] [address] [place] [address] Test Date: 2021-05-19 Test Time: 22:55:54 Pat Name: DORIS HAN Department: Room: Gender: M Range Mounter: : 1955 Requested By: MARK ROSA Order Number: [id number] Reading MD: Daniel Mariano MD Measurements Intervals [place] Rate: 70 P: IN: QRS: 42 QRSD: 96 T: 41 QT: 412 QTc: 448 Interpretive Statements SR Electronically Signed On 05-20-2021 9:01:43 DISK AND TAPE MACHINE TENDER by Daniel Mariano MD
[2021-05-19 23:21] LABS: BARBITURATES NEG (NEG); BENZODIAZEPINES NEG (NEG); CANNABINOIDS NEG (NEG); COCAINE NEG (NEG); METHADONE NEG (NEG); OPIATES NEG (NEG); PHENCYCLIDINE NEG (NEG)
--- NOTE | 2021-05-19 23:21 | EKG ---
[facility] [address] [place] [address] Test Date: 2021-05-19 Test Time: 20:38:14 Pat Name: DORIS HAN Department: Room: Gender: M Machine Ii Trimmer: : 1955 Requested By: MARK ROSA Order Number: [id number] Reading MD: Daniel Mariano MD Measurements Intervals [place] Rate: 95 P: 63 OK: 172 QRS: 44 QRSD: 94 T: 36 QT: 362 QTc: 458 Interpretive Statements SINUS RHYTHM LEFT ATRIAL ABNORMALITY ABNORMAL ECG LATERAL ISCHEMIA POSSIBLE Electronically Signed On 05-20-2021 9:08:24 ART TRACER by Daniel Mariano MD
[2021-05-19 23:29] LABS: AMPHETAMINE/METHAMPHETAMINE NEG (NEG)
[2021-05-19] MEDS ORDERED: MORPHINE SULFATE 4 MG/ML INJ. IVP ONE (23:30)
[2021-05-19 23:40] VITALS: BP 174/79
--- NOTE | 2021-05-20 00:26 | NUR ---
The patient, DORIS HAN, 65 y/o, M admitted by IDA CUMMINGS MD, was given written information regarding hospital policies, unit procedures and contact persons. Valuables were checked and documented. Calllight in p-lace will cont to monitor pt status and safety. pmrn
[2021-05-20] MEDS ORDERED: ASPI-630 PO (00:38)
[2021-05-20 03:25] VITALS: BP 109/63
[2021-05-20 07:00] VITALS: BP 140/73
[2021-05-20] MEDS ORDERED: FLU VACC QUAD 21-22 (6MOS+) PF 0.5 ML SYRINGE. VAX IM ONE (09:00)
[2021-05-20] MEDS: ISOSORBIDE MONONITRATE ER 30 MG TAB.ER.24H PO SCH ×2 (09:00→09:54)
[2021-05-20] MEDS ORDERED: ONDANSETRON ODT 4 MG TAB.RAPDIS. PO PRN (09:00)
[2021-05-20] MEDS ORDERED: NITROGLYCERIN SUBLINGUAL 0.4 MG BOTTLE OF 25. SL PRN (09:00)
--- NOTE | 2021-05-20 09:04 | PDOC2 ---
JOAQUINA WOLF [employer] 05/20/21 0903: CARDIAC CONSULT DATE OF CONSULT Date of Consult DATE: 05/20/21 TIME: 08:53 REASON FOR CONSULT Reason for Consult: Chest pain, bradycardia REFERRING PHYSICIAN Referring Physician: Dr. Pham SOURCE Source: Chart review, Patient HISTORY OF PRESENT ILLNESS HISTORY OF PRESENT ILLNESS This is a 65 yo male who presented secondary to chest pain. Patient reports waking up yesterday morning with a stabbing pain in his central chest. Seemed to be worse with deep breathing. Eating and drinking did not seem to affect. Chest was slightly tender upon palpation. Chest pain did seem to improved slightly throughout the day, but persisted so he came to the ED for further evaluation an d treatment. Patient also reporting device at bedside with screen that reads visit your nearest emergency room. He denies any dizziness, diaphoresis, or palpitations. Patient also noted to be bradycardiac with HR in upper 40's. Review of tele shows 100's v-pacing at that rate. PAST MEDICAL HISTORY Past Medical History Cardiovascular: CAD, HTN, Hyperlipidemia, Valve insufficiency, Other Pulmonary: COPD GI: Diverticulosis, GERD, Gastritis, Hemorrhoids, Peptic Ulcer disease, Other (CA) Psych: Anxiety, Depression Musculoskeletal: Osteoarthritis Rheumatologic: No pertinent hx Infectious disease: No pertinent hx Renal/: Chronic renal insuff, Other Endocrine: No pertinent hx PAST SURGICAL HISTORY Past Surgical History Juan redman, [facility] FAM[facility] HISTORY Family History: Heart Disease SOCIAL HISTORY Social History Smoke: < 1ppd ALCOHOL: none Drugs: none Lives: with Family CURRENT MEDICATIONS CURRENT MEDICATIONS Current Medications Medications (Trade) Dose Ordered Sig/Trista Route PRN Reason Start Time Stop Time Status Last Admin Dose Admin Aspirin (Aspirin Chewable) 162 mg 1X ONCE PO 05/19/21 21:30 05/19/21 21:31 DC 05/19/21 21:52 Nitroglycerin (Nitrostat) 0.4 mg PRN Q5MIN PRN SL CP RATING > 07/2105/19/21 21:00 05/19/21 23:00 DC 05/19/21 22:21 Iohexol (Omnipaque 350 Mg/ml) 80 ml 1X ONCE IV 05/19/21 22:00 05/19/21 22:01 DC 05/19/21 21:43 Fentanyl Citrate (Fentanyl 2ml Vial) 50 mcg 1X ONCE IVP 05/19/21 22:30 05/19/21 22:31 DC 05/19/21 22:22 Morphine Sulfate (Morphine Sulfate) 4 mg 1X ONCE IVP 05/19/21 23:30 05/19/21 23:31 DC 05/19/21 23:29 Acetaminophen (Tylenol) 650 mg PRN Q4HRS PRN PO FEVER > 100.3'F 05/19/21 23:00 05/20/21 22:59 05/20/21 05:49 ALLERGIES ALLERGIES: Coded Allergies: Penicillins (Verified Allergy, Severe, swelling, 03/25/20) vancomycin (Verified Adverse Reaction, Intermediate, 03/25/20) "shaking" and "hot" ROS Review of System 14 point ROS conducted with pertinent positives noted above in HPI PHYSICAL EXAM PHYSICAL EXAM General: Alert, Oriented X3, Cooperative HEENT: Atraumatic, Mucous membr. moist/pink Lungs: Other (diminished bases). central chest tenderness upon palpation Heart: Regular rate (SR ), Other (distant heart sounds) Abdomen: Soft, No tenderness Extremities: No cyanosis, No edema Skin: No breakdown, No significant lesion Neuro: Sensation intact Psych/Mental Status: Mental status NL, Mood NL MUSCULOSKELETAL: Osteoarthritic changes both hands VITALS/I&O VITALS/I&O: Vital Signs Date Time Temp Pulse Resp B/P (MAP) Pulse Ox O2 Delivery O2 Flow Rate FiO2 05/20/21 07:00 97.1 56 16 140/73 (95) 99 Room Air 97.1 I & O 05/19/21 05/19/21 05/20/21 15:00 23:00 07:00 Intake Total 240 ml Output Total 200 ml Balance 40 ml LABS Lab: Laboratory Tests Test 05/19/21 20:49 05/19/21 22:03 05/19/21 23:04 05/19/21 23:55 White Blood Count 4.4 x10^3/uL (4.0-11.0) Red Blood Count 4.17 x10^6/uL (4.30-5.70) L Hemoglobin 13.4 g/dL (13.0-17.5) Hematocrit 38.8 % (39.0-53.0) L Mean Corpuscular Volume 93 fL (79-100) Mean Corpuscular Hemoglobin 32 pg (25-35) Mean Corpuscular Hemoglobin Concent 35 g/dL (31-37) Red Cell Distribution Width 14.8 % (11.5-14.5) H Platelet Count 180 x10^3/uL (140-400) Neutrophils (%) (Auto) 60 % (31-73) Lymphocytes (%) (Auto) 21 % (24-48) L Monocytes (%) (Auto) 12 % (0-9) H Eosinophils (%) (Auto) 6 % (0-3) H Basophils (%) (Auto) 1 % (0-3) Neutrophils # (Auto) 2.6 x10^3/uL (1.8-7.7) Lymphocytes # (Auto) 0.9 x10^3/uL (1.0-4.8) L Monocytes # (Auto) 0.5 x10^3/uL (0.0-1.1) Eosinophils # (Auto) 0.3 x10^3/uL (0.0-0.7) Basophils # (Auto) 0.0 x10^3/uL (0.0-0.2) Sodium Level 138 mmol/L (136-145) Potassium Level 3.4 mmol/L (3.5-5.1) L Chloride Level 103 mmol/L (98-107) Carbon Dioxide Level 31 mmol/L (21-32) Anion Gap 4 (6-14) L Blood Urea Nitrogen 14 mg/dL (8-26) Creatinine 1.2 mg/dL (0.7-1.3) Estimated GFR (Cockcroft-Gault) 60.6 Glucose Level 100 mg/dL (70-99) H Calcium Level 8.5 mg/dL (8.5-10.1) Troponin I High Sensitivity 15 ng/L (4-75) 16 ng/L (4-75) SJ-Hzg-M-Type Natriuretic Peptide 1454 pg/mL (0-124) H SARS-CoV-2 Antigen (Rapid) Negative (NEGATIVE) Urine Opiates Screen Neg (NEG) Urine Methadone Screen Neg (NEG) Urine Barbiturates Neg (NEG) Urine Phencyclidine Screen Neg (NEG) Urine Amphetamine/Methamphetamine Neg (NEG) Urine Benzodiazepines Screen Neg (NEG) Urine Cocaine Screen Neg (NEG) Urine Cannabinoids Screen Neg (NEG) Urine Ethyl Alcohol Neg (NEG) Test 05/20/21 02:50 Troponin I High Sensitivity 15 ng/L (4-75) Laboratory Tests 05/19/21 20:49 Laboratory Tests 05/19/21 20:49 ECHOCARDIOGRAM ECHOCARDIOGRAM <Conclusion> The left ventricular systolic function is normal and the ejection fraction is within normal range. The Ejection Fraction is 50-55%. There is normal LV segmental wall motion. There is no significant aortic valvular stenosis by doppler criteria but visually the valve appears to be at least moderately stenotic. DATE: 10/30/20 [id number] 0 HEART CATH HEART CATH HEART CATH Coronary angiography: LM: Large caliber mildly aneurysmal vessel with mild luminal irregularities. LAD: Large caliber vessel with a proximal to mid eccentric 50% stenosis. The vessel is also very tortuous. D1: Small caliber vessel with normal angiographic appearance LCX: Moderate caliber non-dominant vessel with a proximal 50% stenosis. OM1: Moderate caliber vessel with mild luminal irregularities. RCA: Large caliber dominant vessel with mild luminal irregularities of up to 30%. RPDA: Moderate caliber vessel with mild luminal irregularities. INTERVENTIONAL TECHNIQUE: Due to intermediate stenosis involving the LAD and presenting symptoms and IFR study was performed. Heparin was used for anticoagulation. Through a 6 Chinese EBU 3.5 guide catheter a 0.014 inch pressure wire was advanced to the distal LAD after appropriate normalization and intracoronary nitroglycerin administration. And IFR was performed and measured to be 0.92 with a pullback confirming this value. At case completion the final angiography demonstrated no acute wire or guide related complications. Conclusion 1. Mildly elevated left ventricular filling pressures 2. One-vessel coronary artery disease involving the LAD 3. Negative IFR of the LAD. Recommendations 1. Continue aggressive risk factor modification. DATE: 10/31/20 [id number] 0 ASSESSMENT/PLAN ASSESSMENT/PLAN 1. Chest pain, atypical; AMI ruled out. Possibly due to uncontrolled HTN 2. Epigastric pain, GERD 3. CAD: clinically stable. recent LHC as noted above. Follows with Dr. Hodge at [facility] cardiology. 4. HTN urgency 5. 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 6. SSS; s/p leadless PPM ([employer] Micra) 11/01/20 at [facility], clinically stable. Noted SR with intermittent v-pacing. Will have periods of 100% v-pacing with HR in the mid 40's. "heart device" at bedside with message of "go to nearest emergency room". Device rep contacted; this message is not consistent with [employer] home monitoring for micra PPM. 7. 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 HLP; statin 10. COPD 11. Hypokalemia; replaced 12. Tobaccoism; discussed/encouraged cessation 13. Recent influenza Recommendations Device interrogation Continue secondary prevention measures. Resume home antiHTN therapy Hydralazine IV PRN Monitor BP trends and titrate as warranted Patient would like further ischemic evaluation given recurrent chest pain prompting multiple admissions to the ED. Discussed stress testing versus definitive evaluation with cardiac catheterization. Patient requests cardiac cath. Will d/w primary manager marketing communication. Check Mg and replace as warranted Keep NPO p MN ELIUD CHONG MD 05/20/21 7685: CARDIAC CONSULT ASSESSMENT/PLAN ASSESSMENT/PLAN Patient seen and examined I agree with our nurse practitioners assessment and plan. Chest pain, atypical; AMI ruled out. Possibly due to uncontrolled HTN. Also a history of gastroesophageal reflux disease and epiglottitis as noted above. Epigastric pain, GERD CAD: clinically stable. recent LHC as noted above. Follows with Dr. Hodge at [facility] cardiology. Multiple emergency room admissions. After discussion as above patient wishes reevaluation with a cardiac catheterization. We will proceed as above. 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 SSS; s/p leadless PPM ([employer]tronic Micra) 11/01/20 at [facility], clinically stable. Noted SR with intermittent v-pacing. Will have periods of 100% v-pacing with HR in the mid 40's. "heart device" at bedside with message of "go to nearest [facility] room". Device rep contacted; this message is not consistent with [employer] home monitoring for micra PPM. 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
[2021-05-20] MEDS ORDERED: ALBUTEROL SULFATE 2.5 MG/3 ML NEBU. NEB PRN (09:15)
[2021-05-20] MEDS ORDERED: PANT40TA77 PO (09:43)
--- NOTE | 2021-05-20 09:45 | DISCH ---
DISCHARGE INSTRUCTIONS Condition on Discharge Condition on Discharge: Stable Activity After Discharge Activity Instructions for Disc: Activity as tolerated Weight Bearing Status after Di: Full weight bearing Diet after Discharge Diet after Discharge: Level III Dysph, Chopped Diet Texture: Dysphagia Advanced Liquid Texture: Thin Liquid Swallowing Supervision: None needed Checks after Discharge Checks after discharge: Check blood press - daily Contacting the [facility] after DC Call your doctor for: Concerns you may have Follow-Up Follow up with: Dr. Ida Cummings in 1 week. Follow Up With: Follow-up with barrel washer. Treatment/Equipment after DC Adaptive Equipment Issued: None IDA CUMMINGS MD May 20, 2021 09:44
[2021-05-20] MEDS: LISINOPRIL 20 MG TABLET PO SCH (09:55)
[2021-05-20] MEDS: VENLAFAXINE 75 MG TABLET. PO SCH ×3 (09:55→21:00)
[2021-05-20] MEDS: POTASSIUM CHLORIDE 20 MEQ TABLET.ER. PO SCH ×3 (09:56→18:00)
[2021-05-20] MEDS: PANTOPRAZOLE 40 MG TABLET.DR. PO SCH ×2 (09:56→10:00)
--- NOTE | 2021-05-20 09:59 | PDOC ---
Provider Note Date of Service: DATE: 05/20/21 TIME: 09:59 Provider Note H&P dictated #[id number]. Blood pressure is better controlled. Hypertensive crisis is resolved. Discharge home later today when okay with the knot picker cloth. Justifications for Admission Other Justification IDA CUMMINGS MD May 20, 2021 09:59
--- NOTE | 2021-05-20 10:47 | NUR ---
SS following for discharge planning. SS reviewed pt chart and discussed with pt RN. Pt is from home with spouse and is currently on room air. Cardiology following. COVID19 negative. Discharge order on the chart for home with self care.
[2021-05-20 10:50] VITALS: BP 168/68
--- NOTE | 2021-05-20 12:13 | HP ---
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 He had one episode of chest pain that resolved spontaneously, but later prior to admission, he was sitting in his chair and had severe chest pain and he has a leadless pacemaker and there is a device that was given to him that told him to go to the nearest Emergency Room. The chest pain resolved after he came to the Emergency Room. He has had a cardiac catheterization in 10/2020 showing 50% stenosis of the LAD and ejection fraction is around 50%. He also had a pacemaker placed on 11/01/2020, at [facility] and it is a leadless pacemaker. Because of his chest pains and multiple medical problems, the patient was admitted for further evaluation and management. CTA showed no pulmonary embolism, chronically occluded left subclavian vein with collateral vasculature down to the IVC, spiculated nodule in the right lung apex measuring 1.3 cm with no significant change. WBC count was 4.4, hemoglobin 13.4, platelet count 180,000. Sodium 138, potassium 3.4, BUN 14, creatinine 1.2, BNP 1454, troponin I high sensitivity 15, 16 and repeat last test was 15 again. SARS-CoV-2 antigen rapid was negative. SYSTEMS REVIEW: At present time, the patient denies any chest pains, palpitations or dyspnea. He does admit to reflux and states that he has been taking his medications regularly. He denies any cold, cough, congestion, chest pains, palpitations, nausea, vomiting, diarrhea, or constipation at this time. Other systems reviewed and are negative. PAST MEDICAL HISTORY: Last admission was noted on 04/21/2021. 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 He has completed chemo and radiation therapy, non-ST elevation myocardial infarction in October 2020 as well as in 10/2018, gastroesophageal reflux disease, diverticulosis, grade II internal hemorrhoids, gastritis, kidney stones, colonic polyps. SURGICAL HISTORY: Includes 3 pacemaker surgeries, there was one for removal of the lead in 2013. He had a fourth pacemaker surgery on 11/01/2020 for placement of a leadless pacemaker at [facility], had amputation of the toe of the left foot on 08/20/2015 for osteomyelitis, history of EGD with biopsy. FAMILY HISTORY: Includes 2 brothers with cirrhosis. One brother also has cirrhosis. Mother has hypertension and diabetes. ALLERGIES: THE PATIENT IS ALLERGIC TO PENICILLIN, CAUSES SWELLING. THE PATIENT IS ALSO ALLERGIC TO VANCOMYCIN. MEDICATIONS: Reviewed and reconciled. SOCIAL HISTORY: The patient has more than 62-ppcm-exix history of smoking, continues to smoke, but less. He quit drinking alcohol in 1986. There is no history of drug abuse, currently smoking about 6 cigarettes per day. PHYSICAL EXAMINATION: VITAL SIGNS: Temperature 98.2, pulse 95 per minute, respirations 18 per minute, blood pressure was 195/90 mmHg. GENERAL: The patient is an elderly male who is alert, oriented x 3, and not in acute distress. He is chronically ill. EYES: Pupils reactive to light. Conjunctivae pale. Sclerae muddy. HEENT: Unremarkable. NECK: Supple. JVP normal. No thyromegaly. Trachea midline. LUNGS: Decreased breath sounds at bases. No wheezing. CARDIOVASCULAR: S1, S2, regular. ABDOMEN: Soft, nontender, no guarding, no rigidity. Bowel sounds present. RECTAL: Not done. EXTREMITIES: No edema, no cyanosis, no calf tenderness. CENTRAL NERVOUS SYSTEM: Alert and oriented. Generalized weakness. LABORATORY FINDINGS: As noted earlier. IMPRESSION: 1. Chest pain, likely multifactorial. Myocardial infarction has been ruled out. 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 2. Bradycardia, has a history of leadless pacemaker, hemodynamically stable. 3. Acute hypertensive crisis, resolved. 4. Hypokalemia. The patient states that he is taking potassium 3 times a day. 5. Chronic obstructive pulmonary disease. 6. Gastroesophageal reflux disease. 7. Coronary artery disease. 8. Diverticulosis. 9. Peripheral artery disease. 10. 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 11. Hyperlipidemia. 12. Acid peptic disease. 13. Emphysema. 14. Squamous cell carcinoma of the left epiglottis with extension of the left vallecula and metastasis to lungs. 15. History of tricuspid valve repair. PLAN: The patient has been admitted to [facility]. Cardiac monitoring showed some bradycardia last night. Hemodynamically remained stable. Consulted Dr. Mariano for cardiology evaluation and management. Myocardial infarction has been ruled out. I discussed with Dr. Mariano about a device telling him to come to the Emergency Room. He will get the pacemaker interrogated. I have advised him to bring that device when he comes to the office to see me. I will see him in the office in 1 week. If douper discharges him today then we will continue present treatment. The patient is not very compliant with his medications. I have told him to take all his medications regularly. He states that he has been taking his medication for the gastroesophageal reflux disease regularly. I will represcribe him pantoprazole that was prescribed to him previously. He also had omeprazole at home previously. We will recheck labs in the office. As the patient remains stable, we will discharge him later to home if it is okay with the douper and follow him in the office in a week. For details, please refer the orders. This is a combined history and physical and discharge summary. MICHAEL GUY: Hugo TID: [id number]
[2021-05-20 15:00] VITALS: BP 185/80
[2021-05-20] MEDS ORDERED: hydrALAZINE 20 MG/ML VIAL. IVP PRN (15:30)
[2021-05-20 19:35] VITALS: BP 146/71
[2021-05-20] MEDS ORDERED: ATORVASTATIN CALCIUM 20 MG TABLET PO SCH (21:00)
[2021-05-20 22:40] VITALS: BP 149/70
[2021-05-21 03:35] VITALS: BP 166/88
[2021-05-21] MEDS ORDERED: ASPIRIN CHEWABLE 81 MG TABLET. PO SCH (05:00)
[2021-05-21 07:00] VITALS: BP 160/79
[2021-05-21] MEDS ORDERED: IODIXANOL 320 MG/ML 100 ML VIAL. ONE (07:36)
[2021-05-21] MEDS ORDERED: LIDOCAINE 1% Multi-Dose 20 ML VIAL. ONE (07:36)
[2021-05-21] MEDS ORDERED: HEPARIN for ARTERIAL LINE 1,500 ML ONE ×2 (07:37→07:38)
[2021-05-21] MEDS: POTASSIUM CHLORIDE 20 MEQ TABLET.ER. PO SCH ×3 (09:00→16:27)
[2021-05-21] MEDS: VENLAFAXINE 75 MG TABLET. PO SCH ×2 (09:00→14:00)
[2021-05-21] MEDS ORDERED: fentaNYL PF VIAL 100 MCG/2 ML VIAL ONE (09:01)
[2021-05-21] MEDS ORDERED: MIDAZOLAM HCL/PF 2 MG/2 ML VIAL. ONE ×2 (09:01→09:51)
--- NOTE | 2021-05-21 09:25 | PDOC ---
MODERATE SEDATION ASSESSMENT RISKS/ALTERNATIVES Risks/Alternatives Risks and alternatives of this type of sedation and procedure discussed with: RISK/ALTERNATIVES: Patient H & P ON CHART H & P H & P on chart and reviewed for co-morbid conditions and appropriate labs. H&P ON CHART: Yes STATUS PREG STATUS ASSESSED: N/A MEDS/ALLERGIES REVIEWED Meds/Allergies Reviewed Medications and Allergies including time and route of recently administered narcotics and sedatives. MEDS/ALLERGIES REVIEWED: Yes ASA RATING ASA RATING: II AIRWAY ASSESSMENT Airway Assessment Airway patency, oral function limitations, presence of caps, crowns, dentures, partials, and ability to extend neck assessed. AIRWAY ASSESSMENT: Yes MALLAMPATI SCORE MALLAMPATI SCORE: II PRE-SEDATION ASSESSMENT PRE-SEDATION ASSESSMENT: Yes ELIUD CHONG MD May 21, 2021 09:25
[2021-05-21] MEDS ORDERED: IODIXANOL 320 MG/ML 100 ML VIAL. IART ONE (09:45)
[2021-05-21] MEDS ORDERED: MIDAZOLAM HCL/PF 2 MG/2 ML VIAL. IV ONE (09:45)
[2021-05-21] MEDS ORDERED: LIDOCAINE 1% Multi-Dose 20 ML VIAL. INJ ONE (09:45)
[2021-05-21] MEDS ORDERED: fentaNYL PF VIAL 100 MCG/2 ML VIAL IV ONE (09:45)
[2021-05-21 10:27] VITALS: BP 164/60
[2021-05-21] MEDS ORDERED: NITROGLYCERIN SUBLINGUAL 0.4 MG BOTTLE OF 25. SL PRN (10:30)
[2021-05-21 10:56] VITALS: BP 156/73
--- NOTE | 2021-05-21 12:00 | CARD ---
MR#: [id number] Date of Study: 05/21/2021 Ordering Physician: JOAQUINA WOLF, Referring Physician: JOAQUINA WOLF, Tech: RT Brianna(R) APPROVED REPORT Procedures Selective coronary angiogram Aortic root injection The patient is a 65-year-old male with a history of coronary artery disease. He has had increasingly frequent episodes of chest pain with several recent hospitalizations. Patient's pain has further inc reased and after discussion of risks and benefits the patient agreed to proceed with cardiac catheter ization to exclude progression of his underlying coronary disease. After informed consent was obtained the patient was brought to the heart catheterization lab. The are a of the right femoral artery was prepared in the usual manner with Betadine, sterile draping and loc al anesthetic. An 18-gauge needle was used to enter the right femoral artery, a wire placed and a 6 F rench sheath placed over the wire. A 6 Czech JL4 diagnostic catheter was advanced to the ascending a lory with the assistance of a Glidewire. It was used to engage the left coronary system and sequentia l injections of various views were obtained. A 6 Czech JR4 diagnostic catheter was then used to enga ge the right coronary artery and sequential injections in various views were obtained. A pigtail cath eter was then placed to the ascending aorta. A 30 degree MARTINIQUAIS aortic root injection was then performed with runoff to the bifurcation. The catheter was removed over a J-wire. The sheath was removed and s ealed with manual pressure. Of note all exchanges were over a wire. Hemodynamics. Aortic root pressure of 140/66. Coronaries. All coronaries were heavily calcified. Left main. The left main was a large vessel. It has a distal 20% lesion. Left anterior descending. The LAD was a moderate size vessel with normal distribution. It had a mid t o distal 40 to 50% lesion and a more distal 30% lesion. Left circumflex. The left circumflex had a mid area of lesions in the 40 to 45% range. Right coronary artery. The right coronary had a proximal 35% lesion and diffuse mid to distal disease in the 30% range. Aortic root. The aortic root appeared of normal size. On runoff there was a moderate size abdominal aortic aneurys m inferior to the takeoff of the renal arteries. <Conclusion> Moderate coronary artery disease with heavy calcification of the patient's vessel. Moderate size infrarenal abdominal aortic aneurysm. Moderate sedation of 63 minutes. Fluoroscopy time of 6.4 minutes. Contrast of 115 cc of Visipaque. All protective devices were used during the procedure. Estimated blood loss of 20 cc. The patient was independently monitored throughout the procedure. Signed by : Uli Swanson MD Electronically Approved : 05/21/2021 11:59:50
[2021-05-21 15:00] VITALS: BP 178/75
--- NOTE | 2021-05-21 15:55 | NUR ---
SS following up with discharge planning. SS reviewed pt chart and discussed with pt RN. Pt is currently on room air. COVID19 negative. Cardiology following. Pt had left heart cath today. Discharge plan is currently to home when medically ready for discharge. SS will continue to follow for discharge planning.
[2021-05-21] MEDS: PANTOPRAZOLE 40 MG TABLET.DR. PO SCH (16:25)
[2021-05-21] MEDS: ISOSORBIDE MONONITRATE ER 30 MG TAB.ER.24H PO SCH (16:25)
[2021-05-21 16:26] VITALS: BP 178/75
[2021-05-21] MEDS: LISINOPRIL 20 MG TABLET PO SCH (16:26)
--- NOTE | 2021-05-21 20:03 | NUR ---
Discharge Note: [facility] Discharge instructions and discharge home medications reviewed with Patient and a copy given. All questions have been answered and understanding verbalized. Post cardiac cath instructions given. PT verbalized understanding
== END 2021-05-21 20:05 | disposition home or self-care (01) ==
LOC: ER 20:31 → 6 SOUTH 22:50 → INTOOBSV 22:50
PROVIDERS: ADMIT Internal Medicine; ATTEND Internal Medicine
DX: R07.89 Other chest pain (principal); Z20.822 Contact with and (suspected) exposure to COVID-19; I16.9 Hypertensive crisis, unspecified; E87.6 Hypokalemia; K57.90 Diverticulosis of intestine, part unspecified, without perforation or abscess without bleeding; I73.9 Peripheral vascular disease, unspecified; I12.9 Hypertensive chronic kidney disease with stage 1 through stage 4 chronic kidney disease, or unspecified chronic kidney disease; N18.9 Chronic kidney disease, unspecified; I82.B12 Acute embolism and thrombosis of left subclavian vein; K30 Functional dyspepsia; C78.00 Secondary malignant neoplasm of unspecified lung; E78.5 Hyperlipidemia, unspecified; F17.210 Nicotine dependence, cigarettes, uncomplicated; I16.0 Hypertensive urgency; I25.10 Atherosclerotic heart disease of native coronary artery without angina pectoris; I25.2 Old myocardial infarction; I49.5 Sick sinus syndrome; J10.1 Influenza due to other identified influenza virus with other respiratory manifestations; J43.1 Panlobular emphysema; K21.9 Gastro-esophageal reflux disease without esophagitis; Z85.118 Personal history of other malignant neoplasm of bronchus and lung; Z85.21 Personal history of malignant neoplasm of larynx; Z86.73 Personal history of transient ischemic attack (TIA), and cerebral infarction without residual deficits; Z87.11 Personal history of peptic ulcer disease; Z87.19 Personal history of other diseases of the digestive system; Z87.442 Personal history of urinary calculi; Z92.21 Personal history of antineoplastic chemotherapy; Z92.3 Personal history of irradiation; Z79.899 Other long term (current) drug therapy; Z98.890 Other specified postprocedural states
CPT/HCPCS: 36415; 71045; 71275; 80048; 80307; 83735; 83880; 84484; 85025; 87426; 93005; 93454; 93567; 94760; 96374; 96375; 99152; 99153; 99285; C1769; C1894; G0378; J1644; J2250; J2270; J3010; J3490; Q9967; U0003; U0005; G0379